=== PATIENT | female | born 1950 | race Caucasian/White ===

== ENCOUNTER 2023-12-15 10:31 | Outpatient (OUT) | payer MEDICARE, SELFPAY ==
[2023-12-15 11:25] LABS: Bilirubin Urine NEGATIVE (NEGATIVE); Blood Urine NEGATIVE (NEGATIVE); Clarity Urine CLEAR (CLEAR); Color Urine LT. YELLOW (YELLOW); Glucose Urine UA NEGATIVE (NEGATIVE); Ketones Urine NEGATIVE (NEGATIVE); Leukocyte Esterase Urine MODERATE (NEGATIVE); Nitrite Urine NEGATIVE (NEGATIVE); Protein Urine NEGATIVE (NEG/TRACE); Urobilinogen Urine 0.2 EU/dL (0.2-1.0)
== END 2023-12-15 10:32 | disposition home or self-care (01) ==
LOC: LAB 10:35
PROVIDERS: PCP Family Medicine
DX: R30.0 Dysuria (principal)
CPT/HCPCS: 81003

== ENCOUNTER 2024-03-08 08:50 | Emergency (ER) | payer MEDICARE, SELFPAY ==
[2024-03-08 08:53] VITALS: BP 147/99; PULSE 78; TEMP 36.4; O2SAT 99; BMI 35.9
--- OUTSIDE RECORDS SUMMARY | 2024-03-08 09:19 | XMS_ITS | CCD ---
Author Organization [facility] CliniSyid Care Team Providers Care Coat Check Attendant Name Role Phone ShahramChika Attending Unavailable Rafi Budren Unavailable Unavailable Unavailable BETO Rutherford Attending Provider [phone] Clarisa Rutherford Unavailable NO FAMILY, PHYSICIAN Primary Care Provider Unava ilable DO Rafi Burden Primary Care Provider DO Rafi Burden Attending Provider [phone] RAFI BURDEN Primary Care Physician Asaad, Imad Unavailable RYLIE, DR ROWE Admitting Unavailable BRIAN, DR MCKEE Primary Care Unavailable RYLIE, DR ROWE Attending Unavailable RYLIE, DR ROWE Consulting Unavailable BRIAN, DR MCKEE Primary Care Unavailable NISHA, DR JAE Richards Consulting Unavailable MARAL HARRIS Admitting Unavailable MARAL HARRIS Attending Unavailable MARAL HARRIS Consulting Unavailable BRIAN, DR MCKEE Primary Care Unavailable AWILDA, DR XIMENA Murray Consulting Unavailable TATIANA AMES Admitting Unavailable TATIANA AMES Attending Unavailable TATIANA AMES Consulting Unavailable MIKAYLA JUSTICE Attending Unavailable MIKAYLA JUSTICE Consulting Unavailable BRIAN, DR MCKEE Primary Care Unavailable MIKAYLA JUSTICE Admitting Unavailable DIAMANTE, DR MYRNA Richards Admitting Unavailable BRIAN, DR MCKEE Primary Care Unavailable DIAMANTE, DR MYRNA Richards Attending Unavailable DIAMANTE, DR MYRNA Richards Consulting Unavailable ANGLE SCHNEIDER Consulting Unavailable DINORA SHARFI Consulting Unavailable BRIAN, DR MCKEE Primary Care Unavailable AWILDA, DR XIMENA Murray Consulting Unavailable TATIANA AMES Admitting Unavailable TATIANA AMES Attending Unavailable TATIANA AMES Consulting Unavailable DO Rafi Burden Primary Care Provider DO Viktoriya Chow Attending Provider [phone] DO Rafi Bruden Attending Provider DO Rafi Burden Primary Care Provider DO Rafi Burden Attending Provider [phone] BETO Rutherford Attending Provider NO FAMILY, PHYSICIAN Primary Care Provider Unava ilable Brian, DO Mckee Primary Care Provider [phone] BETO Ricks Attending Provider DO Rafi Burden Attending Provider Rafi Burden Attending Unavailable Rafi Burden Primary Care Unavailable Rafi Burden Admitting Unavailable Rafi Burden Primary Care Unavailable Brian, Rafi Admitting Unavailable Rafi Burden Attending Unavailable Brian, Rafi Primary Care Unavailable Brenda Ricks Attending Unavailable Jason, Brenda Admitting Unavailable Clarisa Rutherford Attending Unavailable Sangeeta, Clarisa Admitting Unavailable NO FAMILY, PHYSICIAN Primary Care Unavailable Brian, Rafi Primary Care Unavailable Rafi Burden Admitting Unavailable Rafi Burden Attending Unavailable Orzebethany, Karissa Mccallum Attending Unavailable TATIANA AMES Attending Unavailable Orzech, Karissa Mccallum Attending Unavailable Orzebethany, Karissa Mccallum Attending Unavailable RAFI BURDEN Attending Unavailable RAFI BURDEN Referring Unavailable BRENDA RICKS Attending Unavailable RAFI BURDEN Referring Unavailable BRENDA RICKS Attending Unavailable RAFI BURDEN Referring Unavailable DILSHAD GARCIA Attending Unavailable VIKTORIYA CHOW Attending Unavailable DILSHAD GARCIA Attending Unavailable DILSHAD GARCIA Attending Unavailable RAFI BURDEN Referring Unavailable SWATHI العراقي Attending Unavailable SWATHI العراقي Referring Unavailable Allergies Allergy Classification Reported Allergen(s) Allergy Type Date of Onset Reaction(s) Facility (1 source) No Known Medication Allergies; Translations: [No Known Medication Allergies] Propensity to adverse reactions (disorder) [facility] Repository Medications Current Medications Medication Drug Class(es) Dates Sig (Normalized) Sig (Original) 0.25 MG, 0.5 MG Dose 3 ML semaglutide 0.68 MG/ML Pen Injector [Ozempic] (1 source) Start: 02-08-2024 inject 0.5 mg by subcutaneous injection every week Ozempic 2 mg/3 mL (0.25 mg or 0.5 mg dose) subcutaneous solution INJECT 0.5 mg SUBCUTANEOUSLY ONCE A WEEK Start Date: 02/08/24 Status: Ordered ALPRAZolam 0.5 mg oral tablet (20 sources) Benzodiazepine Start: 08-04-2022 take 1 tablet by mouth three times daily as needed for anxiety alprazolam 0.5 mg Tab 0.5 mg = 1 tab(s), Oral, TID, PRN for anxiety, Refills(s) 0 Start Date: 08/04/22 Status: Ordered Start: 05-12-2017 take [address] twice daily Alprazolam Active 1 TAB PO Twice daily May 12, 2017 12:00am ALPRAZolam Activ e amitriptyline / perphenazine (17 sources) Phenothiazine, Tricyclic Antidepressant Start: 08-04-2022 amitriptyline-perphenazine Refill(s) 0 Start Date: 08/04/22 Status: Ordered Start: 05-12-2017 take [address] at bedtime Perphenazine-Amitriptyline Active 1 TAB PO Bedtime May 12, 2017 12:00am aspirin 81 mg oral tablet (20 sources) Platelet Aggregation Inhibitor, Nonsteroidal Anti-inflammatory Drug Start: 11-28-2021 take 81 mg by mouth once daily Aspirin Active 81 MG PO Daily November 28, 2021 12:00am Start: 08-14-2017 End: 09-13-2017 take 1 tablet by mouth once daily Aspirin (Aspir-) 81 mg tablet,delayed release (DR/EC) Discontinued 81 MG PO Daily August 14, 2017 1:00am September 13, 2017 1:08am atorvastatin 10 mg oral tablet (3 sources) HMG-CoA Reductase Inhibitor Start: 12-14-2023 take 10 mg by mouth once daily Atorvastatin Active 10 MG PO Daily December 14, 2023 12:00am bumetanide 1 mg oral tablet (20 sources) Loop Diuretic Start: 05-12-2017 take 1 tablet by mouth once daily bumetanide 1 mg Tab mg tab(s), Oral, Daily, Refills(s) 0 Start Date: 08/04/22 Status: Ordered Bumetanide Activ e gabapentin 300 mg oral capsule (20 sources) Anti-epileptic Agent Start: 08-04-2022 gabapenti n 300 mg Cap Refills(s) 0 Start Date: 08/04/22 Status: Ordered Start: 11-28-2021 take [address] th twice daily Gabapentin Active 1 TAB PO Twice daily November 28, 2021 4:50am Start: 05-12-2017 End: 11-28-2021 take 1 tablet by mouth three times daily Gabapentin Discontinued 1 TAB PO Three times daily 270 90 December 23, 2020 5:11pm November 28, 2021 4:50am Gabapentin Activ e hydroCHLOROthiazide 12.5 mg / losartan potassium 50 mg oral tablet (17 sources) Thiazide Diuretic, Angiotensin 2 Receptor Je Start: 08-04-2022 hydrochlorothiazide-losartan 12.5 mg-50 mg Tab Refill(s) 0 Start Date: 08/04/22 Status: Ordered Start: 05-12-2017 take [address] th once daily Losartan-Hydrochlorothiazide Active 1 TA B PO Daily May 12, 2017 12:00am letrozole 2.5 mg oral tablet (20 sources) Aromatase Inhibitor Start: 11-28-2021 take 1 mg by mouth once daily letrozole 2.5 mg Tab mg tab(s), Oral, Daily, Refills(s) 0 Start Date: 08/04/22 Status: Ordered Start: 05-12-2017 End: 03-09-2019 take 2.5 mg by mouth once daily Letrozole Discontinued 2.5 MG PO Daily February 24, 2019 1:26pm March 09, 2019 2:57pm Letrozole Active Losartan Potassium-HCTZ (3 sources) Losartan Potassi um-HCTZ Active 24 hr metoprolol succinate 25 mg extended release oral tablet (16 sources) beta-Adrenergic Je Start: 12-14-2023 Metoprolol Succinate Active MG PO December 14, 2023 12:00am Start: 08-15-2017 End: 08-22-2017 take 12.5 mg by mouth once daily Metoprolol Succinate Discontinued 12.5 MG PO Daily 3.5 7 August 15, 2017 1:00am August 22, 2017 1:04am take [address] once daily Metoprolol Succinate ER 25 MG Oral Tablet Extended Release 24 Hour TAKE 1 TABLET DAILY. Quantity: 90 Refills: 3 Ordered: 02-Jan-2022 DO Active 24 hr mirabegron 25 mg extended release oral tablet (1 source) beta3-Adrenergic Agonist Start: 02-08-2024 take 1 tablet by mouth once daily Myrbetriq 25 mg oral tablet, extended release 25 mg = 1 tab(s), Oral, Daily, # 30 tab(s), Refills(s) 11, Pharmacy: [id number], 136, cm, 02/08/24 13:18:00 EDT, Height/Length Dosing, 75, kg, 02/08/24 13:18:00 EDT, Weight Dosing Start Date: 02/08/24 Status: Ordered Perphenazine-Amitrip tyline (3 sources) Perphenazine-Ami t riptyline Active phenazopyridine hydrochloride 200 mg oral tablet (3 sources) Start: 06-01-2022 take 1 tablet by mouth every eight hours Pyridium 200 MG 1 tablet after meals Orally Three times a day for 2 day(s) May, Active pioglitazone 30 mg oral tablet (3 sources) Peroxisome Proliferator Receptor alpha Agonist, Peroxisome Proliferator Receptor gamma Agonist, Thiazolidinedione Start: 12-14-2023 take 30 mg by mouth once daily Pioglitazone Active 30 MG PO Daily December 14, 2023 12:00am polyethylene glycol 3350 [id number] mg / potassium chloride 2970 mg / sodium bicarbonate 6740 mg / sodium chloride 5860 mg / sodium sulfate 80795 mg powder for oral solution (1 source) Osmotic Laxative Start: 10-07-2022 PEG-3350/Electrol ytes 236 GM as directed Orally once daily for 1 days Sep, Active potassium chloride 20 meq oral tablet (20 sources) Start: 08-04-2022 Potassium Chloride (Eqv-K-Tab) 20 mEq oral tablet, extended release Refills(s) 0 Start Date: 08/04/22 Status: Ordered Start: 05-12-2017 take [address] th once daily Potassium Chloride Active 1 TAB PO Daily May 12, 2017 12:00am Klor-Con Active Potassium Chloride Deborah ER (3 sources) Potassium Chlori de Deborah ER Active Completed/Discontinued Medications Medication Drug Class(es) Dates Sig (Normalized) Sig (Original) [id number] actuat albuterol 0.09 mg/actuat metered dose inhaler (10 sources) beta2-Adrenergic Agonist Start: 11-28-2021 End: 10-29-2023 Albuterol Sulfate Discontinued 1 INH INHALATION Q6H 8.5 November 28, 2021 12:00am October 29, 2023 5:36pm Use 4 times a day for the next 5 days, then 4 times a day as needed. Ca-D3-Mag Vi-Eexe-Tql-Rogelio-B or (Calcium 600-D3 Plus) 600 mg calcium- 800 unit-50 mg Tablet (10 sources) Start: 05-12-2017 End: 11-28-2021 take 1 tablet by mouth once daily Ca-D3-Mag De-Irvp-Fvb-Rogelio-Osbaldo r (Calcium 600-D3 Plus) 600 mg calcium- 800 unit-50 mg Tablet Discontinued 1 TAB PO Daily May 12, 2017 12:00am November 28, 2021 4:49am Start: 05-12-2017 End: 11-28-2021 take 1 tablet by mouth once daily Ca-D3-Mag Wc-Mlxf-Nvt-Rogelio-Bor (Calcium 600-D3 Plus) 600 mg calcium- 800 unit-50 mg Tablet Discontinued 1 TAB PO Daily May 11, 2017 11:00pm November 28, 2021 3:49am estradiol 0.1 mg/ml vaginal cream (4 sources) Estrogen Start: 08-04-2022 estradiol 0.1 mg/g Vag Crm See Instructions, 42.5 gm, Refill(s) 11, 1 gm vaginally nightly x 3 weeks, then 3x per week thereafter. also apply a pea-sized amount around the urethra., [facility], 136, cm, 08/04/22 13:50:00 EST, Height/Length Dosing, 77, kg, 08/04/22 13:50:00 EST, Weight Dosing Start Date: 08/04/22 Status: Ordered methylPREDNISolone 32 mg oral tablet (10 sources) Corticosteroid Start: 11-28-2021 End: 10-29-2023 take 1 tablet by mouth once daily Methylprednisolone (Medrol) 32 mg tablet Discontinued 32 MG PO Daily November 28, 2021 12:00am October 29, 2023 5:36pm Multivitamin preparation (10 sources) Start: 05-12-2017 End: 11-28-2021 take 1 tablet by mouth once daily Multivitamin Discontinued 1 TAB PO Daily May 12, 2017 12:00am November 28, 2021 4:50am Start: 05-12-2017 End: 11-28-2021 take 1 tablet by mouth once daily Multivitamin Discontinued 1 TAB PO Daily May 11, 2017 11:00pm November 28, 2021 3:50am nitrofurantoin, macrocrystals 25 mg / nitrofurantoin, monohydrate 75 mg oral capsule (7 sources) Nitrofuran Antibacterial Start: 10-29-2023 End: 12-14-2023 take 1 capsule by mouth twice daily at mealtime Nitrofurantoin Monohyd/M-Cryst (Macrobid) 100 mg capsule Discontinued 100 MG PO Twice daily 04 22October 29, 2023 12:00am December 14, 2023 6:35pm must administer with a meal/food Start: 06-01-2022 take 1 capsule by mo ut every twelve hours Macrobid 100 MG 1 cap(s) Orally 2 times a day for 5 day(s) May, Active nitroglycerin 0.4 mg sublingual tablet (10 sources) Nitrate Vasodilator Start: 08-15-2017 End: 11-28-2021 Nitroglycerin Discontinued 0.4 MG SUBLINGUAL Q5M August 15, 2017 1:00am November 28, 2021 4:50am until response; do not exceed 3 doses per event simvastatin 40 mg oral tablet (10 sources) HMG-CoA Reductase Inhibitor Start: 08-14-2017 End: 09-13-2017 take 40 mg by mouth once daily Simvastatin Discontinued 40 MG PO Daily August 14, 2017 1:00am September 13, 2017 1:08am Problems Active Problems Problem Classification Problem Date Documented Date Episodic/Chronic Acute bronchitis (10 sources) Acute bronchitis; Translations: [Acute bronchitis, unspecified] 11-28-2021 Episodic Acute myocardial infarction (14 sources) Myocardial infarction; Translations: [Non-ST elevation (NSTEMI) myocardial infarction] Onset: 11-28-2021 03-10-2019 Chronic Anxiety disorders (14 sources) Anxiety; Translations: [Anxiety disorder, unspecified] 03-10-2019 Chronic Calculus of urinary tract (10 sources) History of calculus of kidney; Translations: [Personal history of urinary calculi] Onset: 08-04-2022 Episodic Cancer of breast (10 sources) Malignant tumor of breast ; Translations: [Malignant neoplasm of unspecified site of unspecified female breast] 03-10-2019 Chronic Cardiac and circulatory congenital anomalies (10 sources) Bicuspid aortic valve; Translations: [Congenital insufficiency of aortic valve] 11-28-2021 Chronic Cardiac dysrhythmias (2 sources) Ventricular premature depolarization; Translations: [Ventricular tachycardia] Onset: 12-01-2021 Chronic Chronic kidney disease (1 source) Chronic kidney disease, unspecified; Translations: [Chronic kidney disease, unspecified] Onset: 03-09-2023 Chronic Chronic kidney disease (1 source) Chronic kidney disease; Translations: [Chronic kidney disease, stage 3b] Onset: 01-27-2024 Congestive heart failure; nonhypertensive (5 sources) Heart failure; Translations: [Heart failure, unspecified] Onset: 12-01-2021 08-04-2022 Chronic Coronary atherosclerosis and other heart disease (14 sources) Acute coronary syndrome; Translations: [Acute ischemic heart disease, unspecified] Onset: 07-16-2021 03-10-2019 Chronic Diabetes mellitus with complications (1 source) Type 2 diabetes mellitus with other circulatory complications; Translations: [Type 2 diabetes mellitus with other circulatory complications] Onset: 01-27-2024 Chronic Diabetes mellitus without complication (5 sources) Type 2 diabetes mellitus; Translations: [Type 2 diabetes mellitus without complications] Onset: 01-07-2022 08-04-2022 Chronic Diabetes mellitus without complication (1 source) Diabetes mellitus without complication; Translations: [Type 2 diabetes mellitus with diabetic chronic kidney disease] Onset: 03-09-2023 Disorders of lipid metabolism (15 sources) Hyperlipidemia; Translations: [Hyperlipidemia, unspecified] Onset: 01-07-2022 03-10-2019 Chronic Diverticulosis and diverticulitis (3 sources) Diverticulosis of sigmoid colon; Translations: [Diverticulosis of large intestine without perforation or abscess without bleeding] Chronic Esophageal disorders (14 sources) Gastroesophageal reflux disease; Translations: [Gastro-esophageal reflux disease without esophagitis] 03-10-2019 Chronic Essential hypertension (18 sources) Benign essential hypertension; Translations: [Benign essential hypertension] Onset: 01-07-2022 03-10-2019 Chronic Genitourinary symptoms and ill-defined conditions (4 sources) Urge incontinence; Translations: [Urge incontinence of urine] Onset: 12-28-2023 Chronic Hypertension with complications and secondary hypertension (3 sources) Hypertensive heart disease with heart failure; Translations: [Hypertension secondary to endocrine disorders] Onset: 12-01-2021 Chronic Menopausal disorders (10 sources) Menopausal syndrome; Translations: [Menopausal and female climacteric states] 09-08-2018 Chronic Other and unspecified benign neoplasm (3 sources) Benign neoplasm of cecum; Translations: [Benign neoplasm of cecum] Episodic Other connective tissue disease (5 sources) Other symptoms and signs involving the musculoskeletal system; Translations: [OTH SX AND SYMP INVOLV MUSCULOSKELTAL] Onset: 06-16-2022 Episodic Other hematologic conditions (13 sources) Raised cardiac enzyme or marker; Translations: [Other abnormal blood chemistry] 11-28-2021 Episodic Other nutritional; endocrine; and metabolic disorders (4 sources) Body mass index 40+ - severely obese; Translations: [Morbid obesity] Onset: 12-28-2023 Chronic Other nutritional; endocrine; and metabolic disorders (1 source) Obesity, unspecified; Translations: [Obesity, unspecified] Onset: 01-27-2024 Chronic Other screening for suspected conditions (not mental disorders or infectious disease) (14 sources) Patient encounter status; Translations: [Encounter for screening for osteoporosis] Onset: 01-13-2024 09-08-2018 Episodic [place]-; endo-; and myocarditis; cardiomyopathy (except that caused by tuberculosis or sexually transmitted disease) (13 sources) Hypertrophic cardiomyopathy; Translations: [Other hypertrophic cardiomyopathy] 11-28-2021 Chronic Residual codes; unclassified (3 sources) Family history of polyp of colon; Translations: [Family history of colonic polyps] Episodic Unclassified (2 sources) COUGH, UNSPECIFIED; Translations: [COUGH, UNSPECIFIED] Onset: 12-01-2021 Unclassified (1 source) CONTACT W/AND (SUSP) EXPOS COVID-19; Translations: [CONTACT W/AND (SUSP) EXPOS COVID-19] Onset: 12-01-2021 Urinary tract infections (16 sources) Urinary tract infection, site not specified; Translations: [Urinary tract infectious disease] Onset: 08-04-2022 Episodic Past or Other Problems Problem Classification Problem Date Documented Date Episodic/Chronic Chronic obstructive pulmonary disease and bronchiectasis (1 source) Bronchitis, not specified as acute or chronic; Translations: [BRONCHITIS NOT SPEC ACUTE/CHRON] Onset: 12-01-2021 Episodic Genitourinary symptoms and ill-defined conditions (19 sources) Dysuria; Translations: [Dysuria] Onset: 06-05-2022 Episodic Other aftercare (1 source) Other vermin exterminator (current) drug therapy; Translations: [OTH LONGTERM CURRENT DRUG THERAPY] Onset: 12-01-2021 Episodic Other hematologic conditions (1 source) Other specified abnormalities of plasma proteins; Translations: [OTH SPEC ABNORM PLASMA PROTEINS] Onset: 12-01-2021 Episodic Residual codes; unclassified (1 source) Personal history of other specified conditions; Translations: [PERSONAL HISTORY OTH SPEC CONDITION] Onset: 12-01-2021 Episodic Thyroid disorders (1 source) Disorder of thyroid, unspecified; Translations: [DISORDER OF THYROID UNSPECIFIED] Onset: 06-20-2022 Episodic Unclassified (3 sources) Never smoked tobacco; Translations: [Never a smoker] Unclassified (1 source) COUGH, UNSPECIFIED; Translations: [COUGH, UNSPECIFIED] Onset: 11-28-2021 Results Test Name Value Interpretation Reference Range Facility Ambulatory Visit Summaryon 0 02-08-2024 Ambulatory Visit Summary Ambulatory Visit Summary LARISA LO :1950 Visit Date:02/08/2024 Ambulatory Visit Instructions Your Diagnosis Urge incontinence History of kidney stones Frequent UTI Your Care Team Attending Physician - RICHIE Carrasco APRN, Karissa Mccallum Primary Care Physician - RAFI BURDEN DO This Is Your Medications List estradiol topical (estradiol 0.1 mg/g Vag Crm) mirabegron (Myrbetriq 25 mg oral tablet, extended release) Contact prescribing physician if questions or concerns alprazolam (alprazolam 0.5 mg Tab) amitriptyline-perphenazine bumetanide (bumetanide 1 mg Tab) gabapentin (gabapentin 300 mg Cap) hydrochlorothiazide-losart an (hydrochlorothiazide-losar horne 12.5 mg-50 mg Tab) letrozole (letrozole 2.5 mg Tab) potassium chloride (Potassium Chloride (Eqv-K-Tab) 20 mEq oral tablet, extended release) semaglutide (Ozempic 2 mg/3 mL (0.25 mg or 0.5 mg dose) subcutaneous solution) Procedures Performed Lumpectomy of breast. Discharge Vitals Heart Rate (Peripheral) 72 Respiratory Rate 16 Blood Pressure 132/80 Height 136 cm Height 54 in Weight 75 kg Weight 165 lb BMI 40.55 What to do next Scheduled Follow-Up Appointments Wednesday 2:30 PM EDT With: RICHIE Carrasco APRN, [facility] Where: [facility] [address] [place] [address] [place] [address]- You Need to Schedule the Following Appointments Follow Up with RICHIE Carrasco APRN, [facility], FAM, URL When: Where: Medications What How Much When Why Instructions Unchanged estradiol topical (estradiol 0.1 mg/ g Vag Crm) See instructions Frequent UTI History of kidney stones 1 gm vaginally nightly x 3 weeks, then 3x per week thereafter. also apply a pea-sized amount around the urethra. Unchanged mirabegron (Myrbetriq 25 mg oral tablet, extended release) 1 Tablets By Mouth Every day Urge incontinence Pickup at [facility] Unchanged alprazolam (alprazolam 0.5 mg Tab) 1 Tablets By Mouth 3 times a day as needed for for anxiety Contact prescribing physician if questions or concerns Unchanged amitriptyline-perphenazine Contact prescribing physician if questions or concerns Unchanged bumetanide (bumetanide 1 mg Tab) By Mouth Every day Contact prescribing physician if questions or concerns Unchanged gabapentin (gabapentin 300 mg Cap) Contact prescribing physician if questions or concerns Unchanged hydrochlorothiazide-losart an (hydrochlorothiazide-losar horne 12.5 mg-50 mg Tab) Contact prescribing physician if questions or concerns Unchanged letrozole (letrozole 2.5 mg Tab) By Mouth Every day Contact prescribing physician if questions or concerns Unchanged potassium chloride (Potassium Chloride (Eqv-K-Tab) 20 mEq oral tablet, extended release) Contact prescribing physician if questions or concerns Unchanged semaglutide (Ozempic 2 mg/ 3 mL (0.25 mg or 0.5 mg dose) subcutaneous solution) INJECT 0.5 mg SUBCUTANEOUSLY ONCE A WEEK Contact prescribing physician if questions or concerns Pharmacy Information [id number]: [address] [place] [id number] [phone] Allergies No Known Medication Allergies Problems Ongoing - Any problem that you are currently receiving treatment for. Anxiety Benign essential hypertension Coronary atherosclerosis Frequent UTI Gastroesophageal reflux disease Heart failure History of kidney stones Hyperlipidemia Myocardial infarction Type 2 diabetes mellitus Urge incontinence Patient Survey You may receive a survey via text or e-mail asking about your office visit. Please share your experience with us by completing your survey. We appreciate your feedback and thank you for choosing us for your care. Education Materials Urinary Incontinence Urinary incontinence refers to a condition in which a person is unable to control where and when to pass urine. A person with this condition will urinate involuntarily. This means that the person urinates when he or she does not mean to. What are the causes? This condition may be caused by: ? Medicines. ? Infections. ? Constipation. ? Overactive bladder muscles. ? Weak bladder muscles. ? Weak pelvic floor muscles. These muscles provide support for the bladder, intestine, and, in women, the uterus. ? Enlarged prostate in men. The prostate is a gland near the bladder. When it gets too big, it can pinch the urethra. With the urethra blocked, the bladder can weaken and lose the ability to empty properly. ? Surgery. ? Emotional factors, such as anxiety, stress, or post-traumatic stress disorder (PTSD). ? Spinal cord injury, nerve injury, or other neurological conditions. ? Pelvic organ prolapse. This happens in women when organs move out of place and into the vagina. This movement can prevent the bladder and urethra from working properly. What increases the r (more content not included)... Normal [facility] Urology Office/Clinic Noteon 02-08-2024 Urology Office/Clinic Note Urology Office/Clinic Note Chief Complaint f/u to starting Estrogen Cream & Myrbetriq HPI Staff 74 year old female patient presents today for a 5 week follow up to starting Estrace Cream & Myrbetriq 25mg qd therapy. DX: Frequent UTI & Hx of Kidney Stones Is using Estrogen Cream 3x/week. Denies UTI since last encounter. Denies pain/burning w/urination. Does note some pressure. Did not start Myrbetriq. States she was not aware of the script. Does have some incontinence. Not daily. Usually with urgency. Pt did not give sample. States she voided prior to appt. History of Present Illness Tests reviewed: none. I have reviewed the previous health record information and history for this patient from [facility]. I have reviewed and verified the staff HPI to be accurate for this encounter. There have been no associated fever, chills, flank pain, or blood in the urine. Denies any urinary infections since last encounter. Review of Systems PHQ Score Initial Depression Screen Score: 0 SCORE ROS - Provider Constitutional: denies weight loss, denies hot flashes. Eyes: denies eye problems. Gastrointestinal: denies nausea, denies vomiting. Cardiovascular: denies chest pain or angina. Integumentary: no dryness Musculoskeletal: denies musculoskeletal symptoms. ENMT: denies otolaryngeal symptoms. Respiratory: no shortness of breath. Heme/Lymph: denies easy bleeding tendency, denies easy bruising tendency. Psychiatric: no confusion, no anxiety. Genitourinary: See HPI. Physical Exam Vitals & Measurements HR: 72(Peripheral) RR: 16 BP: 132/80 HT: 54 in HT: 136 cm WT: 75 kg WT: 165 lb BMI: 40.55 General Appearance: alert , no acute distress, well nourished, well developed female. Assessment/Plan Primary historian is pt's however pt does not wish for him to be in the room with her. Spoke with separately to obtain accurate information. states that pt falls very often, every 2-3 days mainly when she is trying to get to the bathroom. Pt states that last time she fell was over a month ago. He also states he has noticed a cognitive decline in pt within the last 3-4 months. Has not been sleeping well. Strongly advised pt's that they need to consult with primary care due to frequent falls, issues with sleeping and confusion. 1. Urge incontinence (N39.41: Urge incontinence) Has had mild UUI for a long time, leaks some on the way to the bathroom but recently worsening since the beginning of the year. Over the past few mos, also started to have full incontinence episodes - going through several depends daily. PVR 01/03/24: ~115 ml Started on Myrbetriq 25mg ER qd last visit. Reports that she never picked up a medication because the pharmacy did not call her. Shares that the severity of leakage comes and goes. Pt states leakage happens out of no where. Voided prior to appt. States she will try to void when she gets home. Again discussed the importance of timed voids. Advised pt that she needs to go sit on the toilet every 2 hours even without the urge to void. Will resend script for Myrbetriq. Pt to call our office if med is costly. Discussed more invasive tx such as Botox. -Timed voids -Begin Myrbetriq 25mg ER qd Follow up in 6 wks w/ PVR (as long as it's available). 2. History of kidney stones (Z87.442: Personal history of urinary calculi) Renal US 08/10/2022 and KUB 11/05/2023 negative Denies any recent stone episode, no flank pain. 3. Frequent UTI (N39.0: Urinary tract infection, site not specified) Restarted on Estrace cream at last visit due to pt stopping cream. Pt states she is still applying cream. Denies known UTIs since last visit. Asx. States she has not been checked for a UTI. Pt did not provide UA sample today. Follow-up With When Contact Information RICHIE Carrasco APRN, Karissa Mccallum, FAM, URL Additional Instructions: 6 wks w/ PVR Patient Education Urinary Incontinence I, Brittnee Peacock, personally scribed for RICHIE Monreal, KYA on 02/08/2024 13:41:45. . Documentation recorded by the chrissy Peacock accurately reflects the services(s) I performed and decisions made by me. Authenticated by Karissa Carrasco APRN, FNP-C on 02/08/2024 13:51:40. Problem List/Past Medical History Ongoing Anxiety Benign essential hypertension Coronary atherosclerosis Frequent UTI Gastroesophageal reflux disease Heart failure History of kidney stones Hyperlipidemia Myocardial infarction Type 2 diabetes mellitus Urge incontinence Historical No qualifying data Procedure/Surgical History Lumpectomy of breast. Medications alprazolam 0.5 mg Tab, 0.5 mg= 1 tab(s), Oral, TID, PRN amitriptyline-perphenazine bumetanide 1 mg Tab, Oral, Daily estradiol 0.1 mg/g Vag Crm, See Instructions, 11 refills gabapentin 300 mg Cap hydrochlorothiazide-losart an 12.5 mg-50 mg Tab letrozole 2.5 (more content not included)... Normal [facility] Comment on above: Result Comment: Elec tronically Signed By: RICHIE Carrasco APRN, [place] X\.br\Date and Time Signed: 02/08/24 13:51 EDT\.br\Electronically Co-Signed By: Brittnee Peacock\.br\Date and Time Co-Signed: 02/08/24 13:42 EDT A1C with Estimated Average Digna ramirez 01-27-2024 Glucose [Mass/Vol] 151 mg/dL Normal [facility] Comment on above: Result Comment: PERF ORMED BY: [place] [address] PATHOLOGIST COGENERATION TECHNICIAN ABNER JOHNSTON M.D. Performed By: #### L IPID, CMP #### [facility] [address] [place] [address] HbA1c (Bld) [Mass fraction] 6.9 % High 4.3-5.6 [facility] Comment on above: Result Comment: Incr eased risk for diabetes: 5.7 - 6.4 diabetes: >6.4 glycemic control for adults with diabetes: <7.0 Performed By: #### L IPID, CMP #### [facility] [address] [place] [address] [place] Alanine aminotransferase [En zymatic activity/volume] in Serum or PlasmaOrdered By: Rafi Burden on 01-27-2024 ALT [Catalytic activity/Vol] 22 U/L Normal 7-52 [facility] Comment on above: Performed By: #### L IPID, CMP #### [facility] [address] [place] [address] [place] Albumin [Mass/volume] in Ser um or Plasma by Bromocresol green (BCG) dye binding methoOrdered By: Rafi Burden on 01-27-2024 Albumin BCG dye [Mass/Vol] 4.4 g/dL 3.5-5.7 [facility] Alkaline phosphatase [Enzyma tic activity/volume] in Serum or PlasmaOrdered By: Rafi Burden on 01-27-2024 ALP [Catalytic activity/Vol] 66 U/L Normal 34-104 [facility] Comment on above: Result Comment: PERF ORMED BY: [place] [address] PATHOLOGIST COGENERATION TECHNICIAN ABNER JOHNSTON M.D. Performed By: #### L IPID, CMP #### [address] Aspartate aminotransferase [ Enzymatic activity/volume] in Serum or PlasmaOrdered By: Rafi Burden on 01-27-2024 AST [Catalytic activity/Vol] 19 U/L Normal 13-39 [facility] Comment on above: Performed By: #### L IPID, CMP #### [place] [address] [place] Bilirubin.total [Mass/volume ] in Serum or PlasmaOrdered By: Rafi Burden on 01-27-2024 Bilirubin [Mass/Vol] 0.5 mg/dL Normal 0.3-1.[address] [facility] Comment on above: Performed By: #### L IPID, CMP #### [place] [address] [place] Calcium [Mass/volume] in Ser um or PlasmaOrdered By: Rafi Burden on 01-27-2024 Calcium [Mass/Vol] 10.1 mg/dL Normal 8.6-10.3 [facility] Comment on above: Performed By: #### L IPID, CMP #### [place] [address] [place] Carbon dioxide, total [Moles /volume] in Serum or PlasmaOrdered By: Rafi Burden on 01-27-2024 CO2 [Moles/Vol] 34.8 mmol/L High 21.0-31.0 [facility] Comment on above: Performed By: #### L IPID, CMP #### [place] [address] [place] Chloride [Moles/volume] in S janeth or PlasmaOrdered By: Rafi Burden on 01-27-2024 Chloride [Moles/Vol] 99 mmol/L Normal 98-[address] [facility] Comment on above: Performed By: #### L IPID, CMP #### [address] Comprehensive Metabolic Pane yan 01-27-2024 Albumin [Mass/Vol] 4.4 g/dL Normal 3.5-5.7 [facility] Comment on above: Performed By: #### L IPID, CMP #### [address] GFR/1.73 sq M.predicted MDRD (S/P/Bld) [Vol rate/Area] 33.425 mL/min/{1.73_m2} Normal [facility] Comment on above: Performed By: #### L IPID, CMP #### [address] Creatinine [Mass/volume] in Serum or PlasmaOrdered By: Rafi Burden on 01-27-2024 Creatinine [Mass/Vol] 1.60 mg/dL High 0.60-1.20 [facility] Comment on above: Performed By: #### L IPID, CMP #### [address] Erythrocyte distribution wid th [Ratio] by Automated countOrdered By: Rafi Burden on 01-27-2024 Erythrocyte distribution width (RBC) [Ratio] 14.0 % Normal 11.9-15.3 [facility] Comment on above: Performed By: #### C BCNO #### [address] Erythrocytes [#/volume] in B lood by Automated countOrdered By: Rafi Burden on 01-27-2024 RBC (Bld) [#/Vol] 4.09 10*6/uL Normal 3.60-5.00 [facility] Comment on above: Performed By: #### C BCNO #### [address] Glucose [Mass/volume] in Ser um or PlasmaOrdered By: Rafi Burden on 01-27-2024 Glucose [Mass/Vol] 160 mg/dL High 70-100 [facility] Comment on above: ADA recommended refe rence rangeRandom Glucose Reference Range is dependent on time and content of last meal. Glucose of more than 200 mg/dL in a nonstressed, ambulatory subject supports the diagnosis of Diabetes Mellitus. Result Comment: [facility] Glucose Reference Range is dependent on time and content of last meal. Glucose of more than 200 mg/dL in a nonstressed, ambulatory subject supports the diagnosis of Diabetes Mellitus. ADA recommended reference range Performed By: #### L IPID, CMP #### [address] Hematocrit [Volume Fraction] of Blood by Automated countOrdered By: Rafi Burden on 01-27-2024 Hematocrit (Bld) [Volume fraction] 40.1 % Normal 34.0-46.4 [facility] Comment on above: Performed By: #### C BCNO #### [address] Hemoglobin [Mass/volume] in BloodOrdered By: Rafi Burden on 01-27-2024 Hemoglobin (Bld) [Mass/Vol] 13.3 g/dL Normal 11.8-15.4 [facility] Comment on above: Performed By: #### C BCNO #### [address] Hemogram CBC Without Diffon 01-27-2024 Mean Corpuscular HGB Conc 33.1 g/dL Normal 32.0-35.0 [facility] Comment on above: Performed By: #### C BCNO #### [address] WBC (Bld) [#/Vol] 7.4 10*3/uL Normal 3.8-11.6 [facility] Comment on above: Performed By: #### C BCNO #### [place] [address] [place] Leukocytes [#/volume] correc pratibha for nucleated erythrocytes in Blood by Automated counOrdered By: Rafi Burden on 01-27-2024 WBC corrected for nucl RBC Auto (Bld) [#/Vol] 7.4 10*3/uL 3.8-11.6 [facility] MCH [Entitic mass] by Automa pratibha countOrdered By: Rafi Burden on 01-27-2024 MCH (RBC) [Entitic mass] 32.5 pg Normal 24.7-34.3 [facility] Comment on above: Performed By: #### C BCNO #### [address] MCHC Auto (RBC) [Mass/Vol]Or dered By: Rafi Burden on 01-27-2024 MCHC (RBC) [Mass/Vol] 33.1 g/dL 32.0-35.0 [facility] MCV [Entitic volume] by Auto mated countOrdered By: Rafi Burden on 01-27-2024 MCV (RBC) [Entitic vol] 98.1 fL Normal 80-100 [facility] Comment on above: Performed By: #### C BCNO #### [address] No Panel InformationOrdered By: Rafi Burden on 01-27-2024 Estimated GFR (CKD-EPI) 33.425 mL/Min [facility] Creatinine Clearance (Chem N/A [facility] Platelet mean volume [Entiti c volume] in Blood by Automated countOrdered By: Rafi Burden on 01-27-2024 Platelet mean volume (Bld) [Entitic vol] 8.0 fL Normal 6.3-10.7 [facility] Comment on above: Result Comment: PERF ORMED BY: [address] [place] [address] PATHOLOGIST COGENERATION TECHNICIAN ABNER JOHNSTON M.D. Performed By: #### C BCNO #### [address] Platelets [#/volume] in Bloo d by Automated countOrdered By: Rafi Burden on 01-27-2024 Platelets (Bld) [#/Vol] 271 10*3/uL Normal 150-450 [facility] Comment on above: Performed By: #### C BCNO #### [address] Potassium [Moles/volume] in Serum or PlasmaOrdered By: Rafi Burden on 01-27-2024 Potassium [Moles/Vol] 4.0 mmol/L Normal 3.5-5.1 [facility] Comment on above: Performed By: #### L IPID, CMP #### [address] Protein [Mass/volume] in Ser um or PlasmaOrdered By: Rafi Burden on 01-27-2024 Protein [Mass/Vol] 7.5 g/dL Normal 6.4-8.9 [facility] Comment on above: Performed By: #### L IPID, CMP #### [address] Serum globulin measurement b y calculation (mass/volume)Ordered By: Rafi Burden on 01-27-2024 Globulin (S) [Mass/Vol] 3.1 g/dL [facility] Comment on above: Performed By: #### L IPID, CMP #### [address] Serum or plasma albumin/glob ulin mass ratioOrdered By: Rafi Burden on 01-27-2024 Albumin/Globulin [Mass ratio] 1.4 {ratio} [facility] Comment on above: Performed By: #### L IPID, CMP #### [address] Serum or plasma anion gap de terminationOrdered By: Rafi Burden on 01-27-2024 Anion gap [Moles/Vol] 13.2 mmol/L Normal 6.0-15.0 [facility] Comment on above: Performed By: #### L IPID, CMP #### [place] [address] [place] Sodium [Moles/volume] in Ser um or PlasmaOrdered By: Rafi Burden on 01-27-2024 Sodium [Moles/Vol] 143 mmol/L Normal 136-145 [facility] Comment on above: Performed By: #### L IPID, CMP #### [place] [address] [place] Urea nitrogen [Mass/volume] in Serum or PlasmaOrdered By: Rafi Burden on 01-27-2024 Urea nitrogen [Mass/Vol] 38 mg/dL High 7-25 [facility] Comment on above: Performed By: #### L IPID, CMP #### [place] [id number] [facility] MM screening mammo BI w/CADo n 01-13-2024 MM screening mammo BI w/CAD [facility] [address] [place] [address] Mammography Report Signed Patient: Larisa Lo MR#: [id number] 271 : 1950 Acct:[id number] Age/Sex: 73 / F ADM Date: 01/13/24 Loc: [place] Room: Type: [facility] Attending Dr: Brenda WANGC Copies to: RICHIE Cowan DO Ordering Provider: RICHIE Cowan Date of Service: 01/13/24 MM/MM screening mammo BI w/CAD: screen CLINICAL DATA: Screening for malignancy. History of left-sided breast cancer status post lumpectomy in 2013. SCREENING MAMMOGRAM - FULL FIELD DIGITAL WITH TOMOSYNTHESIS AND CAD COMPARISON:Mammograms dating back to 2019 Tomosynthesis craniocaudal and mediolateral oblique views of both breasts were obtained using low- dose digital technique. This examination was reviewed with the aid of CAD. FINDINGS: The breast tissue is composed of scattered fibroglandular densities. There are no dominant masses, typically malignant calcifications or architectural distortion. There has been no significant interval change. MM/MM screening mammo BI w/CAD IMPRESSION: NO MAMMOGRAPHIC EVIDENCE OF MALIGNANCY. ROUTINE FOLLOW-UP IS RECOMMENDED IN ONE YEAR. RESULT CODE: 1 Negative DENSITY CODE: 2 (approximately 25-50% glandular) FOLLOW UP: 1YR The false-negative rate of mammography is approximately 10-percent. Management of a palpable abnormality must be based on clinical grounds. Patient was entered into a reminder system with a target due date for the next mammogram. Impression dictated by: Manny Blanco Jr., D.O.01/13/2024 11:40 AM Dictation Location: [facility] Transcribed By: MICHI 01/13/24 1140 Dictated By: Manny Blanco Jr, 01/13/24 1139 Signed By: 01/13/24 1140 Normal [facility] Patient Educationon 01-03-20 Patient Education Obstetrics and Gynec ology Kegel Exercises Kegel exercises can help strengthen your pelvic floor muscles. The pelvic floor is a group of muscles that support your rectum, small intestine, and bladder. In females, pelvic floor muscles also help support the uterus. These muscles help you control the flow of urine and stool (feces). Kegel exercises are painless and simple. They do not require any equipment. Your provider may suggest Kegel exercises to: ? Improve bladder and bowel control. ? Improve sexual response. ? Improve weak pelvic floor muscles after surgery to remove the uterus (hysterectomy) or after , in females. ? Improve weak pelvic floor muscles after prostate gland removal or surgery, in males. Kegel exercises involve squeezing your pelvic floor muscles. These are the same muscles you squeeze when you try to stop the flow of urine or keep from passing gas. The exercises can be done while sitting, standing, or lying down, but it is best to vary your position. Ask your health care provider which exercises are safe for you. Do exercises exactly as told by your health care provider and adjust them as directed. Do not begin these exercises until told by your health care provider. Exercises How to do Kegel exercises: 1. Squeeze your pelvic floor muscles tight. You should feel a tight lift in your rectal area. If you are a female, you should also feel a tightness in your vaginal area. Keep your stomach, buttocks, and legs relaxed. 2. Hold the muscles tight for up to 10 seconds. 3. Breathe normally. 4. Relax your muscles for up to 10 seconds. 5. Repeat as told by your health care provider. Repeat this exercise daily as told by your health care provider. Continue to do this exercise for at least 4?6 weeks, or for as long as told by your health care provider. You may be referred to a physical therapist who can help you learn more about how to do Kegel exercises. Depending on your condition, your health care provider may recommend: ? Varying how long you squeeze your muscles. ? Doing several sets of exercises every day. ? Doing exercises for several weeks. ? Making Kegel exercises a part of your regular exercise routine. This information is not intended to replace advice given to you by your health care provider. Make sure you discuss any questions you have with your health care provider. Document Revised: 11/13/2021 Document Reviewed: 11/13/2021 [employer] Patient Education ? 2022 [employer] Overactive Bladder, Adult Overactive bladder is a condition in which a person has a sudden and frequent need to urinate. A person might also leak urine if he or she cannot get to the bathroom fast enough (urinary incontinence). Sometimes, symptoms can interfere with work or social activities. What are the causes? Overactive bladder is associated with poor nerve signals between your bladder and your brain. Your bladder may get the signal to empty before it is full. You may also have very sensitive muscles that make your bladder squeeze too soon. This condition may also be caused by other factors, such as: ? Medical conditions: ? Urinary tract infection. ? Infection of nearby tissues. ? Prostate enlargement. ? Bladder stones, inflammation, or tumors. ? Diabetes. ? Muscle or nerve weakness, especially from these conditions: ? A spinal cord injury. ? Stroke. ? Multiple sclerosis. ? Parkinson's disease. ? Other causes: ? Surgery on the uterus or urethra. ? Drinking too much caffeine or alcohol. ? Certain medicines, especially those that eliminate extra fluid in the body (diuretics). ? Constipation. What increases the risk? You may be at greater risk for overactive bladder if you: ? Are an older adult. ? Smoke. ? Are going through menopause. ? Have prostate problems. ? Have a neurological disease, such as stroke, dementia, Parkinson's disease, or multiple sclerosis (MS). ? Eat or drink alcohol, spicy food, caffeine, and other things that irritate the bladder. ? Are overweight or obese. What are the signs or symptoms? Symptoms of this condition include a sudden, strong urge to urinate. Other symptoms include: ? Leaking urine. ? Urinating 8 or more times a day. ? Waking up to urinate 2 or more times overnight. How is this diagnosed? This condition may be diagnosed based on: ? Your symptoms and medical history. ? A physical exam. ? Blood or urine tests to check for possible causes, such as infection. You may also need to see a health care provider who specializes in urinary tract problems. This is called a urologist. How is this treated? Treatment for overactive bladder depends on the cause of your condition and whether it is mild or severe. Treatment may include: ? Bladder training, such as: ? Learning to control the urge to urinate by following a schedule to urinate at regular intervals. ? Doing Kegel exer (more content not included)... Normal [facility] Urology Office/Clinic Noteon 01-03-2024 Urology Office/Clinic Note Chief Complaint 6m HPI Staff 6m DX: Frequent UTI & Hx of Kidney Stones *Estrogen Cream therapy Pt is a poor historian. States she Just started using the Estrogen Cream a couple days ago. States she is using it everyday. Has been having incontinence. Wears a pad. Changes 1-4x/day. History of Present Illness I have reviewed and verified the staff HPI to be accurate for this encounter. Portions of this record may have been created with voice recognition artificial intelligence software, specifically [employer], [employer] and or [employer]. Substitutions may have occurred due to the inherent limitations of voice recognition and artificial intelligence software. Review of Systems PHQ Score Initial Depression Screen Score: 0 SCORE Physical Exam Vitals & Measurements HT: 54 in HT: 136 cm WT: 86.5 kg WT: 190.3 lb BMI: 46.77 General: Well developed, well nourished, in no acute distress. Pt is here w/ today who assists in providing some of her history. Genitourinary: Flank Pain: none. Bladder: nonpalpable. Assessment/Plan 1. Urge incontinence (N39.41: Urge incontinence) Has had mild UUI for a long time, leaks some on the way to the bathroom but recently worsening since the beginning of the year. Over the past few mos, also started to have full incontinence episodes - going through several depends daily. q3hr frequency - discussed more frequent timed voids q2hrs and voiding maneuvers. Discussed bladder irritants, avoid. Stopped estrogen cream previously, discussed purpose in setting of urgency as well as UTIs. Pt to restart. PVR 115 ml Discussed use of anticholinergic and beta 3 agonists for bladder control. Typically, insurance requires the failure of two anticholinergic medications before considering beta 3 agonist such as Myrbetriq/Gemtesa. Even w/ insurance coverage, beta 3 agonist may be cost prohibitive. However, I do not believe she is a good candidate for anticholinergic medications, given her intermittent confusion, falls, chronically dry eyes. Discussed SEs for Myrbetriq. Pt would like to trial. Discussed w/ to call office if not covered or too expensive. -restart estrogen cream regimen -Start Myrbetriq ER 25 mg QD. If too expensive, will trial Gemtesa. -f/u 8 wks w/ PVR 2. History of kidney stones (Z87.442: Personal history of urinary calculi) R US 08/10/2022 and KUB 11/05/2023 negative Denies any recent stone episode, no flank pain 3. Frequent UTI (N39.0: Urinary tract infection, site not specified) Estrogen cream and OTC preventative supplements. Pt unsure if she has been treated for UTI since prior OV. At one point she verbalizes having UTIs often still, at another point says she's been doing great. No record of any UCX found on [facility]. Does admit she has not been using estrogen cream, thought she could stop. Reiterated purpose of estrace, restart. No urine provided for specimen today. Denies any sxs of UTI at this time, denies recent episode of gross hematuria. Pt to call office w/ all future urinary sxs. -Restart Estrogen cream Follow-up No qualifying data available Patient Education Kegel Exercises Urinary Incontinence Overactive Bladder, Adult Problem List/Past Medical History Ongoing Anxiety Benign essential hypertension Coronary atherosclerosis Frequent UTI Gastroesophageal reflux disease Heart failure History of kidney stones Hyperlipidemia Myocardial infarction Type 2 diabetes mellitus Urge incontinence Historical No qualifying data Procedure/Surgical History Lumpectomy of breast. Medications alprazolam 0.5 mg Tab, 0.5 mg= 1 tab(s), Oral, TID, PRN amitriptyline-perphenazine bumetanide 1 mg Tab, Oral, Daily estradiol 0.1 mg/g Vag Crm, See Instructions, 11 refills gabapentin 300 mg Cap hydrochlorothiazide-losart an 12.5 mg-50 mg Tab letrozole 2.5 mg Tab, Oral, Daily Myrbetriq 25 mg oral tablet, extended release, 25 mg= 1 tab(s), Oral, Daily, 2 refills Potassium Chloride (Eqv-K-Tab) 20 mEq oral tablet, extended release Allergies No Known Medication Allergies Social History Tobacco Never (less than 100 in lifetime) Tobacco Use:. Never Smokeless Tobacco Use:. Household tobacco concerns: No. Yes, 12/28/2023 Family History Bladder cancer: Brother. Immunizations Vaccine Date Status Comments SARS-CoV-2 (COVID-19) [id number] 06/19/2022 Recorded influenza virus vaccine, inactivated 05/11/2022 Recorded SARS-CoV-2 (COVID-19) mRNA [id number] vax 05/02/2021 Recorded influenza virus vaccine, inactivated 04/03/2021 Recorded SARS-CoV-2 (COVID-19) mRNA BNT-162b2 vax 09/20/2020 Recorded 2022-08-04: TPV70 SARS-CoV-2 (COVID-19) mRNA BNT-162b2 vax 08/29/2020 Recorded 2022-08-04: TPV70 influenza virus vaccine, inactivated 05/14/2020 Recorded influenza virus vaccine, inactivated 03/18/2017 Recorded pneumococcal 13-valent vaccine 09/21/2016 Recorded influenza, whole 1 (more content not included)... Normal [facility] Comment on above: Result Comment: Elec tronically Signed By: RICHIE Carrasco APRN, [place] [facility]\.br\Date and Time Signed: 01/03/24 06:55 EDT [place] 12-30-2023 Screens [id number] [facility] Ambulatory Visit Summaryon 0 12-28-2023 Ambulatory Visit Summary LARISA LO :1950 Visit Date:12/28/2023 Ambulatory Visit Instructions Your Diagnosis Urge incontinence History of kidney stones Frequent UTI Your Care Team Attending Physician - RICHIE Carrasco APRN, [place] [facility] Primary Care Physician - RAFI BURDEN DO This Is Your Medications List Contact prescribing physician if questions or concerns alprazolam (alprazolam 0.5 mg Tab) amitriptyline-perphenazine bumetanide (bumetanide 1 mg Tab) estradiol topical (estradiol 0.1 mg/g Vag Crm) gabapentin (gabapentin 300 mg Cap) hydrochlorothiazide-losart an (hydrochlorothiazide-losar horne 12.5 mg-50 mg Tab) letrozole (letrozole 2.5 mg Tab) potassium chloride (Potassium Chloride (Eqv-K-Tab) 20 mEq oral tablet, extended release) Procedures Performed Lumpectomy of breast. Discharge Vitals Height 136 cm Height 54 in Weight 86.5 kg Weight 190.3 lb BMI 46.77 What to do next Scheduled Follow-Up Appointments Wednesday 1:00 PM EDT With: RICHIE Carrasco APRN, Karissa Mccallum Where: [facility] [place] Normal [facility] Laboratory - Chemistry and C hemistry - challengeon 10-29-2023 Bilirubin Ql (U) Negative [facility] Glucose (U) [Mass/Vol] Negative [facility] Ketones Ql (U) Negative [facility] pH (U) 6.0 [pH] [facility] Specific gravity (U) [Rel density] 1.015 [facility] Urobilinogen (U) [Mass/Vol] 0.2 mg/dL [facility] Laboratory - Specimen inform ationon 10-29-2023 Appearance (U) Clear [facility] Color (U) Paleyellow [facility] Laboratory - Urinalysison Leukocyte esterase Test strip Ql (U) Small [facility] Nitrite Ql (U) Negative [facility] Protein Ql (U) Negative [facility] No Panel Informationon 10-28 Urine Occult Blood Negative [facility] Urine Cultureon 10-29-2023 Bacteria identified Cx Nom (U) 20,000 colonies/ml mixed bacterial skin contaminants including mixed gram negative bacilli - 2 Days PERFORMED BY: [place] [address] PATHOLOGIST COGENERATION TECHNICIAN ABNER JOHNSTON M.D. Normal [facility] Comment on above: Performed By: #### L IPID, CMP #### [address] Urine culture routineOrdered By: Clarisa Rutherford on 10-29-2023 Bacteria identified Cx Nom (U) bacilli - 2 Days [facility] A1C with Estimated Average G ronenn 09-10-2023 Glucose [Mass/Vol] 137 mg/dL Normal [facility] Comment on above: Result Comment: PERF ORMED BY: [place] [address] PATHOLOGIST COGENERATION TECHNICIAN ABNER JOHNSTON M.D. Performed By: #### A 1C [facility] eA #### [address] Alanine aminotransferase [En zymatic activity/volume] in Serum or PlasmaOrdered By: Rafi Burden on 09-10-2023 ALT [Catalytic activity/Vol] 18 U/L Normal 7-52 [facility] Comment on above: Performed By: #### C MP, LIPID #### [place] [address] [place] Albumin [Mass/volume] in Ser um or Plasma by Bromocresol green (BCG) dye binding methoOrdered By: Rafi Burden on 09-10-2023 Albumin BCG dye [Mass/Vol] 4.5 g/dL 3.5-5.7 [facility] Alkaline phosphatase [Enzyma tic activity/volume] in Serum or PlasmaOrdered By: Rafi Burden on 09-10-2023 ALP [Catalytic activity/Vol] 72 U/L Normal 34-104 [facility] Comment on above: Performed By: #### C MP, LIPID #### [place] [address] [place] Aspartate aminotransferase [ Enzymatic activity/volume] in Serum or PlasmaOrdered By: Rafi Burden on 09-10-2023 AST [Catalytic activity/Vol] 20 U/L Normal 13-39 [facility] Comment on above: Performed By: #### C MP, LIPID #### [place] [address] [place] Bilirubin.total [Mass/volume ] in Serum or PlasmaOrdered By: Rafi Burden on 09-10-2023 Bilirubin [Mass/Vol] 0.5 mg/dL Normal 0.3-1.[address] [facility] Comment on above: Performed By: #### C MP, LIPID #### [facility] [address] [place] [address] [place] Calcium [Mass/volume] in Ser um or PlasmaOrdered By: Rafi Burden on 09-10-2023 Calcium [Mass/Vol] 10.5 mg/dL High 8.6-10.3 [facility] Comment on above: Performed By: #### C MP, LIPID #### [facility] [address] Carbon dioxide, total [Moles /volume] in Serum or PlasmaOrdered By: Rafi Burden on 09-10-2023 CO2 [Moles/Vol] 32.8 mmol/L High 21.0-31.0 [facility] Comment on above: Performed By: #### C MP, LIPID #### [facility] [address] [place] [address] [place] Chloride [Moles/volume] in S janeth or PlasmaOrdered By: Rafi Burden on 09-10-2023 Chloride [Moles/Vol] 96 mmol/L Low 98-[address] [facility] Comment on above: Performed By: #### C MP, LIPID #### [facility] [address] [place] [address] Cholesterol [Mass/volume] in Serum or PlasmaOrdered By: Rafi Burden on 09-10-2023 Cholesterol [Mass/Vol] 219 mg/dL High 140-200 [facility] Comment on above: Chol less than 200 m g/dl low riskChol 201-239 mg/dl borderline riskChol 240 mg/dl and greater high risk Result Comment: Chol less than 200 mg/dl low risk Chol 201-239 mg/dl borderline risk Chol 240 mg/dl and greater high risk Performed By: #### C MP, LIPID #### [facility] [address] [place] [address] [place] Cholesterol in LDL Calc [Mas s/Vol]Ordered By: Rafi Burden on 09-10-2023 Cholesterol in LDL [Mass/Vol] 110 mg/dL 0-100 [facility] Comment on above: LDL ATP III CLASSIFI CATIONLDL less than 100 mg/dL OptimalLDL 100-129 mg/dL Near or above optimalLDL 130-159 mg/dL Borderline highLDL 160-189 mg/dL HighLDL greater than 189 mg/dL Very high Cholesterol in VLDL Calc [Ma ss/Vol]Ordered By: Rafi Burden on 09-10-2023 Cholesterol in VLDL [Mass/Vol] 51 mg/dL [facility] Comprehensive Metabolic Pane yan 09-10-2023 Albumin [Mass/Vol] 4.5 g/dL Normal 3.5-5.7 [facility] Comment on above: Performed By: #### C MP, LIPID #### [facility] [address] GFR/1.73 sq M.predicted MDRD (S/P/Bld) [Vol rate/Area] 31.980 mL/min/{1.73_m2} Normal [facility] Comment on above: Performed By: #### C MP, LIPID #### [facility] [address] [place] [address] [place] Creatinine [Mass/volume] in Serum or PlasmaOrdered By: Rafi Burden on 09-10-2023 Creatinine [Mass/Vol] 1.66 mg/dL High 0.60-1.20 [facility] Comment on above: Performed By: #### C MP, LIPID #### [place] [address] [place] Erythrocyte distribution wid th [Ratio] by Automated countOrdered By: Rafi Burden on 09-10-2023 Erythrocyte distribution width (RBC) [Ratio] 12.9 % Normal 11.9-15.3 [facility] Comment on above: Performed By: #### C BCNO #### [facility] [address] [place] [address] [place] Erythrocytes [#/volume] in B lood by Automated countOrdered By: Rafi Burden on 09-10-2023 RBC (Bld) [#/Vol] 4.01 10*6/uL Normal 3.60-5.00 [facility] Comment on above: Performed By: #### C BCNO #### [facility] [address] [place] [address] [place] Glucose [Mass/volume] in Ser um or PlasmaOrdered By: Rafi Burden on 09-10-2023 Glucose [Mass/Vol] 131 mg/dL High 70-100 [facility] Comment on above: ADA recommended refe rence rangeRandom Glucose Reference Range is dependent on time and content of last meal. Glucose of more than 200 mg/dL in a nonstressed, ambulatory subject supports the diagnosis of Diabetes Mellitus. Result Comment: [place] om Glucose Reference Range is dependent on time and content of last meal. Glucose of more than 200 mg/dL in a nonstressed, ambulatory subject supports the diagnosis of Diabetes Mellitus. ADA recommended reference range Performed By: #### C MP, LIPID #### [facility] [address] [place] [address] Glucose mean value [Mass/vol ume] in Blood Estimated from glycated hemoglobinOrdered By: Rafi Burden on 09-10-2023 Average glucose Estimated from glycated hemoglobin (Bld) [Mass/Vol] 137 mg/dL [facility] Hematocrit [Volume Fraction] of Blood by Automated countOrdered By: Rafi Burden on 09-10-2023 Hematocrit (Bld) [Volume fraction] 39.1 % Normal 34.0-46.4 [facility] Comment on above: Performed By: #### C BCNO #### [address] Hemoglobin A1c percentageOrd ered By: Rafi Burden on 09-10-2023 HbA1c (Bld) [Mass fraction] 6.4 % High 4.3-5.6 [facility] Comment on above: Increased risk for d iabetes: 5.7 - 6.4diabetes: >6.4glycemic control for adults with diabetes: <7.0 Result Comment: Incr eased risk for diabetes: 5.7 - 6.4 diabetes: >6.4 glycemic control for adults with diabetes: <7.0 Performed By: #### A 1C [facility] eA #### [address] Hemoglobin [Mass/volume] in BloodOrdered By: Rafi Burden on 09-10-2023 Hemoglobin (Bld) [Mass/Vol] 13.0 g/dL Normal 11.8-15.4 [facility] Comment on above: Performed By: #### C BCNO #### [address] Hemogram CBC Without Diffon 09-10-2023 Mean Corpuscular HGB Conc 33.3 g/dL Normal 32.0-35.0 [facility] Comment on above: Performed By: #### C BCNO #### [address] WBC (Bld) [#/Vol] 6.6 10*3/uL Normal 3.8-11.6 [facility] Comment on above: Performed By: #### C BCNO #### [address] Leukocytes [#/volume] correc pratibha for nucleated erythrocytes in Blood by Automated counOrdered By: Rafi Burden on 09-10-2023 WBC corrected for nucl RBC Auto (Bld) [#/Vol] 6.6 10*3/uL 3.8-11.6 [facility] Lipid Panelon 09-10-2023 LDL Cholesterol,Calculate d 110 mg/dL High 0-100 [facility] Comment on above: Result Comment: LDL ATP III CLASSIFICATION LDL less than 100 mg/dL Optimal LDL 100-129 mg/dL Near or above optimal LDL 130-159 mg/dL Borderline high LDL 160-189 mg/dL High LDL greater than 189 mg/dL Very high Performed By: #### C MP, LIPID #### [address] Triglyceride w/Reflex 258 mg/dL High 0-149 [facility] Comment on above: Result Comment: TRIG ATP III CLASSIFICATION TRIG less than 150 mg/dL Normal TRIG 150-199 mg/dL Borderline high TRIG 200-500 mg/dL High TRIG greater than 500 mg/dL Very high Standard traceable to the Center for Disease Conrtrol and Prevention (CDC) test method. Performed By: #### C MP, LIPID #### [address] VLDL CHOLESTEROL 51 mg/dL Normal [facility] Comment on above: Performed By: #### C MP, LIPID #### [address] MCH [Entitic mass] by Automa pratibha countOrdered By: Rafi Burden on 09-10-2023 MCH (RBC) [Entitic mass] 32.5 pg Normal 24.7-34.3 [facility] Comment on above: Performed By: #### C BCNO #### [address] MCHC Auto (RBC) [Mass/Vol]Or dered By: Rafi Burden on 09-10-2023 MCHC (RBC) [Mass/Vol] 33.3 g/dL 32.0-35.0 [facility] MCV [Entitic volume] by Auto mated countOrdered By: Rafi Burden on 09-10-2023 MCV (RBC) [Entitic vol] 97.5 fL Normal 80-100 [facility] Comment on above: Performed By: #### C BCNO #### [address] No Panel InformationOrdered By: Rafi Burden on 09-10-2023 Estimated GFR (CKD-EPI) 31.980 mL/Min [facility] Creatinine Clearance (Chem N/A [facility] Platelet mean volume [Entiti c volume] in Blood by Automated countOrdered By: Rafi Burden on 09-10-2023 Platelet mean volume (Bld) [Entitic vol] 8.5 fL Normal 6.3-10.7 [facility] Comment on above: Result Comment: PERF ORMED BY: [place] [address] PATHOLOGIST COGENERATION TECHNICIAN ABNER JOHNSTON M.D. Performed By: #### C BCNO #### [address] Platelets [#/volume] in Bloo d by Automated countOrdered By: Rafi Burden on 09-10-2023 Platelets (Bld) [#/Vol] 294 10*3/uL Normal 150-450 [facility] Comment on above: Performed By: #### C BCNO #### [address] Potassium [Moles/volume] in Serum or PlasmaOrdered By: Rafi uBrden on 09-10-2023 Potassium [Moles/Vol] 3.5 mmol/L Normal 3.5-5.1 [facility] Comment on above: Performed By: #### C MP, LIPID #### [address] Protein [Mass/volume] in Ser um or PlasmaOrdered By: Rafi Burden on 09-10-2023 Protein [Mass/Vol] 8.0 g/dL Normal 6.4-8.9 [facility] Comment on above: Performed By: #### C MP, LIPID #### [address] Serum globulin measurement b y calculation (mass/volume)Ordered By: Rafi Burden on 09-10-2023 Globulin (S) [Mass/Vol] 3.5 g/dL [facility] Comment on above: Performed By: #### C MP, LIPID #### [address] Serum or plasma albumin/glob ulin mass ratioOrdered By: Rafi Burden on 09-10-2023 Albumin/Globulin [Mass ratio] 1.3 {ratio} [facility] Comment on above: Performed By: #### C MP, LIPID #### [address] Serum or plasma anion gap de terminationOrdered By: Rafi Burden on 09-10-2023 Anion gap [Moles/Vol] 14.7 mmol/L Normal 6.0-15.0 [facility] Comment on above: Performed By: #### C MP, LIPID #### [address] Serum or plasma high density lipoprotein (HDL) cholesterol measurementOrdered By: Rafi Burden on 09-10-2023 Cholesterol in HDL [Mass/Vol] 57 mg/dL Normal [facility] Comment on above: HDL CHOL ATP-III CLA SSIFICATION Cardiovascular RiskHDL > or equal to 60 mg/dL LOWHDL < 40 mg/dL HIGH Result Comment: HDL CHOL ATP-III CLASSIFICATION Cardiovascular Risk HDL > or equal to 60 mg/dL LOW HDL < 40 mg/dL HIGH Performed By: #### C MP, LIPID #### [address] Serum or plasma total choles terol/high density lipoprotein (HDL) cholesterol mass ratOrdered By: Rafi Burden on 09-10-2023 Cholesterol.total/Cho lesterol in HDL [Mass ratio] 3.8 {ratio} Normal <5.0 [facility] Comment on above: Result Comment: PERF ORMED BY: [place] [address] PATHOLOGIST COGENERATION TECHNICIAN ABNER JOHNSTON M.D. Performed By: #### C MP, LIPID #### [address] Sodium [Moles/volume] in Ser um or PlasmaOrdered By: Rafi Burden on 09-10-2023 Sodium [Moles/Vol] 140 mmol/L Normal 136-145 [facility] Comment on above: Performed By: #### C MP, LIPID #### [address] Triglyceride [Mass/volume] i n Serum or PlasmaOrdered By: Rafi Burden on 09-10-2023 Triglyceride [Mass/Vol] 258 mg/dL 0-149 [facility] Comment on above: TRIG ATP III CLASSIF ICATIONTRIG less than 150 mg/dL NormalTRIG 150-199 mg/dL Borderline highTRIG 200-500 mg/dL High TRIG greater than 500 mg/dL Very highStandard traceable to the Center for Disease Conrtrol and Prevention (CDC) test method. Urea nitrogen [Mass/volume] in Serum or PlasmaOrdered By: Rafi Burden on 09-10-2023 Urea nitrogen [Mass/Vol] 44 mg/dL High 7-25 [facility] Comment on above: Performed By: #### C MP, LIPID #### [address] Provider Letteron 04-19-2023 Provider Letter (Inserted Image. Natasha ble to display) April 19, 2023 LARISA LO [address] [place] [id number] : 1950 Dear Lraisa , We have been trying to reach you with no success. You have an appointment with Tatiana Ames on 05/05/2023 which will need to be rescheduled since she is no longer in our [place] office on Wednesdays. Please contact the office at the number listed below to get this appointment rescheduled at your earliest convenience. Thank you for your prompt attention to this matter. Sincerely, [facility] [address], [place] [address] Normal [facility] A1C with Estimated Average Digna ramirez 03-09-2023 Glucose [Mass/Vol] 140 mg/dL Normal [facility] Comment on above: Order Comment: Reaso n for Exam Chronic kidney disease, unspecified;Hyperlipidemia, unspecif Result Comment: PERF ORMED BY: [place] [address] PATHOLOGIST COGENERATION TECHNICIAN ABNER JOHNSTON M.D. Performed By: #### A 1C [facility] eA #### [facility] [address] [place] [address] Alanine aminotransferase [En zymatic activity/volume] in Serum or PlasmaOrdered By: Rafi Burden on 03-09-2023 ALT [Catalytic activity/Vol] 17 U/L Normal [facility] Comment on above: Order Comment: Reaso n for Exam Chronic kidney disease, unspecified;Hyperlipidemia, unspecif Performed By: #### L IPID, CMP #### [facility] [address] [place] [address] [place] Albumin [Mass/volume] in Ser um or Plasma by Bromocresol green (BCG) dye binding methoOrdered By: Rafi Burden on 03-09-2023 Albumin BCG dye [Mass/Vol] 4.2 g/dL 3.5-5.7 [facility] Alkaline phosphatase [Enzyma tic activity/volume] in Serum or PlasmaOrdered By: Rafi Burden on 03-09-2023 ALP [Catalytic activity/Vol] 61 U/L Normal 34-104 [facility] Comment on above: Order Comment: Reaso n for Exam Chronic kidney disease, unspecified;Hyperlipidemia, unspecif Performed By: #### L IPID, CMP #### [facility] [address] Aspartate aminotransferase [ Enzymatic activity/volume] in Serum or PlasmaOrdered By: Rafi Burden on 03-09-2023 AST [Catalytic activity/Vol] 19 U/L Normal 13-39 [facility] Comment on above: Order Comment: Reaso n for Exam Chronic kidney disease, unspecified;Hyperlipidemia, unspecif Performed By: #### L IPID, CMP #### [address] Automated basophil %Ordered By: Rafi Burden on 03-09-2023 Basophils/100 WBC (Bld) 0.7 % Normal . [facility] Comment on above: Order Comment: Reaso n for Exam Chronic kidney disease, unspecified;Hyperlipidemia, unspecif Performed By: #### C BC #### [address] Automated basophil countOrde red By: Rafi Burden on 03-09-2023 Basophils (Bld) [#/Vol] 0.0 10*3/uL Normal 0.0-0.2 [facility] Comment on above: Order Comment: Reaso n for Exam Chronic kidney disease, unspecified;Hyperlipidemia, unspecif Result Comment: PERF ORMED BY: [place] [address] PATHOLOGIST COGENERATION TECHNICIAN ABNER JOHNSTON M.D. Performed By: #### C BC #### [address] Automated blood monocyte cou ntOrdered By: Rafi Burden on 03-09-2023 Monocytes (Bld) [#/Vol] 0.6 10*3/uL Normal 0.0-0.8 [facility] Comment on above: Order Comment: Reaso n for Exam Chronic kidney disease, unspecified;Hyperlipidemia, unspecif Performed By: #### C BC #### [facility] [address] Automated eosinophil %Ordere d By: Rafi Burden on 03-09-2023 Eosinophils/100 WBC (Bld) 3.9 % Normal . [facility] Comment on above: Order Comment: Reaso n for Exam Chronic kidney disease, unspecified;Hyperlipidemia, unspecif Performed By: #### C BC #### [address] Automated eosinophil countOr dered By: Rafi Burden on 03-09-2023 Eosinophils (Bld) [#/Vol] 0.2 10*3/uL Normal 0.0-0.45 [facility] Comment on above: Order Comment: Reaso n for Exam Chronic kidney disease, unspecified;Hyperlipidemia, unspecif Performed By: #### C BC #### [address] Automated monocyte %Ordered By: Rafi Burden on 03-09-2023 Monocytes/100 WBC (Bld) 10.0 % Normal . [facility] Comment on above: Order Comment: Reaso n for Exam Chronic kidney disease, unspecified;Hyperlipidemia, unspecif Performed By: #### C BC #### [address] Automated neutrophil %Ordere d By: Rafi Burden on 03-09-2023 Neutrophils/100 WBC (Bld) 62.9 % Normal . [facility] Comment on above: Order Comment: Reaso n for Exam Chronic kidney disease, unspecified;Hyperlipidemia, unspecif Performed By: #### C BC #### [address] Bilirubin.total [Mass/volume ] in Serum or PlasmaOrdered By: Rafi Burden on 03-09-2023 Bilirubin [Mass/Vol] 0.5 mg/dL Normal 0.3-1.[address] [facility] Comment on above: Order Comment: Reaso n for Exam Chronic kidney disease, unspecified;Hyperlipidemia, unspecif Performed By: #### L IPID, CMP #### [address] Calcium [Mass/volume] in Ser um or PlasmaOrdered By: Rafi Burden on 03-09-2023 Calcium [Mass/Vol] 9.8 mg/dL Normal 8.6-10.3 [facility] Comment on above: Order Comment: Reaso n for Exam Chronic kidney disease, unspecified;Hyperlipidemia, unspecif Performed By: #### L IPID, CMP #### [facility] [address] [place] [id number] [place] Carbon dioxide, total [Moles /volume] in Serum or PlasmaOrdered By: Rafi Burden on 03-09-2023 CO2 [Moles/Vol] 35.1 mmol/L High 21.0-31.0 [facility] Comment on above: Order Comment: Reaso n for Exam Chronic kidney disease, unspecified;Hyperlipidemia, unspecif Performed By: #### L IPID, CMP #### [facility] [address] [place] [id number] [place] Chloride [Moles/volume] in S janeth or PlasmaOrdered By: Rafi Burden on 03-09-2023 Chloride [Moles/Vol] 97 mmol/L Low 98-[address] [facility] Comment on above: Order Comment: Reaso n for Exam Chronic kidney disease, unspecified;Hyperlipidemia, unspecif Performed By: #### L IPID, CMP #### [facility] [address] [place] [id number] [place] Cholesterol [Mass/volume] in Serum or PlasmaOrdered By: Rafi Burden on 03-09-2023 Cholesterol [Mass/Vol] 226 mg/dL High 140-200 [facility] Comment on above: Chol less than 200 m g/dl low riskChol 201-239 mg/dl borderline riskChol 240 mg/dl and greater high risk Order Comment: Reaso n for Exam Chronic kidney disease, unspecified;Hyperlipidemia, unspecif Result Comment: Chol less than 200 mg/dl low risk Chol 201-239 mg/dl borderline risk Chol 240 mg/dl and greater high risk Performed By: #### L IPID, CMP #### [facility] [address] [place] [address] [place] Cholesterol in LDL Calc [Mas s/Vol]Ordered By: Rafi Burden on 03-09-2023 Cholesterol in LDL [Mass/Vol] 113 mg/dL 0-100 [facility] Comment on above: LDL ATP III CLASSIFI CATIONLDL less than 100 mg/dL OptimalLDL 100-129 mg/dL Near or above optimalLDL 130-159 mg/dL Borderline highLDL 160-189 mg/dL HighLDL greater than 189 mg/dL Very high Cholesterol in VLDL Calc [Ma ss/Vol]Ordered By: Rafi Burden on 03-09-2023 Cholesterol in VLDL [Mass/Vol] 58 mg/dL [facility] Complete Blood Count Auto Di ffon 03-09-2023 Mean Corpuscular HGB Conc 33.0 g/dL Normal 32.0-35.0 [facility] Comment on above: Order Comment: Reaso n for Exam Chronic kidney disease, unspecified;Hyperlipidemia, unspecif Performed By: #### C BC #### [facility] [address] NRBC% 0.0 /100{WBC} Normal 0-0.5 [facility] Comment on above: Order Comment: Reaso n for Exam Chronic kidney disease, unspecified;Hyperlipidemia, unspecif Performed By: #### C BC #### [facility] [address] Comprehensive Metabolic Pane yan 03-09-2023 Albumin [Mass/Vol] 4.2 g/dL Normal 3.5-5.7 [facility] Comment on above: Order Comment: Reaso n for Exam Chronic kidney disease, unspecified;Hyperlipidemia, unspecif Performed By: #### L IPID, CMP #### [facility] [address] [place] [id number] [place] GFR/1.73 sq M.predicted MDRD (S/P/Bld) [Vol rate/Area] 35.830 mL/min/{1.73_m2} Normal [facility] Comment on above: Order Comment: Reaso n for Exam Chronic kidney disease, unspecified;Hyperlipidemia, unspecif Performed By: #### L IPID, CMP #### [facility] [address] Creatinine [Mass/volume] in Serum or PlasmaOrdered By: Rafi Burden on 03-09-2023 Creatinine [Mass/Vol] 1.51 mg/dL High 0.60-1.20 [facility] Comment on above: Order Comment: Reaso n for Exam Chronic kidney disease, unspecified;Hyperlipidemia, unspecif Performed By: #### L IPID, CMP #### [facility] [address] Erythrocyte distribution wid th [Ratio] by Automated countOrdered By: Rafi Burden on 03-09-2023 Erythrocyte distribution width (RBC) [Ratio] 13.8 % Normal 11.9-15.3 [facility] Comment on above: Order Comment: Reaso n for Exam Chronic kidney disease, unspecified;Hyperlipidemia, unspecif Performed By: #### C BC #### [address] Erythrocytes [#/volume] in B lood by Automated countOrdered By: Rafi Burden on 03-09-2023 RBC (Bld) [#/Vol] 4.08 10*6/uL Normal 3.60-5.00 [facility] Comment on above: Order Comment: Reaso n for Exam Chronic kidney disease, unspecified;Hyperlipidemia, unspecif Performed By: #### C BC #### [address] Glucose [Mass/volume] in Ser um or PlasmaOrdered By: Rafi Burden on 03-09-2023 Glucose [Mass/Vol] 135 mg/dL High 70-100 [facility] Comment on above: ADA recommended refe rence rangeRandom Glucose Reference Range is dependent on time and content of last meal. Glucose of more than 200 mg/dL in a nonstressed, ambulatory subject supports the diagnosis of Diabetes Mellitus. Order Comment: Reaso n for Exam Chronic kidney disease, unspecified;Hyperlipidemia, unspecif Result Comment: [place] om Glucose Reference Range is dependent on time and content of last meal. Glucose of more than 200 mg/dL in a nonstressed, ambulatory subject supports the diagnosis of Diabetes Mellitus. ADA recommended reference range Performed By: #### L IPID, CMP #### [facility] [address] Glucose mean value [Mass/vol ume] in Blood Estimated from glycated hemoglobinOrdered By: Rafi Burden on 03-09-2023 Average glucose Estimated from glycated hemoglobin (Bld) [Mass/Vol] 140 mg/dL [facility] Hematocrit [Volume Fraction] of Blood by Automated countOrdered By: Rafi Burden on 03-09-2023 Hematocrit (Bld) [Volume fraction] 39.4 % Normal 34.0-46.4 [facility] Comment on above: Order Comment: Reaso n for Exam Chronic kidney disease, unspecified;Hyperlipidemia, unspecif Performed By: #### C BC #### [facility] [address] [place] [id number] [facility] Hemoglobin A1c percentageOrd ered By: Rafi Burden on 03-09-2023 HbA1c (Bld) [Mass fraction] 6.5 % High 4.3-5.6 [facility] Comment on above: Increased risk for d iabetes: 5.7 - 6.4diabetes: >6.4glycemic control for adults with diabetes: <7.0 Order Comment: Reaso n for Exam Chronic kidney disease, unspecified;Hyperlipidemia, unspecif Result Comment: Incr eased risk for diabetes: 5.7 - 6.4 diabetes: >6.4 glycemic control for adults with diabetes: <7.0 Performed By: #### A [facility]C [facility] eA #### [place] [id number] [facility] Hemoglobin [Mass/volume] in BloodOrdered By: Rafi Burden on 03-09-2023 Hemoglobin (Bld) [Mass/Vol] 13.0 g/dL Normal 11.8-15.4 [facility] Comment on above: Order Comment: Reaso n for Exam Chronic kidney disease, unspecified;Hyperlipidemia, unspecif Performed By: #### C BC #### [facility] [address] [place] [id number] [place] Leukocytes [#/volume] correc pratibha for nucleated erythrocytes in Blood by Automated counOrdered By: Rafi Burden on 03-09-2023 WBC corrected for nucl RBC Auto (Bld) [#/Vol] 5.9 10*3/uL 3.8-11.6 [facility] Leukocytes [#/volume] in Blo od by Automated countOrdered By: Rafi Burden on 03-09-2023 WBC (Bld) [#/Vol] 5.9 10*3/uL Normal 3.8-11.6 [facility] Comment on above: Order Comment: Reaso n for Exam Chronic kidney disease, unspecified;Hyperlipidemia, unspecif Performed By: #### C BC #### [facility] [address] Lipid Panelon 03-09-2023 LDL Cholesterol,Calculate d 113 mg/dL High 0-100 [facility] Comment on above: Order Comment: Reaso n for Exam Chronic kidney disease, unspecified;Hyperlipidemia, unspecif Result Comment: LDL ATP III CLASSIFICATION LDL less than 100 mg/dL Optimal LDL 100-129 mg/dL Near or above optimal LDL 130-159 mg/dL Borderline high LDL 160-189 mg/dL High LDL greater than 189 mg/dL Very high Performed By: #### L IPID, CMP #### [facility] [address] Triglyceride w/Reflex 290 mg/dL High 0-149 [facility] Comment on above: Order Comment: Reaso n for Exam Chronic kidney disease, unspecified;Hyperlipidemia, unspecif Result Comment: TRIG ATP III CLASSIFICATION TRIG less than 150 mg/dL Normal TRIG 150-199 mg/dL Borderline high TRIG 200-500 mg/dL High TRIG greater than 500 mg/dL Very high Standard traceable to the Center for Disease Conrtrol and Prevention (CDC) test method. Performed By: #### L IPID, CMP #### [facility] [address] VLDL CHOLESTEROL 58 mg/dL Normal [facility] Comment on above: Order Comment: Reaso n for Exam Chronic kidney disease, unspecified;Hyperlipidemia, unspecif Performed By: #### L IPID, CMP #### [facility] [address] Lymphocytes [#/volume] in Bl ood by Automated countOrdered By: Rafi Burden on 03-09-2023 Lymphocytes (Bld) [#/Vol] 1.3 10*3/uL Normal 1.00-4.8 [facility] Comment on above: Order Comment: Reaso n for Exam Chronic kidney disease, unspecified;Hyperlipidemia, unspecif Performed By: #### C BC #### [address] Lymphocytes/100 leukocytes i n Blood by Automated countOrdered By: Rafi Burden on 03-09-2023 Lymphocytes/100 WBC (Bld) 22.5 % Normal . [facility] Comment on above: Order Comment: Reaso n for Exam Chronic kidney disease, unspecified;Hyperlipidemia, unspecif Performed By: #### C BC #### [address] MCH [Entitic mass] by Automa pratibha countOrdered By: Rafi Burden on 03-09-2023 MCH (RBC) [Entitic mass] 31.8 pg Normal 24.7-34.3 [facility] Comment on above: Order Comment: Reaso n for Exam Chronic kidney disease, unspecified;Hyperlipidemia, unspecif Performed By: #### C BC #### [address] MCHC Auto (RBC) [Mass/Vol]Or dered By: Rafi Burden on 03-09-2023 MCHC (RBC) [Mass/Vol] 33.0 g/dL 32.0-35.0 [facility] MCV [Entitic volume] by Auto mated countOrdered By: Rafi Burden on 03-09-2023 MCV (RBC) [Entitic vol] 96.5 fL Normal 80-100 [facility] Comment on above: Order Comment: Reaso n for Exam Chronic kidney disease, unspecified;Hyperlipidemia, unspecif Performed By: #### C BC #### [address] Neutrophils [#/volume] in Bl ood by Automated countOrdered By: Rafi Burden on 03-09-2023 Neutrophils (Bld) [#/Vol] 3.7 10*3/uL Normal 1.8-7.7 [facility] Comment on above: Order Comment: Reaso n for Exam Chronic kidney disease, unspecified;Hyperlipidemia, unspecif Performed By: #### C BC #### [facility] [address] No Panel InformationOrdered By: Rafi Burden on 03-09-2023 Estimated GFR (CKD-EPI) 35.830 mL/Min [facility] Creatinine Clearance (Chem N/A [facility] Nucleated erythrocytes [Pres ence] in Blood by Automated countOrdered By: Rafi Burden on 03-09-2023 Nucleated RBC Auto Ql (Bld) 0.0 /100{WBC} 0-0.5 [facility] Platelet mean volume [Entiti c volume] in Blood by Automated countOrdered By: Rafi Burden on 03-09-2023 Platelet mean volume (Bld) [Entitic vol] 8.0 fL Normal 6.3-10.7 [facility] Comment on above: Order Comment: Reaso n for Exam Chronic kidney disease, unspecified;Hyperlipidemia, unspecif Performed By: #### C BC #### [place] [address] [place] Platelets [#/volume] in Bloo d by Automated countOrdered By: Rafi Burden on 03-09-2023 Platelets (Bld) [#/Vol] 263 10*3/uL Normal 150-450 [facility] Comment on above: Order Comment: Reaso n for Exam Chronic kidney disease, unspecified;Hyperlipidemia, unspecif Performed By: #### C BC #### [place] [address] [place] Potassium [Moles/volume] in Serum or PlasmaOrdered By: Rafi Burden on 03-09-2023 Potassium [Moles/Vol] 4.0 mmol/L Normal 3.5-5.1 [facility] Comment on above: Order Comment: Reaso n for Exam Chronic kidney disease, unspecified;Hyperlipidemia, unspecif Performed By: #### L IPID, CMP #### [place] [address] [place] Protein [Mass/volume] in Ser um or PlasmaOrdered By: Rafi Burden on 03-09-2023 Protein [Mass/Vol] 7.4 g/dL Normal 6.4-8.9 [facility] Comment on above: Order Comment: Reaso n for Exam Chronic kidney disease, unspecified;Hyperlipidemia, unspecif Performed By: #### L IPID, CMP #### [facility] [address] [place] [address] Serum globulin measurement b y calculation (mass/volume)Ordered By: Rafi Burden on 03-09-2023 Globulin (S) [Mass/Vol] 3.2 g/dL [facility] Comment on above: Order Comment: [place] for Exam Chronic kidney disease, unspecified;Hyperlipidemia, unspecif Performed By: #### L IPID, CMP #### [facility] [address] [place] [address] Serum or plasma albumin/glob ulin mass ratioOrdered By: Rafi Burden on 03-09-2023 Albumin/Globulin [Mass ratio] 1.3 {ratio} [facility] Comment on above: Order Comment: [place] for Exam Chronic kidney disease, unspecified;Hyperlipidemia, unspecif Performed By: #### L IPID, CMP #### [facility] [address] [place] [address] Serum or plasma anion gap de terminationOrdered By: Rafi Burden on 03-09-2023 Anion gap [Moles/Vol] 9.9 mmol/L Normal 6.0-15.0 [facility] Comment on above: Order Comment: [place] n for Exam Chronic kidney disease, unspecified;Hyperlipidemia, unspecif Performed By: #### L IPID, CMP #### [facility] [address] [place] [address] Serum or plasma high density lipoprotein (HDL) cholesterol measurementOrdered By: Rafi Burden on 03-09-2023 Cholesterol in HDL [Mass/Vol] 55 mg/dL Normal 23- [facility] Comment on above: HDL CHOL ATP-III CLA SSIFICATION Cardiovascular RiskHDL > or equal to 60 mg/dL LOWHDL < 40 mg/dL HIGH Order Comment: [place] for Exam Chronic kidney disease, unspecified;Hyperlipidemia, unspecif Result Comment: HDL CHOL ATP-III CLASSIFICATION Cardiovascular Risk HDL > or equal to 60 mg/dL LOW HDL < 40 mg/dL HIGH Performed By: #### L IPID, CMP #### [facility] [address] Serum or plasma total choles terol/high density lipoprotein (HDL) cholesterol mass ratOrdered By: Rafi Burden on 03-09-2023 Cholesterol.total/Cho lesterol in HDL [Mass ratio] 4.1 {ratio} Normal <5.0 [facility] Comment on above: Order Comment: Reaso n for Exam Chronic kidney disease, unspecified;Hyperlipidemia, unspecif Result Comment: PERF ORMED BY: [place] [address] PATHOLOGIST COGENERATION TECHNICIAN ABNER JOHNSTON M.D. Performed By: #### L IPID, CMP #### [facility] [address] [place] [address] Sodium [Moles/volume] in Ser um or PlasmaOrdered By: Rafi Burden on 03-09-2023 Sodium [Moles/Vol] 138 mmol/L Normal 136-145 [facility] Comment on above: Order Comment: Reaso n for Exam Chronic kidney disease, unspecified;Hyperlipidemia, unspecif Performed By: #### L IPID, CMP #### [facility] [address] [place] [address] Triglyceride [Mass/volume] i n Serum or PlasmaOrdered By: Rafi Burden on 03-09-2023 Triglyceride [Mass/Vol] 290 mg/dL 0-149 [facility] Comment on above: TRIG ATP III CLASSIF ICATIONTRIG less than 150 mg/dL NormalTRIG 150-199 mg/dL Borderline highTRIG 200-500 mg/dL High TRIG greater than 500 mg/dL Very highStandard traceable to the Center for Disease Conrtrol and Prevention (CDC) test method. Urea nitrogen [Mass/volume] in Serum or PlasmaOrdered By: Rafi Burden on 03-09-2023 Urea nitrogen [Mass/Vol] 35 mg/dL High 7-25 [facility] Comment on above: Order Comment: Reaso n for Exam Chronic kidney disease, unspecified;Hyperlipidemia, unspecif Performed By: #### L IPID, CMP #### [facility] [address] MRI LSPINE WO CONon 11-05-19 MRI LSPINE WO CON EXAMINATION: MRI LSP INE WO CON HISTORY: Musculoskeletal symptom ; chronic lumbar pain; intermittent bilateral leg weakness COMPARISON: No relevant comparison available. TECHNIQUE: A variety of imaging planes and parameters were utilized for visualization of suspected pathology. FINDINGS: For the purposes of numbering, sagittal T2 image # 8 extends from the T10 vertebral body superiorly to the S4 level inferiorly. PARASPINAL AREA: Normal with no visible mass. BONES: Slight anterior wedging of T11 vertebral body. CORD/CAUDA EQUINA: Normal caliber, contour, and signal intensity. DISC LEVELS: 12-L1: Moderate central canal narrowing secondary to moderate diffuse disc bulging and mild disc height reduction. No significant foramen narrowing or facet arthropathy. L1-L2: Moderate central canal and mild bilateral foramen narrowing. Mild diffuse disc bulging without disc height reduction. L2-L3: Mild left foramen narrowing without significant right foramen or central canal narrowing. Mild diffuse disc bulging slightly eccentric to the left. Mild degenerative facet arthropathy. L3-L4: Mild bilateral foramen narrowing without significant central canal narrowing. Mild diffuse disc bulging without disc height reduction. Mild degenerative facet arthropathy. L4-L5: Mild central canal and right foramen narrowing. Moderate left foramen narrowing. Mild diffuse disc bulging without disc height reduction. Marked bilateral facet arthropathy and ligamentum flavum thickening. L5-S1: Mild right, mild-moderate left foramen narrowing. No significant central canal narrowing. Mild diffuse disc bulging without disc height reduction. Mild degenerative facet arthropathy. IMPRESSION: 1. Mild anterior wedging of T11 vertebral bodies; remote compression fracture versus secondary to degenerative endplate changes. 2. Moderate central canal narrowing T12-L1 and L1-2 secondary to degenerative disc disease, which may contribute to patient's symptoms. Electronically authenticated by: JAE CAMERON Date: 2022-11-04 14:08 Normal [facility] XR KUB 1 VIEWon 11-04-2022 XR KUB 1 VIEW EXAMINATION: XR KUB 1 VIEW HISTORY: Urinary tract infectious disease COMPARISON: No relevant comparison available. FINDINGS: KIDNEY/URETER - RIGHT: No visible renal or ureteral calcifications. KIDNEY/URETER - LEFT: No visible renal or ureteral calcifications. PELVIS: No visible ureteral calcifications. Any visible calcifications favor phleboliths. BOWEL: No abnormal dilation or deviation. Moderate atherosclerosis BONES: No acute abnormality. Degenerative spondylosis. [id number] hip osteoarthritis OTHER: Negative. No abnormal gaseous collections. IMPRESSION: No definite urinary tract calculi Electronically authenticated by: XIMENA KAISER Date: 2022-11-04 19:47 Normal [facility] US KIDNEYSon 08-10-2022 US KIDNEYS EXAMINATION: US TIAGO STARKEY HISTORY: Kidney stone COMPARISON: No relevant comparison available. TECHNIQUE: Ultrasound examination was performed of the bladder. FINDINGS: Right Kidney: Normal in size and contour. The cortex measures 0.9 cm. Diffuse increase in cortical echotexture. No solid cortical mass, hydronephrosis or obstructing nephrolithiasis. Height: 4.7 cm Length: 10.1 cm Width: 4.9 cm Left Kidney: Normal in size and contour. The cortex measures 0.9 cm. Diffuse increase in cortical echotexture. No solid cortical mass, hydronephrosis or obstructing nephrolithiasis. Height: 4.3 cm Length: 9.3 cm Width: 3.7 cm Urinary bladder is normal in appearance. Volume 389 mL IMPRESSION: Bilateral echogenic atrophied renal cortex suggesting medical renal disease Electronically authenticated by: XIMENA KAISER Date: 2022-08-10 15:16 Normal [facility] Basophils Auto (Bld) [#/Vol] Ordered By: Rafi Burden on 07-27-2022 Basophils (Bld) [#/Vol] 0.0 10*3/uL 0.0-0.2 [facility] Basophils/100 WBC Auto (Bld) Ordered By: Rafi Burden on 07-27-2022 Basophils/100 WBC (Bld) 0.7 % . [facility] Cholesterol [Mass/volume] in Serum or PlasmaOrdered By: Rafi Burden on 07-27-2022 Cholesterol [Mass/Vol] 221 mg/dL 140-200 [facility] Comment on above: Chol less than 200 m g/dl low riskChol 201-239 mg/dl borderline riskChol 240 mg/dl and greater high risk Cholesterol in LDL Calc [Mas s/Vol]Ordered By: Rafi Burden on 07-27-2022 Cholesterol in LDL [Mass/Vol] 133 mg/dL 0-100 [facility] Comment on above: LDL ATP III CLASSIFI CATIONLDL less than 100 mg/dL OptimalLDL 100-129 mg/dL Near or above optimalLDL 130-159 mg/dL Borderline highLDL 160-189 mg/dL HighLDL greater than 189 mg/dL Very high Cholesterol in VLDL Calc [Ma ss/Vol]Ordered By: Rafi Burden on 07-27-2022 Cholesterol in VLDL [Mass/Vol] 44 mg/dL [facility] Creatinine [Mass/volume] in UrineOrdered By: Rafi Burden on 07-27-2022 Creatinine (U) [Mass/Vol] 81.7 mg/dL [facility] Comment on above: No reference range e stablished Creatinine and Glomerular fi ltration rate.predicted panel (S/P/Bld)Ordered By: Rafi Burden on 07-27-2022 Creatinine [Mass/Vol] 1.38 mg/dL 0.44-1.03 [facility] Eosinophils Auto (Bld) [#/Vo l]Ordered By: Rafi Burden on 07-27-2022 Eosinophils (Bld) [#/Vol] 0.3 10*3/uL 0.0-0.45 [facility] Eosinophils/100 WBC Auto (Bl d)Ordered By: Rafi Burden on 07-27-2022 Eosinophils/100 WBC (Bld) 5.0 % . [facility] Erythrocyte distribution wid th Auto (RBC) [Ratio]Ordered By: Rafi Burden on 07-27-2022 Erythrocyte distribution width (RBC) [Ratio] 13.6 % 11.9-15.3 [facility] Estimated glomerular filtrat ion rate (GFR) non- AmericanOrdered By: Rafi Burden on 07-27-2022 GFR/1.73 sq M.predicted among non-blacks MDRD (S/P/Bld) [Vol rate/Area] 37 mL/Min [facility] Hematocrit Auto (Bld) [Volum e fraction]Ordered By: Rafi Burden on 07-27-2022 Hematocrit (Bld) [Volume fraction] 40.8 % 34.0-46.4 [facility] Hemoglobin [Mass/volume] in BloodOrdered By: Rafi Burden on 07-27-2022 Hemoglobin (Bld) [Mass/Vol] 13.3 g/dL 11.8-15.4 [facility] Leukocytes [#/volume] correc pratibha for nucleated erythrocytes in Blood by Automated counOrdered By: Rafi Burden on 07-27-2022 WBC corrected for nucl RBC Auto (Bld) [#/Vol] 6.9 10*3/uL 3.8-11.6 [facility] Lymphocytes Auto (Bld) [#/Vo l]Ordered By: Rafi Burden on 07-27-2022 Lymphocytes (Bld) [#/Vol] 1.5 10*3/uL 1.00-4.8 [facility] Lymphocytes/100 WBC Auto (Bl d)Ordered By: Rafi Burden on 07-27-2022 Lymphocytes/100 WBC (Bld) 21.6 % . [facility] MCH Auto (RBC) [Entitic mass ]Ordered By: Rafi Burden on 07-27-2022 MCH (RBC) [Entitic mass] 31.4 pg 24.7-34.3 [facility] MCHC Auto (RBC) [Mass/Vol]Or dered By: Rafi Burden on 07-27-2022 MCHC (RBC) [Mass/Vol] 32.7 g/dL 32.0-35.0 [facility] MCV Auto (RBC) [Entitic vol] Ordered By: Rafi Burden on 07-27-2022 MCV (RBC) [Entitic vol] 96.1 fL 80-100 [facility] Monocytes Auto (Bld) [#/Vol] Ordered By: Rafi Burden on 07-27-2022 Monocytes (Bld) [#/Vol] 0.6 10*3/uL 0.0-0.8 [facility] Monocytes/100 WBC Auto (Bld) Ordered By: Rafi Burden on 07-27-2022 Monocytes/100 WBC (Bld) 8.8 % . [facility] Neutrophils Auto (Bld) [#/Vo l]Ordered By: Rafi Burden on 07-27-2022 Neutrophils (Bld) [#/Vol] 4.4 10*3/uL 1.8-7.7 [facility] Neutrophils/100 WBC Auto (Bl d)Ordered By: Rafi Burden on 07-27-2022 Neutrophils/100 WBC (Bld) 63.9 % . [facility] No Panel InformationOrdered By: Rafi Burden on 07-27-2022 Estimated GFR () 45 mL/Min [facility] Comment on above: GFR estimated refere nce range: According to KDOQI guidelines, <60 ml/min/1.73m2 is sufficient to diagnose a patient with chronic kidney disease. Pharmacy Creatinine Clearance (Chem N/A [facility] Nucleated erythrocytes [Pres ence] in Blood by Automated countOrdered By: Rafi Burden on 07-27-2022 Nucleated RBC Auto Ql (Bld) 0.1 /100{WBC} 0-0.5 [facility] Platelet mean volume Auto (B ld) [Entitic vol]Ordered By: Rafi Burden on 07-27-2022 Platelet mean volume (Bld) [Entitic vol] 7.9 fL 6.3-10.7 [facility] Platelets Auto (Bld) [#/Vol] Ordered By: Rafi Burden on 07-27-2022 Platelets (Bld) [#/Vol] 313 10*3/uL 150-450 [facility] RBC Auto (Bld) [#/Vol]Ordere d By: Rafi Burden on 07-27-2022 RBC (Bld) [#/Vol] 4.24 10*6/uL 3.60-5.00 [facility] Serum or plasma alanine carrion otransferase measurement without P-5'-P (enzymatic activiOrdered By: Rafi Burden on 07-27-2022 ALT No additional P-5'-P [Catalytic activity/Vol] 29 U/L 10-60 [facility] Serum or plasma anion gap de terminationOrdered By: Rafi Burden on 07-27-2022 Anion gap [Moles/Vol] 11.0 mmol/L 6.0-15.0 [facility] Serum or plasma calcium shazia urement (mass/volume)Ordered By: Rafi Burden on 07-27-2022 Calcium [Mass/Vol] 9.6 mg/dL 8.2-10.2 [facility] Serum or plasma chloride ifeanyi surement (moles/volume)Ordered By: Rafi Burden on 07-27-2022 Chloride [Moles/Vol] 100 mmol/L 95-[address] [facility] Serum or plasma glucose shazia urement (mass/volume)Ordered By: Rafi Burden on 07-27-2022 Glucose [Mass/Vol] 175 mg/dL 70-100 [facility] Comment on above: ADA recommended refe rence rangeRandom Glucose Reference Range is dependent on time and content of last meal. Glucose of more than 200 mg/dL in a nonstressed, ambulatory subject supports the diagnosis of Diabetes Mellitus. Serum or plasma high density lipoprotein (HDL) cholesterol measurementOrdered By: Rafi Burden on 07-27-2022 Cholesterol in HDL [Mass/Vol] 44 mg/dL 35-85 [facility] Comment on above: HDL CHOL ATP-III CLA SSIFICATION Cardiovascular RiskHDL > or equal to 60 mg/dL LOWHDL < 40 mg/dL HIGH Serum or plasma potassium me asurement (moles/volume)Ordered By: Rafi Burden on 07-27-2022 Potassium [Moles/Vol] 3.9 mmol/L 3.5-5.1 [facility] Serum or plasma sodium measu rement (moles/volume)Ordered By: Rafi Burden on 07-27-2022 Sodium [Moles/Vol] 136 mmol/L 136-146 [facility] Serum or plasma total carbon dioxide measurement (moles/volume)Ordered By: Rafi Burden on 07-27-2022 CO2 [Moles/Vol] 28.9 mmol/L 22.0-30.0 [facility] Serum or plasma total choles terol/high density lipoprotein (HDL) cholesterol mass ratOrdered By: Rafi Burden on 07-27-2022 Cholesterol.total/Cho lesterol in HDL [Mass ratio] 5.0 {ratio} <5.0 [facility] Serum or plasma urea nitroge n measurement (mass/volume)Ordered By: Rafi Burden on 07-27-2022 Urea nitrogen [Mass/Vol] 26 mg/dL 9-23 [facility] Triglyceride [Mass/volume] i n Serum or PlasmaOrdered By: Rafi Burden on 07-27-2022 Triglyceride [Mass/Vol] 221 mg/dL 35-149 [facility] Comment on above: TRIG ATP III CLASSIF ICATIONTRIG less than 150 mg/dL NormalTRIG 150-199 mg/dL Borderline highTRIG 200-500 mg/dL High TRIG greater than 500 mg/dL Very highStandard traceable to the Center for Disease Conrtrol and Prevention (CDC) test method. Urine microalbumin measureme nt with detection limit of 20 mg/L or less (mass/volume)Ordered By: Rafi Burden on 07-27-2022 Albumin DL <= 20 mg/L (U) [Mass/Vol] 1.8 mg/dL 0.0-1.8 [facility] Urine microalbumin/creatinin e mass ratioOrdered By: Rafi Burden on 07-27-2022 Albumin/Creatinine DL <= 20 mg/L (U) [Mass ratio] 22.0 mg/g 0.0-30.0 [facility] Comment on above: 30-300 mg/g indicate s an increased risk for diabetic nephropathy. Greater than 300 mg/g is consistent with clinical nephropathy. (Am. J. Kidney Disease 1995, 25:107) WBC Auto (Bld) [#/Vol]Ordere d By: Rafi Burden on 07-27-2022 WBC (Bld) [#/Vol] 6.9 10*3/uL 3.8-11.6 [facility] CPKon 06-16-2022 CK [Catalytic activity/Vol] 56 U/L Normal 26-192 [facility] Comment on above: Performed By: #### U RCX #### [facility] [address] [place] [address] Dr. Lucia Queen MYOGLOBINon 06-16-2022 PAOLA 68 ng/mL Normal 9-82 [facility] Comment on above: Performed By: #### U RCX #### [facility] [address] [address] [address] Lucia Queen TSHon 06-16-2022 TSH 4.066 uIU/mL Critically high 0.358-3.74 0 [facility] Comment on above: Performed By: #### U RCX #### [facility] [address] [place] [address] Dr. Lucia Queen CULTURE URINEon 06-06-2022 CULTURE URINE Isolate 1 Klebsiella pneumoniae >100,000 cfu/mL of ORGANISM 1 Klebsiella pneumoniae ANTIBIOTIC M.I.C RX STATUS Ampicillin >=32 R F Ampicillin/Sulbactam 4 S F Piperacillin/Tazobactam <=4 S F Cefazolin <=4 S F Ceftazidime <=1 S F Ceftriaxone <=1 S F Ertapenem <=0.5 S F Imipenem <=0.25 S F Amikacin <=2 S F Gentamicin <=1 S F Tobramycin <=1 S F Ciprofloxacin <=0.25 S F Levofloxacin <=0.12 S F Nitrofurantoin 64 I F Trimethoprim/Sulfamethoxaz ole <=20 S F Normal [facility] Comment on above: Performed By: #### U RCX #### [facility] [address] [place] [address] Dr. Lucia Queen ER URINE PROFILEon 2 Bilirubin Ql (U) Unable to perform te sting due to color interference. Abnormal NEGATIVE [facility] Comment on above: Performed By: #### U MICRO, ERUR #### [facility] [address] [place] [address] Dr. Lucia Queen Clarity (U) SL CLOUDY Abnormal CLEAR [facility] Comment on above: Performed By: #### U MICRO, ERUR #### [facility] [address] [place] [address] Dr. Lucia Queen Color (U) DK. ORANGE Abnormal YELLOW [facility] Comment on above: Performed By: #### U MICRO, ERUR #### [facility] [address] [place] [address] Dr. Lucia Queen ERUAHD A micrscopic examina tion will be performed if indicated. Normal [facility] Comment on above: Performed By: #### U MICRO, ERUR #### [facility] [address] [place] [address] Dr. Lucia Queen Glucose Ql (U) Unable to perform te sting due to color interference. Abnormal NEGATIVE [facility] Comment on above: Performed By: #### U MICRO, ERUR #### [facility] [address] [place] [address] Dr. Lucia Queen Hemoglobin Ql (U) Unable to perform te sting due to color interference. Abnormal NEGATIVE [facility] Comment on above: Performed By: #### U MICRO, ERUR #### [facility] [address] [address] [address] Lucia Queen Ketones Ql (U) Unable to perform te sting due to color interference. Abnormal NEGATIVE [facility] Comment on above: Performed By: #### U MICRO, ERUR #### [facility] [address] [address] [address] Lucia Queen LEUKOCYTES Unable to perform te sting due to color interference. Abnormal NEGATIVE [facility] Comment on above: Performed By: #### U MICRO, ERUR #### [facility] [address] [address] [address] Lucia Queen Nitrite Ql (U) Unable to perform te sting due to color interference. Abnormal NEGATIVE [facility] Comment on above: Performed By: #### U MICRO, ERUR #### [facility] [address] [place] [address] Dr. Lucia Queen pH Unable to perform te sting due to color interference. Abnormal 5-9 [facility] Comment on above: Performed By: #### U MICRO, ERUR #### [facility] [address] [address] [address] Lucia Queen SPEC GRAVITY 1.015 Normal 1.005-<=1. 025 [facility] Comment on above: Performed By: #### U MICRO, ERUR #### [facility] [address] [address] [address] Lucia Queen UA PROTEIN Unable to perform te sting due to color interference. Normal NEGATIVE/ TRACE [facility] Comment on above: Performed By: #### U MICRO, ERUR #### [facility] [address] [address] [address] Lucia Queen UR MICRO IND INDICATED Normal [facility] Comment on above: Performed By: #### U MICRO, ERUR #### [facility] [address] [address] [address] Lucia Queen UROBILINOGEN Unable to perform te sting due to color interference. Normal 0.2 - 1.0 [facility] Comment on above: Performed By: #### U MICRO, ERUR #### [facility] [address] [address] [address] Lucia Queen URINE MICROSCOPIC ONLYon BACTERIA SMALL Abnormal NONE SEEN [facility] Comment on above: Performed By: #### U MICRO, ERUR #### [facility] [address] [place] [address] Dr. Lucia Queen Bacteria identified Cx Nom (U) INDICATED Normal [facility] Comment on above: Performed By: #### U MICRO, ERUR #### [facility] [address] [place] [address] Dr. Lucia Queen CAST NONE SEEN Normal NONE SEEN [facility] Comment on above: Performed By: #### U MICRO, ERUR #### [facility] [address] [place] [address] Dr. Lucia Queen Crystals LM Nom (Urine sed) NONE SEEN Normal NONE SEEN [facility] Comment on above: Performed By: #### U MICRO, ERUR #### [facility] [address] [place] [address] Dr. Lucia Queen Epithelial cells LM Ql (Urine sed) FEW Abnormal NONE SEEN /RARE [facility] Comment on above: Performed By: #### U MICRO, ERUR #### [facility] [address] [place] [address] Dr. Lucia Queen MUCOUS TRACE Abnormal NONE SEEN [facility] Comment on above: Performed By: #### U MICRO, ERUR #### [facility] [address] [place] [address] Dr. Lucia Queen RBC 2-5 Abnormal 0-2 [facility] Comment on above: Performed By: #### U MICRO, ERUR #### [facility] [address] [place] [address] Dr. Lucia Queen WBC (U) [#/Vol] /uL Abnormal NONE SEEN [facility] Comment on above: Performed By: #### U MICRO, ERUR #### [facility] [address] [place] [address] Dr. Lucia Queen Urinalysis - AUTOMATEDon Appearance (U) cloudy [place] [employer] Other Bilirubin Ql (U) Negative [employer] Other Color (U) yellow [employer] Other Glucose Ql (U) Negative [employer] Other Hemoglobin Ql (U) moderate Siving [employer]il [place] [employer] Other Ketones Ql (U) Negative [employer] Other Leukocyte esterase Test strip Ql (U) large [employer] Other Nitrite Ql (U) Negative [employer] Other pH (U) 5.5 [pH] [employer] Other Protein Ql (U) 30 [employer] Other Specific gravity (U) [Rel density] 1.015 [employer] Other Urobilinogen (U) [Mass/Vol] 0.2 mg/dL [employer] Other Urinalysis - AUTOMATED [employer] Other Urine Cultureon 06-01-2022 Urine Culture >100,000 [employer] Other Urine Culture <16 Susceptible [employer] Other Urine Culture >16 Resistant [employer] Other Urine Culture <4 Susceptible [employer] Other Urine Culture <2 Susceptible [employer] Other Urine Culture <1 Susceptible [employer] Other Urine Culture <0.5 Susceptible [employer] Other Urine Culture 64 Intermediate [employer] Other Urine Culture <2/38 Susceptible [employer] Other Urine culture routineOrdered By: Clarisa Rutherford on 06-01-2022 Bacteria identified Cx Nom (U) Klebsiella pneumoniae [facility] XR Spine Lumbar Complete w/F romelia AND [place] 05-06-2022 XR Spine Lumbar Complete w/Flex AND Ext TECHNIQUE: AP, lateral, bilateral oblique views of the lumbar spine and AP and lateral coned down views of the lumbosacral junction HISTORY: Frequent falls. Legs give out. COMPARISONS: None available. FINDINGS: Mild extra scoliosis. Lumbar vertebral body heights are maintained. Mild intervertebral disc height loss at L1-L2, L2-L3, and L3-L4. Minimal multilevel degenerative endplate spurring. Facet arthropathy at L4-L5 and L5-S1. Minimal anterolisthesis of L4 on L5 in the lateral position does not significantly change with flexion or extension. Sacroiliac joints appear within normal limits. Atherosclerotic calcification of the abdominal aorta. IMPRESSION: No acute osseous abnormality. Degenerative changes of the lumbar spine. Report reported and signed by Ezequiel Woody on 05/06/2022 1652 Normal [facility] Insurance Adviser [facility] CARDIAC STRESS/REST INJE CTIONon 01-15-2022 [facility] CARDIAC STRESS/REST INJECTION Patient Name: LARISA LO STUDY: MYOCARDIAL PERFUSION STRESS TEST WITH LEXISCAN Performing facility: [facility], [address] [place] [address], [address], [address] Provider: Micheline Schwab MD, [facility] PCP: Dr. Tanna Burden Supervising provider: Micheline Schwab MD, [facility] INDICATION: Elevated troponin Hypertrophic cardiomyopathy HISTORY: Gender: F; Age: 71 y/o ; Height: 0 cm; Weight: 0 kg. Family HX CAD; Family HX CAD; HTN; Elevated troponin Denies smoking. COMPARISON: No comparison. ACCESSION NUMBER(S): [id number]; [id number]; [id number] ORDERING CLINICIAN: MICHELINE SCHWAB TECHNIQUE: ONE DAY protocol. Stress injection: Date:01-15-22, 34.8 mCi of Myoview IV 20 seconds after rapid injection of Lexiscan. Rest injection: Date: 01-15-22, 10.9 mCi of Myoview IV at rest. The patient had a rapid injection of 0.4 mg of Lexiscan IV over 10 seconds. Imaging was performed by gated tomographic technique. Reason for Lexiscan: dizziness/unsteady/fall risk STRESS TEST DATA: Resting heart rate was 73 BPM. Resting blood pressure was 112/70 mmHg. Peak blood pressure was 114/64 mmHg. Peak heart rate was 88 BPM. TEST TERMINATED DUE TO: Protocol completed FINDINGS: STRESS TEST RESULTS: Resting electrocardiogram revealed sinus rhythm with first-degree AV block. There were no significant ischemic ECG changes or dysrhythmias. The patient did not have chest pains/symptoms during procedure. There was a normal recovery phase. IMAGING RESULTS: Image quality was good. Rest and stress tomographic images were reviewed and revealed abnormal perfusion. There was no evidence of perfusion abnormality consistent with ischemia. There was evidence of anteroseptal fixed perfusion abnormality with appropriate wall thickening suggestive of attenuation artifact. There was not left ventricular dilatation with stress. Overall left ventricular systolic function appeared to be abnormal. There was mild global hypokinesis r. LVEF was 49%. TID is 1.09 and is normal. There was evidence of breast attenuation artifact. IMPRESSION: Abnormal Lexiscan Myoview cardiac perfusion stress test. No myocardial ischemia by perfusion imaging. No myocardial infarction by perfusion imaging. Abnormal left ventricular systolic function. Left ventricular ejection fraction 49 %. No previous studies are available for comparison. Electronically signed by: MICHELINE SCHWAB MD Normal [facility], [place]) No Panel Informationon 01-15 Normal -[facility] 250 DO Work Phone: Office Visit (Cardiology)on 01-05-2022 Follow-up visit Diagnoses/Problems Assessed Elevated troponin (790.6) (R77.8) Morbid obesity with BMI of 40.0-44.9, adult (278.01,V85.41) (E66.01,Z68.41) Essential hypertension, benign (401.1) (I10) Hypertrophic cardiomyopathy (425.18) (I42.2) Orders Elevated troponin, Hypertrophic cardiomyopathy NM Cardiac Stress/Rest Nuclear Med Order; Status:Hold For - Scheduling,Retrospective Authorization; Requested for:05Jan2022; Radiologist to Determine Optimal Study : Y What are the patient's signs and symptoms? : follow up Morbid obesity with BMI of 40.0-44.9, adult Healthy Weight Tips; Status:Complete - Retrospective Authorization; Done: 05Jan2022 Patient Instructions By signing my name below, I, Cosme Orona RN ,Scribe, attest that this documentation has been prepared under the direction and in the presence of Dr. Micheline Schwab MD. All medical record entries made by the Scribe were at my direction and personally dictated by me. I have reviewed the chart and agree that the record accurately reflects my personal performance of the history, physical exam, discussion and plan. Please bring all medicines, vitamins, and herbal supplements with you when you come to the office. Prescriptions will not be filled unless you are compliant with your follow up appointments or have a follow up appointment scheduled as per instruction of your physician. Refills should be requested at the time of your visit. Patient provided Falls Prevention education sheet. Follow up as needed only Chief Complaint LARISA LO is being seen for a cardiovascular evaluation of coronary artery disease and DR BURDEN/JIA HX NSTEMI AND HYPERTOPIC CARDIOMYOPATHY. 71-year-old white female who is being referred to me by Dr. Rafi Burden to assess further cardiac evaluation after recent admission to [facility] initially and subsequently to [facility]. She presented with acute bronchitis and wheezing and for some reason troponin was ordered and was elevated around 1999. She had no EKG changes, she was sent to [facility] for further cardiac evaluation and was seen by Dr. Danyel Marcum who recommended cardiac catheterization or stress test which the patient categorically refused. Interestingly the troponin at [facility] was only 49 pg/mL. Her EKG was normal. She had an echocardiogram which revealed mild LVH with no changes from 2018. The patient has strong family history of IHSS. Apparently she carries the gene and has only mild concentric hypertrophy with no LVOT obstruction or gradient and with no MAYCO mitral regurgitation. Her bronchitis resolved and currently she is asymptomatic. She does have hypertension and has been on metoprolol succinate and losartan/hydrochlorothiazi de along with bumetanide. The patient has no diabetes or dyslipidemia. No family history of premature CAD. She denies orthopnea PND or lower extremity edema and has no palpitations. She has no history of syncope. No vascular disease is noted. All other review of system was unremarkable. Her physical examination was remarkable for morbid obesity. Assessment/recommendations : 1?recent admission for acute bronchitis with elevated troponin on a background of LVH and strong family history of IHSS. The patient has had no symptoms suggestive angina pectoris, had no cardiac arrhythmias of any significance. She was advised based on her risk factors profile and recent admission to have a nuclear stress test and if is negative no further cardiac work-up is going to be recommended. At the present time I would not recommend cardiac catheterization without abnormal stress test. Patient is in agreement. 2?hypertension currently under control on a combination of losartan hydrochlorothiazide and metoprolol succinate along with bumetanide 3?strong family history of hypertrophic cardiomyopathy with number of family members having AICD is in place. Recent echocardiographic findings do not suggest high risk pathology 4?morbid obesity, encouraged the patient to watch her diet and lose weight. Surgical History Problems History of Complete colonoscopy History of Esophagogastroduodenoscopy History of Lumpectomy left breast Current Meds Medication NameInstruction ALPRAZolam 0.5 MG Oral TabletTAKE 1 TABLET Twice daily PRN Aspirin EC 81 MG Oral Tablet Delayed ReleaseTAKE 1 TABLET Daily Bumetanide 1 MG Oral TabletTAKE 1 TABLET DAILY. Gabapentin 300 MG Oral CapsuleTAKE 1 CAPSULE 3 TIMES DAILY. Hyzaar 100-12.5 MG Oral TabletTake 1 tablet daily Metoprolol Succinate ER 25 MG Oral Tablet Extended Release 24 HourTAKE 1 TABLET DAILY. Perphenazine-Amitriptyline 2-25 MG Oral TabletTAKE 1 TABLET Bedtime Potassium Chloride Deborah ER 20 MEQ Oral Tablet Extended ReleaseTAKE 1 TABLET DAILY. Allergies Medication No Known Drug Allergies Recorded By: Annmarie Schultz; 01/02/2022 3:51:41 PM Family History Mother Family history of hypertension (V17.49) (Z82.49) Family history of pancreatic cancer (V16.0) (Z80.0) (more content not included)... Normal [facility] Tobacco Screening.on 022 Adult depression screening assessment No [facility] 250 DO Work Phone: Fall risk assessment b) One or more fall s in the last year [facility] 250 DO Work Phone: Tobacco use status [facility] b) No [facility] 250 DO Work Phone: Complete Blood Counton 12-01 Erythrocyte distribution width (RBC) [Ratio] 13.2 % Normal 11.0-15.0 [facility] Specialist Comment on above: Performed By: #### C MP, CBC #### [facility] [address] [place], [place] [id number] Hematocrit (Bld) [Volume fraction] 40.2 % Normal 35.0-47.0 [facility] Specialist Comment on above: Performed By: #### C MP, CBC #### [facility] [address] [place], [place] [id number] Hemoglobin (Bld) [Mass/Vol] 13.3 g/dL Normal 11.6-15.5 [facility] Specialist Comment on above: Performed By: #### C MP, CBC #### [facility] [address] [place], [place] [id number] MCH (RBC) [Entitic mass] 31.7 pg Normal 27.0-33.0 [facility] Specialist Comment on above: Performed By: #### C MP, CBC #### [facility] [address] [place], [place] [id number] MCHC (RBC) [Mass/Vol] 33.1 g/dL Normal 32.0-36.0 [facility] Comment on above: Performed By: #### C MP, CBC #### [facility] [address] [place], [place] [id number] MCV (RBC) [Entitic vol] 96 fL Normal 80-100 [facility] Specialist Comment on above: Performed By: #### C MP, CBC #### [facility] [address] [place], [place] [id number] Platelet mean volume (Bld) [Entitic vol] 9.90 fL Normal 7.50-12.50 [facility] Comment on above: Performed By: #### C MP, CBC #### [facility] [address] [place], [place] [id number] Platelets (Bld) [#/Vol] 313 10*3/uL Normal 140-400 [facility] Specialist Comment on above: Performed By: #### C MP, CBC #### [facility] [address] [place], [place] [id number] RBC (Bld) [#/Vol] 4.20 10*6/uL Normal 3.90-5.20 [facility] Insurance Adviser Comment on above: Performed By: #### C MP, CBC #### [facility] [address] [place], [place] [id number] RDW-SD 46.3 fL Normal 37.0-50.0 [facility] Specialist Comment on above: Performed By: #### C MP, CBC #### [facility] [address] [place], [place] [id number] WBC (Bld) [#/Vol] 6.9 10*3/uL Normal 3.8-11.0 [facility] Insurance Adviser Comment on above: Performed By: #### C MP, CBC #### [facility] [address] [place], [place] [id number] [facility] 12-01-2021 Albumin [Mass/Vol] 4.3 g/dL Normal 3.6-5.1 [facility] Insurance Adviser Comment on above: Performed By: #### C MP, CBC #### [facility] [address] [place], [place] [id number] Albumin/Globulin [Mass ratio] 1.5 {ratio} Normal 1.0-2.5 [facility] Insurance Adviser Comment on above: Performed By: #### C MP, CBC #### [facility] [address] [place], [place] [id number] ALP [Catalytic activity/Vol] 87 U/L Normal 35-119 [facility] Specialist Comment on above: Performed By: #### C MP, CBC #### [facility] [address] [place], [place] [id number] ALT [Catalytic activity/Vol] 29 U/L Normal 6-33 [facility] Specialist Comment on above: Result Comment: 06/18 Female reference range changed. Performed By: #### C MP, CBC #### [facility] [address] [place], [place] [id number] Anion gap [Moles/Vol] 19 mmol/L Normal 12-20 [facility] Specialist Comment on above: Result Comment: Effe ctive 07/24/2019 reference range changed. Performed By: #### C MP, CBC #### [facility] [address] [place], [place] [id number] AST [Catalytic activity/Vol] 37 U/L High 9-34 [facility] Comment on above: Performed By: #### C MP, CBC #### [facility] [address] [place], [place] [id number] BUN/CREA 22 Ratio Normal 6-22 [facility] Comment on above: Performed By: #### C MP, CBC #### [facility] [address] [place], [place] [id number] Calcium [Mass/Vol] 9.6 mg/dL Normal 8.6-10.2 [facility] Comment on above: Performed By: #### C MP, CBC #### [facility] [address] [place], [place] [id number] Chloride [Moles/Vol] 98 mmol/L Normal 98-107 [facility] Comment on above: Performed By: #### C MP, CBC #### [facility] [address] [place], [place] [id number] CO2 [Moles/Vol] 26 mmol/L Normal 20-31 [facility] Comment on above: Performed By: #### C MP, CBC #### [facility] [address] [place], [place] [id number] Creatinine [Mass/Vol] 1.1 mg/dL Normal 0.6-1.4 [facility] Comment on above: Performed By: #### C MP, CBC #### [facility] [address] [place], [place] [id number] eGFRAA 61 mL/min/1.73m2 Normal >60 [facility] Comment on above: Performed By: #### C MP, CBC #### [facility] [address] [place], [place] [id number] eGFRNAA 50 mL/min/1.73m2 Low >60 [facility] Comment on above: Performed By: #### C MP, CBC #### [facility] [address] [place] [address], [place] [id number] Globulin (S) [Mass/Vol] 2.9 g/dL Normal 1.9-3.7 [facility] Comment on above: Performed By: #### C MP, CBC #### [facility] [address] [place], [place] [id number] Glucose [Mass/Vol] 222 mg/dL High 65-99 [facility] Specialist Comment on above: Result Comment: For FASTING Glucose --- ADA reference ranges: Normal 65-99 mg/dl Prediabetes 100-125 Diabetes >/= 126 Performed By: #### C MP, CBC #### [facility] [address] [place], [place] [id number] Potassium [Moles/Vol] 3.7 mmol/L Normal 3.5-5.5 [facility] Comment on above: Performed By: #### C MP, CBC #### [facility] [address] [place], [place] [id number] Protein [Mass/Vol] 7.2 g/dL Normal 6.1-8.1 [facility] Specialist Comment on above: Performed By: #### C MP, CBC #### [facility] [address] [place], [place] [id number] Sodium [Moles/Vol] 139 mmol/L Normal 135-146 [facility] Specialist Comment on above: Performed By: #### C MP, CBC #### [facility] [address] [place], [place] [id number] TBIL <0.3 Normal [facility] Comment on above: Performed By: #### C MP, CBC #### [facility] [address] [place] [address], [place] [id number] Urea nitrogen [Mass/Vol] 23 mg/dL Normal 7-25 [facility] Specialist Comment on above: Performed By: #### C MP, CBC #### [facility] [address] [place], [place] [id number] Q - B-TYPE NATRIURETIC (BNP) on 12-01-2021 Natriuretic peptide B (Bld) [Mass/Vol] 56 pg/mL Normal <100 [facility] Specialist Comment on above: Order Comment: [facility] Testing performed at: [employer] [facility], [address] [facility], [address] [place] [address], [place], [address], School Admissions Representative: Tod Fam MD [facility] Collection Date/Time: [facility] Results Received Date/Time: [facility] Reported Date/Time: Result Comment: BNP levels increase with age in the general population with the highest values seen in individuals greater than 75 years of age. Reference: J. Am. [place]. Cardiol. 2002; 40:976-982. Performed By: #### 3 [id number], [id number], [id number] #### [facility] Default [address] [place] [address] Q - D-DIMER,QUANTITATIVEon 0 12-01-2021 D-DIMER, QUANTITATIVE 1.19 mcg/mL FEU High <0.50 [facility] Specialist Comment on above: Order Comment: [facility] performed at: [employer] [facility], [address] [place] [address], [address] [place] [address], [phone], School Admissions Representative: Tod Fam MD [facility] Collection Date/Time: [facility] Results Received Date/Time: [facility] Reported Date/Time: Result Comment: The D-Dimer test is used frequently to exclude an acute PE or DVT. In patients with a low to moderate clinical risk assessment and a D-Dimer result <0.50 mcg/mL FEU, the likelihood of a PE or DVT is very low. However, a thromboembolic event should not be excluded solely on the basis of the D-Dimer level. Increased levels of D-Dimer are associated with a PE, DVT, DIC, malignancies, inflammation, sepsis, surgery, trauma, , and advancing patient age. [Domenico 2006 11:295(2):199-207] For additional information, please refer to: http://education.LUXA/faq/BXW768 (This link is being provided for informational/ educational purposes only) Performed By: #### 3 [id number], [id number] #### [facility] [address] [place] [address] Q - TROPONIN Ion 12-01-2021 TROPONIN I 767 ng/L Critically high < OR = 47 [facility] Specialist Comment on above: Order Comment: [facility] Testing performed at: [employer] [facility], [address] [place] [address], [address] [place], [address], School Admissions Representative: Tod Fam MD [facility] Collection Date/Time: [facility] Results Received Date/Time: [facility] Reported Date/Time: [id number] Result Comment: call ed to Birgit [facility] (TROPONIN I) In accord with published recommendations, serial testing of troponin I at intervals of 2 to 4 hours for up to 12 to 24 hours is suggested in order to corroborate a single troponin I result. An elevated troponin alone is not sufficient to make the diagnosis of [place]. Performed By: #### 3 [id number], [id number], [id number] #### [facility] [address] [place] [address] XR Chest 2 Views*on 12-02-19 22 XR Chest 2 Views* HISTORY: Cough. Dysp maeve. COMPARISON: None available TECHNIQUE: Frontal and lateral views of the chest FINDINGS: The cardiomediastinal silhouette is within normal limits. Patchy and linear left lower lobe opacities. No pneumothorax or pleural effusion. No acute osseous abnormality. Degenerative changes of the spine and both shoulders. IMPRESSION: Left lower lobe infiltrate. Continued follow-up recommended to ensure resolution. Report reported and signed by Ezequiel Woody on 12/01/2021 1318 Normal [facility] Insurance Adviser BNPon 11-28-2021 Natriuretic peptide B (Bld) [Mass/Vol] 441.0 pg/mL Normal <=900.0 [facility] Comment on above: Performed By: #### U RCX #### [facility] [address] [place] [address] Dr. Lucia Queen CBC AUTO DIFFon 11-28-2021 BASO # 0.0 103/ul Normal 0.0-0.1 [facility] Comment on above: Performed By: #### C BC #### [facility] [address] [place] [address] Dr. Lucia Queen Basophils/100 WBC (Bld) 0.3 % Normal 0.2-2.0 [facility] Comment on above: Performed By: #### C BC #### [facility] [address] [place] [address] Dr. Lucia Queen EO # 0.2 103/ul Normal 0.0-0.7 [facility] Comment on above: Performed By: #### C BC #### [facility] [address] [place] [address] Dr. Lucia Queen Eosinophils/100 WBC (Bld) 3.2 % Normal 0.9-7.0 [facility] Comment on above: Performed By: #### C BC #### [facility] [address] [place] [address] Dr. Lucia Queen Erythrocyte distribution width (RBC) [Ratio] 13.3 % Normal 11.0-15.0 [facility] Comment on above: Performed By: #### C BC #### [facility] [address] [place] [address] Dr. Lucia Queen Hematocrit (Bld) [Volume fraction] 41.7 % Normal 36.0-48.0 [facility] Comment on above: Performed By: #### C BC #### [facility] [address] [place] [address] Dr. Lucia Queen Hemoglobin (Bld) [Mass/Vol] 13.5 g/dL Normal 12.0-16.0 [facility] Comment on above: Performed By: #### C BC #### [facility] [address] [place] [address] Dr. Lucia Queen IG # 0.02 10e3/ul Normal 0.00-0.03 [facility] Comment on above: Performed By: #### C BC #### [facility] [address] [place] [address] Dr. Lucia Queen IG % 0.3 % Normal 0.0-0.5 [facility] Comment on above: Performed By: #### C BC #### [facility] [address] [place] [address] Dr. Lucia Queen LYMPH # 1.3 103/ul Normal 1.2-3.8 [facility] Comment on above: Performed By: #### C BC #### [facility] [address] [place] [address] Dr. Lucia Queen Lymphocytes/100 WBC (Bld) 17.1 % Critically low 20.5-60.0 [facility] Comment on above: Performed By: #### C BC #### [facility] [address] [place] [address] Dr. Lucia Queen MANUAL DIFF REQ NO Normal [facility] Comment on above: Performed By: #### C BC #### [facility] [address] [place] [address] Dr. Lucia Queen MCH (RBC) [Entitic mass] 31.4 pg Normal 26.7-34.0 [facility] Comment on above: Performed By: #### C BC #### [facility] [address] [place] [address] Dr. Lucia Queen MCHC (RBC) [Mass/Vol] 32.4 g/dL Normal 29.9-35.2 [facility] Comment on above: Performed By: #### C BC #### [facility] [address] [place] [address] Dr. Lucia Queen MCV (RBC) [Entitic vol] 97.0 fL Normal 81.0-99.0 [facility] Comment on above: Performed By: #### C BC #### [facility] [address] [place] [address] Dr. Lucia Queen MONO # 0.8 103/ul Normal 0.3-0.8 [facility] Comment on above: Performed By: #### C BC #### [facility] [address] [place] [address] Dr. Lucia Queen Monocytes/100 WBC (Bld) 10.3 % Normal 1.7-12.0 [facility] Comment on above: Performed By: #### C BC #### [facility] [address] [place] [address] Dr. Lucia Queen NEUT # 5.2 103/ul Normal 1.4-6.5 [facility] Comment on above: Performed By: #### C BC #### [facility] [address] [place] [address] Dr. Lucia Queen Neutrophils/100 WBC (Bld) 68.8 % Normal 43.0-75.0 [facility] Comment on above: Performed By: #### C BC #### [facility] [address] [address] [address] Lucia Queen Platelet mean volume (Bld) [Entitic vol] 9.6 fL Normal 9.5-13.5 [facility] Comment on above: Performed By: #### C BC #### [facility] [address] [place] [address] Dr. Lucia Queen PLT 293 103/ul Normal 150-450 [facility] Comment on above: Performed By: #### C BC #### [facility] [address] [address] [address] Lucia Queen RBC 4.30 106/ul Normal 4.20-5.40 [facility] Comment on above: Performed By: #### C BC #### [facility] [address] [place] [address] Dr. Lucia Queen WBC 7.6 103/ul Normal 4.0-11.0 [facility] Comment on above: Performed By: #### C BC #### [facility] [address] [place] [address] Dr. Lucia Queen Covid-19 PCR ([facility])on 11-16 SARS-CoV-2 (COVID-19) RNA MILLIE+probe Ql (Unsp spec) Not detected Normal NOT DETECTED [facility] Comment on above: Result Comment: When diagnostic testing is negative, the possibility of a false negative should be considered in the context of a patient's recent exposures and the presence of clinical signs and symptoms consistent with SARS-CoV-2. This test is not yet approved or cleared by the [place] FDA. When there are no FDA-approved or cleared tests available, and other criteria are met, FDA can make tests available under an emergency access mechanism called an Emergency Use Authorization (EUA). The EUA for this test is supported by the [place] of Health and Human Service's declaration that circumstances exist to justify the emergency use of in vitro diagnostics for the detection and/or diagnosis of the virus that causes COVID-19. This EUA will remain in effect for the duration of the COVID-19 declaration justifying emergency of IVDs, unless it is terminated or revoked by the FDA (after which the test may no longer be used). Performed By: #### C VDTB #### [facility] [address] [place] [address] Dr. Lucia Queen PROF 14(COMP METB)on 022 Albumin [Mass/Vol] 4.0 g/dL Normal 3.4-5.0 [facility] Comment on above: Performed By: #### C LEO, HSTROPN #### [facility] [address] [place] [address] Dr. Lucia Queen Albumin/Globulin [Mass ratio] 0.9 {ratio} Normal [facility] Comment on above: Performed By: #### C LEO, HSTROPN #### [facility] [address] [place] [address] Dr. Lucia Queen ALP [Catalytic activity/Vol] 80 U/L Normal 46-116 [facility] Comment on above: Performed By: #### C LEO, HSTROPN #### [facility] [address] [place] [address] Dr. Lucia Queen ALT [Catalytic activity/Vol] 37 U/L Normal 14-59 [facility] Comment on above: Performed By: #### C LEO, HSTROPN #### [facility] [address] [place] [address] Dr. Lucia Queen Anion gap [Moles/Vol] 12.4 mmol/L Normal [facility] Comment on above: Performed By: #### C LEO, HSTROPN #### [facility] [address] [place] [address] Dr. Lucia Queen AST [Catalytic activity/Vol] 29 U/L Normal 15-37 [facility] Comment on above: Performed By: #### C LEO, HSTROPN #### [facility] [address] [place] [address] Dr. Lucia Queen Bilirubin [Mass/Vol] 0.3 mg/dL Normal 0.2-1.0 [facility] Comment on above: Performed By: #### C LEO, HSTROPN #### [facility] [address] [place] [address] Dr. Lucia Queen Calcium [Mass/Vol] 9.4 mg/dL Normal 8.5-10.1 [facility] Comment on above: Performed By: #### C MP, HSTROPN #### [facility] [address] [place] [address] Dr. Lucia Queen Chloride [Moles/Vol] 97 mmol/L Critically low 98-107 [facility] Comment on above: Performed By: #### C MP, HSTROPN #### [facility] [address] [place] [address] Dr. Lucia Queen CO2 [Moles/Vol] 30.9 mmol/L Normal 21.0-32.0 [facility] Comment on above: Performed By: #### C MP, HSTROPN #### [facility] [address] [place] [address] Dr. Lucia Queen Creatinine [Mass/Vol] 1.37 mg/dL Critically high 0.55-1.02 [facility] Comment on above: Performed By: #### C MP, HSTROPN #### [facility] [address] [place] [address] Dr. Lucia Queen EGFR-AF BHUTANESE 46 mL/min/1.73m2 Critically low >=60 [facility] Comment on above: Performed By: #### C MP, HSTROPN #### [facility] [address] [place] [address] Dr. Lucia Queen EGFR-NON AF BHUTANESE 38 mL/min/1.73m2 Critically low >=60 [facility] Comment on above: Performed By: #### C MP, HSTROPN #### [facility] [address] [place] [address] Dr. Lucia Queen Globulin (S) [Mass/Vol] 4.4 g/dL Normal [facility] Comment on above: Performed By: #### C MP, HSTROPN #### [facility] [address] [place] [address] Dr. Lucia Queen Glucose [Mass/Vol] 168 mg/dL Critically high 74-106 [facility] Comment on above: Performed By: #### C MP, HSTROPN #### [facility] [address] [address] [address] Lucia Queen Potassium [Moles/Vol] 3.3 mmol/L Critically low 3.5-5.1 [facility] Comment on above: Performed By: #### C MP, HSTROPN #### [facility] [address] [address] [address] Lucia Queen Protein [Mass/Vol] 8.4 g/dL Critically high 6.4-8.2 [facility] Comment on above: Performed By: #### C LEO, HSTROPN #### [facility] [address] [place] [address] Dr. Lucia Queen Sodium [Moles/Vol] 137 mmol/L Normal 136-145 [facility] Comment on above: Performed By: #### C LEO, HSTROPN #### [facility] [address] [address] [address] Lucia Queen Urea nitrogen [Mass/Vol] 21.0 mg/dL Critically high 7.0-18.0 [facility] Comment on above: Performed By: #### C LEO, HSTROPN #### [facility] [address] [place] [address] Dr. Lucia Queen Urea nitrogen/Creatinine [Mass ratio] 15.3 mg/mg Normal [facility] Comment on above: Performed By: #### C MP, HSTROPN #### [facility] [address] [place] [address] Dr. Lucia Queen TROPONIN, HIGH SENSITIVITYon 11-28-2021 HSTROP 2512.3 pg/mL Critically high 4.0-51.3 [facility] Comment on above: Result Comment: CUT- OFF POINTS HAVE BEEN ESTABLISHED BASED ON THE FOURTH UNIVERSAL DEFINITIONS OF MYOCARDIAL INFARCTION. THE UPPER REFERENCE LIMIT (URL) OF TROPONIN, DEFINED THE 99TH PERCENTILE OF cTnI DISTRIBUTION IN A REFERENCE POPULATION, HAS BEEN CONFIRMED THE DECISION THRESHOLD FOR TX DIAGNOSIS. Performed By: #### U RCX #### [facility] [address] [address] [address] Lucia Queen XR CHEST 1 Von 11-28-2021 XR CHEST 1 V EXAMINATION: XR CHES T 1 V, , 11/27/2021 10:35 PM EDT INDICATION: COUGH HISTORY: Ordering Provider Reason for Exam: Technologist Note: Additional: COMPARISON: None. TECHNIQUE: Chest x-ray: One view. FINDINGS: No pneumothorax, pleural effusion or focal airspace consolidation. Mild enlarged cardiac silhouette is seen. Bony thorax is unremarkable. IMPRESSION: No acute pulmonary process. Mild enlarged cardiac silhouette is seen. Electronically authenticated by: ANGLE SCHNEIDER Date: 2021-11-27 23:11 Normal [facility] XR NECK SOFT TISSUEon 2021 XR NECK SOFT TISSUE EXAM: XR NECK SOFT T ISSUE HISTORY: COUGH COMPARISON: None. TECHNIQUE: 2 views of the soft tissues of the neck were obtained. FINDINGS: The epiglottis appears within normal limits. The prevertebral soft tissues are unremarkable. The airway is patent. Dental amalgam is noted. The imaged lungs are clear. No acute osseous abnormality is seen. IMPRESSION: 1. The soft tissues of the neck appear within normal limits. Electronically authenticated by: Traci SHARIF Date: 2021-11-27 23:17 Normal [facility] Vital Signs Date Time Vital Sign Value Performing Clinician Facility 02-08-2024 13:14-0400 Blood Pressure Location [employer] [facility] 02-08-2024 13:14-0400 Diastolic blood pressure 80 mm[Hg] [employer] [facility] 02-08-2024 13:14-0400 Heart rate 72 /min [employer] [facility] 02-08-2024 13:14-0400 Respiratory rate 16 /min [employer] [facility] 02-08-2024 13:14-0400 Systolic blood pressure 132 mm[Hg] Karissa Carrasco [facility] 12-14-2023 18:33-0400 Body height 137.16 cm PHYSICIAN NO [facility] 12-14-2023 18:33-0400 Body mass index (BMI) [Ratio] 45.4 kg/m2 PHYSICIAN NO [facility] 12-14-2023 18:33-0400 Body temperature 98.3 [degF] PHYSICIAN NO [facility] 12-14-2023 18:33-0400 Body weight 85.5 kg PHYSICIAN NO [facility] 12-14-2023 18:33-0400 Heart rate 74 /min PHYSICIAN NO [facility] 12-14-2023 18:33-0400 Respiratory rate 18 /min PHYSICIAN NO [facility] 12-14-2023 18:33-0400 SaO2% (BldA) [Mass fraction] 94 % PHYSICIAN NO [facility] 10-29-2023 17:31-0400 Body height 137.16 cm DO Rafi Burden Work Phone: [facility] 10-29-2023 17:31-0400 Body mass index (BMI) [Ratio] 43.9 kg/m2 DO Rafi Burden Work Phone: [facility] 10-29-2023 17:31-0400 Body temperature 97.8 [degF] DO Rafi Burden Work Phone: [facility] 10-29-2023 17:31-0400 Body weight 82.55 kg DO Rafi Burden Work Phone: [facility] 10-29-2023 17:31-0400 Diastolic blood pressure 79 mm[Hg] DO Rafi Burden Work Phone: [facility] 10-29-2023 17:31-0400 Heart rate 86 /min DO Rafi Burden Work Phone: [facility] 10-29-2023 17:31-0400 SaO2% (BldA) [Mass fraction] 94 % DO Rafi Burden Work Phone: [facility] 10-29-2023 17:31-0400 Systolic blood pressure 133 mm[Hg] DO Rafi Burden Work Phone: [facility] 08-04-2022 13:48-0500 Blood Pressure Location TATIANASETH TURNERRY [facility] 08-04-2022 13:48-0500 Diastolic blood pressure 80 mm[Hg] TATIANA KWAKU [facility] 08-04-2022 13:48-0500 Heart rate 68 /min TATIANA KWAKU [facility] 08-04-2022 13:48-0500 Respiratory rate 16 /min TATIANA KWAKU [facility] 08-04-2022 13:48-0500 Systolic blood pressure 132 mm[Hg] TATIANA KWAKU [facility] 06-01-2022 12:35-0500 Body height 137.16 cm Clarisa Rutherford Other [employer] [facility] [employer] Other 06-01-2022 12:35-0500 Body mass index (BMI) [Ratio] 40.98 kg/m2 Clarisa Rutherford Other [employer] Other 06-01-2022 12:35-0500 Body temperature 97.5 [degF] Clarisa Rutherford Other [employer] Other 06-01-2022 12:35-0500 Body weight 77.11 kg Clarisa Rutherford Other [employer] Other 06-01-2022 12:35-0500 Diastolic blood pressure 71 mm[Hg] Clarisa Rutherford Other [employer] Other 06-01-2022 12:35-0500 Respiratory rate 20 /min Clarisa Rutherford Other [employer] Other 06-01-2022 12:35-0500 SaO2% (BldA) [Mass fraction] 97 % Clarisa Rutherford Other [employer] Other 06-01-2022 12:35-0500 Systolic blood pressure 134 mm[Hg] Clarisa Rutherford Other [employer] Other 01-15-2022 12:00-0400 49 1 Rafi Bruden Work Phone: [facility] [address] [place] Work Phone: Comment on above: [id number] 01-05-2022 13:12-0400 Body height 137.16 cm Rafi Burden Work Phone: [facility] [address] DO Work Phone: 01-05-2022 13:12-0400 Body mass index (BMI) [Ratio] 42.68 kg/m2 Rafi Burden Work Phone: [facility] [address] DO Work Phone: 01-05-2022 13:12-0400 Body surface area Derived from formula 1.64 m2 Rafi Burden Work Phone: [facility] [address] DO Work Phone: 01-05-2022 13:12-0400 Body weight 80.29 kg Rafi Burden Work Phone: [facility] [address] DO Work Phone: 01-05-2022 13:12-0400 Diastolic blood pressure 68 mm[Hg] Rafi Burden Work Phone: [facility] [address] DO Work Phone: 01-05-2022 13:12-0400 Heart rate 80 /min Rafi Holter Work Phone: [facility] DO Work Phone: 01-05-2022 13:12-0400 Systolic blood pressure 110 mm[Hg] Rafi Holter Work Phone: [facility] [address] DO Work Phone: Encounters Encounter Date Encounter Type Care Provider Facility Start: 04-11-2024 ambulatory Karissa X Orzech Facilit y:[facility] Start: 03-02-2024 End: 03-02-2024 ambulatory SWATHI العراقي Not Available Start: 02-08-2024 End: 02-08-2024 ambulatory Karissa X Orzech Facility:[facility] Start: 02-08-2024 End: 02-08-2024 Patient encounter procedure Karissa X Orzech [facility] Start: 01-27-2024 End: 01-27-2024 Patient encounter procedure DO Rafi Burden Work Phone: [facility] [place] Work Phone: Start: 01-27-2024 End: 01-27-2024 ambulatory DO Rafi Burden Work Phone: [facility] Work Phone: Start: 01-27-2024 End: 01-27-2024 ambulatory DILSHAD GARCIA Not Available Start: 01-17-2024 End: 01-17-2024 ambulatory VIKTORIYA CHOW Not Available Start: 01-13-2024 End: 01-13-2024 Patient encounter procedure PHYSICIAN NO [facility] Work Phone: Start: 01-13-2024 End: 01-13-2024 ambulatory [facility] Work Phone: Start: 12-28-2023 End: 12-28-2023 ambulatory Karissa X Orzech Facility:[facility] Start: 12-28-2023 End: 12-28-2023 Patient encounter procedure Karissa X Orpavithrach [facility] Start: 12-22-2023 End: 12-22-2023 ambulatory DILSHAD GARCIA Not Available Start: 12-14-2023 End: 12-14-2023 ambulatory PHYSICIAN NO [facility] Work Phone: Start: 12-14-2023 End: 12-14-2023 Patient encounter procedure PHYSICIAN NO [facility] Work Phone: Start: 11-11-2023 End: 11-11-2023 ambulatory BRENDA RICKS Not Available Start: 10-29-2023 End: 10-29-2023 Departed Referred DO Rafi Burden Work Phone: [facility] [place] Work Phone: Start: 10-29-2023 End: 10-29-2023 ambulatory DO Rafi Burden Work Phone: [facility] Work Phone: Start: 10-29-2023 End: 10-29-2023 Patient encounter procedure DO Rafi Burden Work Phone: [facility] Work Phone: Start: 09-13-2023 End: 09-13-2023 ambulatory BRENDA RICKS Not Available Start: 09-10-2023 End: 09-10-2023 ambulatory Rafi Burden Facility:[facility] Start: 09-10-2023 End: 09-10-2023 Patient encounter procedure DO Rafi Burden Work Phone: [facility] [place] Work Phone: Start: 05-31-2023 End: 05-31-2023 ambulatory DILSHAD GARCIA Not Available Start: 05-05-2023 ambulatory TATIANA Brenneri ty:[facility] Start: 03-09-2023 End: 03-09-2023 Patient encounter procedure DO Rafi Burden Work Phone: [facility] [place] Work Phone: Start: 03-09-2023 End: 03-09-2023 ambulatory DO Rafi Burden Work Phone: [facility] Work Phone: Start: 01-07-2023 End: 01-07-2023 ambulatory DO Rafi Burden Work Phone: [facility] Work Phone: Start: 01-07-2023 End: 01-07-2023 Patient encounter procedure DO Rafi Burden Work Phone: [facility] Work Phone: Start: 11-04-2022 End: 11-05-[address] RAFI BURDEN Facility:[facility] Start: 10-06-2022 End: 10-06-2022 ambulatory Imad Asaad Other [employer] Other Start: 10-06-2022 Telephone encounter Imad Asaad [facility] Start: 08-10-2022 End: 08-11-[address] RAFI BURDEN Facility:[facility] Start: 08-04-2022 End: 08-04-2022 Lab Drop off TATIANA AMES [facility] Start: 08-04-2022 End: 08-04-2022 Patient encounter procedure TATIANA AMES [facility] Start: 07-27-2022 End: 07-27-2022 ambulatory PHYSICIAN MAISHA ELIZONDO [facility] Work Phone: Start: 07-27-2022 End: 07-27-2022 Patient encounter procedure PHYSICIAN NO FAMILY [facility] Work Phone: Start: 06-16-2022 End: 06-17-[address] JAE YOUNGBLOOD Facility:H1 Start: 06-04-2022 End: 06-04-2022 ambulatory MIKAYLA JUSTICE Facility:[facility]1 Start: 06-01-2022 Office outpatient vi sit 25 minutes Clarisa Rutherford [facility] Start: 06-01-2022 End: 06-01-2022 ambulatory EXPLOSIVES HANDLER-C Clarisa Rutherford Work Phone: [facility] Work Phone: Start: 06-01-2022 End: 06-01-2022 Departed Referred EXPLOSIVES HANDLER-C Clarisa Rutherford Work Phone: [facility] Start: 01-19-2022 Chart Update Rafi Burden Work Phone: [facility] DO Work Phone: Start: 01-15-2022 Patient encounter procedure Rafi Burden Work Phone: [facility] [place] Work Phone: Start: 01-05-2022 Office consultation new/estab patient 60 min Rafi Burden Work Phone: [facility] DO Work Phone: Start: 11-28-2021 End: 11-28-[address] MYRNA BOBBY Facility:[facility]1 Start: 09-08-2018 Patient encounter procedure Chika Omalley Facility:[id number] Procedures Date Procedure Procedure Detail Performing Clinician Start: 01-13-2024 Screening mammography of bilateral breasts PHYSICIAN NO FAMILY Start: 10-29-2023 Urine culture PHYSICIAN NO FAMILY Start: 01-07-2023 Bilateral mammography DO Rafi Burden Work Phone: Start: 06-01-2022 Piperacillin/tazobactam Clarisa Rutherford Other Start: 06-01-2022 Urine culture PHYSICIAN NO FAMILY Start: 05-04-2015 Total colonoscopy Rafi Burden Work Phone: Esophagogastroduodenoscopy P aul Lina Burden Work Phone: Lumpectomy of breast Rafi Burden Work Phone: Comment on above: left breast; Lumpectomy of breast MARK AMES Comment on above: Outside Source Comment: Comment on above : left breast; Plan of Treatment Date Care Activity Detail Author Start: 10-29-2023 Bacteria identified in Urine by Culture [facility] Start: 01-15-2022 STRESS NUC, Provider : DEVEN HHVI NUCLEAR 01,[id number], Status: Pen, Time: 12:00 PM STRESS NUC, Provider: DEVEN [facility]VI NUCLEAR 01,[id number], Status: Pen, Time: 12:00 PM [facility] 250 DO Work Phone: Bacteria identified in Urine by Culture [facility] Glucose measurement estimated from glycated hemoglobin [facility] Immunizations Immunization Date Immunization Notes Care Provider Daljit shepard 05-31-2023 influenza virus vacc ine, unspecified formulation Karissa Carrasco [facility] 06-19-2022 SARS-CoV-2 (COVID-19 ) [id number] TATIANA AMES [facility] 05-11-2022 influenza virus vacc ine, unspecified formulation TATIANA AMES [facility] 05-02-2021 Pfizer-BioNTech COVI D-19 Vacc 30 MCG/0.3ML Intramuscular Suspension Rafi Burden Work Phone: [facility] 04-03-2021 Fluzone High-Dose Quadrivalent 0.7 ML Intramuscular Suspension Prefilled Syringe Rafi Burden Work Phone: [place] [address] DO Work Phone: 04-03-2021 influenza virus vacc ine, unspecified formulation TATIANA AMES [facility] 09-20-2020 Pfizer-BioNTech COVI D-19 Vacc 30 MCG/0.3ML Intramuscular Suspension Rafi Burden Work Phone: [facility] Comment on above: Result Comment: 2022: [id number] 08-29-2020 Pfizer-BioNTech COVI D-19 Vacc 30 MCG/0.3ML Intramuscular Suspension Rafi Burden Work Phone: [facility] Comment on above: Result Comment: 2022: [id number] 05-14-2020 influenza virus vacc ine, unspecified formulation TATIANA AMES [facility] 05-14-2020 influenza, injectabl e, quadrivalent, preservative free Rafi Burden Work Phone: [place] [address] DO Work Phone: 03-18-2017 influenza virus vacc ine, unspecified formulation TATIANA AMES [facility] 03-18-2017 influenza, seasonal, injectable, preservative free Rafi Burden Work Phone: [place] [address] DO Work Phone: 09-21-2016 pneumococcal conjuga te vaccine, 13 valent Rafi Burden Work Phone: [facility] 05-04-2007 influenza virus vacc ine, whole virus Rafi Burden Work Phone: [place] [address] DO Work Phone: 05-04-2007 influenza, whole TATIANA PE RRY [facility] Payers Date Payer Category Payer Self-pay [id number] 1961 Unknown [id number] 1950 Unknown [id number] 2.16. [id number] 1950 Unknown [id number] 2.16.84 0.1.054272.3.579.2.593 1950 Unknown [id number] 2.16.84 0.1.721042.3.579.2.593 1950 Unknown [id number] 2.16.84 0.1.195795.3.579.2.593 1950 Unknown [id number] 2.16.84 0.1.899775.3.579.2.593 1950 Unknown [id number] 2.16.84 0.1.860346.3.579.2.593 1950 Unknown [id number] 2.16.84 0.1.866034.3.579.2.593 1950 Unknown [id number] 2.16.8 40.1.356574.3.579.2.727 1950 Unknown [id number] 2.16.8 40.1.538703.3.579.2.727 1950 Unknown [id number] 2.16.8 40.1.236497.3.579.2.727 1950 Unknown [id number] 2.16.8 40.1.609594.3.579.2.727 1950 Unknown [id number] 2.16.84 0.1.418235.3.579.2.1259 1950 Unknown [id number] 2.16.84 0.1.082079.3.579.2.1259 1950 Unknown [id number] 2.16.84 0.1.712772.3.579.2.1258 1950 Unknown [id number] 2.16.84 0.1.582802.3.579.2.1258 1950 Unknown [id number] 2.16.84 0.1.382032.3.579.2.1258 1948 Unknown [id number] 2.16.84 0.1.813936.3.579.2.1258 1950 Unknown [id number] 2.16.84 0.1.016353.3.579.2.1258 1950 Unknown [id number] 2.16.840. 1.474375.3.579.2.1259 Unknown Unknown HCAP/HFA/FAP Active [id number] Unknown [id number] 2.16.8 40.1.371898.3.579.2.531 Unknown [id number] 2.16.8 40.1.037659.3.579.2.531 Unknown [id number] 2.16.8 40.1.311118.3.579.2.531 Unknown [id number] 2.16.8 40.1.365546.3.579.2.531 Unknown [id number] 2.16.8 40.1.774860.3.579.2.531 Social History Date Type Detail Facility No alcohol use No alcohol use [facility] DO Work Phone: Start: 11-28-2021 End: 02-08-2024 Tobacco smoking status NHIS Never smoked tobacco (finding) [facility] Start: 1950 Sex Assigned At Female F [facility] Sex Assigned At [facility] Tobacco smoking status Never [facility] Functional Status Date Assessment Result Facility 02-08-2024 Functional Status N/A [facility] 12-28-2023 Functional Status N/A [facility] 08-04-2022 Functional Status N/A [facility] Clinical Notes 05-12-2017 to 02-08-2024 Note Date & Type Note Facility 02-08-2024 Hospital Discharg e instructions Patient Education 02/08/2024 13:40:13 Urinary Incontinence Urinary Incontinence Urinary incontinence refers to a condition in which a person is unable to control where and when to pass urine. A person with this condition will urinate involuntarily. This means that the person urinates when he or she does not mean to. What are the causes? This condition may be caused by: Medicines. Infections. Constipation. Overactive bladder muscles. Weak bladder muscles. Weak pelvic floor muscles. These muscles provide support for the bladder, intestine, and, in women, the uterus. Enlarged prostate in men. The prostate is a gland near the bladder. When it gets too big, it can pinch the urethra. With the urethra blocked, the bladder can weaken and lose the ability to empty properly. Surgery. Emotional factors, such as anxiety, stress, or post-traumatic stress disorder (PTSD). Spinal cord injury, nerve injury, or other neurological conditions. Pelvic organ prolapse. This happens in women when organs move out of place and into the vagina. This movement can prevent the bladder and urethra from working properly. What increases the risk? The following factors may make you more likely to develop this condition: Age. The older you are, the higher the risk. Obesity. Being physically inactive. and childbirth. Menopause. Diseases that affect the nerves or spinal cord. Long-term, or chronic, coughing. This can increase pressure on the bladder and pelvic floor muscles. What are the signs or symptoms? Symptoms may vary depending on the type of urinary incontinence you have. They include: A sudden urge to urinate, and passing urine involuntarily before you can get to a bathroom (urge incontinence). Suddenly passing urine when doing activities that force urine to pass, such as coughing, laughing, exercising, or sneezing (stress incontinence). Needing to urinate often but urinating only a small amount, or constantly dribbling urine (overflow incontinence). Urinating because you cannot get to the bathroom in time due to a physical disability, such as arthritis or injury, or due to a communication or thinking problem, such as Alzheimer's disease (functional incontinence). How is this diagnosed? This condition may be diagnosed based on: Your medical history. A physical exam. Tests, such as: ?Urine tests. ?X-rays of your kidney and bladder. ?Ultrasound. ?CT scan. ?Cystoscopy. In this procedure, a health care provider inserts a tube with a light and camera (cystoscope) through the urethra and into the bladder to check for problems. ?Urodynamic testing. These tests assess how well the bladder, urethra, and sphincter can store and release urine. There are different types of urodynamic tests, and they vary depending on what the test is measuring. To help diagnose your condition, your health care provider may recommend that you keep a log of when you urinate and how much you urinate. How is this treated? Treatment for this condition depends on the type of incontinence that you have and its cause. Treatment may include: Lifestyle changes, such as: ?Quitting smoking. ?Maintaining a healthy weight. ?Staying active. Try to get 150 minutes of moderate-intensity exercise every week. Ask your health care provider which activities are safe for you. ?Eating a healthy diet. ?Avoid high-fat foods, like fried foods. ?Avoid refined carbohydrates like white bread and white rice. ?Limit how much alcohol and caffeine you drink. ?Increase your fiber intake. Healthy sources of fiber include beans, whole grains, and fresh fruits and vegetables. Behavioral changes, such as: ?Pelvic floor muscle exercises. ?Bladder training, such as lengthening the amount of time between bathroom breaks, or using the bathroom at regular intervals. ?Using techniques to suppress bladder urges. This can include distraction techniques or controlled breathing exercises. Medicines, such as: ?Medicines to relax the bladder muscles and prevent bladder spasms. ?Medicines to help slow or prevent the growth of a man's prostate. ?Botox injections. These can help relax the bladder muscles. Treatments, such as: ?Using pulses of electricity to help change bladder reflexes (electrical nerve stimulation). ?For women, using a medical laboratory manager to prevent urine leaks. This is a small, tampon-like, disposable device that is inserted into the urethra. ?Injecting collagen or carbon beads (bulking agents) into the urinary sphincter. These can help thicken tissue and close the bladder opening. ?Surgery. Follow these instructions at home: Lifestyle Limit alcohol and caffeine. These can fill your bladder quickly and irritate it. Keep yourself clean to help prevent odors and skin damage. Ask your health care provider about special skin creams and cleansers that can protect the skin from urine. Consider wearing pads or adult diapers. Make sure to change them regularly, and always change them right after experiencing incontinence. General instructions Take vnfq-njl-ldasigu and prescription medicines only as told by your health care provider. Use the bathroom about every 3 4 hours, even if you do not feel the need to urinate. Try to empty your bladder completely every time. After urinating, wait a minute. Then try to urinate again. Make sure you are in a relaxed position while urinating. If your incontinence is caused by nerve problems, keep a log of the medicines you take and the times you go to the bathroom. Keep all follow-up visits. This is important. Where to find more information [employer]estive [employer] Kidney Diseases: www.niddk.nih.gov [employer]: www.urologyhealth.org Contact a health care provider if: You have pain that gets worse. Your incontinence gets worse. Get help right away if: You have a fever or chills. You are unable to urinate. You have redness in your groin area or down your legs. Summary Urinary incontinence refers to a condition in which a person is unable to control where and when to pass urine. This condition may be caused by medicines, infection, weak bladder muscles, weak pelvic floor muscles, enlargement of the prostate (in men), or surgery. Factors such as older age, obesity, and childbirth, menopause, neurological diseases, and chronic coughing may increase your risk for developing this condition. Types of urinary incontinence include urge incontinence, stress incontinence, overflow incontinence, and functional incontinence. This condition is usually treated first with lifestyle and behavioral changes, such as quitting smoking, eating a healthier diet, and doing regular pelvic floor exercises. Other treatment options include medicines, bulking agents, medical devices, electrical nerve stimulation, or surgery. This information is not intended to replace advice given to you by your health care provider. Make sure you discuss any questions you have with your health care provider. Document Revised: 02/07/2021 Document Reviewed: 02/07/2021 aitainment Patient Education 2022 [employer]. Follow Up Care 12/28/2023 13:50:15 With:RICHIE Carrasco APRN, ALYCIA Kelly URL Address: When: Unknown [facility] 02-08-2024 Note Patient Education Urology Urinary Incontinence Urinary incontinence refers to a condition in which a person is unable to control where and when to pass urine. A person with this condition will urinate involuntarily. This means that the person urinates when he or she does not mean to. What are the causes? This condition may be caused by: ? Medicines. ? Infections. ? Constipation. ? Overactive bladder muscles. ? Weak bladder muscles. ? Weak pelvic floor muscles. These muscles provide support for the bladder, intestine, and, in women, the uterus. ? Enlarged prostate in men. The prostate is a gland near the bladder. When it gets too big, it can pinch the urethra. With the urethra blocked, the bladder can weaken and lose the ability to empty properly. ? Surgery. ? Emotional factors, such as anxiety, stress, or post-traumatic stress disorder (PTSD). ? Spinal cord injury, nerve injury, or other neurological conditions. ? Pelvic organ prolapse. This happens in women when organs move out of place and into the vagina. This movement can prevent the bladder and urethra from working properly. What increases the risk? The following factors may make you more likely to develop this condition: ? Age. The older you are, the higher the risk. ? Obesity. ? Being physically inactive. ? and childbirth. ? Menopause. ? Diseases that affect the nerves or spinal cord. ? Long-term, or chronic, coughing. This can increase pressure on the bladder and pelvic floor muscles. What are the signs or symptoms? Symptoms may vary depending on the type of urinary incontinence you have. They include: ? A sudden urge to urinate, and passing urine involuntarily before you can get to a bathroom (urge incontinence). ? Suddenly passing urine when doing activities that force urine to pass, such as coughing, laughing, exercising, or sneezing (stress incontinence). ? Needing to urinate often but urinating only a small amount, or constantly dribbling urine (overflow incontinence). ? Urinating because you cannot get to the bathroom in time due to a physical disability, such as arthritis or injury, or due to a communication or thinking problem, such as Alzheimer's disease (functional incontinence). How is this diagnosed? This condition may be diagnosed based on: ? Your medical history. ? A physical exam. ? Tests, such as: ? Urine tests. ? X-rays of your kidney and bladder. ? Ultrasound. ? CT scan. ? Cystoscopy. In this procedure, a health care provider inserts a tube with a light and camera (cystoscope) through the urethra and into the bladder to check for problems. ? Urodynamic testing. These tests assess how well the bladder, urethra, and sphincter can store and release urine. There are different types of urodynamic tests, and they vary depending on what the test is measuring. To help diagnose your condition, your health care provider may recommend that you keep a log of when you urinate and how much you urinate. How is this treated? Treatment for this condition depends on the type of incontinence that you have and its cause. Treatment may include: ? Lifestyle changes, such as: ? Quitting smoking. ? Maintaining a healthy weight. ? Staying active. Try to get 150 minutes of moderate-intensity exercise every week. Ask your health care provider which activities are safe for you. ? Eating a healthy diet. ? Avoid high-fat foods, like fried foods. ? Avoid refined carbohydrates like white bread and white rice. ? Limit how much alcohol and caffeine you drink. ? Increase your fiber intake. Healthy sources of fiber include beans, whole grains, and fresh fruits and vegetables. ? Behavioral changes, such as: ? Pelvic floor muscle exercises. ? Bladder training, such as lengthening the amount of time between bathroom breaks, or using the bathroom at regular intervals. ? Using techniques to suppress bladder urges. This can include distraction techniques or controlled breathing exercises. ? Medicines, such as: ? Medicines to relax the bladder muscles and prevent bladder spasms. ? Medicines to help slow or prevent the growth of a man's prostate. ? Botox injections. These can help relax the bladder muscles. ? Treatments, such as: ? Using pulses of electricity to help change bladder reflexes (electrical nerve stimulation). ? For women, using a medical laboratory manager to prevent urine leaks. This is a small, tampon-like, disposable device that is inserted into the urethra. ? Injecting collagen or carbon beads (bulking agents) into the urinary sphincter. These can help thicken tissue and close the bladder opening. ? Surgery. Follow these instructions at home: Lifestyle ? Limit alcohol and caffeine. These can fill your bladder quickly and irritate it. ? Keep yourself clean to help prevent odors and skin damage. Ask your health care provider about special skin creams and cleansers that can protect the (more content not included)... [facility] 12-14-2023 [facility] Discharg e instructions Ambulatory OrdersAMB POC UA Automated Time Frame: 12/14/23, Location: Determined By Patient [facility] Work Phone: 08-04-2022 [facility] Discharg e instructions Patient Education 08/04/2022 16:33:12 Dysuria Dysuria Dysuria is pain or discomfort while urinating. The pain or discomfort may be felt in the part of your body that drains urine from the bladder (urethra) or in the surrounding tissue of the genitals. The pain may also be felt in the groin area, lower abdomen, or lower back. You may have to urinate frequently or have the sudden feeling that you have to urinate (urgency). Dysuria can affect both men and women, but it is more common in women. Dysuria can be caused by many different things, including: Urinary tract infection. Kidney stones or bladder stones. Certain sexually transmitted infections (STIs), such as chlamydia. Dehydration. Inflammation of the tissues of the vagina. Use of certain medicines. Use of certain soaps or scented products that cause irritation. Follow these instructions at home: General instructions Watch your condition for any changes. Urinate often. Avoid holding urine for long periods of time. After a bowel movement or urination, women should cleanse from front to back, using each tissue only once. Urinate after sexual intercourse. Keep all follow-up visits as told by your health care provider. This is important. If you had any tests done to find the cause of dysuria, it is up to you to get your test results. Ask your health care provider, or the department that is doing the test, when your results will be ready. Eating and drinking Drink enough fluid to keep your urine pale yellow. Avoid caffeine, tea, and alcohol. They can irritate the bladder and make dysuria worse. In men, alcohol may irritate the prostate. Medicines Take nkjk-bto-sdkyaoa and prescription medicines only as told by your health care provider. If you were prescribed an antibiotic medicine, take it as told by your health care provider. Do not stop taking the antibiotic even if you start to feel better. Contact a health care provider if: You have a fever. You develop pain in your back or sides. You have nausea or vomiting. You have blood in your urine. You are not urinating as often as you usually do. Get help right away if: Your pain is severe and not relieved with medicines. You cannot eat or drink without vomiting. You are confused. You have a rapid heartbeat while at rest. You have shaking or chills. You feel extremely weak. Summary Dysuria is pain or discomfort while urinating. Many different conditions can lead to dysuria. If you have dysuria, you may have to urinate frequently or have the sudden feeling that you have to urinate (urgency). Watch your condition for any changes. Keep all follow-up visits as told by your health care provider. Make sure that you urinate often and drink enough fluid to keep your urine pale yellow. This information is not intended to replace advice given to you by your health care provider. Make sure you discuss any questions you have with your health care provider. Document Released: 04/02/2005 Document Revised: 06/17/2018 Document Reviewed: 04/21/2018 aitainment Patient Education 2020 [employer]. Follow Up Care 07/08/2022 14:35:16 With:KWAKU FRANKLIN, TATIANA Burt, URL Address: [facility] [address] [place] [address] When:3 months [facility] 06-01-2022 Evaluation note Encounter Date Diagnosis Assessment Notes May, Dysuria (ICD-10 - R30.0) May, Urinary tract infection, site not specified (ICD-10 - N39.0) Urinary tract infection (UTI) home care material was printed Drink plenty fluids, get plenty of rest. Continue home medications as prescribed. Take the Macrobid and Pyridium as prescribed until gone. Follow-up with your family physician if no improvement in 2 to 3 days. May, Hematuria, unspecified (ICD-10 - R31.9) [place] Other 08-23-2019 Progress note Author Chika Omalley [facility] March 10, 2019 5:14pm Note Date/Time March 09, 2019 2: 50pm [facility] [place] [address] Hem/Onc Follow Up Note - OP Signed Patient: Larisa Lo MR#: [id number] : 1950 Acct:[id number] Age/Sex: 69 / F Type: REG RCR Copies to: Rafi Burden, DO Natalya Perales MD~ Subjective Date/Time of Service: Date of Service: 03/09/2019 Time of Service: 14:49 Chief Complaint: Patient is here for follow up history of breast cancer currently on letrozole coming up on fifth year. No concerns voiced at this time. HPI: Mrs. Lo is feeling well. She has been compliant with adjuvant endocrine therapy and calcium and vitamin D. No recent illnesses. She denies significanttenderness at the site of prior lumpectomy and left axillary area. No lymphedema of left upper extremity. [facility] the [facility] 2 weeks and she declines clinical breast exam by me today. She has not had any new medical issues and has decided to stop letrozole therapy since the end of 5 years of therapy will be next month and she does not want to refill the medication. She had prior hot flashes whichare well managed with gabapentin 100 mg 3 times daily--we discussed titrating off gabapentin since she is no longer taking letrozole and she will titrate downto 2 tablets daily, then 1 tablet daily, then 1 tablet every other day, then off. Since she has completed adjuvant endocrine therapy, she would like to follow-up annually with Dr. Chow only and may return to us on an as-needed basis. DIAGNOSIS: 1. T1c N0 M0 1.6 x 1.2 x 1 cm left breast tumor diagnosed on 12/01/2013. Lumpectomy on 01/03/[address] Chow ; sentinel lymph nodes were negative; ER 95%, NJ 90%, HER2 unamplified, grade 2, stage IA. 2. Radiation therapy was completed in 03/2014. 3. Antiestrogen therapy with Femara 2.5 mg p.o.daily started 03/2014--she has now stopped February 2019 as she completed nearly 5 years and does not wish one further month refill. 4. Next mammogram will be in October 2019--further follow-up by Dr. Chow and [facility] 5. DEXA in February 2018 reviewed--normal bone density Mammogram 02/2019 was negative for any evidence of recurrent cancer. - Summary of Therapies Summary of Therapies: 1. Lumpectomy on 01/03/[address] Chow 2. Radiation therapy was completed in 03/2014. 3. Antiestrogen therapy with Femara 2.5 mg p.o.daily started 03/2014--stopped atnearly 5 years 02/2019 ROS Details: All systems reviewed & no additional complaints except as documented Subjective/ROS - Narrative: CONSTITUTIONAL: Negative for fatigue, negative for fever or night sweats. HEAD AND NECK: Negative for changes in hearing and vision. Negative for mouth ulcers, nasal congestion and nasal drainage. PULMONARY: Negative for chest pain, cough and dyspnea. CARDIOVASCULAR: Negative for claudication and irregular heartbeat/palpitations. LEFT breast: No significant tenderness over lumpectomy site, incision site - Well-healed, no changes, no lumps, no swelling, no other - No upper extremity lymphedema GASTROINTESTINAL: Negative for abdominal pain, constipation, decreased appetite,diarrhea and vomiting. GENITOURINARY: Negative for dysuria and hematuria. ENDOCRINE: Negative for cold intolerance and heat intolerance. Hot flashes havenow resolved off AI therapy. CENTRAL NERVOUS SYSTEM: Negative for gait disturbance and headache. PSYCHIATRIC: Negative for anxiety or depression. DERMATOLOGICAL: Negative for pruritus and rash. Negative for suspicious skin lesions. MUSCULOSKELETAL: Negative for back pain and bone/joint symptoms. No myalgias. HEMATOLOGICAL: Negative for bleeding and easy bruising. Negative for history of transfusion or thromboembolic disease ALLERGY: Negative for environmental allergies and food allergies. [facility] - History Attestation statement: The following information was validated with the patient. - Social History Smoking Status: Never smoker Substance Use Type: None Home Medications & Allergies Allergies No Known Allergies Allergy (Verified 05/12/17 13:41) Home Medications Ca-D3-mag cf-iekn-pgy-rogelio-bor [Calcium 600-D3 Plus] 1 tab PO DAILY 05/12/17 [History Confirmed 03/09/19] alprazolam 1 tab PO BID PRN 05/12/17 [History Confirmed 03/09/19] bumetanide 1 mg PO DAILY 05/12/17 [History Confirmed 03/09/19] losartan-hydrochlorothiazide 1 tab PO DAILY 05/12/17 [History Confirmed 03/09/19] multivitamin 1 tab PO DAILY 05/12/17 [History Confirmed 03/09/19] perphenazine-amitriptyline 1 tab PO HS 05/12/17 [History Confirmed 03/09/19] potassium chloride [Klor-Con M20] 1 tab PO DAILY 05/12/17 [History Confirmed 03/09/19] nitroglycerin 0.4 mg SUBLINGUAL Q5M PRN #10 tab 08/15/17 [Rx Confirmed 03/09/19] gabapentin 1 tab PO TID 90 Days #270 cap 07/27/18 [Rx Confirmed 03/09/19] Objective - Resuscitation Status Resuscitation Status: Full Code - Height/Weight Height/Weight: Height 4 ft 8 in Weight 75.024 kg - Vital Signs Vital Signs: 03/09/19 14:43 Temperature 97.5 F L Pulse Rate [Left Brachial] 85 Respiratory Rate 18 Blood Pressure [Right Arm] 117/60 02 Sat by Pulse Oximetry 98 - Emotional Needs Assessment Emotional Needs Assessment: Emotional Needs Identified? No Distress Screening Total 0 - ECOG Performance Status ECOG Score: 0 Physical Exam Narrative: CONSTITUTIONAL: The patient is in no acute distress. HEAD / FACE: Normocephalic. EYES: Pupils are equal and reactive to light. Conjunctivae and lids are benign in appearance. Ocular movement intact. EARS: Hearing grossly intact. NOSE / MOUTH / THROAT: Nose, mouth, tongue and oropharynx are benign in appearance. No signs of inflammation. NECK / THYROID: Neck is supple. Thyroid is symmetrical, without thyromegaly, masses or palpable nodules. LYMPHATIC: No palpable cervical, supraclavicular, axillary, or inguinal adenopathy. RESPIRATORY: Normal to inspection. Lungs clear to auscultation and percussion. No wheezing, rales, rhonchi or rubs. Normal effort. CARDIOVASCULAR: Regular rate and rhythm. No murmurs, gallops, or rubs. VASCULAR: Carotid, radial, femoral and pedal pulses present bilaterally. No bruits. ABDOMEN: Bowel sounds normoactive. Soft, nontender and non-distended. No hepatosplenomegaly. No masses. GENITOURINARY: No CVA tenderness. No suprapubic fullness or tenderness. No groinadenopathy. No evidence of hernias. INTEGUMENTARY: The skin is unremarkable. No rashes. No suspicious lesions BACK / SPINE: The back is nontender. MUSCULOSKELETAL: Normal musculature, no joint deformities or abnormalities, normal range of motion for all four extremities. EXTREMITIES: No edema, cyanosis or clubbing. No Yaron sign. NEUROLOGICAL: Alert and oriented. Cranial nerves intact. No gross motor or sensory deficits. PSYCHIATRIC: No anxiety or evidence of depression. Patient refused breast exam. She said that doctor Chow does them regularly, and told us that the last one was only 2 weeks ago. She reported getting tired of breast exams by so many doctors Results - Labs Labs: Diagram of Most Recent CBC and CMP 11/04/17 15:27 11/04/17 15:27 - Impressions Date of Service: 12/05/18 MM/MM diagnostic mammo BI w/CAD: Yrly mamms;Personal history of malignant neoplasm of breast Copies to: Viktoriya Chow, ~ BILATERAL DIAGNOSTIC MAMMOGRAMS - FULL FIELD DIGITAL WITH TOMOSYNTHESIS CLINICAL DATA: Lumpectomy of the left breast in 2014, yearly checkup. FINDINGS: Craniocaudal and mediolateral oblique views of both breasts were obtained using low-dose digital technique including Tomosynthesis images. Comparison is made to prior studies on 11/04/2017, 11/03/2016, and 11/07/2015. This examination was reviewed with the aid of CAD. Radiopaque marker was placedover the previous skin incision to the upper lateral aspect of the left breast. There is mild amount of scattered fibroglandular densities. Postsurgical changes are again demonstrated at the upper lateral aspect of left breast posteriorly where multiple surgical clips are present. Multiple benign calcifications in demonstrated bilaterally. There are no developing masses or typically malignant calcifications. There has been no significant interval change. MM/MM diagnostic mammo BI w/CAD IMPRESSION: NO MAMMOGRAPHIC EVIDENCE OF MALIGNANCY. ROUTINE FOLLOW-UP IS RECOMMENDED IN ONE YEAR. RESULT CODE: 2 Benign Findings(s) DENSITY CODE: 2 (approximately 25-50% glandular) FOLLOW UP: 1YR The false-negative rate of mammography is approximately 10-percent. Management of a palpable abnormality must be based on clinical grounds. Impression dictated by: Timothy Gutierres M.D.12/05/2018 3:33 PM Assessment and Plan (1) Breast cancer Qualifiers: Breast location: upper outer quadrant of breast Estrogen receptor status: positive Patient sex: female Laterality: left Qualified Code(s): C50.412 -Malignant neoplasm of upper-outer quadrant of left female breast; Z17.0 - Estrogen receptor positive status [ER+] 1. T1c N0 M0 1.6 x 1.2 x 1 cm left breast tumor diagnosed on 12/01/2013. Lumpectomy on 01/03/[address] Hardwick ; sentinel lymph nodes were negative; ER 95%, NJ 90%, HER2 unamplified, grade 2, stage IA. 2. Radiation therapy was completed in 03/2014. 3. Antiestrogen therapy with Femara 2.5 mg p.o.daily started 03/2014 and completed 03/07/2019 per her request 4. Next mammogram will be in October 2019 5. DEXA bone densitometry was normal in February 2018--reviewed results and no additional therapy indicated. Next DEXA will be followed by her primary physician on an as-needed basis. 6. Vasomotor symptoms and myalgias well managed with gabapentin 100 mg 3 times daily. Today she agrees to titrate off gabapentin as noted in HPI above. No evidence of recurrence by exam by Dr. Chow or mammography. Patient decided to stop aromatase inhibitor therapy in February 2019, just 1 month shy of 5 years of therapy. Defer to annual follow-up which she would like to schedule with Dr. Chow exclusively and will return to medical oncology on an as-needed basis since she has completed AI therapy. This is a low complexity visit over 15 minutes. (2) Vasomotor symptoms due to menopause Titrate off gabapentin as noted above. (3) Screening for osteoporosis February 2018 DEXA scan with normal bone density on aromatase inhibitor. Next due February 2020. - Chemo Plan Chemo Plan (Dose, Rate, Freq): Completed 5-year course of letrozole in February 2019 with annual surveillance by general surgery. Goal of Treatment: Curative - Time with Patient Coordination of Care & Counseling Time: Greater than 50% of time spent with patient was for coordination of care (as documented) and [id number] counseling of patient and/or family. Dictated By: Chika Omalley MD DD/ [id number] Signed By: <Electronically signed by MD Chika Omalley> 03/10/[address] [facility] Work Phone: [phone]) 530-513902-21-2019 Progress note Author Chika Omalley [facility] September 08, 2018 3:10pm Note Date/Time September 08, 2018 2:46pm [facility] [place] [address] Hem/Onc Follow Up Note - OP Signed Patient: Larisa Lo MR#: [id number] : 1950 Acct:[id number] Age/Sex: 68 / F Type: REG RCR Copies to: Rafi Burden Mersiha MD Itzkowitz, Fredric DO~ Subjective Date/Time of Service: Date of Service: 09/08/2018 Time of Service: 14:45 Chief Complaint: Patient is here for follow up history of breast cancer currently on letrozole coming up on fifth year. No concerns voiced. - Diagnosis DIAGNOSIS: 1. T1c N0 M0 1.6 x 1.2 x 1 cm left breast tumor diagnosed on 12/01/2013. Lumpectomy on 01/03/[address] Chow ; sentinel lymph nodes were negative; ER 95%, NJ 90%, HER2 unamplified, grade 2, stage IA. 2. Radiation therapy was completed in 03/2014. 3. Antiestrogen therapy with Femara 2.5 mg p.o.daily started 03/2014 with plans to continue until 03/2019 4. Next mammogram will be in October 2018 5. DEXA in February 2018 reviewed--normal bone density Mammogram 02/2018 was negative for any evidence of recurrent cancer. HPI: Mrs. Lo is feeling well. She has been compliant with adjuvant endocrine therapy and calcium and vitamin D. No recent illnesses. She had some tenderness at the site of prior lumpectomy and left axillary area, but breast ultrasound shows only scar tissue. No lymphedema of left upper extremity. She follows regularly with Dr. Chow of general surgery. She has not had any new medical issues and is compliant with letrozole therapy. She had prior hot flashes which are well managed with gabapentin 100 mg 3 times daily. She will be at end 5 years of adjuvant hormonal therapy in March 2019. At that time she will likely stop letrozole and we can titrate off gabapentin. - Summary of Therapies Summary of Therapies: 1. Lumpectomy on 01/03/[address] Chow 2. Radiation therapy was completed in 03/2014. 3. Antiestrogen therapy with Femara 2.5 mg p.o.daily started 03/2014 with plans to continue until 03/2019 ROS Details: All systems reviewed & no additional complaints except as documented Constitutional: fair state of general health, no weight gain, no weight loss Eyes: no change in vision, no double vision ENT: no headaches, no vertigo, no lightheadedness, no nasal congestion, no rhinorrhea, no epistaxis, no sore throat Cardiovascular: no chest pain, no palpitations, no syncope, no dyspnea on exertion, no edema, no heart murmur Respiratory: no cough, no pain with respirations, no respiratory infections, no shortness of breath, no sputum production, no TB exposure, no wheezing Gastrointestinal: no change in appetite, no dysphagia, no indigestion, no abdominal pain, no nausea, no vomiting, no jaundice, no constipation, no diarrhea, no change in bowel habits Genitourinary: no frequency, no dysuria, no hematuria, no oliguria, no stones, no urinary retention Musculoskeletal: no joint pain, no myalgia - Myalgias and hot flashes well managed with low-dose gabapentin as per HPI, no swelling, no redness Integumentary: no rash, no bruising LEFT breast: tenderness - Mild stable tenderness over lumpectomy site, incision site - Well-healed, no changes, no lumps, no swelling, no other - No upper extremity lymphedema RIGHT breast: no changes, no lumps, no tenderness, no swelling Neurological: no dizzy, no headache, no numbness, no memory loss, no parasthesias, no tremors, no weakness Psychiatric: no anxiety, no depression Endocrine: no excessive sweating - Well managed with gabapentin 3 times daily, no intolerance to heat Hematologic/Lymphatic: no anemia, no bleeds easily, no bruises easily, no enlarged lymph nodes Allergic/Immunologic: no pruritis, no reaction to drugs ONC PMFSH - General Attestation statement: The following information was validated with the patient. Source: Old Records Reviewed - Medical History Medical history: Cancer - Left breast cancer stage I - Surgical History Surgical history female: breast surgery - Left lumpectomy with sentinel lymph node biopsy 2013 - Social History Hx Recreational Drug Use?: No Home Medications & Allergies Allergies Allergy/AdvReac Type Severity Reaction Status Date / Time No Known Allergies Allergy Verified 05/12/17 13:41 Home Medications Medication Instructions Recorded Confirmed Type Ca-D3-mag gw-xetp-rel-rogelio-bor 1 tab PO DAILY 05/12/17 09/08/18 History [Calcium 600-D3 Plus] alprazolam 1 tab PO BID PRN 05/12/17 09/08/18 History bumetanide 1 mg PO DAILY 05/12/17 09/08/18 History losartan-hydrochlorothiazide 1 tab PO DAILY 05/12/17 09/08/18 History multivitamin 1 tab PO DAILY 05/12/17 09/08/18 History perphenazine-amitriptyline 1 tab PO HS 05/12/17 09/08/18 History potassium chloride [Klor-Con M20] 1 tab PO DAILY 05/12/17 09/08/18 History nitroglycerin 0.4 mg SUBLINGUAL Q5M PRN #10 tab 08/15/17 09/08/18 Rx letrozole 1 tab PO DAILY 90 Days #90 tab 03/04/18 09/08/18 Rx gabapentin 1 tab PO TID 90 Days #270 cap 07/27/18 09/08/18 Rx Objective - Resuscitation Status Resuscitation Status: Full Code - Height/Weight Height/Weight: Height 4 ft 8 in Weight 77.1 kg - Vital Signs Vital Signs: 09/08/18 14:41 Temperature 97.7 F Pulse Rate [Left Brachial] 84 Respiratory Rate 20 Blood Pressure [Right Arm] 127/66 02 Sat by Pulse Oximetry 96 - Emotional Needs Assessment Emotional Needs Assessment: Emotional Needs Identified? No Distress Screening Total 0 - ECOG Performance Status ECOG Score: 0 Physical Exam - Constitutional no acute distress, obese, no chronically ill appearing, cooperative - Routine HEENT Exam Head: normocephalic, atraumatic, no cushingoid faces Eye: EOMI, PERRL, no conjunctival injection, no scleral icterus ENT: mucous membranes moist, oropharynx clear - Routine Neck Exam supple, full ROM, no lymphadenopathy, no thyromegaly - Routine Chest/Breast/Axilla Exam Chest wall: no tenderness, no mass Breast: no tenderness, no mass, no erythema, no rashes, scars - Mild tenderness over left upper outer quadrant incision site, unchanged from prior exams Axillae: no lymphadenopathy, no mass, no tenderness, no rashes, no swelling, no erythema - Routine Respiratory Exam CTA bilaterally, no wheezes, no crackles - Routine Cardiovascular Exam RRR, S1, S2, no murmur, no gallop, no irregular rhythm - Routine Abdominal Exam soft, normoactive bowel sounds, no tenderness, no distended, no organomegaly, nomass - Routine Exam Groin: Absent: inguinal lymphadenopathy - Routine Extremities Exam Present: full ROM, pulses intact, normal capillary refill. Absent: cyanosis, clubbing, edema, calf tenderness, tenderness - Routine Back/Spine/Pelvis Exam Back/Spine: Present: full ROM. Absent: CVA tenderness, paraspinal tenderness, vertebral tenderness - Routine Skin Exam Present: intact, dry, warm. Absent: petechiae, urticaria, lesions, jaundice, rash - Routine Neurological Exam Present: alert, oriented X3, moving all extremities, vision grossly intact, hearing grossly intact, normal speech. Absent: sensory deficit, motor deficit, abnormal gait - Routine Psychiatric Exam Present: normal affect, cooperative. Absent: depressed, anxious Results - Labs Labs: Diagram of Most Recent CBC and CMP 11/04/17 15:27 11/04/17 15:27 - Impressions Any impression(s) listed above is documentation that was entered by the reading physician into a diagnostic report(s) for Larisa Lo. I have reviewed the report(s) and am incorporating any findings in the treatment plan of this patient where applicable. Next mammogram scheduled October 2018. Will review with Dr. Chow. DEXA scan performed February 2018 revealed normal bone density at lumbar spine andbilateral femoral neck. Next DEXA scan due February 2020. Date of Service: 11/04/17 MM/MM diagnostic mammo BI w/CAD: annual mammogram- schedule October 2017 Copies to: Essie Nobles Mersiha MD~ CLINICAL DATA: History of left breast cancer. BILATERAL DIAGNOSTIC MAMMOGRAMS - FULL FIELD DIGITAL WITH TOMOSYNTHESIS AND CAD Tomosynthesis craniocaudal and mediolateral oblique views of both breasts were obtained using low-dose digital technique. Comparison is made to prior studies from March 07, 2010 through November 03, 2016. This examination was reviewed withthe aid of CAD. The breast parenchyma has been largely replaced by fat. There is postoperative scarring at the central lateral breast posteriorly where hemostasis clips are noted. Benign calcifications are seen. There are no developing masses, typically malignant calcifications or architectural distortion. There has been no significant interval change. IMPRESSION: NO MAMMOGRAPHIC EVIDENCE OF MALIGNANCY. ROUTINE FOLLOW-UP IS RECOMMENDED IN ONE YEAR. RESULT CODE: 2 Benign Findings(s) DENSITY CODE: 1 FOLLOW UP: 1YR The false-negative rate of mammography is approximately 10-percent. Management of a palpable abnormality must be based on clinical grounds. Patient was entered into a reminder system with a target due date for the next mammogram. Transcribed By: MICHI 11/04/17 1432 Dictated By: Becca Lambert MD 11/04/17 142 8 Assessment and Plan (1) Breast cancer Qualifiers: Breast location: upper outer quadrant of breast Estrogen receptor status: positive Patient sex: female Laterality: left Qualified Code(s): C50.412 -Malignant neoplasm of upper-outer quadrant of left female breast; Z17.0 - Estrogen receptor positive status [ER+] Status: Resolved 1. T1c N0 M0 1.6 x 1.2 x 1 cm left breast tumor diagnosed on 12/01/2013. Lumpectomy on 01/03/[address] Hardwick ; sentinel lymph nodes were negative; ER 95%, NJ 90%, HER2 unamplified, grade 2, stage IA. 2. Radiation therapy was completed in 03/2014. 3. Antiestrogen therapy with Femara 2.5 mg p.o.daily started 03/2014 with plans to continue until 03/2019 4. Next mammogram will be in October 2018 5. DEXA bone densitometry was normal in February 2018--reviewed results and no additional therapy indicated. Next DEXA will be due February 2019 after patient has discontinued antiestrogen therapy. 6. Vasomotor symptoms and myalgias well managed with gabapentin 100 mg 3 times daily. Will titrate off gabapentin after next six-month visit, planning end of therapy March 2019. Next follow-up for exam in 6 months. If no evidence of recurrence, we will stop aromatase inhibitor therapy in March 2019. Defer to annual follow-up after this visit, likely October 2019 after her scheduled annual mammograms. This is a low complexity visit over 15 minutes. (2) Vasomotor symptoms due to menopause Status: Chronic Titrate off gabapentin next visit as noted above. (3) Screening for osteoporosis Status: Chronic February 2018 DEXA scan with normal bone density on aromatase inhibitor. Next due February 2020. - Chemo Plan Chemo Plan (Dose, Rate, Freq): Complete 5-year course of letrozole in March 2019 if no evidence of recurrence. Goal of Treatment: Curative - Time with Patient Coordination of Care & Counseling Time: Greater than 50% of time spent with patient was for coordination of care (as documented) and [id number] counseling of patient and/or family. Dictated By: Chika Omalley MD DD/ 1445 Signed By: <Electronically signed by MD Chika Omalley> 09/08/[address] [facility] Work Phone: [phone]) [phone] Progress note Author Titi Wong [facility] March 10, 2018 3:27pm Note Date/Time March 10, 2018 3: 19pm [facility] [place] [address] Hem/Onc Follow Up Note - OP Signed Patient: Larisa Lo MR#: [id number] : 1950 Acct:[id number] Age/Sex: 68 / F Type: REG RCR Copies to: Rafi Burden Mersiha MD~ Subjective Date/Time of Service: Date of Service: 03/10/2018 Time of Service: 15:15 Chief Complaint: Patient here for routine follow up appointment. No concerns voiced. HPI: Mrs. Lo is feeling well. She has been compliant with adjuvant endocrine therapy and calcium and vitamin D Subjective/ROS - Narrative: As per the HPI, otherwise 10 point review of systems is negative. ROS Details: All systems reviewed & no additional complaints except as documented Home Medications & Allergies Allergies Allergy/AdvReac Type Severity Reaction Status Date / Time No Known Allergies Allergy Verified 05/12/17 13:41 Home Medications Medication Instructions Recorded Confirmed Type Ca-D3-mag xa-nfut-uvn-rogelio-bor 1 tab PO DAILY 05/12/17 03/10/18 History [Calcium 600-D3 Plus] alprazolam 1 tab PO BID PRN 05/12/17 03/10/18 History bumetanide 1 mg PO DAILY 05/12/17 03/10/18 History gabapentin 1 tab PO BID 05/12/17 03/10/18 History losartan-hydrochlorothiazide 1 tab PO DAILY 05/12/17 03/10/18 History multivitamin 1 tab PO DAILY 05/12/17 03/10/18 History perphenazine-amitriptyline 1 tab PO HS 05/12/17 03/10/18 History potassium chloride [Klor-Con M20] 1 tab PO DAILY 05/12/17 03/10/18 History nitroglycerin 0.4 mg SUBLINGUAL Q5M PRN #10 tab 08/15/17 03/10/18 Rx letrozole 1 tab PO DAILY 90 Days #90 tab 03/04/18 03/10/18 Rx Objective - Resuscitation Status Resuscitation Status: Full Code - Height/Weight Height/Weight: Height 4 ft 8 in Weight 76.385 kg - Vital Signs Vital Signs: Temp 97.7 F 03/10/18 14:17 Pulse 81 03/10/18 14:17 Resp 14 03/10/18 14:17 BP 136/57 L 03/10/18 14:17 Pulse Ox 94 L 03/10/18 14:17 - Emotional Needs Assessment Emotional Needs Assessment: Emotional Needs Identified? No Distress Screening Total 0 - ECOG Performance Status ECOG Score: 0 Physical Exam Narrative: Patient refused breast exam. She said that doctor Tahir does them regularly, and told us that the last one was only 2 months ago. She reported getting tired of breast exams by so many doctors - Constitutional no acute distress, cooperative - Routine HEENT Exam Head: normocephalic, atraumatic Eye: EOMI ENT: mucous membranes moist, oropharynx clear - Routine Neck Exam supple, full ROM, no lymphadenopathy, no thyromegaly - Routine Chest/Breast/Axilla Exam Breast: no tenderness, no mass, no erythema, no rashes Axillae: no lymphadenopathy, no mass, no tenderness, no rashes, no swelling, no erythema - Routine Respiratory Exam CTA bilaterally - Routine Cardiovascular Exam RRR, S1, S2 - Routine Abdominal Exam soft, normoactive bowel sounds, no organomegaly, no mass - Routine Extremities Exam Present: full ROM, pulses intact, normal capillary refill. Absent: cyanosis, clubbing, edema - Routine Back/Spine/Pelvis Exam Back/Spine: Present: full ROM. Absent: CVA tenderness - Routine Skin Exam Present: intact, dry, warm - Routine Neurological Exam Present: alert, oriented X3. Absent: sensory deficit, motor deficit - Routine Psychiatric Exam Present: normal affect Results - Labs CBC & Chem 7: 11/04/17 15:27 11/04/17 15:27 Labs: Laboratory Last Values WBC 8.5 X10E3/uL (3.8-11.6) 11/04/17 15: RBC 4.22 x10E6/uL (3.60-5.00) 11/04/17 15:27 Hgb 13.2 g/dL (11.8-15.4) 11/04/17 15:27 Hct 38.9 % (34.0-46.4) 11/04/17 15: MCV 92.1 fl (80-100) 11/04/17 15:27 MCH 31.3 pg (24.7-34.3) 11/04/17 15:27 MCHC 34.0 g/dL (32.0-35.0) 11/04/17 15:27 RDW 13.6 % (11.9-15.3) 11/04/17 15: Plt Count 300 x10E3/uL (150-450) 11/04/17 15:27 MPV 8.0 fl (6.3-10.7) 11/04/17 15:27 Neut % (Auto) 71.6 % (.) 11/04/17 15:27 Lymph % (Auto) 13.2 % (.) 11/04/17 15:27 [place] % (Auto) 10.3 % (.) 11/04/17 15:27 Eos % (Auto) 4.5 % (.) 11/04/17 15:27 Baso % (Auto) 0.4 % (.) 11/04/17 15:27 Neut # (Auto) 6.1 x10E3/uL (1.8-7.7) 11/04/17 15:27 Lymph # (Auto) 1.1 x10E3/uL (1.00-4.8) 11/04/17 15:27 [place] # (Auto) 0.9 x10E3/uL (0.0-0.8) H 11/04/17 15:27 Eos # (Auto) 0.4 x10E3/uL (0.0-0.45) 11/04/17 15:27 Baso # (Auto) 0.0 x10E3/uL (0.0-0.2) 11/04/17 15:27 PHA Creatinine Clear 29.8299 11/04/17 15:27 Sodium 139 mmol/L (136-146) 11/04/17 15:27 Potassium 3.6 mmol/L (3.5-5.1) 11/04/17 15:27 Chloride 96 mmol/L (95-114) 11/04/17 15:27 Carbon Dioxide 31.5 mmol/L (22.0-30.0) H 11/04/17 15:27 BUN 15 mg/dL (9-23) 11/04/17 15:27 Creatinine 1.02 mg/dL (0.44-1.03) 11/04/17 15:27 Est GFR ( Amer) > 60 11/04/17 15:27 Est GFR (Non-Af Amer) 54 11/04/17 15:27 Glucose 101 mg/dL (70-100) H 11/04/17 15:27 Calcium 9.8 mg/dL (8.2-10.2) 11/04/17 15:27 Total Bilirubin 0.8 mg/dL (0.3-1.2) 11/04/17 15:27 AST 27 U/L (10-42) 11/04/17 15:27 ALT 23 U/L (10-60) 11/04/17 15:27 Alkaline Phosphatase 76 U/L (32-92) 11/04/17 15:27 Total Protein 7.1 gm/dL (6.1-7.9) 11/04/17 15:27 Albumin 4.2 gm/dL (3.2-5.5) 11/04/17 15:27 Globulin 2.9 gm/dL 11/04/17 15:27 Albumin/Globulin Ratio 1.4 11/04/17 15:27 Triglycerides Cancelled 11/04/17 15:09 Cholesterol Cancelled 11/04/17 15:09 LDL Cholesterol, Calc Cancelled 11/04/17 15:09 VLDL Cholesterol Cancelled 11/04/17 15:09 HDL Cholesterol Cancelled 11/04/17 15:09 Cholesterol/HDL Ratio Cancelled 11/04/17 15:09 Ur Random Creatinine Cancelled 11/04/17 15:07 Ur Microalbumin mg/dl Cancelled 11/04/17 15:07 Microalb/Creat Ratio Cancelled 11/04/17 15:07 Assessment and Plan (1) Breast cancer Status: Resolved 1. T1c N0 M0 1.6 x 1.2 x 1 cm left breast tumor diagnosed on 12/01/2013. Lumpectomy on 01/03/[address] Hardwick ; sentinel lymph nodes were negative; ER 95%, NJ 90%, HER2 unamplified, grade 2, stage IA. 2. Radiation therapy was completed in 03/2014. 3. Antiestrogen therapy with Femara 2.5 mg p.o.daily started 03/2014 with plans to continue until 03/2019 4. Next mammogram will be in October 2018 5. Next bone densitometry will be in February 2018 Mammograms for 2018 was negative for any evidence of cancer. Patient did not allow us to do a breast exam, however based on review of systemswas negative for anything to suggest systemic cancer recurrence. Bone densitometry showed osteopenia Patient desires follow-ups no sooner than 6 months - Time Spent with Patient Greater than 50% of time spent with patient was for coordination of care (as documented) and [id number] counseling of patient and/or family. Dictated By: Titi Wong MD DD/ 1515 Signed By: <Electronically signed by Titi Wong MD> 03/10/18 1527 [facility] Work Phone: [phone] Progress note Author Natalya Martinez [facility] November 22, 2017 2:58pm Note Date/Time November 11, 2017 2:2 5pm [facility] [place] [address] Rad Onc Follow Up Note - OP Signed Patient: Larisa Lo MR#: [id number] : 1950 Acct:[id number] Age/Sex: 67 / F Type: REG RCR Copies to: Rafi Burden DO~ Subjective - Service Date/Time Date: 11/11/17 Time: 14:00 - Diagnosis 67 y.o. postmenopausal woman diagnosed with early stage breast cancer in late spring 2013 status post lumpectomy, sentinel lymph node biopsy and adjuvant radiotherapy that concluded on 03/30/2014. She is currently taking Letrozole as anti- endocrine therapy. - Chief Complaint I'm fine. - History of Present Illness Patient returns in annual follow-up visit. Since I last saw her a year ago, shehas been doing relatively well. She specifically denies having been hospitalized, starting new medications, or having new health problems. She continues to take gabapentin for hot flashes, and it works really well for her. Her only complaint is weight gain, and a lot of her diet is rich in carbohydrates and processed foods ( I love my cupcakes. ) She denies experiencing chest pain, shortness of breath, unexplained cough, unusual headaches, vision changes, changes in his stool or urine, or anything new or unusual otherwise. I've closely reviewed the patient's oncologic, medical, surgical, social, and family history. Changes noted above. I also reviewed the patient's medicationsvia reconciliation, as per the nursing record. - Review of Systems ROS: As per HPI. Objective Height 4 ft 8 in Weight 74.6 kg Last Vital Signs Temp 97.9 F 11/11/17 14:15 Pulse 65 11/11/17 14:15 Resp 20 11/11/17 14:15 BP 126/67 11/11/17 14:15 Pulse Ox 95 11/11/17 14:15 Pain: 0/10 Emotional Needs Assessment: Emotional Needs Identified? No Distress Screening Total 0 Physical Exam: GEN: Well appearing, in NAD. Alert and fully oriented, answers questions appropriately. HEENT: Normocephalic, atraumatic, PERRLA, EOMI. On inspection of oral cavity andvisible oropharynx, mucous membranes moist, tongue protrudes midline without deviation, uvula elevates symmetrically on phonation, no suspicious lesions or asymmetry. NECK: No palpable adenopathy. LUNGS: Clear to auscultation bilaterally, with good aeration. HEART: Normal rate, regular rhythm, normal S1/S2. BREAST: s/p lumpectomy in LEFT breast. Mild angeles-incisional induration, as expected. No palpable abnormality in either breast, axillae or supraclavicular fossae. ABD: Truncal obesity. Normoactive bowel sounds, no visceromegaly or masses appreciated. LYMPH: No appreciable adenopathy. EXT: Normal range of motion. No cyanosis/clubbing/edema. NEURO: AOx4, hospital manager II-XII grossly intact, speech is fluent without dysarthria, gait is normal, muscle power normal in major muscle groups in upper and lower extremities. PSYCH: Affect appropriate for clinical situation. Insight and judgement not impaired. Results CBC & Chem 7: 11/04/17 15:27 11/04/17 15:27 Impression: October 2017 Mammogram benign. Assessment & Plan (1) Breast cancer Status: Resolved Plan: No evidence of disease. Patient expresses a wish to follow-up with Dr. Wong, because she wants to minimize the number of doctors she has to see. I explainedto her that the convention is to continue regular follow-up with all of the physicians who played a role in breast cancer treatment, but if she so desires, we will honor her wishes. She states that she does not want to pay so many co-pays. We reviewed red-flag symptoms/signs that'd be concerning for disease recurrence or progression, and she knows to notify us promptly if she develops them in the interim. I advised her to decrease her carbohydrate intake, as it will likely effect weight loss; I explained that excess fat tissue increases therisk of breast cancer recurrence. She verbalized a good understanding, and willtry to cut down her carb intake. N.B: Voice-recognition software was used in the creation of this note. Efforts were made to detect and correct typographical and/or grammatical errors; please excuse them should you find any. More than 50% of time allotted to patient education, answering questions, and coordinating care. Dictated By: Natalya Perales MD DD/ 1424 Signed By: <Electronically signed by Natalya Perales MD> 11/22/[address] [facility] Work Phone: [phone] Progress note Author Titi Wong [facility] November 11, 2017 3:08pm Note Date/Time November 11, 2017 3:0 5pm [facility] [place] [address] Hem/Onc Follow Up Note - OP Signed Patient: Larisa Lo MR#: [id number] : 1950 Acct:[id number] Age/Sex: 67 / F Type: REG RCR Copies to: Rafi Burden DO~ Subjective Date/Time of Service: Date of Service: 11/11/2017 Time of Service: 15:04 Chief Complaint: Follow up appointment. Mammogram and blood work last week. Generalized muscle aches, HPI: Mrs. Lo is feeling well. She has been compliant with adjuvant endocrine therapy. She complains of occasional mild muscle aches with Femara; however, states that these are tolerable. ROS Details: All systems reviewed & no additional complaints except as documented Home Medications & Allergies Allergies Allergy/AdvReac Type Severity Reaction Status Date / Time No Known Allergies Allergy Verified 05/12/17 13:41 Home Medications Medication Instructions Recorded Confirmed Type Ca-D3-mag er-hjni-qrm-rogelio-bor 1 tab PO DAILY 05/12/17 08/13/17 History [Calcium 600-D3 Plus] alprazolam 1 tab PO BID PRN 05/12/17 08/13/17 History bumetanide 1 mg PO DAILY 05/12/17 08/13/17 History gabapentin 1 tab PO BID 05/12/17 11/11/17 History letrozole 1 tab PO DAILY 05/12/17 08/13/17 History losartan-hydrochlorothiazide 1 tab PO DAILY 05/12/17 08/13/17 History multivitamin 1 tab PO DAILY 05/12/17 08/13/17 History perphenazine-amitriptyline 1 tab PO HS 05/12/17 08/13/17 History potassium chloride [Klor-Con M20] 1 tab PO DAILY 05/12/17 08/13/17 History nitroglycerin 0.4 mg SUBLINGUAL Q5M PRN #10 tab 08/15/17 11/11/17 Rx Objective - Resuscitation Status Resuscitation Status: Full Code - Height/Weight Height/Weight: Height 4 ft 8 in Weight 74.6 kg - Vital Signs Vital Signs: Last Vital Signs Temp 97.9 F 11/11/17 14:15 Pulse 65 11/11/17 14:15 Resp 20 11/11/17 14:15 BP 126/67 11/11/17 14:15 Pulse Ox 95 11/11/17 14:15 - Emotional Needs Assessment Emotional Needs Assessment: Emotional Needs Identified? No Distress Screening Total 0 - ECOG Performance Status ECOG Score: 0 Physical Exam Narrative: Patient refused breast exam. She said that doctor Tahir does them regularly, and she does not think she needs one today. Risks of doing a limitedexam were explained - Constitutional no acute distress, cooperative - Routine HEENT Exam Head: normocephalic, atraumatic Eye: EOMI ENT: mucous membranes moist, oropharynx clear - Routine Neck Exam supple, full ROM, no lymphadenopathy, no thyromegaly - Routine Chest/Breast/Axilla Exam Breast: no tenderness, no mass, no erythema, no rashes Axillae: no lymphadenopathy, no mass, no tenderness, no rashes, no swelling, no erythema - Routine Respiratory Exam CTA bilaterally - Routine Cardiovascular Exam RRR, S1, S2 - Routine Abdominal Exam soft, normoactive bowel sounds, no organomegaly, no mass - Routine Extremities Exam Present: full ROM, pulses intact, normal capillary refill. Absent: cyanosis, clubbing, edema - Routine Back/Spine/Pelvis Exam Back/Spine: Present: full ROM. Absent: CVA tenderness - Routine Skin Exam Present: intact, dry, warm - Routine Neurological Exam Present: alert, oriented X3. Absent: sensory deficit, motor deficit - Routine Psychiatric Exam Present: normal affect Results - Labs CBC & Chem 7: 11/04/17 15:27 11/04/17 15:27 Labs: Laboratory Last Values WBC 8.5 X10E3/uL (3.8-11.6) 11/04/17: RBC 4.22 x10E6/uL (3.60-5.00) 11/04/17 15: Hgb 13.2 g/dL (11.8-15.4) 11/04/17 15: Hct 38.9 % (34.0-46.4) 11/04/17: MCV 92.1 fl (80-100) 11/04/17 15: MCH 31.3 pg (24.7-34.3) 11/04/17: MCHC 34.0 g/dL (32.0-35.0) 11/04/17 RDW 13.6 % (11.9-15.3) 11/04/17: Plt Count 300 x10E3/uL (150-450) 11/04/17: MPV 8.0 fl (6.3-10.7) 11/04/17: Neut % (Auto) 71.6 % (.) 11/04/17: Lymph % (Auto) 13.2 % (.) 11/04/17: [place] % (Auto) 10.3 % (.) 11/04/17: Eos % (Auto) 4.5 % (.) 11/04/17: Baso % (Auto) 0.4 % (.) 11/04/17: Neut # (Auto) 6.1 x10E3/uL (1.8-7.7) 11/04/17: Lymph # (Auto) 1.1 x10E3/uL (1.00-4.8) 11/04/17: [place] # (Auto) 0.9 x10E3/uL (0.0-0.8) H 11/04/17: Eos # (Auto) 0.4 x10E3/uL (0.0-0.45) 11/04/17 15: Baso # (Auto) 0.0 x10E3/uL (0.0-0.2) 11/04/17 15: PHA Creatinine Clear 29.8299 11/04/17 15:27 Sodium 139 mmol/L (136-146) 11/04/17 15:27 Potassium 3.6 mmol/L (3.5-5.1) 11/04/17 15:27 Chloride 96 mmol/L (95-114) 11/04/17 15:27 Carbon Dioxide 31.5 mmol/L (22.0-30.0) H 11/04/17 15:27 BUN 15 mg/dL (9-23) 11/04/17 15:27 Creatinine 1.02 mg/dL (0.44-1.03) 11/04/17 15:27 Est GFR ( Amer) > 60 11/04/17 15:27 Est GFR (Non-Af Amer) 54 11/04/17 15:27 Glucose 101 mg/dL (70-100) H 11/04/17 15:27 Calcium 9.8 mg/dL (8.2-10.2) 11/04/17 15:27 Total Bilirubin 0.8 mg/dL (0.3-1.2) 11/04/17 15:27 AST 27 U/L (10-42) 11/04/17 15:27 ALT 23 U/L (10-60) 11/04/17 15:27 Alkaline Phosphatase 76 U/L (32-92) 11/04/17 15:27 Total Protein 7.1 gm/dL (6.1-7.9) 11/04/17 15:27 Albumin 4.2 gm/dL (3.2-5.5) 11/04/17 15:27 Globulin 2.9 gm/dL 11/04/17 15:27 Albumin/Globulin Ratio 1.4 11/04/17 15:27 Triglycerides Cancelled 11/04/17 15:09 Cholesterol Cancelled 11/04/17 15:09 LDL Cholesterol, Calc Cancelled 11/04/17 15:09 VLDL Cholesterol Cancelled 11/04/17 15:09 HDL Cholesterol Cancelled 11/04/17 15:09 Cholesterol/HDL Ratio Cancelled 11/04/17 15:09 Ur Random Creatinine Cancelled 11/04/17 15:07 Ur Microalbumin mg/dl Cancelled 11/04/17 15:07 Microalb/Creat Ratio Cancelled 11/04/17 15:07 Assessment and Plan (1) Breast cancer Status: Resolved 1. T1c N0 M0 1.6 x 1.2 x 1 cm left breast tumor diagnosed on 12/01/2013. Lumpectomy on 01/03/[address] Hardwick ; sentinel lymph nodes were negative; ER 95%, NJ 90%, HER2 unamplified, grade 2, stage IA. 2. Radiation therapy was completed in 03/2014. 3. Antiestrogen therapy with Femara 2.5 mg p.o.daily started 03/2014 with plans to continue until 03/2019 4. Next mammogram will be in October 2018 5. Next bone densitometry will be in February 2018 Mammograms for 2018 was negative for any evidence of cancer. Patient did not allow us to do a breast exam, however based on review of systems and general physical exam there appears to be no evidence of cancer recurrence. She will bereassessed in about 4 months with CBC, CMP and a DEXA scan. She may have longitudinal follow-ups at our [facility] - Time Spent with Patient Greater than 50% of time spent with patient was for coordination of care (as documented) and [id number] counseling of patient and/or family. Dictated By: Titi Wong MD DD/ 1504 Signed By: <Electronically signed by Titi Wong MD> 11/11/[address] [facility] Work Phone: [phone] 110-759910-25-2017 Progress note Author [facility] May 12, 2017 4:32pm Note Date/Time May 12, 2017 4 :12pm [facility] [place] [address] Hem/Onc Follow Up Note - OP Signed Patient: Larisa Lo MR#: [id number] : 1950 Acct:[id number] Age/Sex: 67 / F Type: REG RCR Copies to: Rafi Burden DO~ Subjective Date/Time of Service: Date of Service: 05/12/2017 Time of Service: 13:20 Chief Complaint: Patient here for six month follow up appointment with labs. - Diagnosis DIAGNOSIS: 1. T1c N0 M0 1.6 x 1.2 x 1 cm left breast tumor diagnosed on 12/01/2013. Lumpectomy on 01/03/[address] Hardwick ; sentinel lymph nodes were negative; ER 95%, NJ 90%, HER2 unamplified, grade 2, stage IA. 2. Radiation therapy was completed in 03/2014. 3. Antiestrogen therapy with Femara 2.5 mg p.o.daily started 03/2014 with plans to continue until 03/2019 HPI: Mrs. Lo is feeling well. She has been compliant with adjuvant endocrine therapy. She complains of occasional mild muscle aches with Femara; however, states that these are tolerable. She specifically denies any issues with headaches, fever/chills, unintentional weight loss, chest pain, shortness of breath, cough, palpitations, breast lump/tenderness, adenopathy, nausea/vomiting, abdominal pain, diarrhea/constipation or lower extremity edema. She was started on Neurontin a while back for hot flashes and states that this has been a miracle drug. Subjective/ROS - Narrative: As per the HPI, otherwise 10 point review of systems is negative. Home Medications & Allergies Allergies Allergy/AdvReac Type Severity Reaction Status Date / Time No Known Allergies Allergy Verified 05/12/17 13:41 Home Medications Medication Instructions Recorded Confirmed Type Ca-D3-mag eu-cmpb-euu-rogelio-bor 1 tab PO DAILY 05/12/17 05/12/17 History [Calcium 600-D3 Plus] alprazolam 1 tab PO BID PRN 05/12/17 05/12/17 History bumetanide 1 mg PO DAILY 05/12/17 05/12/17 History gabapentin 1 tab PO TID 05/12/17 05/12/17 History letrozole 1 tab PO DAILY 05/12/17 05/12/17 History losartan-hydrochlorothiazide 1 tab PO DAILY 05/12/17 05/12/17 History multivitamin 1 tab PO DAILY 05/12/17 05/12/17 History perphenazine-amitriptyline 1 tab PO HS 05/12/17 05/12/17 History potassium chloride [Klor-Con M20] 1 tab PO DAILY 05/12/17 05/12/17 History Objective - Resuscitation Status Resuscitation Status: Full Code - Height/Weight Height/Weight: Height 4 ft 8 in Weight 72.983 kg - Vital Signs Vital Signs: Last Vital Signs Temp 97.5 F L 05/12/17 13:50 Pulse 88 05/12/17 13:50 Resp 16 05/12/17 13:50 BP 154/71 H 05/12/17 13:50 Pulse Ox 94 L 05/12/17 13:50 - Emotional Needs Assessment Emotional Needs Assessment: Emotional Needs Identified? No Distress Screening Total 0 - ECOG Performance Status ECOG Score: 0 Physical Exam - Constitutional no acute distress, cooperative - Routine HEENT Exam Head: normocephalic, atraumatic Eye: EOMI ENT: mucous membranes moist, oropharynx clear - Routine Neck Exam supple, full ROM, no lymphadenopathy, no thyromegaly - Routine Chest/Breast/Axilla Exam Breast: no tenderness, no mass, no erythema, no rashes Axillae: no lymphadenopathy, no mass, no tenderness, no rashes, no swelling, no erythema - Detailed Breast Exam Bilateral Inspection: no rash, no erythema, no swelling, no peau d'orange, no nipple discharge, no area of retraction, no discharge Palpation: no mass, no tenderness, no induration - Routine Respiratory Exam CTA bilaterally - Routine Cardiovascular Exam RRR, S1, S2 - Routine Abdominal Exam soft, normoactive bowel sounds, no organomegaly, no mass - Routine Extremities Exam Present: full ROM, pulses intact, normal capillary refill. Absent: cyanosis, clubbing, edema - Routine Back/Spine/Pelvis Exam Back/Spine: Present: full ROM. Absent: CVA tenderness - Routine Skin Exam Present: intact, dry, warm - Routine Neurological Exam Present: alert, oriented X3. Absent: sensory deficit, motor deficit - Routine Psychiatric Exam Present: normal affect Results - Labs CBC & Chem 7: 05/11/17 14:04 05/11/17 14:04 Labs: Laboratory Last Values WBC 6.8 X10E3/uL (3.8-11.6) 05/11/17 14:04 RBC 4.44 x10E6/uL (3.60-5.00) 05/11/17 14:04 Hgb 13.9 g/dL (11.8-15.4) 05/11/17 14:04 Hct 40.9 % (34.0-46.4) 05/11/17 14:04 MCV 91.9 fl (80-100) 05/11/17 14:04 MCH 31.2 pg (24.7-34.3) 05/11/17 14:04 MCHC 34.0 g/dL (32.0-35.0) 05/11/17 14:04 RDW 13.9 % (11.9-15.3) 05/11/17 14:04 Plt Count 319 x10E3/uL (150-450) 05/11/17 14:04 MPV 8.3 fl (6.3-10.7) 05/11/17 14:04 Neut % (Auto) 71.4 % (.) 05/11/17 14:04 Lymph % (Auto) 15.0 % (.) 05/11/17 14:04 [place] % (Auto) 9.5 % (.) 05/11/17 14:04 Eos % (Auto) 3.5 % (.) 05/11/17 14:04 Baso % (Auto) 0.6 % (.) 05/11/17 14:04 Neut # (Auto) 4.9 x10E3/uL (1.8-7.7) 05/11/17 14:04 Lymph # (Auto) 1.0 x10E3/uL (1.00-4.8) 05/11/17 14:04 [place] # (Auto) 0.6 x10E3/uL (0.0-0.8) 05/11/17 14:04 Eos # (Auto) 0.2 x10E3/uL (0.0-0.45) 05/11/17 14:04 Baso # (Auto) 0.0 x10E3/uL (0.0-0.2) 05/11/17 14:04 PHA Creatinine Clear N/A 05/11/17 14:04 Sodium 136 mmol/L (136-146) 05/11/17 14:04 Potassium 3.7 mmol/L (3.5-5.1) 05/11/17 14:04 Chloride 96 mmol/L (95-114) 05/11/17 14:04 Carbon Dioxide 29.7 mmol/L (22.0-30.0) 05/11/17 14:04 BUN 13 mg/dL (9-23) 05/11/17 14:04 Creatinine 0.97 mg/dL (0.44-1.03) 05/11/17 14:04 Est GFR ( Amer) > 60 05/11/17 14:04 Est GFR (Non-Af Amer) 57 05/11/17 14:04 Glucose 99 mg/dL (70-100) 05/11/17 14:04 Calcium 10.9 mg/dL (8.2-10.2) H 05/11/17 14:04 Total Bilirubin 0.5 mg/dL (0.3-1.2) 05/11/17 14:04 AST 27 U/L (10-42) 05/11/17 14:04 ALT 22 U/L (10-60) 05/11/17 14:04 Alkaline Phosphatase 79 U/L (32-92) 05/11/17 14:04 Total Protein 7.6 gm/dL (6.1-7.9) 05/11/17 14:04 Albumin 4.3 gm/dL (3.2-5.5) 05/11/17 14:04 Globulin 3.3 05/11/17 14:04 Albumin/Globulin Ratio 1.3 05/11/17 14:04 Assessment and Plan (1) Breast cancer Status: Acute Tolerating adjuvant endocrine therapy (Letrozole) well; without any untoward side effects other than occasional muscle aches, which are tolerable and relieved with PRN Tylenol. - she requests a refill of her Neurontin, which was prescribed for hot flashes and states that this continues to work well for her. - Clinical breast exam was negative; ROS negative- no concerning signs/symptoms to suggest breast cancer recurrence. - Her next mammogram is due in October 2017 and this was ordered today. - Her next bone densitometry should be done in May 2017 (which is next month); however the patient declines having one at this time; explained the importance of undergoing routine DEXA scan while on AI therapy, as it can predispose patient's to osteopenia and osteoporosis with extended use. She verbalizes understanding and states my bones are fine. She also cites that shelives in [place] and is worried about having to drive here next month for the bonescan because it could be snowing and traffic is bad [facility]. She wishes to readdress this at her next follow up with Dr. Wong in6 months. She is taking Calcium + Vitamin D. RTC in [address] Wong after routine mammogram. - Time Spent with Patient Greater than 50% of time spent with patient was for coordination of care (as documented) and [id number] counseling of patient and/or family. 25 - 35 minutes Dictated By: RICHIE Gonzalez DD/ 1611 Signed By: <Electronically signed by RICHIE Nobles> 05/12/17 1632 [facility] Work Phone: Chijd complaint Narrative - Reported* LARISA LO is being seen for a cardiovascular evaluation of coronary artery disease and DR BURDEN/JIA HX NSTEMI AND HYPERTOPIC CARDIOMYOPATHY. * 71-year-old white female who is being referred to me by Dr. Rafi Burden to assess further cardiac evaluation after recent admission to [facility] initially and subsequently to [facility]. She presented with acute bronchitis and wheezing and for some reason troponin wasordered and was elevated around 1999. She had no EKG changes, she was sent to [facility] for furthercardiac evaluation and was seen by Dr. Danyel Marcum who recommended cardiac catheterization or stress test which the patient categorically refused. Interestingly the troponin at [facility] was only 49pg/mL. Her EKG was normal. She had an echocardiogram which revealed mild LVH with no changes from 2018. The patient has strong family history of IHSS. Apparently she carries the gene and has only mild concentric hypertrophy with no LVOT obstruction or gradient and with no MAYCO mitral regurgitation. Her bronchitis resolved and currently she is asymptomatic. She does have hypertension and has been on metoprolol succinate and losartan/hydrochlorothiazide along with bumetanide. The patient has no diabetes or dyslipidemia. No family history of premature CAD. She denies orthopnea PND or lower extremity edema and has no palpitations. She has no history of syncope. No vascular disease is noted. All other review of system was unremarkable. Her physical examination was remarkable for morbid obesity. * Assessment/recommendations: * 1 recent admission for acute bronchitis with elevated troponin on a background of LVH and strong family history of IHSS. The patient has had no symptoms suggestive angina pectoris, had no cardiac arrhythmias of any significance. She was advised based on her risk factors profile and recent admissionto have a nuclear stress test and if is negative no further cardiac work-up is going to be recommended. At the present time I would not recommend cardiac catheterization without abnormal stress test.Patient is in agreement. * 2 hypertension currently under control on a combination of losartan hydrochlorothiazide and metoprolol succinate along with bumetanide * 3 strong family history of hypertrophic cardiomyopathy with number of family members having AICD isin place. Recent echocardiographic findings do not suggest high risk pathology * 4 morbid obesity, encouraged the patient to watch her diet and lose weight. [facility] 250 DO Work Phone: Evaluation + Plan note Future Appointments Appointment Date:11/03/2022 03:00:00 PM Scheduled Provider:TATIANA AMES PA-C Location:[facility] Appointment Type:URO Office Visit [facility] evaluation + Plan note Future Appointments Appointment Date:11/03/2022 03:00:00 PM Scheduled Provider:TATIANA AMES PA-C Location:[facility] Appointment Type:URO Office Visit Diagnostic Tests Pending * [facility]ments Appointment Date:02/08/2024 01:00:00 PM Scheduled Provider:RICHIE Carrasco APRN, [place] [facility] Location:[facility] Appointment Type:URO Office Visit [facility] evaluation + Plan note Future Appointments Appointment Date:04/11/2024 02:30:00 PM Scheduled Provider:RICHIE Carrasco APRN, [place] [facility] Location:[facility] Appointment Type:URO Office Visit [facility] evalyrrqlh noteNo assessment information available [facility] Work Phone: Evaluation noteNo InformationNort Nintex Other Evaluation note* Diagnosis Onset Date Resolution Status Dysuria noneactive [facility] Work Phone: Evaluation note* Diagnosis Onset Date Resolution Status UTI (urinary tract infection) noneactive [facility] Work Phone: Evaluation note* Diagnosis Onset Date Resolution Status UTI (urinary tract infection) noneactive Urinary frequency acute Dysuria noneactive [facility] Work Phone: Evaluation note* Diagnosis Onset Date Resolution Status Urinary frequency acute Dysuria noneactive [facility] Work Phone: History general Narrative - Reported* Type Description Date Medical History anxiety Medical History hypertension Medical History Ideopathic Hypertrophic Subaorti c Stenosis Surgical History left breast Hospitalization History bronchitis/pneumonia 202 2 [place] Other Hospital course Narrative No data available for this section [facility] Hospital Discharge instructions No data available for this section [facility] data available for this section [facility] Summary Purpose Family History No Family History Records FoundUnknown Family Member Name Dates Details Family history of cardiac di sorder: Father(V17.49, Z82.49) Status:Active Family history of hypertensi on: Mother(V17.49, Z82.49) Status:Active Family history of pancreatic cancer: Mother(V16.0, Z80.0) Status:Active Family history of malignant neoplasm of urinary bladder: Brother(V16.52, Z80.52) Status:Active Family history of cardiovasc ular disease: Sister(V17.49, Z82.49) Status:Active Unknown Family Member Name Dates Details Family history of cardiac di sorder: Father(V17.49, Z82.49) Status:Active Family history of hypertensi on: Mother(V17.49, Z82.49) Status:Active Family history of pancreatic cancer: Mother(V16.0, Z80.0) Status:Active Family history of malignant neoplasm of urinary bladder: Brother(V16.52, Z80.52) Status:Active Family history of cardiovasc ular disease: Sister(V17.49, Z82.49) Status:Active Unknown Family Member Name Dates Details Family history of cardiac di sorder: Father(V17.49, Z82.49) Status:Active Family history of hypertensi on: Mother(V17.49, Z82.49) Status:Active Family history of pancreatic cancer: Mother(V16.0, Z80.0) Status:Active Family history of malignant neoplasm of urinary bladder: Brother(V16.52, Z80.52) Status:Active Family history of cardiovasc ular disease: Sister(V17.49, Z82.49) Status:Active Relationship Condition Age at Onset Recorded Date/T nolan father Coronary artery disease Unknown Not Specified Coronary artery disease Unknown Not Specified Malignant neoplasm of pancreas Unknown brother Malignant neoplasm of urinary bladder Unk nown Hepatic cirrhosis Unknown Chronic obstructive pulmonary disease Unk nown sister Myocardial infarction Unknown Relationship Condition Age at Onset Recorded Date/T nolan father Coronary artery disease Unknown Not Specified Coronary artery disease Unknown Not Specified Malignant neoplasm of pancreas Unknown brother Malignant neoplasm of urinary bladder Unk nown Hepatic cirrhosis Unknown Chronic obstructive pulmonary disease Unk nown sister Myocardial infarction Unknown father Unknown Not Specified Unknown Relationship Condition Age at Onset Recorded Date/T nolan father Coronary artery disease Unknown mother Coronary artery disease Unknown mother Malignant neoplasm of pancreas Unknown brother Malignant neoplasm of urinary bladder Unk nown Hepatic cirrhosis Unknown Chronic obstructive pulmonary disease Unk nown sister Myocardial infarction Unknown father Unknown mother Unknown Advance Directives No Advanced Directives Records Found Advance Directive Response Recorded Date/ Time Advance Directives Yes March 13, 2017 6:46am Advance Directive Response Recorded Date/ Time Advance Directives Yes March 13, 2017 7:46am Chief Complaint and Reason for Visit Chief Complaint Dysuria Chief Complaint R30.0 E78.5 I10 N18.9 Chief Complaint Z85.3 Chief Complaint Z85.3 i10 e11.22 n18.9 e78.5 Chief Complaint e11.9 n18.32 e78.5 i 10 Urinary frequency Reason for Visit Dysuria Chief Complaint e11.9 n18.32 e78.5 i 10 Urinary frequency Dysuria Reason for Visit UTI (urinary tract i nfection) Chief Complaint Urinary frequency R30.0 Poss uti Reason for Visit UTI (urinary tract i nfection) Urinary frequency Dysuria Chief Complaint Urinary frequency R30.0 Poss uti Z12.31 Reason for Visit UTI (urinary tract i nfection) Urinary frequency Dysuria Chief Complaint Poss uti Z12.31 I10;E11.69 Reason for Visit Urinary frequency Dysuria Additional Source Comments INFORMATION SOURCE (unrecogn ized section and content) DATE CREATED AUTHOR 09/28/2018 [facility] DATE CREATED AUTHOR AUTHOR'S ORGANIZ ATION 01/06/2022 [employer] DATE CREATED AUTHOR AUTHOR'S ORGANIZ ATION 01/17/2022 [facility] DATE CREATED AUTHOR AUTHOR'S ORGANIZ ATION 05/11/2022 [facility] DATE CREATED AUTHOR AUTHOR'S ORGANIZ ATION 11/06/2022 [facility] DATE CREATED AUTHOR AUTHOR'S ORGANIZ ATION 02/02/2024 [facility] DATE CREATED AUTHOR AUTHOR'S ORGANIZ ATION 02/11/2024 [facility] DATE CREATED AUTHOR AUTHOR'S ORGANIZ ATION 03/04/2024 [facility] d[facility] Specialists EPIC Care Teams (unrecognized sec tion and content) Team Status: Inactive Member Role Status Dates BETO Ortega Attending Provider Active Team Status: Inactive Member Role Status Dates BETO Ortega Attending Provider Active PHYSICIAN NO FAMILY Primary Care Provider Active Team Status: Inactive Member Role Status Dates Rafi Burden DO Primary Care Provider, Attending Jermaine mart Active Team Status: Active Member Role Status Guillermo Burden DO Primary Care Provider Active Team Status: Inactive Member Role Status Dates Rafi Burden DO Primary Care Provider Active Viktoriya Chow DO Attending Provider Active Team Status: Inactive Member Role Status Dates Rafi Burden DO Primary Care Provide r, Attending Provider Active Start: September 10, 2023 End: September 10, 2023 Team Status: Inactive Member Role Status Guillermo Burden DO Primary Care Provider Active St art: October 29, 2023 End: October 29, 2023 BETO Ortega Attending Provider Active S tart: October 29, 2023 End: October 29, 2023 Team Status: Inactive Member Role Status Dates BETO Ortega Attending Provider Active S tart: October 29, 2023 End: October 29, 2023 Team Status: Active Member Role Status Dates PHYSICIAN NO FAMILY Primary Care Provider Active Team Status: Inactive Member Role Status Dates Clarisa Sangeeta , [employer] HAND[employer]ER-C Attending Provider Active S tart: October 29, 2023 End: October 29, 2023 PHYSICIAN NO FAMILY Primary Care Provider Active Start: October 29, 2023 End: October 29, 2023 Team Status: Inactive Member Role Status Dates PHYSICIAN NO FAMILY Primary Care Provider Active Start: December 14, 2023 End: December 14, 2023 Hyacinth Gil APRN Attending Provider Active S tart: December 14, 2023 End: December 14, 2023 Team Status: Inactive Member Role Status Dates Rafi Burden DO Primary Care Provider Active St art: January 13, 2024 End: January 13, 2024 BETO Duke Attending Provider Active Star t: January 13, 2024 End: January 13, 2024 Team Status: Inactive Member Role Status Dates Rafi Burden DO Primary Care Provide r, Attending Provider Active Start: January 27, 2024 End: January 27, 2024 Goals (unrecognized section and content) Goals may be documented in a n alternate sectionNo InformationNo InformationGoals may be documented in an alternate section No data available for this section No data available for this sectionNo InformationGoals may be documented in an alternate sectionGoals may be documented in an alternate sectionGoals may be documented in an alternate sectionGoals may be documented in an alternate sectionGoals may be documented in an alternate sectionGoals may be documented in an alternate section No data available for this sectionGoals may be documented in an alternate sectionGoals may be documented in an alternate section No data available for this section REASON FOR VISIT (unrecogniz ed section and content) DYSURIADYSURIAMAIL PPW FOR RECORDS PERTAINING TO PATIENTS WHO ARE OR HAVE BEEN ENROLLED IN A CHEMICAL DEPENDENCY/SUBSTANCEABUSE PROGRAM, SOME INFORMATION MAY BE OMITTED. This clinical summary was aggregated from multiple sources. Caution should be exercised in using it in the provision of clinical care. This summary normalizes information from multiple sources, and as a consequence, information in this document may materially change the coding, format and clinical context of patient data. In addition, data may be omitted in some cases. CLINICAL DECISIONS SHOULD BE BASED ON THE PRIMARY CLINICAL RECORDS. [facility]. provides no warranty or guarantee of the accuracy or completeness of information in this document.
[2024-03-08 09:58] LABS: Bilirubin Urine NEGATIVE (NEGATIVE); Blood Urine NEGATIVE (NEGATIVE); Clarity Urine CLEAR (CLEAR); Color Urine LT. YELLOW (YELLOW); Glucose Urine UA NEGATIVE (NEGATIVE); Ketones Urine NEGATIVE (NEGATIVE); Leukocyte Esterase Urine SMALL (NEGATIVE); Nitrite Urine NEGATIVE (NEGATIVE); Protein Urine NEGATIVE (NEG/TRACE); Specific Gravity Urine <=1.005 (1.005-1.025); Urobilinogen Urine 0.2 EU/dL (0.2-1.0)
[2024-03-08 10:05] LABS: Bacteria Urine SMALL #/HPF (NONE SEEN); Cast Seen? NONE SEEN #/LPF (NONE SEEN); Crystals Seen? None Seen #/HPF (None Seen); Mucus Urine NONE SEEN (NONE SEEN); RBC Urine NONE SEEN #/HPF (0-2); Squamous Epithelial Cell Urine MANY #/LPF (NONE/RARE); Urine Culture Indicated ALREADY ORDERED
--- NOTE | 2024-03-08 10:44 | XR_ITS ---
The [address] [address] Patient Name: BLAYNE LÓPEZ MRN: [id number] date: 1950 Sex: F Assigned Patient Location: ED.MAIN Current Patient Location: Accession/Order Number: [id number] Exam Date: 03/08/2024 11:05 Report Date: 03/08/2024 11:32 At the request of: RONA COLEMAN Procedure: XR abdomen 1V EXAMINATION: XR abdomen 1V HISTORY: kub ; pain with urination COMPARISON: XR KUB 11/04/2022 FINDINGS: KIDNEY/URETER - RIGHT: No visible renal or ureteral calcifications. KIDNEY/URETER - LEFT: No visible renal or ureteral calcifications. PELVIS: No appreciable ureteral stones. Stable left pelvic calcifications favoring phleboliths. BOWEL: No abnormal dilation or deviation. BONES: No acute abnormality. Degenerative changes of the spine and hip joints. OTHER: Negative. No abnormal gaseous collections. XR/XR abdomen 1V IMPRESSION: 1. No appreciable urinary tract calculi or suspicious findings to account for patient's symptoms. Electronically authenticated by: JAE CAMERON Date: 03/08/2024 11:32
--- NOTE | 2024-03-08 11:13 | ED.GENADUL1 ---
HPI HPI - General Adult General Chief complaint: Urogenital-Female Stated complaint: URINARY ISSUES, ABDOMINAL PAIN Time Seen by Provider: 03/08/24 09:15 Source: patient Mode of arrival: walk-in Limitations: no limitations History of Present Illness HPI narrative: Patient is a 74-year-old female who is presenting to the ER today with chief complaint of pressure to her bladder for the past 2 or 3 days. The bladder pressure kept her up most of the night last night and into this morning. Patient's had diarrhea for 2 or 3 days. Mild burning with urination, no frequency. No fever or chills. No flank or back pain. No other acute complaints. All systems are negative except as noted/marked. All systems reviewed and otherwise negative. Nurses note and vital signs reviewed and patient is not hypoxic. General: The patient appears well and in no apparent distress. Patient is resting comfortably on cart. Patient is not toxic, lethargic, or listless Skin: Warm, dry, no pallor noted. There is no rash noted. No petechiae, purpura. Head: Normocephalic, atraumatic Eye: Normal conjunctiva, no drainage, EOMI. PERRL Ears, Nose, Mouth, and Throat: oral mucosa is moist. Nares patent. Mouth without vesicles. Cardiovascular: Regular Rate and Rhythm, no murmur, gallop, rub Respiratory: Patient is in no distress, no accessory muscle use, lungs are clear to auscultation, no wheezing, rales or rhonchi Back: non-tender, no CVA tenderness bilaterally to percussion. No CT LS midline pain GI: Obese, mild to moderate suprapubic tenderness to palpation, otherwise no tenderness to palpation, no masses appreciated. No rebound, guarding, or rigidity noted. No distention Musculoskeletal: Patient has full range of motion of all of the extremities, no motor, sensory, or focal neurological deficits Neurological: A&O x4, normal speech Psychiatric: Cooperative Related Data Home Medications ?Medication ?Instructions ?Recorded ?Confirmed alprazolam 0.5 mg tablet 0.5 mg PO BID 03/08/24 03/08/24 bumetanide 1 mg tablet 1 mg PO DAILY 03/08/24 03/08/24 gabapentin 300 mg capsule 300 mg PO BID 03/08/24 03/08/24 (Neurontin) losartan 100 1 tab PO DAILY 03/08/24 03/08/24 mg-hydrochlorothiazide 12.5 mg tablet perphenazine-amitriptyline 2 mg-25 2 tab PO DAILY 03/08/24 03/08/24 mg tablet Previous Rx's ?Medication ?Instructions ?Recorded ciprofloxacin HCl 500 mg tablet 500 mg PO BID 5 days #10 tabs 03/08/24 dicyclomine 20 mg tablet 20 mg PO TID PRN abdominal pain #7 03/08/24 tabs oxybutynin chloride 5 mg tablet 5 mg PO DAILY #14 tabs 03/08/24 Allergies Allergy/AdvReac Type Severity Reaction Status Date / Time No Known Drug Allergies Allergy Verified 03/08/24 08:59 Opioid HPI Opioid Management Most Recent Opioid Data: No Data to Display Exam Constitutional Vital Signs, click to edit/add: Last Vital Signs Temp 97.6 F 03/08/24 08:53 Pulse 78 03/08/24 08:53 Resp 18 03/08/24 08:53 BP 147/99 H 03/08/24 08:53 Pulse Ox 99 03/08/24 08:53 O2 Del Method Room Air 03/08/24 08:53 Course Vital Signs Vital signs: Vital Signs Temperature 97.6 F 03/08/24 08:53 Pulse Rate 78 03/08/24 08:53 Respiratory Rate 18 03/08/24 08:53 Blood Pressure 147/99 H 03/08/24 08:53 Pulse Oximetry 99 03/08/24 08:53 Oxygen Delivery Method Room Air 03/08/24 08:53 Temperature 97.6 F 03/08/24 08:53 Pulse Rate 78 03/08/24 08:53 Respiratory Rate 18 03/08/24 08:53 Blood Pressure 147/99 H 03/08/24 08:53 Pulse Oximetry 99 03/08/24 08:53 Oxygen Delivery Method Room Air 03/08/24 08:53 Medical Decision Making MDM Narrative Medical decision making narrative: Urine shows no obvious signs of infection, a lot of squamous cells were noted, urine cultures pending. Patient is very adamant she has a urinary tract infection with the pressure. Patient will be placed on 5 days of antibiotic prophylactically, urine cultures pending at patient request. X-ray shows no acute abnormality. Patient was given a prescription for Bentyl to help with abdominal cramping and also oxybutynin to help with pubic pressure, cramping and urinary incontinence. Patient will follow-up with PCP and be referred to urology if needed. No questions at discharge. Lab Data Labs: Lab Results 03/08/24 Range/Units 09:30 Urine Color Lt. yellow (YELLOW) Urine Clarity Clear (CLEAR) Urine pH 6.0 (5.0-9.0) Ur Specific [place] <=1.005 A (1.005-1.025) Urine Protein Negative (NEG/TRACE) mg/dL Urine Glucose (UA) Negative (NEGATIVE) mg/dL Urine Ketones Negative (NEGATIVE) mg/dL Urine Occult Blood Negative (NEGATIVE) Urine Nitrite Negative (NEGATIVE) Urine Bilirubin Negative (NEGATIVE) Urine Urobilinogen 0.2 (0.2-1.0) EU/dL Ur Leukocyte Esterase Small A (NEGATIVE) Urine RBC None seen (0-2) #/HPF Urine WBC 5-10 A (NONE SEEN) #/HPF Ur Squamous Epith Cells Many A (NONE/RARE) #/LPF Urine Crystals None seen (None Seen) #/HPF Urine Bacteria Small A (NONE SEEN) #/HPF Urine Casts None seen (NONE SEEN) #/LPF Urine Mucus None seen (NONE SEEN) Ur Culture Indicated? Already ordered Discharge Plan Discharge Stand Alone Forms: Work/School Release, Portal Instructions Chief Complaint: Urogenital-Female Clinical Impression: Suprapubic pressure, Diarrhea, Dysuria Patient Disposition: Home, Self-Care Time of Disposition Decision: 11:10 Condition: Fair Prescriptions / Home Meds: New oxybutynin chloride 5 mg tablet 5 mg PO DAILY Qty: 14 0RF dicyclomine 20 mg tablet 20 mg PO TID PRN (Reason: abdominal pain) Qty: 7 0RF ciprofloxacin HCl 500 mg tablet 500 mg PO BID 5 Days Qty: 10 0RF No Action alprazolam 0.5 mg tablet 0.5 mg PO BID gabapentin [Neurontin] 300 mg capsule 300 mg PO BID bumetanide 1 mg tablet 1 mg PO DAILY losartan-hydrochlorothiazide 100-12.5 mg tablet 1 tab PO DAILY perphenazine-amitriptyline 2-25 mg tablet 2 tab PO DAILY Print Language: Yoruba Instructions: Urinary Incontinence (ED), Acute Diarrhea (ED), Pelvic Pain in Women (ED), Abdominal Pain (ED) Additional Instructions: Follow-up with your PCP, urology has been given to you as well for follow-up as needed for urinary incontinence. Increase fluids, urine culture is pending, results of the urine culture will be back in 2 or 3 days Take the oxybutynin daily to help with urinary incontinence and bladder pressure. Antibiotic was started to help with possible dysuria, urine cultures pending. Use Bentyl to help with abdominal cramping, increase fluids. Referrals: PEYTON BURDEN [Primary Care Provider] - 1 week
== END 2024-03-08 11:24 | disposition home or self-care (01) ==
PROVIDERS: Emergency Provider Emergency Medicine; PCP Family Medicine
DX: R30.0 Dysuria (principal); R19.7 Diarrhea, unspecified; R10.2 Pelvic and perineal pain
CPT/HCPCS: 74018; 81001; 87086; 87186; 99284

== ENCOUNTER 2024-05-04 14:49 | Outpatient (OUT) | payer MEDICARE, SELFPAY ==
--- NOTE | 2024-05-04 14:52 | MR_ITS ---
[place] [id number] Patient Name: BLAYNE LÓEPZ MRN: [id number] date: 1950 Sex: F Assigned Patient Location: MRI Current Patient Location: Accession/Order Number: [id number] Exam Date: 05/04/2024 15:10 Report Date: 05/05/2024 08:20 At the request of: MALINDA SELBY Procedure: MR lumbar spine wo con EXAMINATION: MR lumbar spine wo con HISTORY: Lumbosacral Radiculopathy COMPARISON: No relevant comparison available. TECHNIQUE: A variety of imaging planes and parameters were utilized for visualization of suspected pathology. FINDINGS: For the purposes of numbering, sagittal T2 image # 8 extends from the T10 vertebral body superiorly to the S4 level inferiorly. PARASPINAL AREA: Normal with no visible mass. BONES: Normal alignment with no acute fracture or spondylolisthesis. 20% anterior superior wedge compression fracture of the T11 vertebral body without bone edema consistent with a chronic fracture. Mild degenerative spondylosis and facet osteoarthropathy CORD/CAUDA EQUINA: Normal caliber, contour, and signal intensity. DISC LEVELS: 12-L1: Disc desiccation. Mild diffuse disc bulge with annular tear. No central or foraminal stenosis L1-L2: Mild diffuse disc bulge. No central or foraminal stenosis L2-L3: Moderate disc space narrowing. Mild diffuse disc/osteophyte complex. No central canal or right foraminal stenosis. Mild to moderate narrowing of the left neural foramen L3-L4: Moderate disc space narrowing and disc desiccation. Posterior broad-based disc protrusion. Ligamentum flavum hypertrophy. No central canal stenosis or foraminal stenosis L4-L5: Early degenerative disc disease is present without focal protrusion or neural impingement. L5-S1: Early degenerative disc disease is present without focal protrusion or neural impingement. MR/MR lumbar spine wo con IMPRESSION: Degenerative changes resulting in mild to moderate narrowing of the left L2-L3 neural foramen Electronically authenticated by: XIMENA KAISER Date: 05/05/2024 08:20
--- OUTSIDE RECORDS SUMMARY | 2024-05-04 15:02 | XMS_ITS | CCD ---
Author Organization [facility] Care Team Providers Care Supervisor Residential Name Role Phone Shahram Chika Ro Attending Unavailable Rafi Burden Unavailable Unavailable Unavailable BETO Rutherford Attending Provider [phone] Clarisa Rutherford Unavailable NO FAMILY, PHYSICIAN Primary Care Provider Unava ilable DO Rafi Burden Primary Care Provider DO Rafi Burden Attending Provider RAFI BURDEN Primary Care Physician Asaad, Imad [...] Unavailable MIKAYLA JUSTICE Admitting Unavailable DIAMANTE, DR MYRAN Richards Admitting Unavailable BRIAN, DR MCKEE Primary Care Unavailable DIAMANTE, DR MYRNA Richards Attending Unavailable DIAMANTE, DR MYRNA Richards Consulting Unavailable ANGLE SCHNEIDER Consulting Unavailable DINORA SHARIF Consulting Unavailable BRIAN, DR MCKEE Primary Care Unavailable AWILDA, DR XIMENA Murray Consulting Unavailable TATIANA AMES Admitting Unavailable TATIANA AMES Attending Unavailable TATIANA AMES Consulting Unavailable DO Rafi Burden Primary Care Provider [phone] DO Viktoriya Chow Attending Provider [phone] DO Rafi Burden Attending Provider DO Rafi Burden Primary Care Provider DO Rafi Burden Attending Provider [phone] BETO Rutherford Attending Provider NO FAMILY, PHYSICIAN Primary Care Provider Unava ilable Brian, DO Mckee Primary Care Provider BETO Gomez Attending Provider DO Rafi Burden Attending Provider Rafi Burden Attending Unavailable Brian, Rafi Primary Care Unavailable Rafi Burden Admitting Unavailable Brian, Rafi Primary Care Unavailable Brian, Rafi Admitting Unavailable Rafi Burden Attending Unavailable Brian, Rafi Primary Care Unavailable Jason, Brenda Attending Unavailable Jason, Brenda Admitting Unavailable Sangeeta, Clarisa Attending Unavailable Sangeeta, Clarisa Admitting Unavailable NO FAMILY, PHYSICIAN Primary Care Unavailable Brian, Rafi Primary Care Unavailable Rafi Burden Admitting Unavailable Rafi Burden Attending Unavailable RAFI BURDEN Attending Unavailable RAFI BURDEN Referring Unavailable LUBJoya, BRENDA Baca Attending Unavailable RAFI BURDEN Referring Unavailable JASON, BRENDA Baca Attending Unavailable RAFI BURDEN Referring Unavailable CUTDILSHAD DAMON Attending Unavailable VIKTORIYA CHOW Attending Unavailable CUTLER, DILSHAD Phuong Attending Unavailable CUTNELSON, DILSHAD Baca Attending Unavailable RAFI BURDEN Referring Unavailable SWATHI العراقي Attending Unavailable SWATHI العراقي Referring Unavailable RAFI BURDEN Attending Unavailable RAFI BURDEN Attending Unavailable TATIANA AMES Attending Unavailable Orzech, Karissa Mccallum Attending Unavailable Orzech, Karissa X Attending Unavailable Orzech, Karissa X Attending Unavailable Allergies Allergy Classification Reported Allergen(s) Allergy Type Date of Onset Reaction(s) Facility (1 source) No Known Medication Allergies; Translations: [No Known Medication Allergies] Propensity to adverse reactions (disorder) [facility] Repository Medications Current Medications Medication Drug Class(es) Dates Sig (Normalized) Sig (Original) 0.25 MG, 0.5 MG Dose 3 ML semaglutide 0.68 MG/ML Pen Injector [Ozempic] (2 sources) Start: 02-08-2024 inject 0.5 mg by subcutaneous [...] 12:00am ALPRAZolam Activ e amitriptyline / perphenazine (18 sources) Phenothiazine, Tricyclic Antidepressant Start: 08-04-2022 amitriptyline-perphenazine [...] / losartan potassium 50 mg oral tablet (18 sources) Thiazide Diuretic, Angiotensin 2 Receptor Je [...] mirabegron 25 mg extended release oral tablet (2 sources) beta3-Adrenergic Agonist Start: 02-08-2024 take 1 tablet by mouth once daily Myrbetriq 25 mg oral tablet, extended release 25 mg = 1 tab(s), Oral, Daily, # 30 tab(s), Refills(s) 11, Pharmacy: [facility], 136, cm, 02/08/24 13:18:00 EDT, Height/Length [...] December 14, 2023 12:00am polyethylene glycol 3350 480365 mg / potassium chloride 2970 mg / sodium bicarbonate 6740 mg / sodium chloride 5860 mg / sodium sulfate 50372 mg powder for oral solution (1 source) Osmotic Laxative Start: 10-07-2022 PEG-3350/Electrol ytes 236 GM as directed Orally once daily for 1 days Sep, Active potassium chloride 20 meq oral tablet (20 sources) Start: 08-04-2022 Potassium Chloride (Eqv-K-Tab) 20 mEq oral tablet, extended release Refills(s) 0 Start Date: 08/04/22 Status: Ordered Start: 05-12-2017 take 1 tablet by once daily Potassium Chloride Active 1 TAB PO Daily May 12, 2017 12:00am Klor-Con Active Potassium Chloride Deborah ER (3 sources) Potassium Chlori de Deborah ER Active Completed/Discontinued Medications Medication Drug Class(es) Dates Sig (Normalized) Sig (Original) [id number] 200 actuat albuterol 0.09 mg/actuat metered dose inhaler (10 sources) beta2-Adrenergic Agonist Start: 11-28-2021 End: 10-29-2023 Albuterol Sulfate Discontinued 1 INH INHALATION Q6H 8.5 November 28, 2021 12:00am October 29, 2023 5:36pm Use 4 times a day for the next 5 days, then 4 times a day as needed. Ca-D3-Mag Lj-Pfqa-Apm-Rogelio-B or (Calcium 600-D3 Plus) 600 mg calcium- 800 unit-50 mg Tablet (10 sources) Start: 05-12-2017 End: 11-28-2021 take 1 tablet by mouth once daily Ca-D3-Mag Fm-Zflm-Ffb-Rogelio-Osbaldo r (Calcium 600-D3 Plus) 600 mg calcium- 800 unit-50 mg Tablet Discontinued 1 TAB PO Daily May 12, 2017 12:00am November 28, 2021 4:49am Start: 05-12-2017 End: 11-28-2021 take 1 tablet by mouth once daily Ca-D3-Mag Se-Zrgl-Lzh-Rogelio-Bor (Calcium 600-D3 Plus) 600 mg calcium- 800 unit-50 mg Tablet Discontinued 1 TAB PO Daily May 11, 2017 11:00pm November 28, 2021 3:49am estradiol 0.1 mg/ml vaginal cream (5 sources) Estrogen Start: 08-04-2022 estradiol 0.1 mg/g Vag Crm See Instructions, 42.5 gm, Refill(s) 11, 1 gm vaginally nightly x 3 weeks, then 3x per week thereafter. also apply a pea-sized amount around the urethra., [facility], 136, cm, 08/04/22 13:50:00 EST, Height/Length [...] capsule Discontinued 100 MG PO Twice daily 10 October 29, 2023 12:00am December 14, 2023 6:35pm [...] bronchitis, unspecified] 11-28-2021 Episodic Acute myocardial infarction (15 sources) Myocardial infarction; Translations: [Non-ST elevation (NSTEMI) myocardial infarction] Onset: 11-28-2021 03-10-2019 Chronic Anxiety disorders (15 sources) Anxiety; Translations: [Anxiety disorder, unspecified] 03-10-2019 Chronic Calculus of urinary tract (12 sources) History of calculus of kidney; Translations: [...] 3b] Onset: 01-27-2024 Congestive heart failure; nonhypertensive (6 sources) Heart failure; Translations: [Heart failure, unspecified] Onset: 12-01-2021 08-04-2022 Chronic Coronary atherosclerosis and other heart disease (15 sources) Acute coronary syndrome; Translations: [Acute ischemic heart disease, unspecified] Onset: 07-16-2021 03-10-2019 Chronic Diabetes mellitus with complications (1 source) Type 2 diabetes mellitus with other circulatory complications; Translations: [Type 2 diabetes mellitus with other circulatory complications] Onset: 01-27-2024 Chronic Diabetes mellitus without complication (6 sources) Type 2 diabetes mellitus; Translations: [Type 2 diabetes mellitus without complications] Onset: 01-07-2022 08-04-2022 Chronic Diabetes mellitus without complication (1 source) Diabetes mellitus without complication; Translations: [Type 2 diabetes mellitus with diabetic chronic kidney disease] Onset: 03-09-2023 Disorders of lipid metabolism (16 sources) Hyperlipidemia; Translations: [Hyperlipidemia, unspecified] Onset: 01-07-2022 03-10-2019 Chronic Diverticulosis and diverticulitis (3 sources) Diverticulosis of sigmoid colon; Translations: [Diverticulosis of large intestine without perforation or abscess without bleeding] Chronic Esophageal disorders (15 sources) Gastroesophageal reflux disease; Translations: [Gastro-esophageal reflux disease without esophagitis] 03-10-2019 Chronic Essential hypertension (19 sources) Benign essential hypertension; Translations: [Benign essential hypertension] Onset: 01-07-2022 03-10-2019 Chronic Genitourinary symptoms and ill-defined conditions (6 sources) Urge incontinence; Translations: [Urge incontinence of [...] EXPOS COVID-19] Onset: 12-01-2021 Urinary tract infections (18 sources) Urinary tract infection, site not specified; [...] 06-05-2022 Episodic Other aftercare (1 source) Other terminal operator (current) drug therapy; Translations: [OTH MARKETING SERVICES MANAGER CURRENT DRUG THERAPY] Onset: 12-01-2021 Episodic Other [...] Test Name Value Interpretation Reference Range Facility Reminderson 04-11-2024 Reminders Reminders From: Raina Estevez To: EU - Administrative; Sent: 04/11/2024 15:04:22 EDT Show up: 07/19/2024 15:04:00 EST Subject: Ambulatory Reminder Due Date/Time: 10/05/2024 15:04:00 EDT Reminder/Recall Please schedule patient for a 6 month F/U with AO, due back end of September 2024 Normal [facility] Urology Office/Clinic Noteon 04-11-2024 Urology Office/Clinic Note Urology Office/Clinic Note Chief Complaint 2 month F/U HPI Staff 74 yr old female here for 2 mth follow up for med check. Pt. was not able to give a urine sample today Estrace Cream & Myrbetriq 25mg qd therapy. DX: Frequent UTI & Hx of Kidney Stones Dysuria: no Incomplete bladder emptying: no, PVR 0mL Hematuria: no Frequency: 2-3 hours Urgency: mild Nocturia: 0-1x's Stream: good stream Post void dripping: no Wearing pads/ Depends: Pt. states if she is going out of the house she will wear a Depends Urge incontinence: no Stress incontinence: mild Incontinence without Sensory Awareness: no Abdominal pain: no Flank pain: no History of Present Illness I have reviewed and verified the staff HPI to be accurate for this encounter. Portions of this record may have been created with voice recognition artificial intelligence software, specifically [employer], [employer] and or [employer]. Substitutions may have occurred due to the inherent limitations of voice recognition and artificial intelligence software. Review of Systems PHQ Score Initial Depression Screen Score: 0 SCORE Physical Exam Vitals & Measurements HT: 54 in HT: 136 cm WT: 75 kg WT: 165 lb BMI: 40.55 General: Well developed, well nourished, in no acute distress. Patient overall seems to be an accurate historian today. Her reports are identical to her 's when he is spoken to separately. Has been previously concerned about cognitive decline. Genitourinary: Flank Pain: none. Bladder: nonpalpable. Assessment/Plan 1. Urge incontinence (N39.41: Urge incontinence) BBS 10 (23) Has had mild UUI for a long time, leaks some on the way to the bathroom but recently worsening since the beginning of the year. Over the past few mos, also started to have full incontinence episodes - going through several depends daily. Patient started on Myrbetriq 25 mg daily at prior office visit. She and state they initially had to pay $200 for first fill, subsequent fills have been $118. They state this is affordable to them, especially because patient is getting good results. Patient and report dramatic increase of her frequency, urgency, leaking. She does still continue to have some mild leaking, occasional full episode of incontinence but has greatly improved from previously. PVR today 0 -Continue Myrbetriq 25 mg daily, refill sent to pharmacy -Continue timed voids -Follow-up 6 months for recheck 2. History of kidney stones (Z87.442: Personal history of urinary calculi) Renal US 08/10/2022 and KUB 11/05/2023 negative [1] Patient denies any recent episode of stone passing or flank pain. -Continue to monitor 3. Frequent UTI (N39.0: Urinary tract infection, site not specified) Currently on estrogen cream 2-3 times weekly. Denies any recent UTIs. No sample provided for UA today. Patient voided prior to leaving home for office visit. -Continue to monitor Ordered: [id number] Measure Post Void residual urine and/or bladder capacity by US- non-imaging Follow-up With When Contact Information RICHIE Carrasco APRN, Karissa Mccallum, ALYCIA, URL Additional Instructions: 6 mos Patient Education Overactive Bladder, Adult Urinary Incontinence Problem List/Past Medical History Ongoing Anxiety Benign [...] release, 25 mg= 1 tab(s), Oral, Daily, 11 refills Ozempic 2 mg/3 mL (0.25 mg or 0.5 mg dose) subcutaneous solution Potassium Chloride (Eqv-K-Tab) 20 mEq oral tablet, extended release Allergies No Known Medication Allergies Social History Tobacco Never (less than 100 in lifetime) Tobacco Use:. Never Smokeless Tobacco Use:. Household tobacco concerns: No. Yes, 04/11/2024 Family History Bladder cancer: Brother. Immunizations Vaccine Date Status Comments influenza virus vaccine, inactivated 05/31/2023 Recorded SARS-CoV-2 (COVID-19) [id number] 06/19/2022 Recorded influenza virus vaccine, inactivated 05/11/2022 Recorded SARS-CoV-2 (COVID-19) mRNA BNT-162b2 vax 05/02/2021 Recorded influenza virus vaccine, inactivated 04/03/2021 Recorded SARS-CoV-2 (COVID-19) mRNA BNT-162b2 vax 09/20/2020 Recorded 2022-08-04: [id number] SARS-CoV-2 (COVID-19) mRNA BNT-162b2 vax 08/29/2020 Recorded 2022-08-04: TPV70 influenza virus vaccine, inactivated 05/14/2020 Recorded (more content not included)... Normal [facility] Comment on above: Result Comment: Elec tronically Signed By: RICHIE Carrasco APRN, [place] [facility]\\.br\\Date and Time Signed: 04/11/24 15:06 EDT Ambulatory Visit Summaryon 0 02-08-2024 Ambulatory Visit [...] APRN, [place] [facility] Where: [facility] [address] [address]- You Need to Schedule the Following Appointments [...] Mouth Every day Urge incontinence Pickup at [facility] Unchanged alprazolam (alprazolam 0.5 mg Tab) [...] physician if questions or concerns Pharmacy Information [facility]: [address] [place], [place] [phone] Allergies No Known Medication Allergies Problems Ongoing [...] the r (more content not included)... Normal [facility] Urology Office/Clinic Noteon 02-08-2024 Urology Office/Clinic [...] information and history for this patient from [facility]. I have reviewed and verified the staff [...] I, Brittnee Peacock, personally scribed for RICHIE Monreal APRN on 02/08/2024 13:41:45. . Documentation recorded by [...] letrozole 2.5 (more content not included)... Normal [facility] Comment on above: Result Comment: Elec tronically Signed By: RICHIE Carrasco APRN, [place] [facility]\\.br\\Date and Time Signed: 02/08/24 13:51 EDT\\.br\\Electronically Co-Signed By: Brittnee Peacock\\.br\\Date and Time Co-Signed: 02/08/24 13:42 EDT A1C with Estimated Average G ashley 01-27-2024 Glucose [Mass/Vol] 151 mg/dL Normal [facility] Comment on above: Result Comment: PERF ORMED BY: [facility] [address] [place] [address] PATHOLOGIST ASSISTANT EDITOR ABNER JOHNSTON M.D. Performed By: #### L IPID, CMP #### [address] HbA1c (Bld) [Mass fraction] 6.9 % High 4.3-5.6 [facility] Comment on above: Result Comment: Incr eased risk for diabetes: 5.7 - 6.4 diabetes: >6.4 glycemic control for adults with diabetes: <7.0 Performed By: #### L IPID, CMP #### [facility] [address] [place] [address] [place] Alanine aminotransferase [En zymatic activity/volume] in Serum or PlasmaOrdered By: Rafi Burden on 01-27-2024 ALT [Catalytic activity/Vol] 22 U/L Normal 7-52 [facility] Comment on above: Performed By: #### L IPID, CMP #### [place] [address] [place] Albumin [Mass/volume] in Ser um or Plasma by Bromocresol green (BCG) dye binding methoOrdered By: Rafi Burden on 01-27-2024 Albumin BCG dye [Mass/Vol] 4.4 g/dL 3.5-5.7 [facility] Alkaline phosphatase [Enzyma tic activity/volume] in Serum or PlasmaOrdered By: Rafi Burden on 01-27-2024 ALP [Catalytic activity/Vol] 66 U/L Normal 34-104 [facility] Comment on above: Result Comment: PERF ORMED BY: [place] [address] PATHOLOGIST ASSISTANT EDITOR ABNER JOHNSTON M.D. Performed By: #### L IPID, CMP #### [place] [id number] [place] Aspartate aminotransferase [ Enzymatic activity/volume] in Serum or PlasmaOrdered By: Rafi Burden on 01-27-2024 AST [Catalytic activity/Vol] 19 U/L Normal 13-39 [facility] Comment on above: Performed By: #### L IPID, CMP #### [facility] [address] Bilirubin.total [Mass/volume ] in Serum or PlasmaOrdered By: Rafi Burden on 01-27-2024 Bilirubin [Mass/Vol] 0.5 mg/dL Normal 0.3-1.0 [facility] Comment on above: Performed By: #### L IPID, CMP #### [address] Calcium [Mass/volume] in Ser um or PlasmaOrdered By: Rafi Burden on 01-27-2024 Calcium [Mass/Vol] 10.1 mg/dL Normal 8.6-10.3 [facility] Comment on above: Performed By: #### L IPID, CMP #### [address] Carbon dioxide, total [Moles /volume] in Serum or PlasmaOrdered By: Rafi Burden on 01-27-2024 CO2 [Moles/Vol] 34.8 mmol/L High 21.0-31.0 [facility] Comment on above: Performed By: #### L IPID, CMP #### [place] [address] [place] Chloride [Moles/volume] in S janeth or PlasmaOrdered By: Rafi Burden on 01-27-2024 Chloride [Moles/Vol] 99 mmol/L Normal 98-107 [facility] Comment on above: Performed By: #### L IPID, CMP #### [address] Comprehensive Metabolic Pane yan 01-27-2024 Albumin [Mass/Vol] 4.4 g/dL Normal 3.5-5.7 [facility] Comment on above: Performed By: #### L IPID, CMP #### [address] GFR/1.73 sq M.predicted MDRD (S/P/Bld) [Vol rate/Area] 33.425 mL/min/{1.73_m2} Normal [facility] Comment on above: Performed By: #### L IPID, CMP #### [facility] [address] Creatinine [Mass/volume] in Serum or PlasmaOrdered By: Raif Burden on 01-27-2024 Creatinine [Mass/Vol] 1.60 mg/dL High 0.60-1.20 [facility] Comment on above: Performed By: #### L IPID, CMP #### [facility] [address] Erythrocyte distribution wid th [Ratio] by Automated countOrdered By: Rafi Burden on 01-27-2024 Erythrocyte distribution width (RBC) [Ratio] 14.0 % Normal 11.9-15.3 [facility] Comment on above: Performed By: #### C BCNO #### [address] Erythrocytes [#/volume] in B lood by Automated countOrdered By: Rafi Burden on 01-27-2024 RBC (Bld) [#/Vol] 4.09 10*6/uL Normal 3.60-5.00 [facility] Comment on above: Performed By: #### C BCNO #### [address] Glucose [Mass/volume] in Ser um or PlasmaOrdered By: Rafi Burden on 01-27-2024 Glucose [Mass/Vol] 160 mg/dL High 70-100 [facility] Comment on above: ADA recommended refe rence rangeRandom Glucose Reference Range is dependent on time and content of last meal. Glucose of more than 200 mg/dL in a nonstressed, ambulatory subject supports the diagnosis of Diabetes Mellitus. Result Comment: [place] om Glucose Reference Range is dependent on time and content of last meal. Glucose of more than 200 mg/dL in a nonstressed, ambulatory subject supports the diagnosis of Diabetes Mellitus. ADA recommended reference range Performed By: #### L IPID, CMP #### [facility] [address] Hematocrit [Volume Fraction] of Blood by Automated countOrdered By: Rafi Burden on 01-27-2024 Hematocrit (Bld) [Volume fraction] 40.1 % Normal 34.0-46.4 [facility] Comment on above: Performed By: #### C BCNO #### [address] Hemoglobin [Mass/volume] in BloodOrdered By: Rafi Burden on 01-27-2024 Hemoglobin (Bld) [Mass/Vol] 13.3 g/dL Normal 11.8-15.4 [facility] Comment on above: Performed By: #### C BCNO #### [address] Hemogram CBC Without Diffon 01-27-2024 Mean Corpuscular HGB Conc 33.1 g/dL Normal 32.0-35.0 [facility] Comment on above: Performed By: #### C BCNO #### [address] WBC (Bld) [#/Vol] 7.4 10*3/uL Normal 3.8-11.6 [facility] Comment on above: Performed By: #### C BCNO #### [address] Leukocytes [#/volume] correc pratibha for nucleated erythrocytes in Blood by Automated counOrdered By: Rafi Burden on 01-27-2024 WBC corrected for nucl RBC Auto (Bld) [#/Vol] 7.4 10*3/uL 3.8-11.6 [facility] MCH [Entitic mass] by Automa pratibha countOrdered By: Rafi Burden on 01-27-2024 MCH (RBC) [Entitic mass] 32.5 pg Normal 24.7-34.3 [facility] Comment on above: Performed By: #### C BCNO #### [address] MCHC Auto (RBC) [Mass/Vol]Or dered By: Rafi Burden on 01-27-2024 MCHC (RBC) [Mass/Vol] 33.1 g/dL 32.0-35.0 [facility] MCV [Entitic volume] by Auto mated countOrdered By: Rafi Burden on 01-27-2024 MCV (RBC) [Entitic vol] 98.1 fL Normal 80-100 [facility] Comment on above: Performed By: #### C BCNO #### [address] No Panel InformationOrdered By: Rafi Burden on 01-27-2024 Estimated GFR (CKD-EPI) 33.425 mL/Min [facility] Creatinine Clearance (Chem N/A [facility] Platelet mean volume [Entiti c volume] in Blood by Automated countOrdered By: Rafi Burden on 01-27-2024 Platelet mean volume (Bld) [Entitic vol] 8.0 fL Normal 6.3-10.7 [facility] Comment on above: Result Comment: PERF ORMED BY: [place] [address] PATHOLOGIST ASSISTANT EDITOR ABNER JOHNSTON M.D. Performed By: #### C BCNO #### [address] Platelets [#/volume] in Bloo d by Automated countOrdered By: Rafi Burden on 01-27-2024 Platelets (Bld) [#/Vol] 271 10*3/uL Normal 150-450 [facility] Comment on above: Performed By: #### C BCNO #### [place] [address] [place] Potassium [Moles/volume] in Serum or PlasmaOrdered By: Rafi Burden on 01-27-2024 Potassium [Moles/Vol] 4.0 mmol/L Normal 3.5-5.1 [facility] Comment on above: Performed By: #### L IPID, CMP #### [place] [address] [place] Protein [Mass/volume] in Ser um or PlasmaOrdered By: Rfai Burden on 01-27-2024 Protein [Mass/Vol] 7.5 g/dL Normal 6.4-8.9 [facility] Comment on above: Performed By: #### L IPID, CMP #### [facility] [address] [place] [address] Serum globulin measurement b y calculation (mass/volume)Ordered By: Rafi Burden on 01-27-2024 Globulin (S) [Mass/Vol] 3.1 g/dL [facility] Comment on above: Performed By: #### L IPID, CMP #### [address] Serum or plasma albumin/glob ulin mass ratioOrdered By: Rafi Burden on 01-27-2024 Albumin/Globulin [Mass ratio] 1.4 {ratio} [facility] Comment on above: Performed By: #### L IPID, CMP #### [address] Serum or plasma anion gap de terminationOrdered By: Rafi Burden on 01-27-2024 Anion gap [Moles/Vol] 13.2 mmol/L Normal 6.0-15.0 [facility] Comment on above: Performed By: #### L IPID, CMP #### [address] Sodium [Moles/volume] in Ser um or PlasmaOrdered By: Rafi Burden on 01-27-2024 Sodium [Moles/Vol] 143 mmol/L Normal 136-145 [facility] Comment on above: Performed By: #### L IPID, CMP #### [address] Urea nitrogen [Mass/volume] in Serum or PlasmaOrdered By: Rafi Burden on 01-27-2024 Urea nitrogen [Mass/Vol] 38 mg/dL High 7-25 [facility] Comment on above: Performed By: #### L IPID, CMP #### [address] MM screening mammo BI w/CADo n 01-13-2024 MM screening mammo BI w/CAD [facility] [address] [place] [address] Mammography Report Signed Patient: Larisa Lo MR#: [id number] 271 : 1950 Acct:[id number] Age/Sex: 73 / F ADM Date: 01/13/24 Loc: [place] Room: Type: [facility] Attending Dr: Brenda WANGC Copies to: RICHIE Cowan DO Ordering Provider: RICHIE Cowan Date of Service: 01/13/24 MM/MM screening mammo BI w/CAD: screen CLINICAL DATA: Screening for malignancy. History of left-sided breast cancer status post lumpectomy in 2014. SCREENING MAMMOGRAM - FULL FIELD DIGITAL WITH [...] Blanco Jr., D.O.01/13/2024 11:40 AM Dictation Location: [facility] Transcribed By: [facility] 01/13/24 1140 Dictated By: Manny Blanco Jr, DO 01/13/24 1139 Signed By: 01/13/24 1140 Normal [facility] Patient Educationon 01-03-20 Patient Education [...] provider. Document Revised: 11/13/2021 Document Reviewed: 11/13/2021 [employer] Patient Education ? 2022 [employer] Overactive Bladder, Adult Overactive bladder is [...] Kegel exer (more content not included)... Normal Chen [facility] Urology Office/Clinic Noteon 01-03-2024 Urology Office/Clinic Note [...] with voice recognition artificial intelligence software, specifically [employer], [employer] and or [employer]. Substitutions may have occurred due to the [...] Immunizations Vaccine Date Status Comments SARS-CoV-2 (COVID-19) [id number].ORD![id number] 06/19/2022 Recorded influenza virus vaccine, inactivated 05/11/2022 Recorded SARS-CoV-2 (COVID-19) mRNA BNT-162b2 vax 05/02/2021 Recorded influenza virus vaccine, inactivated 04/03/2021 Recorded SARS-CoV-2 (COVID-19) mRNA BNT-162b2 vax 09/20/2020 Recorded 2022-08-04: [id number] SARS-CoV-2 (COVID-19) mRNA BNT-162b2 vax 08/29/2020 Recorded 2022-08-04: TPV70 influenza virus vaccine, inactivated 05/14/2020 Recorded influenza virus vaccine, inactivated 03/18/2017 Recorded pneumococcal 13-valent vaccine 09/21/2016 Recorded influenza, whole 1 (more content not included)... [facility] Comment on above: Result Comment: Elec tronically Signed By: RICHIE Carrasco APRN, [place] X\\.br\\Date and Time Signed: 01/03/24 06:55 EDT [place] 12-30-2023 Screens [id number] [facility] Ambulatory Visit Summaryon 0 12-28-2023 Ambulatory Visit [...] Follow-Up Appointments Wednesday 1:00 PM EDT With: Orzech BOLT CUTTER, CHILD AND FAMILY COUNSELOR-C, Karissa X Where: [facility] Fanta Normal [facility] Laboratory - Chemistry and C hemistry - challengeon 10-29-2023 Bilirubin Ql (U) Negative [facility] Glucose (U) [Mass/Vol] Negative [facility] Ketones Ql (U) Negative [facility] pH (U) 6.0 [pH] [facility] Specific gravity (U) [Rel density] 1.015 [facility] Urobilinogen (U) [Mass/Vol] 0.2 mg/dL [facility] Laboratory - Specimen inform ationon 10-29-2023 Appearance (U) Clear [facility] Color (U) Paleyellow [facility] Laboratory - Urinalysison Leukocyte esterase Test strip Ql (U) Small [facility] Nitrite Ql (U) Negative [facility] Protein Ql (U) Negative [facility] No Panel Informationon 10-28 Urine Occult Blood Negative [facility] Urine Cultureon 10-29-2023 Bacteria identified Cx Nom (U) 20,000 colonies/ml mixed bacterial skin contaminants including mixed gram negative bacilli - 2 Days PERFORMED BY: [place] [address] PATHOLOGIST ASSISTANT EDITOR ABNER JOHNSTON M.D. Normal [facility] Comment on above: Performed By: #### L IPID, CMP #### [facility] [address] [place] [address] Urine culture routineOrdered By: Clarisa Rutherford on 10-29-2023 Bacteria identified Cx Nom (U) bacilli - 2 Days [facility] A1C with Estimated Average G luon 09-10-2023 Glucose [Mass/Vol] 137 mg/dL Normal [facility] Comment on above: Result Comment: PERF ORMED BY: [facility] [address] [place] [address] PATHOLOGIST ASSISTANT EDITOR ABNER JOHNSTON M.D. Performed By: #### A 1C WTH eA #### [facility] [address] [place], [place] [id number] [place] Alanine aminotransferase [En zymatic activity/volume] in Serum or PlasmaOrdered By: Rafi Burden on 09-10-2023 ALT [Catalytic activity/Vol] 18 U/L Normal 7-52 [facility] Comment on above: Performed By: #### C LEO, LIPID #### [facility] [address] [place] [address] [place] Albumin [Mass/volume] in Ser um or Plasma by Bromocresol green (BCG) dye binding methoOrdered By: Rafi Burden on 09-10-2023 Albumin BCG dye [Mass/Vol] 4.5 g/dL 3.5-5.7 [facility] Alkaline phosphatase [Enzyma tic activity/volume] in Serum or PlasmaOrdered By: Rafi Burden on 09-10-2023 ALP [Catalytic activity/Vol] 72 U/L Normal 34-104 [facility] Comment on above: Performed By: #### C LEO, LIPID #### [facility] [address] [place] [address] [place] Aspartate aminotransferase [ Enzymatic activity/volume] in Serum or PlasmaOrdered By: Rafi Burden on 09-10-2023 AST [Catalytic activity/Vol] 20 U/L Normal 13-39 [facility] Comment on above: Performed By: #### C LOE LIPID #### [facility] [address] [place] [address] [place] Bilirubin.total [Mass/volume ] in Serum or PlasmaOrdered By: Rafi Burden on 09-10-2023 Bilirubin [Mass/Vol] 0.5 mg/dL Normal 0.3-1.0 [facility] Comment on above: Performed By: #### C MP, LIPID #### [facility] [address] [place] [address] [place] Calcium [Mass/volume] in Ser um or PlasmaOrdered By: Rafi Burden on 09-10-2023 Calcium [Mass/Vol] 10.5 mg/dL High 8.6-10.3 [facility] Comment on above: Performed By: #### C MP, LIPID #### [facility] [address] [place] [address] [place] Carbon dioxide, total [Moles /volume] in Serum or PlasmaOrdered By: Rafi Burden on 09-10-2023 CO2 [Moles/Vol] 32.8 mmol/L High 21.0-31.0 [facility] Comment on above: Performed By: #### C MP, LIPID #### [facility] [address] [place] [address] [place] Chloride [Moles/volume] in S janeth or PlasmaOrdered By: Rafi Burden on 09-10-2023 Chloride [Moles/Vol] 96 mmol/L Low 98-107 [facility] Comment on above: Performed By: #### C MP, LIPID #### [facility] [address] [place] [address] [place] Cholesterol [Mass/volume] in Serum or PlasmaOrdered By: Rafi Burden on 09-10-2023 Cholesterol [Mass/Vol] 219 mg/dL High 140-200 [facility] Comment on above: Chol less than 200 m g/dl low riskChol 201-239 mg/dl borderline riskChol 240 mg/dl and greater high risk Result Comment: Chol less than 200 mg/dl low risk Chol 201-239 mg/dl borderline risk Chol 240 mg/dl and greater high risk Performed By: #### C MP, LIPID #### [facility] [address] [place] [address] [place] Cholesterol in LDL Calc [Mas s/Vol]Ordered By: Rafi Burden on 09-10-2023 Cholesterol in LDL [Mass/Vol] 110 mg/dL 0-100 [facility] Comment on above: LDL ATP III CLASSIFI CATIONLDL less than 100 mg/dL OptimalLDL 100-129 mg/dL Near or above optimalLDL 130-159 mg/dL Borderline highLDL 160-189 mg/dL HighLDL greater than 189 mg/dL Very high Cholesterol in VLDL Calc [Ma ss/Vol]Ordered By: Rafi Burden on 09-10-2023 Cholesterol in VLDL [Mass/Vol] 51 mg/dL [facility] Comprehensive Metabolic Pane yan 09-10-2023 Albumin [Mass/Vol] 4.5 g/dL Normal 3.5-5.7 [facility] Comment on above: Performed By: #### C MP, LIPID #### [address] GFR/1.73 sq M.predicted MDRD (S/P/Bld) [Vol rate/Area] 31.980 mL/min/{1.73_m2} Normal [facility] Comment on above: Performed By: #### C MP, LIPID #### [address] Creatinine [Mass/volume] in Serum or PlasmaOrdered By: Rafi Burden on 09-10-2023 Creatinine [Mass/Vol] 1.66 mg/dL High 0.60-1.20 [facility] Comment on above: Performed By: #### C MP, LIPID #### [address] Erythrocyte distribution wid th [Ratio] by Automated countOrdered By: Rafi Burden on 09-10-2023 Erythrocyte distribution width (RBC) [Ratio] 12.9 % Normal 11.9-15.3 [facility] Comment on above: Performed By: #### C BCNO #### [address] Erythrocytes [#/volume] in B lood by Automated countOrdered By: Rafi Burden on 09-10-2023 RBC (Bld) [#/Vol] 4.01 10*6/uL Normal 3.60-5.00 [facility] Comment on above: Performed By: #### C BCNO #### [place] [address] [place] Glucose [Mass/volume] in Ser um or PlasmaOrdered By: Rafi Burden on 09-10-2023 Glucose [Mass/Vol] 131 mg/dL High 70-100 [facility] Comment on above: ADA recommended refe rence rangeRandom Glucose Reference Range is dependent on time and content of last meal. Glucose of more than 200 mg/dL in a nonstressed, ambulatory subject supports the diagnosis of Diabetes Mellitus. Result Comment: [place] om Glucose Reference Range is dependent on time and content of last meal. Glucose of more than 200 mg/dL in a nonstressed, ambulatory subject supports the diagnosis of Diabetes Mellitus. ADA recommended reference range Performed By: #### C MP, LIPID #### [facility] [address] Glucose mean value [Mass/vol ume] in Blood Estimated from glycated hemoglobinOrdered By: Rafi Burden on 09-10-2023 Average glucose Estimated from glycated hemoglobin (Bld) [Mass/Vol] 137 mg/dL [facility] Hematocrit [Volume Fraction] of Blood by Automated countOrdered By: Rafi Burden on 09-10-2023 Hematocrit (Bld) [Volume fraction] 39.1 % Normal 34.0-46.4 [facility] Comment on above: Performed By: #### C BCNO #### [address] Hemoglobin A1c percentageOrd ered By: Rafi Burden on 09-10-2023 HbA1c (Bld) [Mass fraction] 6.4 % High 4.3-5.6 [facility] Comment on above: Increased risk for d iabetes: 5.7 - 6.4diabetes: >6.4glycemic control for adults with diabetes: <7.0 Result Comment: Incr eased risk for diabetes: 5.7 - 6.4 diabetes: >6.4 glycemic control for adults with diabetes: <7.0 Performed By: #### A 1C WTH eA #### [address] Hemoglobin [Mass/volume] in BloodOrdered By: Rafi Burden on 09-10-2023 Hemoglobin (Bld) [Mass/Vol] 13.0 g/dL Normal 11.8-15.4 [facility] Comment on above: Performed By: #### C BCNO #### [address] Hemogram CBC Without Diffon 09-10-2023 Mean Corpuscular HGB Conc 33.3 g/dL Normal 32.0-35.0 [facility] Comment on above: Performed By: #### C BCNO #### [address] WBC (Bld) [#/Vol] 6.6 10*3/uL Normal 3.8-11.6 [facility] Comment on above: Performed By: #### C BCNO #### [address] Leukocytes [#/volume] correc pratibha for nucleated erythrocytes in Blood by Automated counOrdered By: Rafi Burden on 09-10-2023 WBC corrected for nucl RBC Auto (Bld) [#/Vol] 6.6 10*3/uL 3.8-11.6 [facility] Lipid Panelon 09-10-2023 LDL Cholesterol,Calculate d 110 mg/dL High 0-100 [facility] Comment on above: Result Comment: LDL ATP III CLASSIFICATION LDL less than 100 mg/dL Optimal LDL 100-129 mg/dL Near or above optimal LDL 130-159 mg/dL Borderline high LDL 160-189 mg/dL High LDL greater than 189 mg/dL Very high Performed By: #### C MP, LIPID #### [address] Triglyceride w/Reflex 258 mg/dL High 0-149 [facility] Comment on above: Result Comment: TRIG ATP III CLASSIFICATION TRIG less than 150 mg/dL Normal TRIG 150-199 mg/dL Borderline high TRIG 200-500 mg/dL High TRIG greater than 500 mg/dL Very high Standard traceable to the Center for Disease Conrtrol and Prevention (CDC) test method. Performed By: #### C MP, LIPID #### [address] VLDL CHOLESTEROL 51 mg/dL Normal [facility] Comment on above: Performed By: #### C MP, LIPID #### [place] [address] [place] MCH [Entitic mass] by Automa pratibha countOrdered By: Rafi Burden on 09-10-2023 MCH (RBC) [Entitic mass] 32.5 pg Normal 24.7-34.3 [facility] Comment on above: Performed By: #### C BCNO #### [place] [address] [place] MCHC Auto (RBC) [Mass/Vol]Or dered By: Rafi Burden on 09-10-2023 MCHC (RBC) [Mass/Vol] 33.3 g/dL 32.0-35.0 [facility] MCV [Entitic volume] by Auto mated countOrdered By: Rafi Burden on 09-10-2023 MCV (RBC) [Entitic vol] 97.5 fL Normal 80-100 [facility] Comment on above: Performed By: #### C BCNO #### [address] No Panel InformationOrdered By: Rafi Burden on 09-10-2023 Estimated GFR (CKD-EPI) 31.980 mL/Min [facility] Creatinine Clearance (Chem N/A [facility] Platelet mean volume [Entiti c volume] in Blood by Automated countOrdered By: Rafi Burden on 09-10-2023 Platelet mean volume (Bld) [Entitic vol] 8.5 fL Normal 6.3-10.7 [facility] Comment on above: Result Comment: PERF ORMED BY: [place] [address] PATHOLOGIST ASSISTANT EDITOR ABNER JOHNSTON M.D. Performed By: #### C BCNO #### [place] [address] [place] Platelets [#/volume] in Bloo d by Automated countOrdered By: Rafi Burden on 09-10-2023 Platelets (Bld) [#/Vol] 294 10*3/uL Normal 150-450 [facility] Comment on above: Performed By: #### C BCNO #### [place] [address] [place] Potassium [Moles/volume] in Serum or PlasmaOrdered By: Rafi Burden on 09-10-2023 Potassium [Moles/Vol] 3.5 mmol/L Normal 3.5-5.1 [facility] Comment on above: Performed By: #### C MP, LIPID #### [place] [address] [place] Protein [Mass/volume] in Ser um or PlasmaOrdered By: Rafi Burden on 09-10-2023 Protein [Mass/Vol] 8.0 g/dL Normal 6.4-8.9 [facility] Comment on above: Performed By: #### C MP, LIPID #### [facility] [address] [place] [address] Serum globulin measurement b y calculation (mass/volume)Ordered By: Rafi Burden on 09-10-2023 Globulin (S) [Mass/Vol] 3.5 g/dL [facility] Comment on above: Performed By: #### C MP, LIPID #### [address] Serum or plasma albumin/glob ulin mass ratioOrdered By: Rafi Burden on 09-10-2023 Albumin/Globulin [Mass ratio] 1.3 {ratio} [facility] Comment on above: Performed By: #### C MP, LIPID #### [address] Serum or plasma anion gap de terminationOrdered By: Rafi Burden on 09-10-2023 Anion gap [Moles/Vol] 14.7 mmol/L Normal 6.0-15.0 [facility] Comment on above: Performed By: #### C MP, LIPID #### [address] Serum or plasma high density lipoprotein (HDL) cholesterol measurementOrdered By: Rafi Burden on 09-10-2023 Cholesterol in HDL [Mass/Vol] 57 mg/dL Normal 23 [facility] Comment on above: HDL CHOL ATP-III CLA SSIFICATION Cardiovascular RiskHDL > or equal to 60 mg/dL LOWHDL < 40 mg/dL HIGH Result Comment: HDL CHOL ATP-III CLASSIFICATION Cardiovascular Risk HDL > or equal to 60 mg/dL LOW HDL < 40 mg/dL HIGH Performed By: #### C MP, LIPID #### [address] Serum or plasma total choles terol/high density lipoprotein (HDL) cholesterol mass ratOrdered By: Rafi Burden on 09-10-2023 Cholesterol.total/Cho lesterol in HDL [Mass ratio] 3.8 {ratio} Normal <5.0 [facility] Comment on above: Result Comment: PERF ORMED BY: [place] [address] PATHOLOGIST ASSISTANT EDITOR ABNER JOHNSTON M.D. Performed By: #### C MP, LIPID #### [facility] [address] Sodium [Moles/volume] in Ser um or PlasmaOrdered By: Rafi Burden on 09-10-2023 Sodium [Moles/Vol] 140 mmol/L Normal 136-145 [facility] Comment on above: Performed By: #### C MP, LIPID #### [facility] [address] Triglyceride [Mass/volume] i n Serum or PlasmaOrdered By: Rafi Burden on 09-10-2023 Triglyceride [Mass/Vol] 258 mg/dL 0-149 [facility] Comment on above: TRIG ATP III CLASSIF ICATIONTRIG less than 150 mg/dL NormalTRIG 150-199 mg/dL Borderline highTRIG 200-500 mg/dL High TRIG greater than 500 mg/dL Very highStandard traceable to the Center for Disease Conrtrol and Prevention (CDC) test method. Urea nitrogen [Mass/volume] in Serum or PlasmaOrdered By: Rafi Burden on 09-10-2023 Urea nitrogen [Mass/Vol] 44 mg/dL High 7-25 [facility] Comment on above: Performed By: #### C MP, LIPID #### [address] Provider Letteron 04-19-2023 Provider Letter (Inserted Image. Natasha ble to display) April 19, 2023 LARISA LO [address] [place] [id number] : 1950 Dear Larisa , We have been trying to reach you with no success. You have an appointment with Tatiana Raheem on 05/05/2023 which will need to be rescheduled since she is no longer in our [place] office on Wednesdays. Please contact the office at the number listed below to get this appointment rescheduled at your earliest convenience. Thank you for your prompt attention to this matter. Sincerely, [facility] [address], [place] [address] Normal [facility] A1C with Estimated Average Digna ramirez 03-09-2023 Glucose [Mass/Vol] 140 mg/dL Normal [facility] Comment on above: Order Comment: Reaso n for Exam Chronic kidney disease, unspecified;Hyperlipidemia, unspecif Result Comment: PERF ORMED BY: [place] [address] PATHOLOGIST ASSISTANT EDITOR ABNER JOHNSTON M.D. Performed By: #### A 1C [facility] eA #### [facility] [address] [place] [address] [place] Alanine aminotransferase [En zymatic activity/volume] in Serum or PlasmaOrdered By: Rafi Burden on 03-09-2023 ALT [Catalytic activity/Vol] 17 U/L Normal 7-52 [facility] Comment on above: Order Comment: Reaso n for Exam Chronic kidney disease, unspecified;Hyperlipidemia, unspecif Performed By: #### L IPID, CMP #### [facility] [address] [place] [address] [place] Albumin [Mass/volume] in Ser um or Plasma by Bromocresol green (BCG) dye binding methoOrdered By: Rafi Burden on 03-09-2023 Albumin BCG dye [Mass/Vol] 4.2 g/dL 3.5-5.7 [facility] Alkaline phosphatase [Enzyma tic activity/volume] in Serum or PlasmaOrdered By: Rafi Burden on 03-09-2023 ALP [Catalytic activity/Vol] 61 U/L Normal 34-104 [facility] Comment on above: Order Comment: Reaso n for Exam Chronic kidney disease, unspecified;Hyperlipidemia, unspecif Performed By: #### L IPID, CMP #### [facility] [address] [place] [id number] [place] Aspartate aminotransferase [ Enzymatic activity/volume] in Serum or PlasmaOrdered By: Rafi Burden on 03-09-2023 AST [Catalytic activity/Vol] 19 U/L Normal 13-39 [facility] Comment on above: Order Comment: Reaso n for Exam Chronic kidney disease, unspecified;Hyperlipidemia, unspecif Performed By: #### L IPID, CMP #### [address] Automated basophil %Ordered By: Rafi Burden on 03-09-2023 Basophils/100 WBC (Bld) 0.7 % Normal . [facility] Comment on above: Order Comment: Reaso n for Exam Chronic kidney disease, unspecified;Hyperlipidemia, unspecif Performed By: #### C BC #### [address] Automated basophil countOrde red By: Rafi Burden on 03-09-2023 Basophils (Bld) [#/Vol] 0.0 10*3/uL Normal 0.0-0.2 [facility] Comment on above: Order Comment: Reaso n for Exam Chronic kidney disease, unspecified;Hyperlipidemia, unspecif Result Comment: PERF ORMED BY: [place] [address] PATHOLOGIST ASSISTANT EDITOR ABNER JOHNSTON M.D. Performed By: #### C BC #### [address] Automated blood monocyte cou ntOrdered By: Rafi Burden on 03-09-2023 Monocytes (Bld) [#/Vol] 0.6 10*3/uL Normal 0.0-0.8 [facility] Comment on above: Order Comment: Reaso n for Exam Chronic kidney disease, unspecified;Hyperlipidemia, unspecif Performed By: #### C BC #### [address] Automated eosinophil %Ordere d By: Rafi Burden on 03-09-2023 Eosinophils/100 WBC (Bld) 3.9 % Normal . [facility] Comment on above: Order Comment: Reaso n for Exam Chronic kidney disease, unspecified;Hyperlipidemia, unspecif Performed By: #### C BC #### [address] Automated eosinophil countOr dered By: Rafi Burden on 03-09-2023 Eosinophils (Bld) [#/Vol] 0.2 10*3/uL Normal 0.0-0.45 [facility] Comment on above: Order Comment: Reaso n for Exam Chronic kidney disease, unspecified;Hyperlipidemia, unspecif Performed By: #### C BC #### [facility] [address] Automated monocyte %Ordered By: Rafi Burden on 03-09-2023 Monocytes/100 WBC (Bld) 10.0 % Normal . [facility] Comment on above: Order Comment: Reaso n for Exam Chronic kidney disease, unspecified;Hyperlipidemia, unspecif Performed By: #### C BC #### [address] Automated neutrophil %Ordere d By: Rafi Burden on 03-09-2023 Neutrophils/100 WBC (Bld) 62.9 % Normal . [facility] Comment on above: Order Comment: Reaso n for Exam Chronic kidney disease, unspecified;Hyperlipidemia, unspecif Performed By: #### C BC #### [address] Bilirubin.total [Mass/volume ] in Serum or PlasmaOrdered By: Rafi Burden on 03-09-2023 Bilirubin [Mass/Vol] 0.5 mg/dL Normal 0.3-1.0 [facility] Comment on above: Order Comment: Reaso n for Exam Chronic kidney disease, unspecified;Hyperlipidemia, unspecif Performed By: #### L IPID, CMP #### [place] [address] [place] Calcium [Mass/volume] in Ser um or PlasmaOrdered By: Rafi Burden on 03-09-2023 Calcium [Mass/Vol] 9.8 mg/dL Normal 8.6-10.3 [facility] Comment on above: Order Comment: Reaso n for Exam Chronic kidney disease, unspecified;Hyperlipidemia, unspecif Performed By: #### L IPID, CMP #### [address] Carbon dioxide, total [Moles /volume] in Serum or PlasmaOrdered By: Rafi Burden on 03-09-2023 CO2 [Moles/Vol] 35.1 mmol/L High 21.0-31.0 [facility] Comment on above: Order Comment: Reaso n for Exam Chronic kidney disease, unspecified;Hyperlipidemia, unspecif Performed By: #### L IPID, CMP #### [facility] [address] [place] [address] [place] Chloride [Moles/volume] in S janeth or PlasmaOrdered By: Rafi Burden on 03-09-2023 Chloride [Moles/Vol] 97 mmol/L Low 98-107 [facility] Comment on above: Order Comment: Reaso n for Exam Chronic kidney disease, unspecified;Hyperlipidemia, unspecif Performed By: #### L IPID, CMP #### [facility] [address] [place] [id number] [place] Cholesterol [Mass/volume] in Serum or PlasmaOrdered By: Rafi Burden on 03-09-2023 Cholesterol [Mass/Vol] 226 mg/dL High 140-200 [facility] Comment on above: Chol less than 200 m g/dl low riskChol 201-239 mg/dl borderline riskChol 240 mg/dl and greater high risk Order Comment: Reaso n for Exam Chronic kidney disease, unspecified;Hyperlipidemia, unspecif Result Comment: Chol less than 200 mg/dl low risk Chol 201-239 mg/dl borderline risk Chol 240 mg/dl and greater high risk Performed By: #### L IPID, CMP #### [facility] [address] [place] [address] [place] Cholesterol in LDL Calc [Mas s/Vol]Ordered By: Rafi Burden on 03-09-2023 Cholesterol in LDL [Mass/Vol] 113 mg/dL 0-100 [facility] Comment on above: LDL ATP III CLASSIFI CATIONLDL less than 100 mg/dL OptimalLDL 100-129 mg/dL Near or above optimalLDL 130-159 mg/dL Borderline highLDL 160-189 mg/dL HighLDL greater than 189 mg/dL Very high Cholesterol in VLDL Calc [Ma ss/Vol]Ordered By: Rafi Burden on 03-09-2023 Cholesterol in VLDL [Mass/Vol] 58 mg/dL [facility] Complete Blood Count Auto Di ffon 03-09-2023 Mean Corpuscular HGB Conc 33.0 g/dL Normal 32.0-35.0 [facility] Comment on above: Order Comment: Reaso n for Exam Chronic kidney disease, unspecified;Hyperlipidemia, unspecif Performed By: #### C BC #### [address] NRBC% 0.0 /100{WBC} Normal 0-0.5 [facility] Comment on above: Order Comment: Reaso n for Exam Chronic kidney disease, unspecified;Hyperlipidemia, unspecif Performed By: #### C BC #### [address] Comprehensive Metabolic Pane yan 03-09-2023 Albumin [Mass/Vol] 4.2 g/dL Normal 3.5-5.7 [facility] Comment on above: Order Comment: Reaso n for Exam Chronic kidney disease, unspecified;Hyperlipidemia, unspecif Performed By: #### L IPID, CMP #### [address] GFR/1.73 sq M.predicted MDRD (S/P/Bld) [Vol rate/Area] 35.830 mL/min/{1.73_m2} Normal [facility] Comment on above: Order Comment: Reaso n for Exam Chronic kidney disease, unspecified;Hyperlipidemia, unspecif Performed By: #### L IPID, CMP #### [address] Creatinine [Mass/volume] in Serum or PlasmaOrdered By: Rafi Burden on 03-09-2023 Creatinine [Mass/Vol] 1.51 mg/dL High 0.60-1.20 [facility] Comment on above: Order Comment: Reaso n for Exam Chronic kidney disease, unspecified;Hyperlipidemia, unspecif Performed By: #### L IPID, CMP #### [facility] [address] [place] [address] Erythrocyte distribution wid th [Ratio] by Automated countOrdered By: Rafi Burden on 03-09-2023 Erythrocyte distribution width (RBC) [Ratio] 13.8 % Normal 11.9-15.3 [facility] Comment on above: Order Comment: Reaso n for Exam Chronic kidney disease, unspecified;Hyperlipidemia, unspecif Performed By: #### C BC #### [facility] [address] [place] [id number] [place] Erythrocytes [#/volume] in B lood by Automated countOrdered By: Rafi Burden on 03-09-2023 RBC (Bld) [#/Vol] 4.08 10*6/uL Normal 3.60-5.00 [facility] Comment on above: Order Comment: Reaso n for Exam Chronic kidney disease, unspecified;Hyperlipidemia, unspecif Performed By: #### C BC #### [facility] [address] [place] [place] [address] [facility] Glucose [Mass/volume] in Ser um or PlasmaOrdered By: Rafi Burden on 03-09-2023 Glucose [Mass/Vol] 135 mg/dL High 70-100 [facility] Comment on above: ADA recommended refe rence rangeRandom Glucose Reference Range is dependent on time and content of last meal. Glucose of more than 200 mg/dL in a nonstressed, ambulatory subject supports the diagnosis of Diabetes Mellitus. Order Comment: Reaso n for Exam Chronic kidney disease, unspecified;Hyperlipidemia, unspecif Result Comment: [place] Glucose Reference Range is dependent on time and content of last meal. Glucose of more than 200 mg/dL in a nonstressed, ambulatory subject supports the diagnosis of Diabetes Mellitus. ADA recommended reference range Performed By: #### L IPID, CMP #### [facility] [address] [id number] [facility] Glucose mean value [Mass/vol ume] in Blood Estimated from glycated hemoglobinOrdered By: Rafi Burden on 03-09-2023 Average glucose Estimated from glycated hemoglobin (Bld) [Mass/Vol] 140 mg/dL [facility] Hematocrit [Volume Fraction] of Blood by Automated countOrdered By: Rafi Burden on 03-09-2023 Hematocrit (Bld) [Volume fraction] 39.4 % Normal 34.0-46.4 [facility] Comment on above: Order Comment: Reaso n for Exam Chronic kidney disease, unspecified;Hyperlipidemia, unspecif Performed By: #### C BC #### [address] Hemoglobin A1c percentageOrd ered By: Rafi Burden on 03-09-2023 HbA1c (Bld) [Mass fraction] 6.5 % High 4.3-5.6 [facility] Comment on above: Increased risk for d iabetes: 5.7 - 6.4diabetes: >6.4glycemic control for adults with diabetes: <7.0 Order Comment: Reaso n for Exam Chronic kidney disease, unspecified;Hyperlipidemia, unspecif Result Comment: Incr eased risk for diabetes: 5.7 - 6.4 diabetes: >6.4 glycemic control for adults with diabetes: <7.0 Performed By: #### A 1C [facility] #### [address] Hemoglobin [Mass/volume] in BloodOrdered By: Rafi Burden on 03-09-2023 Hemoglobin (Bld) [Mass/Vol] 13.0 g/dL Normal 11.8-15.4 [facility] Comment on above: Order Comment: Reaso n for Exam Chronic kidney disease, unspecified;Hyperlipidemia, unspecif Performed By: #### C BC #### [address] Leukocytes [#/volume] correc pratibha for nucleated erythrocytes in Blood by Automated counOrdered By: Rafi Burden on 03-09-2023 WBC corrected for nucl RBC Auto (Bld) [#/Vol] 5.9 10*3/uL 3.8-11.6 [facility] Leukocytes [#/volume] in Blo od by Automated countOrdered By: Rafi Burden on 03-09-2023 WBC (Bld) [#/Vol] 5.9 10*3/uL Normal 3.8-11.6 [facility] Comment on above: Order Comment: Reaso n for Exam Chronic kidney disease, unspecified;Hyperlipidemia, unspecif Performed By: #### C BC #### [address] Lipid Panelon 03-09-2023 LDL Cholesterol,Calculate d 113 mg/dL High 0-100 [facility] Comment on above: Order Comment: Reaso n for Exam Chronic kidney disease, unspecified;Hyperlipidemia, unspecif Result Comment: LDL ATP III CLASSIFICATION LDL less than 100 mg/dL Optimal LDL 100-129 mg/dL Near or above optimal LDL 130-159 mg/dL Borderline high LDL 160-189 mg/dL High LDL greater than 189 mg/dL Very high Performed By: #### L IPID, CMP #### [facility] [address] Triglyceride w/Reflex 290 mg/dL High 0-149 [facility] Comment on above: Order Comment: [...] Performed By: #### L IPID, CMP #### [address] VLDL CHOLESTEROL 58 mg/dL Normal [facility] Comment on above: Order Comment: Reaso n for Exam Chronic kidney disease, unspecified;Hyperlipidemia, unspecif Performed By: #### L IPID, CMP #### [facility] [address] [place] [address] [place] Lymphocytes [#/volume] in Bl ood by Automated countOrdered By: Rafi Burden on 03-09-2023 Lymphocytes (Bld) [#/Vol] 1.3 10*3/uL Normal 1.00-4.8 [facility] Comment on above: Order Comment: Reaso n for Exam Chronic kidney disease, unspecified;Hyperlipidemia, unspecif Performed By: #### C BC #### [place] [address] [place] Lymphocytes/100 leukocytes i n Blood by Automated countOrdered By: Rafi Burden on 03-09-2023 Lymphocytes/100 WBC (Bld) 22.5 % Normal . [facility] Comment on above: Order Comment: Reaso n for Exam Chronic kidney disease, unspecified;Hyperlipidemia, unspecif Performed By: #### C BC #### [address] [place] [address] [place] MCH [Entitic mass] by Automa pratibha countOrdered By: Rafi Burden on 03-09-2023 MCH (RBC) [Entitic mass] 31.8 pg Normal 24.7-34.3 [facility] Comment on above: Order Comment: Reaso n for Exam Chronic kidney disease, unspecified;Hyperlipidemia, unspecif Performed By: #### C BC #### [facility] [address] [place] [address] MCHC Auto (RBC) [Mass/Vol]Or dered By: Rafi Burden on 03-09-2023 MCHC (RBC) [Mass/Vol] 33.0 g/dL 32.0-35.0 [facility] MCV [Entitic volume] by Auto mated countOrdered By: Rafi Burden on 03-09-2023 MCV (RBC) [Entitic vol] 96.5 fL Normal 80-100 [facility] Comment on above: Order Comment: Reaso n for Exam Chronic kidney disease, unspecified;Hyperlipidemia, unspecif Performed By: #### C BC #### [facility] [address] [place] [address] Neutrophils [#/volume] in Bl ood by Automated countOrdered By: Rafi Burden on 03-09-2023 Neutrophils (Bld) [#/Vol] 3.7 10*3/uL Normal 1.8-7.7 [facility] Comment on above: Order Comment: Reaso n for Exam Chronic kidney disease, unspecified;Hyperlipidemia, unspecif Performed By: #### C BC #### [facility] [address] [place] [address] No Panel InformationOrdered By: Rafi Burden on 03-09-2023 Estimated GFR (CKD-EPI) 35.830 mL/Min [facility] Creatinine Clearance (Chem N/A [facility] Nucleated erythrocytes [Pres ence] in Blood by Automated countOrdered By: Rafi Burden on 03-09-2023 Nucleated RBC Auto Ql (Bld) 0.0 /100{WBC} 0-0.5 [facility] Platelet mean volume [Entiti c volume] in Blood by Automated countOrdered By: Rafi Burden on 03-09-2023 Platelet mean volume (Bld) [Entitic vol] 8.0 fL Normal 6.3-10.7 [facility] Comment on above: Order Comment: Reaso n for Exam Chronic kidney disease, unspecified;Hyperlipidemia, unspecif Performed By: #### C BC #### [facility] [address] Platelets [#/volume] in Bloo d by Automated countOrdered By: Rafi Buredn on 03-09-2023 Platelets (Bld) [#/Vol] 263 10*3/uL Normal 150-450 [facility] Comment on above: Order Comment: Reaso n for Exam Chronic kidney disease, unspecified;Hyperlipidemia, unspecif Performed By: #### C BC #### [address] Potassium [Moles/volume] in Serum or PlasmaOrdered By: Rafi Burden on 03-09-2023 Potassium [Moles/Vol] 4.0 mmol/L Normal 3.5-5.1 [facility] Comment on above: Order Comment: Reaso n for Exam Chronic kidney disease, unspecified;Hyperlipidemia, unspecif Performed By: #### L IPID, CMP #### [place] [address] [place] Protein [Mass/volume] in Ser um or PlasmaOrdered By: Rafi Burden on 03-09-2023 Protein [Mass/Vol] 7.4 g/dL Normal 6.4-8.9 [facility] Comment on above: Order Comment: Reaso n for Exam Chronic kidney disease, unspecified;Hyperlipidemia, unspecif Performed By: #### L IPID, CMP #### [facility] [address] [id number] [place] Serum globulin measurement b y calculation (mass/volume)Ordered By: Rafi Burden on 03-09-2023 Globulin (S) [Mass/Vol] 3.2 g/dL Normal [facility] Comment on above: Order Comment: Reaso n for Exam Chronic kidney disease, unspecified;Hyperlipidemia, unspecif Performed By: #### L IPID, CMP #### [facility] [address] [place] [address] Serum or plasma albumin/glob ulin mass ratioOrdered By: Rafi Burden on 03-09-2023 Albumin/Globulin [Mass ratio] 1.3 {ratio} Normal [facility] Comment on above: Order Comment: Reaso n for Exam Chronic kidney disease, unspecified;Hyperlipidemia, unspecif Performed By: #### L IPID, CMP #### [facility] [address] [place] [address] Serum or plasma anion gap de terminationOrdered By: Rafi Burden on 03-09-2023 Anion gap [Moles/Vol] 9.9 mmol/L Normal 6.0-15.0 [facility] Comment on above: Order Comment: Reaso n for Exam Chronic kidney disease, unspecified;Hyperlipidemia, unspecif Performed By: #### L IPID, CMP #### [facility] [address] [place] [address] Serum or plasma high density lipoprotein (HDL) cholesterol measurementOrdered By: Rafi Burden on 03-09-2023 Cholesterol in HDL [Mass/Vol] 55 mg/dL Normal 23-92 [facility] Comment on above: HDL CHOL ATP-III CLA SSIFICATION Cardiovascular RiskHDL > or equal to 60 mg/dL LOWHDL < 40 mg/dL HIGH Order Comment: Reaso n for Exam Chronic kidney disease, unspecified;Hyperlipidemia, unspecif Result Comment: HDL CHOL ATP-III CLASSIFICATION Cardiovascular Risk HDL > or equal to 60 mg/dL LOW HDL < 40 mg/dL HIGH Performed By: #### L IPID, CMP #### [facility] [address] [place] [address] Serum or plasma total choles terol/high density lipoprotein (HDL) cholesterol mass ratOrdered By: Rafi Burden on 03-09-2023 Cholesterol.total/Cho lesterol in HDL [Mass ratio] 4.1 {ratio} Normal <5.0 [facility] Comment on above: Order Comment: Reaso n for Exam Chronic kidney disease, unspecified;Hyperlipidemia, unspecif Result Comment: PERF ORMED BY: [place] [address] PATHOLOGIST ASSISTANT EDITOR ABNER JOHNSTON M.D. Performed By: #### L IPID, CMP #### [facility] [address] Sodium [Moles/volume] in Ser um or PlasmaOrdered By: Rafi Burden on 03-09-2023 Sodium [Moles/Vol] 138 mmol/L Normal 136-145 [facility] Comment on above: Order Comment: Reaso n for Exam Chronic kidney disease, unspecified;Hyperlipidemia, unspecif Performed By: #### L IPID, CMP #### [facility] [address] [id number] [facility] Triglyceride [Mass/volume] i n Serum or PlasmaOrdered By: Rafi Burden on 03-09-2023 Triglyceride [Mass/Vol] 290 mg/dL 0-149 [facility] Comment on above: TRIG ATP III CLASSIF ICATIONTRIG less than 150 mg/dL NormalTRIG 150-199 mg/dL Borderline highTRIG 200-500 mg/dL High TRIG greater than 500 mg/dL Very highStandard traceable to the Center for Disease Conrtrol and Prevention (CDC) test method. Urea nitrogen [Mass/volume] in Serum or PlasmaOrdered By: Rafi Burden on 03-09-2023 Urea nitrogen [Mass/Vol] 35 mg/dL High 7-25 [facility] Comment on above: Order Comment: Reaso n for Exam Chronic kidney disease, unspecified;Hyperlipidemia, unspecif Performed By: #### L IPID, CMP #### [facility] [address] [id number] [facility] MRI LSPINE WO CONon 11-05-19 MRI LSPINE [...] by: JAE CAMERON Date: 2022-11-04 14:08 Normal [facility] XR KUB 1 VIEWon 11-04-2022 XR KUB [...] atherosclerosis BONES: No acute abnormality. Degenerative spondylosis. [id number] hip osteoarthritis OTHER: Negative. No abnormal gaseous collections. IMPRESSION: No definite urinary tract calculi Electronically authenticated by: XIMENA KAISER Date: 2022-11-04 19:47 Normal [facility] US KIDNEYSon 08-10-2022 US KIDNEYS EXAMINATION: US KIDN EYS HISTORY: Kidney stone COMPARISON: No relevant comparison [...] by: XIMENA KAISER Date: 2022-08-10 15:16 Normal [facility] Basophils Auto (Bld) [#/Vol] Ordered By: Rafi Burden on 07-27-2022 Basophils (Bld) [#/Vol] 0.0 10*3/uL 0.0-0.2 [facility] Basophils/100 WBC Auto (Bld) Ordered By: Rafi Burden on 07-27-2022 Basophils/100 WBC (Bld) 0.7 % . [facility] Cholesterol [Mass/volume] in Serum or PlasmaOrdered By: Rafi Burden on 07-27-2022 Cholesterol [Mass/Vol] 221 mg/dL 140-200 [facility] Comment on above: Chol less than 200 m g/dl low riskChol 201-239 mg/dl borderline riskChol 240 mg/dl and greater high risk Cholesterol in LDL Calc [Mas s/Vol]Ordered By: Rafi Burden on 07-27-2022 Cholesterol in LDL [Mass/Vol] 133 mg/dL 0-100 [facility] Comment on above: LDL ATP III CLASSIFI CATIONLDL less than 100 mg/dL OptimalLDL 100-129 mg/dL Near or above optimalLDL 130-159 mg/dL Borderline highLDL 160-189 mg/dL HighLDL greater than 189 mg/dL Very high Cholesterol in VLDL Calc [Ma ss/Vol]Ordered By: Rafi Burden on 07-27-2022 Cholesterol in VLDL [Mass/Vol] 44 mg/dL [facility] Creatinine [Mass/volume] in UrineOrdered By: Rafi Burden on 07-27-2022 Creatinine (U) [Mass/Vol] 81.7 mg/dL [facility] Comment on above: No reference range e stablished Creatinine and Glomerular fi ltration rate.predicted panel (S/P/Bld)Ordered By: Rafi Burden on 07-27-2022 Creatinine [Mass/Vol] 1.38 mg/dL 0.44-1.03 [facility] Eosinophils Auto (Bld) [#/Vo l]Ordered By: Rafi Burden on 07-27-2022 Eosinophils (Bld) [#/Vol] 0.3 10*3/uL 0.0-0.45 [facility] Eosinophils/100 WBC Auto (Bl d)Ordered By: Rafi Burden on 07-27-2022 Eosinophils/100 WBC (Bld) 5.0 % . [facility] Erythrocyte distribution wid th Auto (RBC) [Ratio]Ordered By: Rafi Burden on 07-27-2022 Erythrocyte distribution width (RBC) [Ratio] 13.6 % 11.9-15.3 [facility] Estimated glomerular filtrat ion rate (GFR) non- AmericanOrdered By: Rafi Burden on 07-27-2022 GFR/1.73 sq M.predicted among non-blacks MDRD (S/P/Bld) [Vol rate/Area] 37 mL/Min [facility] Hematocrit Auto (Bld) [Volum e fraction]Ordered By: Rafi Burden on 07-27-2022 Hematocrit (Bld) [Volume fraction] 40.8 % 34.0-46.4 [facility] Hemoglobin [Mass/volume] in BloodOrdered By: Rafi Burden on 07-27-2022 Hemoglobin (Bld) [Mass/Vol] 13.3 g/dL 11.8-15.4 [facility] Leukocytes [#/volume] correc pratibha for nucleated erythrocytes in Blood by Automated counOrdered By: Rafi Burden on 07-27-2022 WBC corrected for nucl RBC Auto (Bld) [#/Vol] 6.9 10*3/uL 3.8-11.6 [facility] Lymphocytes Auto (Bld) [#/Vo l]Ordered By: Rafi Burden on 07-27-2022 Lymphocytes (Bld) [#/Vol] 1.5 10*3/uL 1.00-4.8 [facility] Lymphocytes/100 WBC Auto (Bl d)Ordered By: Rafi Burden on 07-27-2022 Lymphocytes/100 WBC (Bld) 21.6 % . [facility] MCH Auto (RBC) [Entitic mass ]Ordered By: Rafi Burden on 07-27-2022 MCH (RBC) [Entitic mass] 31.4 pg 24.7-34.3 [facility] MCHC Auto (RBC) [Mass/Vol]Or dered By: Rafi Burden on 07-27-2022 MCHC (RBC) [Mass/Vol] 32.7 g/dL 32.0-35.0 [facility] MCV Auto (RBC) [Entitic vol] Ordered By: Rafi Burden on 07-27-2022 MCV (RBC) [Entitic vol] 96.1 fL 80-100 [facility] Monocytes Auto (Bld) [#/Vol] Ordered By: Rafi Burden on 07-27-2022 Monocytes (Bld) [#/Vol] 0.6 10*3/uL 0.0-0.8 [facility] Monocytes/100 WBC Auto (Bld) Ordered By: Rafi Burden on 07-27-2022 Monocytes/100 WBC (Bld) 8.8 % . [facility] Neutrophils Auto (Bld) [#/Vo l]Ordered By: Rafi Burden on 07-27-2022 Neutrophils (Bld) [#/Vol] 4.4 10*3/uL 1.8-7.7 [facility] Neutrophils/100 WBC Auto (Bl d)Ordered By: Rafi Burden on 07-27-2022 Neutrophils/100 WBC (Bld) 63.9 % . [facility] No Panel InformationOrdered By: Rafi Burden on 07-27-2022 Estimated GFR () 45 mL/Min [facility] Comment on above: GFR estimated refere nce range: According to KDOQI guidelines, <60 ml/min/1.73m2 is sufficient to diagnose a patient with chronic kidney disease. Pharmacy Creatinine Clearance (Chem N/A [facility] Nucleated erythrocytes [Pres ence] in Blood by Automated countOrdered By: Rafi Burden on 07-27-2022 Nucleated RBC Auto Ql (Bld) 0.1 /100{WBC} 0-0.5 [facility] Platelet mean volume Auto (B ld) [Entitic vol]Ordered By: Rafi Burden on 07-27-2022 Platelet mean volume (Bld) [Entitic vol] 7.9 fL 6.3-10.7 [facility] Platelets Auto (Bld) [#/Vol] Ordered By: Rafi Burden on 07-27-2022 Platelets (Bld) [#/Vol] 313 10*3/uL 150-450 [facility] RBC Auto (Bld) [#/Vol]Ordere d By: Rafi Burden on 07-27-2022 RBC (Bld) [#/Vol] 4.24 10*6/uL 3.60-5.00 [facility] Serum or plasma alanine carrion otransferase measurement without P-5'-P (enzymatic activiOrdered By: Rafi Burden on 07-27-2022 ALT No additional P-5'-P [Catalytic activity/Vol] 29 U/L 10-60 [facility] Serum or plasma anion gap de terminationOrdered By: Rafi Burden on 07-27-2022 Anion gap [Moles/Vol] 11.0 mmol/L 6.0-15.0 [facility] Serum or plasma calcium shazia urement (mass/volume)Ordered By: Rafi Burden on 07-27-2022 Calcium [Mass/Vol] 9.6 mg/dL 8.2-10.2 [facility] Serum or plasma chloride ifeanyi surement (moles/volume)Ordered By: Rafi Burden on 07-27-2022 Chloride [Moles/Vol] 100 mmol/L 95-114 [facility] Serum or plasma glucose shazia urement (mass/volume)Ordered By: Rafi Burden on 07-27-2022 Glucose [Mass/Vol] 175 mg/dL 70-100 [facility] Comment on above: ADA recommended refe rence rangeRandom Glucose Reference Range is dependent on time and content of last meal. Glucose of more than 200 mg/dL in a nonstressed, ambulatory subject supports the diagnosis of Diabetes Mellitus. Serum or plasma high density lipoprotein (HDL) cholesterol measurementOrdered By: Rafi Burden on 07-27-2022 Cholesterol in HDL [Mass/Vol] 44 mg/dL 35-85 [facility] Comment on above: HDL CHOL ATP-III CLA SSIFICATION Cardiovascular RiskHDL > or equal to 60 mg/dL LOWHDL < 40 mg/dL HIGH Serum or plasma potassium me asurement (moles/volume)Ordered By: Rafi Burden on 07-27-2022 Potassium [Moles/Vol] 3.9 mmol/L 3.5-5.1 [facility] Serum or plasma sodium measu rement (moles/volume)Ordered By: Rafi Burden on 07-27-2022 Sodium [Moles/Vol] 136 mmol/L 136-146 [facility] Serum or plasma total carbon dioxide measurement (moles/volume)Ordered By: Rafi Burden on 07-27-2022 CO2 [Moles/Vol] 28.9 mmol/L 22.0-30.0 [facility] Serum or plasma total choles terol/high density lipoprotein (HDL) cholesterol mass ratOrdered By: Rafi Burden on 07-27-2022 Cholesterol.total/Cho lesterol in HDL [Mass ratio] 5.0 {ratio} <5.0 [facility] Serum or plasma urea nitroge n measurement (mass/volume)Ordered By: Rafi Burden on 07-27-2022 Urea nitrogen [Mass/Vol] 26 mg/dL 9-23 [facility] Triglyceride [Mass/volume] i n Serum or PlasmaOrdered By: Rafi Burden on 07-27-2022 Triglyceride [Mass/Vol] 221 mg/dL 35-149 [facility] Comment on above: TRIG ATP III [...] 20 mg/L (U) [Mass/Vol] 1.8 mg/dL 0.0-1.8 [facility] Urine microalbumin/creatinin e mass ratioOrdered By: Rafi Burden on 07-27-2022 Albumin/Creatinine DL <= 20 mg/L (U) [Mass ratio] 22.0 mg/g 0.0-30.0 [facility] Comment on above: 30-300 mg/g indicate s an increased risk for diabetic nephropathy. Greater than 300 mg/g is consistent with clinical nephropathy. (Am. J. Kidney Disease 1995, 25:107) WBC Auto (Bld) [#/Vol]Ordere d By: Rafi Burden on 07-27-2022 WBC (Bld) [#/Vol] 6.9 10*3/uL 3.8-11.6 [facility] CPKon 06-16-2022 CK [Catalytic activity/Vol] 56 U/L Normal 26-192 [facility] Comment on above: Performed By: #### U RCX #### [facility] [address] [place] [address] Dr. Lucia Queen MYOGLOBINon 06-16-2022 PAOLA 68 ng/mL Normal 9-82 [facility] Comment on above: Performed By: #### U RCX #### [facility] [address] [place] [address] Dr. Lucia Queen TSHon 06-16-2022 TSH 4.066 uIU/mL Critically high 0.358-3.74 0 [facility] Comment on above: Performed By: #### U RCX #### [facility] [address] [place] [address] Dr. Lucia Queen CULTURE URINEon 06-06-2022 CULTURE [...] Trimethoprim/Sulfamethoxaz ole <=20 S F Normal [facility] Comment on above: Performed By: #### U RCX #### [facility] [address] [address] [address] Lucia Queen ER URINE PROFILEon 2 Bilirubin Ql (U) Unable to perform te sting due to color interference. Abnormal NEGATIVE [facility] Comment on above: Performed By: #### U MICRO, ERUR #### [facility] [address] [place] [address] Dr. Lucia Queen Clarity (U) SL CLOUDY Abnormal CLEAR [facility] Comment on above: Performed By: #### U MICRO, ERUR #### [facility] [address] [place] [address] Dr. Lucia Queen Color (U) DK. ORANGE Abnormal YELLOW [facility] Comment on above: Performed By: #### U MICRO, ERUR #### [facility] [address] [place] [address] Dr. Lucia Queen ERUAHD A micrscopic examina tion will be performed if indicated. Normal [facility] Comment on above: Performed By: #### U MICRO, ERUR #### [facility] [address] [place] [address] Dr. Lucia Queen Glucose Ql (U) Unable to perform te sting due to color interference. Abnormal NEGATIVE [facility] Comment on above: Performed By: #### U MICRO, ERUR #### [facility] [address] [place] [address] Dr. Lucia Queen Hemoglobin Ql (U) Unable to perform te sting due to color interference. Abnormal NEGATIVE [facility] Comment on above: Performed By: #### U MICRO, ERUR #### [facility] [address] [place] [address] Dr. Lucia Queen Ketones Ql (U) Unable to perform te sting due to color interference. Abnormal NEGATIVE [facility] Comment on above: Performed By: #### U MICRO, ERUR #### [facility] [address] [place] [address] Dr. Lucia Queen LEUKOCYTES Unable to perform te sting due to color interference. Abnormal NEGATIVE [facility] Comment on above: Performed By: #### U MICRO, ERUR #### [facility] [address] [address] [address] Lucia Queen Nitrite Ql (U) Unable to perform te sting due to color interference. Abnormal NEGATIVE [facility] Comment on above: Performed By: #### U MICRO, ERUR #### [facility] [address] [place] [address] Dr. Lucia Queen pH Unable to perform te sting due to color interference. Abnormal 5-9 [facility] Comment on above: Performed By: #### U MICRO, ERUR #### [facility] [address] [address] [address] Lucia Queen SPEC GRAVITY 1.015 Normal 1.005-<=1. 025 [facility] Comment on above: Performed By: #### U MICRO, ERUR #### [facility] [address] [place] [address] Dr. Lucia Queen UA PROTEIN Unable to perform te sting due to color interference. Normal NEGATIVE/ TRACE [facility] Comment on above: Performed By: #### U MICRO, ERUR #### [facility] [address] [place] [address] Dr. Lucia Queen UR MICRO IND INDICATED Normal [facility] Comment on above: Performed By: #### U MICRO, ERUR #### [facility] [address] [place] [address] Dr. Lucia Queen UROBILINOGEN Unable to perform te sting due to color interference. Normal 0.2 - 1.0 [facility] Comment on above: Performed By: #### U MICRO, ERUR #### [facility] [address] [address] [address] Lucia Queen URINE MICROSCOPIC ONLYon BACTERIA SMALL Abnormal NONE SEEN [facility] Comment on above: Performed By: #### U MICRO, ERUR #### [facility] [address] [place] [address] Dr. Lucia Queen Bacteria identified Cx Nom (U) INDICATED Normal [facility] Comment on above: Performed By: #### U MICRO, ERUR #### [facility] [address] [place] [address] Dr. Lucia Queen CAST NONE SEEN Normal NONE SEEN [facility] Comment on above: Performed By: #### U MICRO, ERUR #### [facility] [address] [address] [address] Lucia Queen Crystals LM Nom (Urine sed) NONE SEEN Normal NONE SEEN [facility] Comment on above: Performed By: #### U MICRO, ERUR #### [facility] [address] [address] [address] Lucia Queen Epithelial cells LM Ql (Urine sed) FEW Abnormal NONE SEEN /RARE [facility] Comment on above: Performed By: #### U MICRO, ERUR #### [facility] [address] [address] [address] Lucia Queen MUCOUS TRACE Abnormal NONE SEEN [facility] [facility] Comment on above: Performed By: #### U MICRO, ERUR #### [facility] [address] [address] [address] Lucia Queen RBC 2-5 Abnormal 0-2 [facility] Comment on above: Performed By: #### U MICRO, ERUR #### [facility] [address] [address] [address] Lucia Queen WBC (U) [#/Vol] /uL Abnormal NONE SEEN [facility] Comment on above: Performed By: #### U MICRO, ERUR #### [facility] [address] [address] [address] Lucia Queen Urinalysis - AUTOMATEDon Appearance (U) cloudy [employer] Other Bilirubin Ql (U) Negative [employer] Other Color (U) yellow [employer] Other Glucose Ql (U) Negative [employer] Other Hemoglobin Ql (U) moderate [employer] Other Ketones Ql (U) Negative [employer] Other Leukocyte esterase Test strip Ql (U) large [employer] Other Nitrite Ql (U) Negative [employer] Other pH (U) 5.5 [pH] [employer] Other Protein Ql (U) 30 [employer] Other Specific gravity (U) [Rel density] 1.015 [employer] Other Urobilinogen (U) [Mass/Vol] 0.2 mg/dL [employer] Other Urinalysis - AUTOMATED [employer] Other Urine Cultureon 06-01-2022 Urine Culture >100,000 [employer] Other Urine Culture <16 Susceptible [employer] Other Urine Culture >16 Resistant [employer] Other Urine Culture <4 Susceptible [employer] Other Urine Culture <2 Susceptible [employer] Other Urine Culture <1 Susceptible [employer] Other Urine Culture <0.5 Susceptible [employer] Other Urine Culture 64 Intermediate [employer] Other Urine Culture <2/38 Susceptible [employer] Other Urine culture routineOrdered By: Clarisa Rutherford on 06-01-2022 Bacteria identified Cx Nom (U) Klebsiella pneumoniae [facility] XR Spine Lumbar Complete w/F romelia AND [place] 05-06-2022 XR Spine Lumbar Complete w/Flex AND [...] by Ezequiel Woody on 05/06/2022 1652 Normal [facility] Contact Officer [facility] CARDIAC STRESS/REST INJE CTIONon 01-15-2022 [facility] CARDIAC STRESS/REST INJECTION Patient Name: LARISA LO STUDY: MYOCARDIAL PERFUSION STRESS TEST WITH LEXISCAN Performing facility: [facility], [address] [place] [address], [address], [place] [id number] [facility] Provider: Micheline Schwab MD, [facility] PCP: Dr. Tanna Burden Supervising provider: Micheline Schwab MD, [facility] INDICATION: Elevated troponin Hypertrophic cardiomyopathy HISTORY: Gender: F; Age: 71 y/o ; Height: 0 cm; Weight: 0 kg. Family HX CAD; Family HX CAD; HTN; Elevated troponin Denies smoking. COMPARISON: No comparison. ACCESSION NUMBER(S): [id number]; [id number]; [id number] ORDERING CLINICIAN: MICHELINE SCHWAB TECHNIQUE: ONE DAY [...] Electronically signed by: MICHELINE SCHWAB MD Normal [facility] No Panel Informationon 01-15 Normal -[facility] [facility] [address] DO Work Phone: Office Visit [...] further cardiac evaluation after recent admission to [facility] initially and subsequently to [facility]. She presented with acute bronchitis and wheezing and for some reason troponin was ordered and was elevated around 1999. She had no EKG changes, she was sent to [facility] for further cardiac evaluation and was seen by Dr. Danyel Marcum who recommended cardiac catheterization or stress test which the patient categorically refused. Interestingly the troponin at [facility] was only 49 pg/mL. Her EKG was [...] (V16.0) (Z80.0) (more content not included)... Normal [employer] Tobacco Screening.on 022 Adult depression screening assessment No [facility] y 250 DO Work Phone: Fall risk assessment b) One or more fall s in the last year [facility] y 250 DO Work Phone: Tobacco use status CP b) No [facility] y 250 DO Work Phone: Complete Blood Counton 12-01 Erythrocyte distribution width (RBC) [Ratio] 13.2 % Normal 11.0-15.0 [facility] Contact Officer Comment on above: Performed By: #### C MP, CBC #### [facility] [address], [place] [id number] Hematocrit (Bld) [Volume fraction] 40.2 % Normal 35.0-47.0 [facility] Contact Officer Comment on above: Performed By: #### C MP, CBC #### [facility] [address], [place] [id number] Hemoglobin (Bld) [Mass/Vol] 13.3 g/dL Normal 11.6-15.5 [facility] Contact Officer Comment on above: Performed By: #### C MP, CBC #### [facility] [address], [place] [id number] MCH (RBC) [Entitic mass] 31.7 pg Normal 27.0-33.0 [facility] Comment on above: Performed By: #### C MP, CBC #### [facility] [address], [place] [id number] MCHC (RBC) [Mass/Vol] 33.1 g/dL Normal 32.0-36.0 [facility] Comment on above: Performed By: #### C MP, CBC #### [facility] [address], [place] [id number] MCV (RBC) [Entitic vol] 96 fL Normal 80-100 [facility] Comment on above: Performed By: #### C MP, CBC #### [facility] [address], [place] [id number] Platelet mean volume (Bld) [Entitic vol] 9.90 fL Normal 7.50-12.50 [facility] Comment on above: Performed By: #### C MP, CBC #### [facility] [address], [place] [id number] Platelets (Bld) [#/Vol] 313 10*3/uL Normal 140-400 [facility] Comment on above: Performed By: #### C MP, CBC #### [facility] [address], [place] [id number] RBC (Bld) [#/Vol] 4.20 10*6/uL Normal 3.90-5.20 [facility] Comment on above: Performed By: #### C MP, CBC #### [facility] [address], [place] [id number] RDW-SD 46.3 fL Normal 37.0-50.0 [facility] Specialist Comment on above: Performed By: #### C MP, CBC #### [facility] [address], [place] [id number] WBC (Bld) [#/Vol] 6.9 10*3/uL Normal 3.8-11.0 [facility] Comment on above: Performed By: #### C MP, CBC #### [facility] [address], [place] [id number] Comprehensive Metabolic Pane yan 12-01-2021 Albumin [Mass/Vol] 4.3 g/dL Normal 3.6-5.1 [facility] Contact Officer Comment on above: Performed By: #### C MP, CBC #### [facility] [address] [facility] [place] [id number] Albumin/Globulin [Mass ratio] 1.5 {ratio} Normal 1.0-2.5 [facility] Contact Officer Comment on above: Performed By: #### C MP, CBC #### [facility] [address] [facility] [place] [id number] ALP [Catalytic activity/Vol] 87 U/L Normal 35-119 [facility] Specialist Comment on above: Performed By: #### C MP, CBC #### [facility] [address], [place] [id number] ALT [Catalytic activity/Vol] 29 U/L Normal 6-33 [facility] Specialist Comment on above: Result Comment: 06/18 Female reference range changed. Performed By: #### C MP, CBC #### [facility] [address] [facility] [place] [place] [id number] Anion gap [Moles/Vol] 19 mmol/L Normal 12-20 [facility] Comment on above: Result Comment: Effe ctive 07/24/2019 reference range changed. Performed By: #### C MP, CBC #### [facility] [address], [place] [id number] AST [Catalytic activity/Vol] 37 U/L High 9-34 [facility] Specialist Comment on above: Performed By: #### C MP, CBC #### [facility] [address] [facility] [place] [id number] BUN/CREA 22 Ratio Normal 6-22 [facility] Specialist Comment on above: Performed By: #### C MP, CBC #### [facility] [address], [place] [id number] Calcium [Mass/Vol] 9.6 mg/dL Normal 8.6-10.2 [facility] Contact Officer Comment on above: Performed By: #### C MP, CBC #### [facility] [address], [place] [id number] Chloride [Moles/Vol] 98 mmol/L Normal 98-107 [facility] Comment on above: Performed By: #### C MP, CBC #### [facility] [address], [place] [id number] CO2 [Moles/Vol] 26 mmol/L Normal 20-31 [facility] Comment on above: Performed By: #### C MP, CBC #### [facility] [address], [place] [id number] Creatinine [Mass/Vol] 1.1 mg/dL Normal 0.6-1.4 [facility] Comment on above: Performed By: #### C MP, CBC #### [facility] [address], [place] [id number] eGFRAA 61 mL/min/1.73m2 Normal >60 [facility] Comment on above: Performed By: #### C MP, CBC #### [facility] [address], [place] [id number] eGFRNAA 50 mL/min/1.73m2 Low >60 [facility] Comment on above: Performed By: #### C MP, CBC #### [facility] [address], [place] [id number] Globulin (S) [Mass/Vol] 2.9 g/dL Normal 1.9-3.7 [facility] Comment on above: Performed By: #### C MP, CBC #### [facility] [address], [place] [id number] Glucose [Mass/Vol] 222 mg/dL High 65-99 [facility] Comment on above: Result Comment: For FASTING Glucose --- ADA reference ranges: Normal 65-99 mg/dl Prediabetes 100-125 Diabetes >/= 126 Performed By: #### C MP, CBC #### [facility] [address], [place] [id number] Potassium [Moles/Vol] 3.7 mmol/L Normal 3.5-5.5 [facility] Comment on above: Performed By: #### C MP, CBC #### [facility] [address], [place] [id number] Protein [Mass/Vol] 7.2 g/dL Normal 6.1-8.1 [facility] Contact Officer Comment on above: Performed By: #### C MP, CBC #### [facility] [address], [place] [id number] Sodium [Moles/Vol] 139 mmol/L Normal 135-146 [facility] Contact Officer Comment on above: Performed By: #### C MP, CBC #### [facility] [address], [place] [id number] TBIL <0.3 Normal [facility] Specialist Comment on above: Performed By: #### C MP, CBC #### [facility] [address], [place] [id number] Urea nitrogen [Mass/Vol] 23 mg/dL Normal 7-25 [facility] Contact Officer Comment on above: Performed By: #### C MP, CBC #### [facility] [address], [place] [id number] Q - B-TYPE NATRIURETIC (BNP) on 12-01-2021 Natriuretic peptide B (Bld) [Mass/Vol] 56 pg/mL Normal <100 [facility] Specialist Comment on above: Order Comment: [facility] Testing performed at: [facility], [facility], [address] [place] [address], [address] [place] [address], [id number], Static Balancer: Tod Fam MD [facility] Collection Date/Time: [facility] Results Received Date/Time: [facility] Reported Date/Time: [id number] Result Comment: BNP levels increase with age in the general population with the highest values seen in individuals greater than 75 years of age. Reference: J. Am. Bethany. Cardiol. 2002; 40:976-982. Performed By: #### 3 [id number], [id number], [id number] #### [facility] [address] [place] [address] Q - D-DIMER,QUANTITATIVEon 0 12-01-2021 D-DIMER, QUANTITATIVE 1.19 mcg/mL FEU High <0.50 [facility] [place] Contact Officer Comment on above: Order Comment: [facility] performed at: [email or web address] [facility], [address] [facility], [address] [place] [address], [phone], Static Balancer: Tod Fam MD [facility] Collection Date/Time: [facility] [...] 11:295(2):199-207] For additional information, please refer to: http://education.Curex.Co/faq/PBW798 (This link is being provided for informational/ educational purposes only) Performed By: #### 3 [id number], [id number], [id number] #### [facility] [address] [place] [address] Q - TROPONIN Ion 12-01-2021 TROPONIN I 767 ng/L Critically high < OR = 47 [facility] Comment on above: Order Comment: [facility] performed at: [employer] [facility], [address] [place] [address], [address] [place] [address], [phone], Static Balancer: Tod Fam MD [facility] Collection Date/Time: [facility] Results Received Date/Time: [facility] Reported Date/Time: Result Comment: call ed to Birgit at office-0900am/[facility] (TROPONIN I) In accord with published recommendations, serial testing of troponin I at intervals of 2 to 4 hours for up to 12 to 24 hours is suggested in order to corroborate a single troponin I result. An elevated troponin alone is not sufficient to make the diagnosis of OR. Performed By: #### 3 [id number], [id number], [id number] #### [facility] [address] [place] [address] XR Chest 2 Views*on 12-02-19 22 XR [...] by Ezequiel Woody on 12/01/2021 1318 Normal [facility] Contact Officer BNPon 11-28-2021 Natriuretic peptide B (Bld) [Mass/Vol] 441.0 pg/mL Normal <=900.0 [facility] Comment on above: Performed By: #### U RCX #### [facility] [address] [place] [address] Dr. Lucia Queen CBC AUTO DIFFon 11-28-2021 BASO # 0.0 103/ul Normal 0.0-0.1 [facility] Comment on above: Performed By: #### C BC #### [facility] [address] [place] [address] Dr. Lucia Queen Basophils/100 WBC (Bld) 0.3 % Normal 0.2-2.0 [facility] Comment on above: Performed By: #### C BC #### [facility] [address] [place] [address] Dr. Lucia Queen EO # 0.2 103/ul Normal 0.0-0.7 [facility] Comment on above: Performed By: #### C BC #### [facility] [address] [place] [address] Dr. Lucia Queen Eosinophils/100 WBC (Bld) 3.2 % Normal 0.9-7.0 [facility] Comment on above: Performed By: #### C BC #### [facility] [address] [place] [address] Dr. Lucia Queen Erythrocyte distribution width (RBC) [Ratio] 13.3 % Normal 11.0-15.0 [facility] Comment on above: Performed By: #### C BC #### [facility] [address] [place] [address] Dr. Lucia Queen Hematocrit (Bld) [Volume fraction] 41.7 % Normal 36.0-48.0 [facility] Comment on above: Performed By: #### C BC #### [facility] [address] [place] [address] Dr. Lucia Queen Hemoglobin (Bld) [Mass/Vol] 13.5 g/dL Normal 12.0-16.0 [facility] Comment on above: Performed By: #### C BC #### [facility] [address] [place] [address] Dr. Lucia Queen IG # 0.02 10e3/ul Normal 0.00-0.03 [facility] Comment on above: Performed By: #### C BC #### [facility] [address] [place] [address] Dr. Lucia Queen IG % 0.3 % Normal 0.0-0.5 [facility] Comment on above: Performed By: #### C BC #### [facility] [address] [place] [address] Dr. Lucia Queen LYMPH # 1.3 103/ul Normal 1.2-3.8 [facility] Comment on above: Performed By: #### C BC #### [facility] [address] [place] [address] Dr. Lucia Queen Lymphocytes/100 WBC (Bld) 17.1 % Critically low 20.5-60.0 [facility] Comment on above: Performed By: #### C BC #### [facility] [address] [place] [address] Dr. Lucia Queen MANUAL DIFF REQ NO Normal [facility] Comment on above: Performed By: #### C BC #### [facility] [address] [place] [address] Dr. Lucia Queen MCH (RBC) [Entitic mass] 31.4 pg Normal 26.7-34.0 [facility] Comment on above: Performed By: #### C BC #### [facility] [address] [address] [address] Lucia Queen MCHC (RBC) [Mass/Vol] 32.4 g/dL Normal 29.9-35.2 [facility] Comment on above: Performed By: #### C BC #### [facility] [address] [place] [address] Dr. Lucia Queen MCV (RBC) [Entitic vol] 97.0 fL Normal 81.0-99.0 [facility] Comment on above: Performed By: #### C BC #### [facility] [address] [place] [address] Dr. Lucia Queen MONO # 0.8 103/ul Normal 0.3-0.8 [facility] Comment on above: Performed By: #### C BC #### [facility] [address] [place] [address] Dr. Lucia Queen Monocytes/100 WBC (Bld) 10.3 % Normal 1.7-12.0 [facility] Comment on above: Performed By: #### C BC #### [facility] [address] [place] [address] Dr. Lucia Queen NEUT # 5.2 103/ul Normal 1.4-6.5 [facility] Comment on above: Performed By: #### C BC #### [facility] [address] [place] [address] Dr. Lucia Queen Neutrophils/100 WBC (Bld) 68.8 % Normal 43.0-75.0 [facility] Comment on above: Performed By: #### C BC #### [facility] [address] [place] [address] Dr. Lucia Queen Platelet mean volume (Bld) [Entitic vol] 9.6 fL Normal 9.5-13.5 [facility] Comment on above: Performed By: #### C BC #### [facility] [address] [place] [address] Dr. Lucia Queen PLT 293 103/ul Normal 150-450 [facility] Comment on above: Performed By: #### C BC #### [facility] [address] [place] [address] Dr. Lucia Queen RBC 4.30 106/ul Normal 4.20-5.40 [facility] Comment on above: Performed By: #### C BC #### [facility] [address] [place] [address] Dr. Lucia Queen WBC 7.6 103/ul Normal 4.0-11.0 [facility] Comment on above: Performed By: #### C BC #### [facility] [address] [place] [address] Dr. Lucia Queen Covid-19 PCR (CVDTB)on 11-16 SARS-CoV-2 (COVID-19) RNA MILLIE+probe Ql (Unsp spec) Not detected Normal NOT DETECTED [facility] Comment on above: Result Comment: When diagnostic [...] for this test is supported by the [place] [employer] of Health and Human Service's declaration that [...] longer be used). Performed By: #### C VDTBH #### [facility] [address] [place] [address] Dr. Lucia Queen PROF 14(COMP METB)on 022 Albumin [Mass/Vol] 4.0 g/dL Normal 3.4-5.0 [facility] Comment on above: Performed By: #### C MP, HSTROPN #### [facility] [address] [place] [address] Dr. Lucia Queen Albumin/Globulin [Mass ratio] 0.9 {ratio} Normal [facility] Comment on above: Performed By: #### C LEO, HSTROPN #### [facility] [address] [place] [address] Dr. Lucia Qeuen ALP [Catalytic activity/Vol] 80 U/L Normal 46-116 [facility] Comment on above: Performed By: #### C LEO, HSTROPN #### [facility] [address] [place] [address] Dr. Lucia Queen ALT [Catalytic activity/Vol] 37 U/L Normal 14-59 [facility] Comment on above: Performed By: #### C LEO, HSTROPN #### [facility] [address] [place] [address] Dr. Lucia Queen Anion gap [Moles/Vol] 12.4 mmol/L [facility] Comment on above: Performed By: #### C LEO, HSTROPN #### [facility] [address] [place] [address] Dr. Lucia Queen AST [Catalytic activity/Vol] 29 U/L Normal 15-37 [facility] Comment on above: Performed By: #### C LEO, HSTROPN #### [facility] [address] [place] [address] Dr. Lucia Queen Bilirubin [Mass/Vol] 0.3 mg/dL Normal 0.2-1.0 [facility] Comment on above: Performed By: #### C LEO, HSTROPN #### [facility] [address] [place] [address] Dr. Lucia Queen Calcium [Mass/Vol] 9.4 mg/dL Normal 8.5-10.1 [facility] Comment on above: Performed By: #### C LEO, HSTROPN #### [facility] [address] [place] [address] Dr. Lucia Queen Chloride [Moles/Vol] 97 mmol/L Critically low 98-107 [facility] Comment on above: Performed By: #### C LEO, HSTROPN #### [facility] [address] [address] [address] Lucia Queen CO2 [Moles/Vol] 30.9 mmol/L Normal 21.0-32.0 [facility] Comment on above: Performed By: #### C MP, HSTROPN #### [facility] [address] [address] [address] Lucia Queen Creatinine [Mass/Vol] 1.37 mg/dL Critically high 0.55-1.02 [facility] Comment on above: Performed By: #### C MP, HSTROPN #### [facility] [address] [address] [address] Lucia Queen EGFR-AF ZIMBABWEAN 46 mL/min/1.73m2 Critically low >=60 [facility] Comment on above: Performed By: #### C MP, HSTROPN #### [facility] [address] [place] [address] Dr. Lucia Queen EGFR-NON AF ZIMBABWEAN 38 mL/min/1.73m2 Critically low >=60 [facility] Comment on above: Performed By: #### C MP, HSTROPN #### [facility] [address] [address] [address] Lucia Queen Globulin (S) [Mass/Vol] 4.4 g/dL Normal [facility] Comment on above: Performed By: #### C MP, HSTROPN #### [facility] [address] [address] [address] Lucia Queen Glucose [Mass/Vol] 168 mg/dL Critically high 74-106 [facility] Comment on above: Performed By: #### C MP, HSTROPN #### [facility] [address] [address] [address] Lucia Queen Potassium [Moles/Vol] 3.3 mmol/L Critically low 3.5-5.1 [facility] Comment on above: Performed By: #### C MP, HSTROPN #### [facility] [address] [address] [address] Lucia Queen Protein [Mass/Vol] 8.4 g/dL Critically high 6.4-8.2 [facility] Comment on above: Performed By: #### C MP, HSTROPN #### [facility] [address] [address] [address] Lucia Queen Sodium [Moles/Vol] 137 mmol/L Normal 136-145 [facility] Comment on above: Performed By: #### C MP, HSTROPN #### [facility] [address] [address] [address] Lucia Queen Urea nitrogen [Mass/Vol] 21.0 mg/dL Critically high 7.0-18.0 [facility] Comment on above: Performed By: #### C MP, HSTROPN #### [facility] [address] [place] [address] Dr. Lucia Queen Urea nitrogen/Creatinine [Mass ratio] 15.3 mg/mg Normal [facility] Comment on above: Performed By: #### C MP, HSTROPN #### [facility] [address] [place] [address] Dr. Lucia Queen TROPONIN, HIGH SENSITIVITYon 11-28-2021 HSTROP 2512.3 pg/mL Critically high 4.0-51.3 [facility] Comment on above: Result Comment: CUT- OFF POINTS HAVE BEEN ESTABLISHED BASED ON THE FOURTH UNIVERSAL DEFINITIONS OF MYOCARDIAL INFARCTION. THE UPPER REFERENCE LIMIT (URL) OF TROPONIN, DEFINED THE 99TH PERCENTILE OF cTnI DISTRIBUTION IN A REFERENCE POPULATION, HAS BEEN CONFIRMED THE DECISION THRESHOLD FOR OR DIAGNOSIS. Performed By: #### U RCX #### [facility] [address] [place] [address] Dr. Lucia Queen XR CHEST 1 Von [...] by: ANGLE SCHNEIDER Date: 2021-11-27 23:11 Normal [facility] XR NECK SOFT TISSUEon 2021 XR NECK [...] by: Traci SHARIF Date: 2021-11-27 23:17 Normal [facility] Vital Signs Date Time Vital Sign Value Performing Clinician Facility 02-08-2024 13:14-0400 Blood Pressure Location [employer] [facility] 02-08-2024 13:14-0400 Diastolic blood pressure 80 mm[Hg] Karissa [employer] [facility] 02-08-2024 13:14-0400 Heart rate 72 /min [employer] [facility] 02-08-2024 13:14-0400 Respiratory rate 16 /min [employer] [facility] 02-08-2024 13:14-0400 Systolic blood pressure 132 mm[Hg] Karissa Orzech [facility] 12-14-2023 18:33-0400 Body height 137.16 cm PHYSICIAN [facility] 12-14-2023 18:33-0400 Body mass index (BMI) [Ratio] 45.4 kg/m2 PHYSICIAN [facility] 12-14-2023 18:33-0400 Body temperature 98.3 [degF] PHYSICIAN [facility] 12-14-2023 18:33-0400 Body weight 85.5 kg PHYSICIAN NO [facility] 12-14-2023 18:33-0400 Heart rate 74 /min PHYSICIAN NO [facility] 12-14-2023 18:33-0400 Respiratory rate 18 /min PHYSICIAN NO [facility] 12-14-2023 18:33-0400 SaO2% (BldA) [Mass fraction] 94 % PHYSICIAN NO [facility] 10-29-2023 17:31-0400 Body height 137.16 cm DO Rafi Burden Work Phone: [facility] 10-29-2023 17:31-0400 Body mass index (BMI) [Ratio] 43.9 kg/m2 DO Rafi Holter Work Phone: [facility] 10-29-2023 17:31-0400 Body temperature 97.8 [degF] DO Rafi Brian Work Phone: [facility] 10-29-2023 17:31-0400 Body weight 82.55 kg DO Rafi Holter Work Phone: [facility] 10-29-2023 17:31-0400 Diastolic blood pressure 79 mm[Hg] DO Rafi Holter Work Phone: [facility] 10-29-2023 17:31-0400 Heart rate 86 /min DO Rafi Holter Work Phone: [facility] 10-29-2023 17:31-0400 SaO2% (BldA) [Mass fraction] 94 % DO Rafi Brian Work Phone: [facility] 10-29-2023 17:31-0400 Systolic blood pressure 133 mm[Hg] DO Rafi Holter Work Phone: [facility] 08-04-2022 13:48-0500 Blood Pressure Location TATIANA AMES [facility] 08-04-2022 13:48-0500 Diastolic blood pressure 80 mm[Hg] TATIANA AMES [facility] 08-04-2022 13:48-0500 Heart rate 68 /min TATIANA RAHEEM [facility] 08-04-2022 13:48-0500 Respiratory rate 16 /min TATIANA RAHEEM [facility] 08-04-2022 13:48-0500 Systolic blood pressure 132 mm[Hg] TATIANA RAHEEM [facility] 06-01-2022 12:35-0500 Body height 137.16 cm Clarisa Rutherford Other [employer] Other 06-01-2022 12:35-0500 Body mass index (BMI) [Ratio] 40.98 kg/m2 Clarisa Rutherford Other [facility] Other 06-01-2022 12:35-0500 Body temperature 97.5 [degF] Clarisa Sangeeta Other [facility] Other 06-01-2022 12:35-0500 Body weight 77.11 kg Clarisa Sangeeta Other [facility] Other 06-01-2022 12:35-0500 Diastolic blood pressure 71 mm[Hg] Clarisa Rutherford Other [facility] Other 06-01-2022 12:35-0500 Respiratory rate 20 /min Clarisa Rutherford Other [facility] Other 06-01-2022 12:35-0500 SaO2% (BldA) [Mass fraction] 97 % Clarisa Rutherford Other [facility] Other 06-01-2022 12:35-0500 Systolic blood pressure 134 mm[Hg] Clarisa Rutherford Other [employer] Other 01-15-2022 12:00-0400 49 1 Rafi Burden Work Phone: [facility] [address] [place] Work Phone: Comment on above: [id number] 01-05-2022 13:12-0400 Body height 137.16 cm Rafi Burden Work Phone: [facility] [address] DO Work Phone: 01-05-2022 13:12-0400 Body mass index (BMI) [Ratio] 42.68 kg/m2 Rafi Burden Work Phone: [facility] [address] DO Work Phone: 01-05-2022 13:12-0400 Body surface area Derived from formula 1.64 m2 Rafi Burden Work Phone: [facility] [address] DO Work Phone: 01-05-2022 13:12-0400 Body weight 80.29 kg Rafi Burden Work Phone: [facility] [address] DO Work Phone: 01-05-2022 13:12-0400 Diastolic blood pressure 68 mm[Hg] Rafi Burden Work Phone: [facility] [address] DO Work Phone: 01-05-2022 13:12-0400 Heart rate 80 /min Rafi Burden Work Phone: [facility] DO Work Phone: 01-05-2022 13:12-0400 Systolic blood pressure 110 mm[Hg] Rafi Burden Work Phone: [facility] DO Work Phone: Encounters Encounter Date Encounter Type Care Provider Facility Start: 04-11-2024 End: 04-11-2024 ambulatory Karissa X Orzech Facility:[facility] Start: 04-11-2024 End: 04-11-2024 Patient encounter procedure Karissa X Orzech [facility] Start: 03-29-2024 End: 03-29-2024 ambulatory RAFI BURDEN Not Available Start: 03-23-2024 End: 03-23-2024 ambulatory RAFI BURDEN Not Available Start: 03-02-2024 End: 03-02-2024 ambulatory SWATHI العراقي Not Available Start: 02-08-2024 End: 02-08-2024 ambulatory Karissa X Orzech Facility:[facility] Start: 02-08-2024 End: 02-08-2024 Patient encounter procedure Karissa X Orzech [facility] Start: 01-27-2024 End: 01-27-2024 Patient encounter procedure DO Rafi Burden Work Phone: [facility] Work Phone: Start: 01-27-2024 End: 01-27-2024 ambulatory DO Rafi Burden Work Phone: [facility] Work Phone: Start: 01-27-2024 End: 01-27-2024 ambulatory DILSHAD GARCIA Not Available Start: 01-17-2024 End: 01-17-2024 ambulatory VIKTORIYA CHOW Not Available Start: 01-13-2024 End: 01-13-2024 Patient encounter procedure PHYSICIAN NO [facility] Work Phone: Start: 01-13-2024 End: 01-13-2024 ambulatory PHYSICIAN NO [facility] Work Phone: Start: 12-28-2023 End: 12-28-2023 ambulatory Karissa Carrasco Facility: [facility] Start: 12-28-2023 End: 12-28-2023 Patient encounter procedure Karissa Carrasco [facility] Start: 12-22-2023 End: 12-22-2023 ambulatory DILSHAD L CUTLER Not Available Start: 12-14-2023 End: 12-14-2023 ambulatory PHYSICIAN NO [facility] Work Phone: Start: 12-14-2023 End: 12-14-2023 Patient encounter procedure PHYSICIAN NO [facility] Work Phone: Start: 11-11-2023 End: 11-11-2023 ambulatory BRENDA L OWENY Not Available Start: 10-29-2023 End: 10-29-2023 Departed Referred DO Rafi Burden Work Phone: [facility] Work Phone: Start: 10-29-2023 End: 10-29-2023 ambulatory DO Rafi Burden Work Phone: [facility] Work Phone: Start: 10-29-2023 End: 10-29-2023 Patient encounter procedure DO Rafi Burden Work Phone: [facility] Work Phone: Start: 09-13-2023 End: 09-13-2023 ambulatory BRENDA L LUBY Not Available Start: 09-10-2023 End: 09-10-2023 ambulatory Rafi Burden Facility:[facility] Start: 09-10-2023 End: 09-10-2023 Patient encounter procedure DO Rafi Burden Work Phone: [facility] Work Phone: Start: 05-31-2023 End: 05-31-2023 ambulatory DILSHAD L CUTLER Not Available Start: 05-05-2023 ambulatory TATIANA AMES Facili ty:[facility] Start: 03-09-2023 End: 03-09-2023 Patient encounter procedure DO Rafi Brian Work Phone: [facility] Work Phone: Start: 03-09-2023 End: 03-09-2023 ambulatory DO Rafi Brian Work Phone: [facility] Work Phone: Start: 01-07-2023 End: 01-07-2023 ambulatory DO Rafi Brian Work Phone: [facility] Work Phone: Start: 01-07-2023 End: 01-07-2023 Patient encounter procedure DO Rafi Burden Work Phone: [facility] Work Phone: Start: 11-04-2022 End: 11-05-[address] RAFI BURDEN Facility:[facility] Start: 10-06-2022 End: 10-06-2022 ambulatory Imad Asaad Other [facility] Other Start: 10-06-2022 Telephone encounter Imad Asaad [facility] [employer] Start: 08-10-2022 End: 08-11-[address] RAFI BURDEN Facility:[facility] Start: 08-04-2022 End: 08-04-2022 Lab Drop off TATIANA AMES [facility] Start: 08-04-2022 End: 08-04-2022 Patient encounter procedure TATIANA AMES [facility] Start: 07-27-2022 End: 07-27-2022 ambulatory PHYSICIAN NO [facility] Work Phone: Start: 07-27-2022 End: 01-09-2023 Patient encounter procedure PHYSICIAN NO FAMILY [facility] Work Phone: Start: 06-16-2022 End: 06-17-[address] JAE YOUNGBLOOD Facility:[facility] Start: 06-04-2022 End: 06-04-2022 ambulatory MIKAYLA VINH Facility:[facility] Start: 06-01-2022 Office outpatient vi sit 25 minutes Clarisa Rutherford [facility] Start: 06-01-2022 End: 06-01-2022 ambulatory [employer] Clarisa Rutherford Work Phone: [facility] Work Phone: Start: 06-01-2022 End: 06-01-2022 Departed Referred [employer] Clarisa Rutherford Work Phone: [facility] Start: 01-19-2022 Chart Update Rafi Burden Work Phone: [email or web address] [address] DO Work Phone: Start: 01-15-2022 Patient encounter procedure Rafi Burden Work Phone: [email or web address] [address] [place] Work Phone: Start: 01-05-2022 Office consultation new/estab patient 60 min Rafi Burden Work Phone: [facility] [address] DO Work Phone: Start: 11-28-2021 End: 11-28-[address] MYRNA BOBBY Facility:[facility] Start: 09-08-2018 Patient encounter procedure Chika Rochuck [place] Facility:[id number] Procedures Date Procedure Procedure Detail Performing Clinician Start: 01-13-2024 Screening mammography of bilateral breasts PHYSICIAN NO FAMILY Start: 10-29-2023 Urine culture PHYSICIAN NO FAMILY Start: 01-07-2023 Bilateral mammography DO Rafi Burden Work Phone: Start: 06-01-2022 Piperacillin/tazobactam Clarisa Rutherford Other Start: 06-01-2022 Urine culture PHYSICIAN NO FAMILY Start: 05-04-2015 Total colonoscopy Rafi Burden Work Phone: Esophagogastroduodenoscopy P aul Lina Brian Work Phone: Lumpectomy of breast Rafi Burden Work Phone: Comment on above: left breast; Lumpectomy of breast ANJALIULICES AMES Comment on above: Outside Source Comment: Comment on above : left breast; Plan of Treatment Date Care Activity Detail Author Start: 10-29-2023 Bacteria identified in Urine by Culture [facility] Start: 01-15-2022 STRESS NUC, Provider : DEVEN HHVI NUCLEAR 01,[id number], Status: Pen, Time: 12:00 PM STRESS NUC, Provider: DEVEN ELLIOTTI NUCLEAR 01,[id number], Status: Pen, [facility]: [facility] Work Phone: Bacteria identified in Urine by Culture [facility] Glucose measurement estimated from glycated hemoglobin [facility] Immunizations Immunization Date Immunization Notes Care Provider [facility] 05-31-2023 influenza virus vacc ine, unspecified formulation Karissa Carrasco [facility] 06-19-2022 SARS-CoV-2 (COVID-19 ) [id number] TATIANA AMES [facility] 05-11-2022 influenza virus vacc ine, unspecified formulation TATIANA AMES [facility] 05-02-2021 Pfizer-BioNTech COVI D-19 Vacc 30 MCG/0.3ML Intramuscular Suspension Rafi Burden Work Phone: [facility] 04-03-2021 Fluzone High-Dose Quadrivalent 0.7 ML Intramuscular Suspension Prefilled Syringe [facility] Work Phone: 04-03-2021 influenza virus vacc ine, unspecified formulation TATIANA AMES [facility] 09-20-2020 Pfizer-BioNTech COVI D-19 Vacc 30 MCG/0.3ML Intramuscular Suspension Rafi Mills Brian Work Phone: [facility] Comment on above: Result Comment: 2022: [id number] 08-29-2020 Pfizer-BioNTech COVI D-19 Vacc 30 MCG/0.3ML Intramuscular Suspension Rafi Mills Brian Work Phone: [facility] Comment on above: Result Comment: 2022: [id number] 05-14-2020 influenza virus vacc ine, unspecified formulation TATIANA AMES [facility] 05-14-2020 influenza, injectabl e, quadrivalent, preservative free Rafi Burden Work Phone: [facility] 250 DO Work Phone: 03-18-2017 influenza virus vacc ine, unspecified formulation TATIANA AMES [facility] 03-18-2017 influenza, seasonal, injectable, preservative free Rafi Burden Work Phone: [facility] 250 DO Work Phone: 09-21-2016 pneumococcal conjuga te vaccine, 13 valent Rafi Burden Work Phone: [facility] 05-04-2007 influenza virus vacc ine, whole virus Rafi Burden Work Phone: [facility] 250 DO Work Phone: 05-04-2007 influenza, whole TATIANASETH ESPINALY [facility] Payers Date Payer Category Payer Self-pay [id number] 1959 Unknown [id number] 1950 Unknown [id number] 2.16. [id number] 1948 Unknown [id number] 2.16.84 0.1.879338.3.579.2.593 1948 Unknown [id number] 2.16.84 0.1.219391.3.579.2.593 1948 Unknown [id number] 2.16.84 0.1.330656.3.579.2.593 1948 Unknown [id number] 2.16.84 0.1.765044.3.579.2.593 1948 Unknown [id number] 2.16.84 0.1.873150.3.579.2.593 1948 Unknown [id number] 2.16.84 0.1.959009.3.579.2.593 1948 Unknown [id number] 2.16.84 0.1.784284.3.579.2.1259 1948 Unknown [id number] 2.16.84 0.1.166021.3.579.2.1259 1948 Unknown [id number] 2.16.84 0.1.548951.3.579.2.1259 1948 Unknown [id number] 2.16.84 0.1.086795.3.579.2.1259 1948 Unknown [id number] 2.16.84 0.1.442298.3.579.2.1259 1948 Unknown [id number] 2.16.84 0.1.995499.3.579.2.1259 1948 Unknown [id number] 2.16.84 0.1.667274.3.579.2.1259 1948 Unknown [id number] 2.16.84 0.1.395686.3.579.2.1259 1948 Unknown [id number] 2.16.84 0.1.686219.3.579.2.1259 1948 Unknown [id number] 2.16.840. 1.277342.3.579.2.1259 1948 Unknown [id number] 2.16.8 40.1.014518.3.579.2.727 1948 Unknown [id number] 2.16.8 40.1.208495.3.579.2.727 1948 Unknown [id number] 2.16.8 40.1.221852.3.579.2.727 1948 Unknown [id number] 2.16.8 40.1.673686.3.579.2.72 Unknown Unknown HCAP/HFA/FAP Active [id number] Unknown [id number] 2.16.8 40.1.562731.3.579.2.531 Unknown [id number] 2.16.8 40.1.788076.3.579.2.531 Unknown [id number] 2.16.8 40.1.427207.3.579.2.531 Unknown [id number] 2.16.8 40.1.493005.3.579.2.531 Unknown [id number] 2.16.8 40.1.142853.3.579.2.531 Social History Date Type Detail Facility No alcohol use No alcohol use [facility] [address] DO Work Phone: Start: 11-28-2021 End: 04-11-2024 Tobacco smoking status NHIS Never smoked tobacco (finding) [facility] Start: 1950 Sex Assigned At Female [facility] Sex Assigned At [facility] Tobacco smoking status Never [facility] Functional Status Date Assessment Result Facility 04-11-2024 Functional Status N/A [facility] 02-08-2024 Functional Status N/A [facility] 12-28-2023 Functional Status N/A [facility] 08-04-2022 Functional Status N/A [facility] Clinical Notes 05-12-2017 to 04-11-2024 Note Date & Type Note Facility 04-11-2024 Hospital Discharg e instructions Patient Education 04/11/2024 15:06:08 Overactive Bladder, Adult Overactive Bladder, Adult Overactive bladder is a [...] be caused by other factors, such as: Medical conditions: ?Urinary tract infection. ?Infection of nearby tissues. ?Prostate enlargement. ?Bladder stones, inflammation, or tumors. ?Diabetes. ?Muscle or nerve weakness, especially from these conditions: ?A spinal cord injury. ?Stroke. ?Multiple sclerosis. ?Parkinson's disease. Other causes: ?Surgery on the uterus or urethra. ?Drinking too much caffeine or alcohol. ?Certain medicines, especially those that eliminate extra fluid in the body (diuretics). ?Constipation. What increases the risk? You may be at greater risk for overactive bladder if you: Are an older adult. Smoke. Are going through menopause. Have prostate problems. Have a neurological disease, such as stroke, dementia, Parkinson's disease, or multiple sclerosis (MS). Eat or drink alcohol, spicy food, caffeine, and other things that irritate the bladder. Are overweight or obese. What are the signs or symptoms? Symptoms of this condition include a sudden, strong urge to urinate. Other symptoms include: Leaking urine. Urinating 8 or more times a day. Waking up to urinate 2 or more times overnight. How is this diagnosed? This condition may be diagnosed based on: Your symptoms and medical history. A physical exam. Blood or urine tests to check for possible causes, such as infection. You may also need to see a health care provider who specializes in urinary tract problems. This is called a urologist. How is this treated? Treatment for overactive bladder depends on the cause of your condition and whether it is mild or severe. Treatment may include: Bladder training, such as: ?Learning to control the urge to urinate by following a schedule to urinate at regular intervals. ?Doing Kegel exercises to strengthen the pelvic floor muscles that support your bladder. Special devices, such as: ?Biofeedback. This uses sensors to help you become aware of your body's signals. ?Electrical stimulation. This uses electrodes placed inside the body (implanted) or outside the body. These electrodes send gentle pulses of electricity to strengthen the nerves or muscles that control the bladder. ?Women may use a plastic device, called a pessary, that fits into the vagina and supports the bladder. Medicines, such as: ?Antibiotics to treat bladder infection. ?Antispasmodics to stop the bladder from releasing urine at the wrong time. ?Tricyclic antidepressants to relax bladder muscles. ?Injections of botulinum toxin type A directly into the bladder tissue to relax bladder muscles. Surgery, such as: ?A device may be implanted to help manage the nerve signals that control urination. ?An electrode may be implanted to stimulate electrical signals in the bladder. ?A procedure may be done to change the shape of the bladder. This is done only in very severe cases. Follow these instructions at home: Eating and drinking Make diet or lifestyle changes recommended by your health care provider. These may include: ?Drinking fluids throughout the day and not only with meals. ?Cutting down on caffeine or alcohol. ?Eating a healthy and balanced diet to prevent constipation. This may include: ?Choosing foods that are high in fiber, such as beans, whole grains, and fresh fruits and vegetables. ?Limiting foods that are high in fat and processed sugars, such as fried and sweet foods. Lifestyle Lose weight if needed. Do not use any products that contain nicotine or tobacco. These include cigarettes, chewing tobacco, and vaping devices, such as e-cigarettes. If you need help quitting, ask your health care provider. General instructions Take kwog-jim-ppsnmty and prescription medicines only as told by your health care provider. If you were prescribed an antibiotic medicine, take it as told by your health care provider. Do not stop taking the antibiotic even if you start to feel better. Use any implants or pessary as told by your health care provider. If needed, wear pads to absorb urine leakage. Keep a log to track how much and when you drink, and when you need to urinate. This will help your health care provider monitor your condition. Keep all follow-up visits. This is important. Contact a health care provider if: You have a fever or chills. Your symptoms do not get better with treatment. Your pain and discomfort get worse. You have more frequent urges to urinate. Get help right away if: You are not able to control your bladder. Summary Overactive bladder refers to a condition in which a person has a sudden and frequent need to urinate. Several conditions may lead to an overactive bladder. Treatment for overactive bladder depends on the cause and severity of your condition. Making lifestyle changes, doing Kegel exercises, keeping a log, and taking medicines can help with this condition. This information is not intended to replace advice given to you by your health care provider. Make sure you discuss any questions you have with your health care provider. Document Revised: 03/24/2021 Document Reviewed: 03/24/2021 [employer] Patient Education 2023 [employer]. 04/11/2024 15:06:07 Urinary Incontinence Urinary Incontinence Urinary incontinence refers [...] nerve stimulation). ?For women, using a medical review coordinator to prevent urine leaks. This is a [...] right after experiencing incontinence. General instructions Take cuwi-vdq-qrtcmbs and prescription medicines only as told by [...] important. Where to find more information [employer] [place] of Diabetes and Digestive and Kidney Diseases: www.niddk.nih.gov [place] [employer]: www.urologyhealth.org Contact a health care [...] provider. Document Revised: 02/07/2021 Document Reviewed: 02/07/2021 [employer] Patient Education 2023 [employer]. Follow Up Care 02/08/2024 13:57:36 With:RICHIE Carrasco APRN, Karissa Mccallum, ALYCIA, URL Address: When: Unknown Comments:6 mos [facility] 04-11-2024 Note Patient Education Obstetrics and Gynecology Overactive Bladder, Adult Overactive bladder is a [...] urinate at regular intervals. ? Doing Kegel exercises to strengthen the pelvic floor muscles that support your bladder. ? Special devices, such as: ? Biofeedback. This uses sensors to help you become aware of your body's signals. ? Electrical stimulation. This uses electrodes placed inside the body (implanted) or outside the body. These electrodes send gentle pulses of electricity to strengthen the nerves or muscles that control the bladder. ? Women may use a plastic device, called a pessary, that fits into the vagina and supports the bladder. ? Medicines, such as: ? Antibiotics to treat bladder infection. ? Antispasmodics to stop the bladder from releasing urine at the wrong time. ? Tricyclic antidepressants to relax bladder muscles. ? Injections of botulinum toxin type A directly into the bladder tissue to relax bladder muscles. ? Surgery, such as: ? A device may be implanted to help manage the nerve signals that control urination. ? An electrode may be implanted to stimulate electrical signals in the bladder. ? A procedure may be done to change the shape of the bladder. This is done only in very severe cases. Follow these instructions at home: Eating and drinking ? Make diet or lifestyle changes recommended by your health care provider. These may include: ? Drinking fluids throughout the day and not only with meals. ? Cutting down on caffeine or alcohol. ? Eating a healthy and balanced diet to prevent constipation. This may include: ? Choosing foods that are high in fiber, such as beans, whole grains, and fresh fruits and vegetables. ? Limiting foods that are high in fat and processed sugars, such as fried and sweet foods. Lifestyle ? Lose weight if needed. ? Do not use any products that contain nicotine or tobacco. These include cigarettes, chewing tobacco, and vaping devices, such as e-cigarettes. If you need help quitting, ask your health care provider. General instructions ? Take bigr-kxd-zdoijei and prescription medicines only as told by your health care provider. ? If you were prescribed an antibiotic medicine, take it as told by your health care provider. Do not stop taking the antibiotic even if you start to feel better. ? Use any implants or pessary as told by your health care provider. ? If needed, wear pads to absorb urine leakage. ? Keep a log to track how much and when you drink, and when you need to urinate. This will help your health care (more content not included)... [facility] 02-08-2024 Hospital Discharg e instructions Patient Education [...] nerve stimulation). ?For women, using a medical review coordinator to prevent urine leaks. This is a [...] right after experiencing incontinence. General instructions Take ckpx-wcy-weyovlm and prescription medicines only as told by [...] important. Where to find more information [employer] [place] of Diabetes and Digestive and Kidney Diseases: www.niddk.nih.gov [place] [employer]: www.urologyhealth.org Contact a health care [...] provider. Document Revised: 02/07/2021 Document Reviewed: 02/07/2021 [employer] Patient Education 2022 [employer]. Follow Up Care 12/28/2023 13:50:15 With:RICHIE Carrasco APRN, ALYCIA Kelly URL Address: When: Unknown [facility] 02-08-2024 Note Patient Education Urology Urinary Incontinence [...] stimulation). ? For women, using a medical review coordinator to prevent urine leaks. This is a [...] can protect the (more content not included)... [facility] 12-14-2023 [facility] Discharg e instructions Ambulatory OrdersAMB POC UA Automated Time Frame: 12/14/23, Location: Determined By Patient [facility] Work Phone: 08-04-2022 [facility] Discharg e instructions Patient Education 08/04/2022 16:33:12 [...] alcohol may irritate the prostate. Medicines Take aarh-teg-awicvur and prescription medicines only as told by [...] 04/02/2005 Document Revised: 06/17/2018 Document Reviewed: 04/21/2018 [employer] Patient Education 2020 [employer]. Follow Up Care 07/08/2022 14:35:16 With:RAHEEM FRANKLIN, TATIANA Burt, URL Address: [facility] Gaetano Lucero [facility] [place] [address] When:3 months [facility] Evaluation note Encounter Date Diagnosis Assessment [...] days. May, Hematuria, unspecified (ICD-10 - R31.9) [facility] Other 08-23-2019 Progress note Author Chika Omalley [facility] March 10, 2019 5:14pm Note Date/Time March 09, 2019 2: 50pm [facility] at [address] [address] Hem/Onc Follow Up Note - OP Signed Patient: Larisa Lo MR#: [id number] : 1950 Acct:[id number] Age/Sex: 69 / F Type: REG RCR [...] extremity. [facility]seen within the last 2 weeks and [...] October 2019--further follow-up by Dr. Chow and [facility] 5. DEXA in February 2018 reviewed--normal bone [...] Negative for environmental allergies and food allergies. [facility] - History Attestation statement: The following information was validated with the patient. - Social History Smoking Status: Never smoker Substance Use Type: None Home Medications & Allergies Allergies No Known Allergies Allergy (Verified 05/12/17 13:41) Home Medications Ca-D3-mag ns-lonk-uxv-rogelio-bor [Calcium 600-D3 Plus] 1 tab PO DAILY [...] DATA: Lumpectomy of the left breast in 2013, yearly checkup. FINDINGS: Craniocaudal and mediolateral oblique [...] for coordination of care (as documented) and dfqv-ah-mpnh counseling of patient and/or family. Dictated By: Chika Omalley MD DD/ 1449 Signed By: <Electronically signed by MD Chika Omalley> 03/10/19 [address] [facility] Work Phone: 1(702) 880-622302-21-2019 Progress note Author Chika Omalley [facility] September 08, 2018 3:10pm Note Date/Time September 08, 2018 2:46pm [facility] at [address] [address] Hem/Onc Follow Up Note - OP Signed Patient: Larisa Lo MR#: [id number] : 1950 Acct:[id number] Age/Sex: 68 / F Type: REG RCR Copies to: Rafi Burden Mersiha MD Itzkowitz,Viktoriya MORENO~ Subjective Date/Time of Service: Date of Service: [...] Medications Medication Instructions Recorded Confirmed Type Ca-D3-mag vk-skni-kvc-rogelio-bor 1 tab PO DAILY 05/12/17 09/08/18 History [...] the next mammogram. Transcribed By: MICHI 11/04/17 1434 Dictated By: Becca Lambert MD 11/04/17 142 [...] for coordination of care (as documented) and ahmj-rp-hacx counseling of patient and/or family. Dictated By: Chika Omalley MD DD/ 2327 Signed By: <Electronically signed by MD Chika Omalley> 09/08/18 3434 [facility] Work Phone: 1(157) 135-311708-23-2018 Progress note Author Titi Wong [facility] March 10, 2018 3:27pm Note Date/Time March 10, 2018 3: 19pm [facility] at [place] [id number] Hem/Onc Follow Up Note - OP Signed Patient: Larisa Lo MR#: [id number] : 1950 Acct:[id number] Age/Sex: 68 / F Type: REG RCR [...] Medications Medication Instructions Recorded Confirmed Type Ca-D3-mag wr-bbol-vze-rogelio-bor 1 tab PO DAILY 05/12/17 03/10/18 History [...] X10E3/uL (3.8-11.6) 11/04/17: RBC 4.22 x10E6/uL (3.60-5.00) 11/04/17: Hgb 13.2 g/dL (11.8-15.4) 11/04/17 15: Hct 38.9 % (34.0-46.4) 11/04/17: MCV 92.1 fl (80-100) 11/04/17: MCH 31.3 pg (24.7-34.3) 11/04/17: MCHC 34.0 g/dL (32.0-35.0) 11/04/17 RDW 13.6 % (11.9-15.3) 11/04/17 Plt Count 300 x10E3/uL (150-450) 11/04/17 MPV 8.0 fl (6.3-10.7) 11/04/17: Neut % (Auto) 71.6 % (.) 11/04/17: Lymph % (Auto) 13.2 % (.) 11/04/17: Leslie % (Auto) 10.3 % (.) 11/04/17 Eos % (Auto) 4.5 % (.) 11/04/17 Baso % (Auto) 0.4 % (.) 11/04/17 Neut # (Auto) 6.1 x10E3/uL (1.8-7.7) 11/04/17 Lymph # (Auto) 1.1 x10E3/uL (1.00-4.8) 11/04/17: Leslie # (Auto) 0.9 x10E3/uL (0.0-0.8) H 11/04/17: Eos # (Auto) 0.4 x10E3/uL (0.0-0.45) 11/04/17: Baso # (Auto) 0.0 x10E3/uL (0.0-0.2) 11/04/17: PHA Creatinine Clear 29.8299 11/04/17 15: Sodium 139 mmol/L (136-146) 04/19/18 15:27 Potassium 3.6 mmol/L (3.5-5.1) 11/04/17 15:27 [...] for coordination of care (as documented) and nybz-ww-utjy counseling of patient and/or family. Dictated By: Titi Wong MD DD/ 1515 Signed By: <Electronically signed by Titi Wong MD> 03/10/18 1527 [facility] Work Phone: 1(762) 629-544505-07-2018 Progress note Author Natalya Martinez [facility] November 22, 2017 2:58pm Note Date/Time November 11, 2017 2:2 5pm [facility] [place] [address] Rad Onc Follow Up Note - OP Signed Patient: Larisa Lo MR#: [id number] : 1950 Acct:[id number] Age/Sex: 67 / F Type: REG RCR [...] range of motion. No cyanosis/clubbing/edema. NEURO: AOx4, xerox machine mechanic II-XII grossly intact, speech is fluent without [...] <Electronically signed by Natalya Perales MD> 11/22/17 6589 [facility] Work Phone: 1(641) 333-695304-26-2018 Progress note Author Titi Wong [facility] November 11, 2017 3:08pm Note Date/Time November 11, 2017 3:0 5pm [facility] [place] [address] Hem/Onc Follow Up Note - OP Signed Patient: Larisa Lo MR#: [id number] : 1950 Acct:[id number] Age/Sex: 67 / F Type: REG RCR [...] Medications Medication Instructions Recorded Confirmed Type Ca-D3-mag xt-btkh-bme-rogelio-bor 1 tab PO DAILY 05/12/17 08/13/17 History [...] 11/04/17 15:27 RDW 13.6 % (11.9-15.3) 11/04/17 15:27 Plt Count 300 x10E3/uL (150-450) 11/04/17 15:27 MPV 8.0 fl (6.3-10.7) 11/04/17 15:27 Neut % (Auto) 71.6 % (.) 11/04/17 15:27 Lymph % (Auto) 13.2 % (.) 11/04/17 15:27 Leslie % (Auto) 10.3 % (.) 11/04/17 15:27 Eos % (Auto) 4.5 % (.) 11/04/17 15:27 Baso % (Auto) 0.4 % (.) 11/04/17 15:27 Neut # (Auto) 6.1 x10E3/uL (1.8-7.7) 11/04/17 15:27 Lymph # (Auto) 1.1 x10E3/uL (1.00-4.8) 11/04/17 15:27 Leslie # (Auto) 0.9 x10E3/uL (0.0-0.8) H 11/04/17 [...] She may have longitudinal follow-ups at our [facility] - Time Spent with Patient Greater than 50% of time spent with patient was for coordination of care (as documented) and kocm-mc-zquq counseling of patient and/or family. Dictated By: Titi Wong MD DD/ 1504 Signed By: <Electronically signed by Titi Wong MD> 11/11/17 [address] [facility] Work Phone: 1(129) 243-406810-25-2017 Progress note Author Essie Nobles [facility] May 12, 2017 4:32pm Note Date/Time May 12, 2017 4 :12pm [facility] [place] [address] Hem/Onc Follow Up Note - OP Signed Patient: Larisa Lo MR#: [id number] : 1950 Acct:[id number] Age/Sex: 67 / F Type: REG RCR [...] Medications Medication Instructions Recorded Confirmed Type Ca-D3-mag zn-yumk-kpa-rogelio-bor 1 tab PO DAILY 05/12/17 05/12/17 History [...] % (Auto) 15.0 % (.) 05/11/17 14:04 Leslie % (Auto) 9.5 % (.) 05/11/17 14:04 Eos % (Auto) 3.5 % (.) 05/11/17 14:04 Baso % (Auto) 0.6 % (.) 05/11/17 14:04 Neut # (Auto) 4.9 x10E3/uL (1.8-7.7) 05/11/17 14:04 Lymph # (Auto) 1.0 x10E3/uL (1.00-4.8) 05/11/17 14:04 Leslie # (Auto) 0.6 x10E3/uL (0.0-0.8) 05/11/17 14:04 [...] is bad on her commute here to [facility]. She wishes to readdress this at her next follow up with Dr. Wong in6 months. She is taking Calcium + Vitamin D. RTC in [address] Wong after routine mammogram. - Time Spent with Patient Greater than 50% of time spent with patient was for coordination of care (as documented) and lwry-ai-oenq counseling of patient and/or family. 25 - 35 minutes Dictated By: RICHIE Gonzalez DD/ 1611 Signed By: <Electronically signed by RICHIE Nobles> 05/12/17 1632 [facility] Work Phone: Chigm complaint Narrative - Reported* LARISA LO is being seen for a cardiovascular evaluation of coronary artery disease and DR BURDEN/JIA HX NSTEMI AND HYPERTOPIC CARDIOMYOPATHY. * 71-year-old white female who is being referred to me by Dr. Rafi Burden to assess further cardiac evaluation after recent admission to [facility] initially and subsequently to [facility]. She presented with acute bronchitis and wheezing and for some reason troponin wasordered and was elevated around 1999. She had no EKG changes, she was sent to [facility] for furthercardiac evaluation and was seen by Dr. Danyel Marcum who recommended cardiac catheterization or stress test which the patient categorically refused. Interestingly the troponin at [facility] was only 49pg/mL. Her EKG was normal. [...] to watch her diet and lose weight. [facility] 250 DO Work Phone: Evaluation + Plan note Future Appointments Appointment Date:11/03/2022 03:00:00 PM Scheduled Provider:TATIANA AMES PA-C Location:[facility] Appointment Type:URO Office Visit [facility] evaluation + Plan note Future Appointments Appointment Date:11/03/2022 03:00:00 PM Scheduled Provider:TATIANA AMES PA-C Location:[facility] Appointment Type:URO Office Visit Diagnostic Tests Pending * [facility] Future App[facility]ments Appointment Date:02/08/2024 01:00:00 PM Scheduled Provider:RICHIE Carrasco APRN, [place] [facility] Location:[facility] Appointment Type:URO Office Visit [facility] evaluation + Plan note Future Appointments Appointment Date:04/11/2024 02:30:00 PM Scheduled Provider:RICHIE Carrasco APRN, [place] [facility] Location:[facility] Appointment Type:URO Office Visit [facility] evaluqikvh noteNo assessment information available [facility] Work Phone: Evaluation noteNo [facility] Other Evaluation note* Diagnosis Onset Date Resolution Status Dysuria noneactive [facility] Work Phone: Evaluation note* Diagnosis Onset Date Resolution Status UTI (urinary tract infection) noneactive [facility] Work Phone: Evaluation note* Diagnosis Onset Date Resolution Status UTI (urinary tract infection) noneactive Urinary frequency acute Dysuria noneactive [facility] Work Phone: Evaluation note* Diagnosis Onset Date Resolution Status Urinary frequency acute Dysuria noneactive [facility] Work Phone: Hisdkyn general Narrative - Reported* Type Description Date Medical History anxiety Medical History hypertension Medical History Ideopathic Hypertrophic Subaorti c Stenosis Surgical History left breast Hospitalization History bronchitis/pneumonia 202 2 [facility] Other Hospital course Narrative No data available for this section [facility] Hospital Discharge instructions No data available for this section [facility] No data available for this section [facility] Summary Purpose Family History No Family History [...] section and content) DATE CREATED AUTHOR 09/28/2018 [facility] DATE CREATED AUTHOR AUTHOR'S ORGANIZ ATION 01/06/2022 [employer] DATE CREATED AUTHOR AUTHOR'S ORGANIZ ATION 01/17/2022 [facility] DATE CREATED AUTHOR AUTHOR'S ORGANIZ ATION 05/11/2022 [facility] DATE CREATED AUTHOR AUTHOR'S ORGANIZ ATION 11/06/2022 [facility] DATE CREATED AUTHOR AUTHOR'S ORGANIZ ATION 02/02/2024 [facility] DATE CREATED AUTHOR AUTHOR'S ORGANIZ ATION 03/31/2024 [facility] PSYCHIATRIC DATE CREATED AUTHOR AUTHOR'S ORGANIZ ATION 04/14/2024 [facility] Care Teams (unrecognized sec tion and content) Team Status: Inactive Member Role Status Dates BETO Ortega Attending Provider Active Team Status: Inactive Member Role Status Dates Clarisa Sangeeta , [employer] [employer]C Attending Provider Active PHYSICIAN NO FAMILY Primary Care Provider Active Team Status: Inactive Member Role Status Dates Rafi Burden , DO Primary Care Provider, Attending Prov ider Active Team Status: Active Member Role Status Guillermo Burden DO Primary Care Provider Active Team Status: Inactive Member Role Status Guillermo Burden DO Primary Care Provider Active Viktoriya Chow DO Attending Provider Active Team Status: Inactive Member Role Status Guillermo Burden DO Primary Care Provide r, Attending Provider Active Start: September 10, 2023 End: September 10, 2023 Team Status: Inactive Member Role Status Guillermo Burden DO Primary Care Provider Active St art: October 29, 2023 End: October 29, 2023 BETO Ortega Attending Provider Active S tart: October 29, 2023 End: October 29, 2023 Team Status: Inactive Member Role Status BETO Sepulveda Attending Provider Active S tart: October 29, [...] 2024 Team Status: Inactive Member Role Status Guillermo Burden DO Primary Care Provide r, Attending [...] this section No data available for this section [...] BE BASED ON THE PRIMARY CLINICAL RECORDS. [facility] [id number] | [employer] [facility]. provides no warranty or guarantee of the accuracy or completeness of information in this document."
== END 2024-05-04 14:50 | disposition home or self-care (01) ==
LOC: MRI 14:49
PROVIDERS: PCP Family Medicine; Visit Provider Pain Medicine Interventional Pain Medicine
DX: M54.17 Radiculopathy, lumbosacral region (principal); M51.369 Other intervertebral disc degeneration, lumbar region without mention of lumbar back pain or lower extremity pain
CPT/HCPCS: 72148

== ENCOUNTER 2025-07-14 17:14 | Emergency (ER) | payer MEDICARE, SELFPAY ==
[2025-07-14] VITALS (12 sets, daily range): BP systolic 137–141; BP diastolic 61–92; PULSE 46–86; TEMP 37.2; O2SAT 93–97; BMI 31.3
--- OUTSIDE RECORDS SUMMARY | 2025-07-14 17:44 | XMS_ITS | Data Portability ---
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 dunn. Had previous emg. xray consistent with arthritis. will update mri, and proceed with facet blocks. We discussed thoroughly with the patient the risks and benefits of the steroid injection including hyperglycemia or elevated blood sugar and osteoporosis. The patient voiced their understanding and acknowledges that their blood sugar and/or diabetes is under control and the potential risk for bone loss and by extension bone fracture. The patient has failed 3 months of conservative management, including trials of nsaids, tylenol, neuropathic agents, muscle relaxants and physical therapy or spinal manipulation. The patient is not asurgical candidate at this time. The patient is currently involved in our pain management program and undr my direction for a home exercise plan of care as clinically appropriate. The pain is severe and impairing function and adl's despite activity modification. There are no contraindications to injection therapy, such as bleeding or infection risk. The injection is medically necessary so as to avoid any potential escalation to opioid therapy I counseled the patient extensively regarding spine care, activity modification, their diagnosis, treatment options and the plan of care. Discussed the risks, benefits, and alternatives. The patient is agreeable. I look forward to their response. They will follow up accordingly. Thank you for allowing me to participate in their care. This office visit was coded a level 4 because the patient encounter involved a detailed problem history and examination involving two or more medical issues or problems. Specifically, the visit involved two or more self-limited medical problems, two stable chronic illnesses, or two acute uncomplicated illness, or 1 complicated medical illness. The combination of the above required a moderate level and degree of medical decision making as well as time. This encounter took an extensive amount of time based on medical history and patient complexity. ahedayaNot ixtvtxmcj30/27/2024 14:50:29 y/o with chronic back pain referred by Dr. dunn. 100% relief from shot reviewed her mri, no haile rgical indication We discussed thoroughly with the patient the risks and benefits of the steroid injection including hyperglycemia or elevated blood sugar and osteoporosis. The patient voiced their understanding and acknowledges that their blood sugar and/or diabetes is under control and the potential risk for bone loss and by extension bone fracture. The patient has failed 3 months of conservative management, including trials of nsaids, tylenol, neuropathic agents, muscle relaxants and physical therapy or spinal manipulation. The patient is not asurgical candidate at this time. The patient is currently involved in our pain management program and undr my direction for a home exercise plan of care as clinically appropriate. The pain is severe and impairing function and adl's despite activity modification. There are no contraindications to injection therapy, such as bleeding or infection risk. The injection is medically necessary so as to avoid any potential escalation to opioid therapy I counseled the patient extensively regarding spine care, activity modification, their diagnosis, treatment options and the plan of care. Discussed the risks, benefits, and alternatives. The patient is agreeable. I look forward to their response. They will follow up accordingly. Thank you for allowing me to participate in their care. This office visit was coded a level 4 because the patient encounter involved a detailed problem history and examination involving two or more medical issues or problems. Specifically, the visit involved two or more self-limited medical problems, two stable chronic illnesses, or two acute uncomplicated illness, or 1 complicated medical illness. The combination of the above required a moderate level and degree of medical decision making as well as time. This encounter took an extensive amount of time based on medical history and patient complexity. ahedayaNot annxsbsqi91/13/2024 14:41:01 Plan of Treatment Reminders Order DateSubmit DateProviderLast Modified ByGulilaume DetailsLast Modified TimeDetailsAppointmentsNone recorded.LabNone recorded.ReferralNone recorded. ProceduresNone recorded.Surgeriesfacet joint injection, lumbar (SURG)04/14/2024 06/09/20245831yihtycq21Uem uncefgaus15/21/2024 10:16:18ImagingMRI, lumbar spine, w/o hfeoqgej95/THENANot qdwzpgzdu18/28/2025 05:01:04Medication OrdersNone recorded. Patient TargetsNo targets recorded. Patient InstructionsNo instructions recorded. Reason for Referral None Reported. Results Created Date Observation Date Name Description Value Unit Range Abnormal Flag Note LastModifiedBy Organization Detail LastModifiedTime 05/26/2024 05/04/2024 MRI, lumbar spine, w/wo cont rast No observation recorded.API-120Not Pkxxymrpd89/08/2024 15:51:37 Result Notes None recorded. Problems No Known Problems Procedures Surgical History Date Name Laterality Status Provider Name and Address Organization Details Recorded Time 06/09/2024 LFJI B/L L3-S1 Ike Mcmanus MD [address] [place] [address], [phone], [facility]06/09/2024 05:31:31 Imaging Results None recorded. Procedure Notes None recorded. Medical Equipment None Reported. Allergies No known drug allergies Medications Name Sig Start Date Stop Date Status Note LastModified by Organization Details LastModified Time atorvastatin 10 mg tablet TAKE 1 TABLET BY MOUTH IN THE MORNING activeNot AvailableNot AvailableNot Availableciprofloxacin 250 mg tabletTAKE 1 TABLET BY MOUTH TWICE DAILY IN THE MORNING and AT BEDTIME FOR 3 DAYSactiveNot AvailableNot AvailableNot Availableciprofloxacin 500 mg tabletactiveNot AvailableNot AvailableNot Availablealprazolam 0.5 mg tabletTAKE 1 TABLET BY MOUTH TWICE DAILY NEEDED FOR ANXIETYactiveNot AvailableNot AvailableNot Availablepotassium chloride ER 20 mEq tablet,extended release(part/cryst)TAKE 1 TABLET BY MOUTH DAILYactiveNot AvailableNot AvailableNot Availabletriamcinolone acetonide 0.025 % topical creamAPPLY TO THE AFFECTED AREA(S) TWICE DAILYactive Not AvailableNot AvailableNot Availabledicyclomine 20 mg tabletTAKE 1 TABLET BY MOUTH THREE TIMES DAILY NEEDEDactiveNot AvailableNot AvailableNot Available gabapentin 300 mg capsuleTAKE 1 CAPSULE BY MOUTH THREE TIMES DAILYactiveNot AvailableNot AvailableNot Availablebumetanide 1 mg tabletTAKE 1 TABLET BY MOUTH TWICE DAILYactiveNot AvailableNot AvailableNot Availableperphenazine- amitriptyline 2 mg-25 mg tabletTAKE 1 TABLET BY MOUTH AT BEDTIMEactiveNot AvailableNot AvailableNot Availablemetoprolol succinate ER 25 mg tablet,extended release 24 hrTAKE 1 TABLET BY MOUTH DAILYactiveNot AvailableNot AvailableNot Availableestradiol 0.01% (0.1 mg/gram) vaginal creamAPPLY 1 (ONE) GRAM VAGINALLY NIGHTLY FOR 3 (THREE) WEEKS, then APPLY 1 (ONE) GRAM 3 (THREE) (THREE)times WEEK THEREAFTER, APPLY a pea sized amount around the urethraactiveNot AvailableNot AvailableNot Availablepioglitazone 30 mg tabletTAKE 1 TABLET BY MOUTH DAILY activeNot AvailableNot AvailableNot Availableoxybutynin chloride 5 mg tabletTAKE 1 TABLET BY MOUTH DAILYactiveNot AvailableNot AvailableNot Available nitrofurantoin monohydrate/macrocrystals 100 mg capsuleTAKE 1 CAPSULE BY MOUTH TWICE DAILY FOR 5 DAYS, must administer WITH A MEAL or foodactiveNot Available Not AvailableNot Availablelosartan 100 mg-hydrochlorothiazide 12.5 mg tabletTAKE 1 TABLET BY MOUTH IN THE MORNINGactiveNot AvailableNot AvailableNot Available Myrbetriq 25 mg tablet,extended releaseTAKE 1 TABLET BY MOUTH DAILYactiveNot AvailableNot AvailableNot AvailableOzempic 0.25 mg or 0.5 mg (2 mg/3 mL) subcutaneous pen injectorINJECT 0.5 mg SUBCUTANEOUSLY ONCE A WEEKactiveNot AvailableNot AvailableNot Available Vitals None Recorded Social History None recorded. Functional Status None recorded. Mental Status None recorded. Family History Relationship Description Onset Age of this Age Resolved Age Notes LastModified by Organization Details LastModified Time Father No current problems or disabilit y ahedayaNot gzgteasoy05/27/2024 14:43:01MotherNo current problems or disability edayaNot zmcxusofm89/27/2024 14:43:01 Medical History Condition Response Coronary Artery Disease N Gout N Head Trauma/Injury N Hernia N Thyroid Problems N Depression N COPD N Anemia N Ulcers N Heart Attack ([place]) N Diabetes N Anxiety Disorder N Bleeding Disorder N Arthritis N Tuberculosis N AIDS/HIV N Acid Reflux (GERD) N Cancer N Stroke N Asthma N Substance Abuse N Back Injury N High Cholesterol N Hepatitis N Liver Disease N Heart Disease N Headaches N Fibromyalgia N Hypertension N Osteoporosis N Kidney Disease N Gynecological HistoryNo gynecological history recorded. Obstetrics History GPAL:G 0 P 0 0 0 0 Past Encounters Encounter ID Performer Location Encounter Start Date Encounter Closed Date Diagnosis/Indication Diagnosis SNOMED-CT Code Diagnosis ICD10 Code Diagnosis IMO Codes Diagnosis Note [id number] MD Lul Zuniga/[facility]EFAN [address] [place] [address] 04/14/2024 14:05:23 04/14/2024 14:50:31 Lumbar spondylosis 537540500 M47.896 Lumbosacral [id number] [id number] Ying [facility]us [facility] [address] [place] [address] 06/09/2024 05:30:4606/11/2024 08:38:[id number] Vu/[facility]EF[facility] [address] [place] [address] 06/30/2024 12:25:5406/30/2024 14:46:53Lumbar [id number] Lumbosacral [id number] Health Concerns Section Related Observation LastModified by Organization Detai ls LastModified Time None Recorded Concern Status LastModified by Organization Details LastModified Time None Recorded Advance Directives Directive None Recorded Payers Insurance Date Sequence Insurance Name Policy Number Policy Teran Covered Member ID Teran Member ID Guarantor Name 06/27/2024 1 [employer] [id number] (MEDICARE REPLACEMENT/ADVANTAGE - PPO) [id number] Lar[facility] Lo [id number] Larisa Lo Notes Date Note Type Note Provider Name and Address Organization Details Recorded Time 04/14/2024 text/html Back PainReporte d by PatientHPIFor quality, patient reportssharp. For severity, patient reportssevere (8-10)andinterference with sleep. For location, patient reportslumbar. For duration, patient reportschronic. For onset/timing, patient reportsrecurrent episode. For context, patient reportsprior back problems,used medications for back pain, andhad evaluations by back specialist. For aggravating factors, patient reportsmovement/positi oning. For prior imaging, patient reportsx-ray. Alex Mcmanus MD [address] [place], [address], [facility] 04/14/2024 14:50:13 06/30/2024 text/html Back PainReporte d by PatientHPIFor quality, patient reportsdull. For severity, patient reportsmild (1-4)andinterference with sleepbut reportsimproving. For location, patient reportslumbar. For duration, patient reportschronic. For onset/timing, patient reportsrecurrent episode. For context, patient reportsprior back problems,used medications for back pain, andhad evaluations by back specialist. For aggravating factors, patient reportsmovement/positi oning. For prior imaging, patient reportsx-ray. Alex Mcmanus MD [address] [place] [address], [phone], [facility] - [facility] 06/30/2024 14:41:18 OBGyn Episode No OBEpisode recorded.
--- OUTSIDE RECORDS SUMMARY | 2025-07-14 17:44 | XMS_ITS | Clinical Summary ---
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)TAKE 1 CAPSULE BY MOUTH THREE TIMES DAILY 90 capsule 5001/21/2023ctive Aspirin Low Dose 81 MG EC tablet Indications:Non-ST elevation (NSTEMI) myocardial infarction (HCC)TAKE 1 TABLET BY MOUTH ONCE DAILY 90 tablet 3Active Myrbetriq 25 MG 24 hr tablet Take 25 mg by mouth Daily02/08/2024ctive dicyclomine (Bentyl) 20 MG tablet Take 1 tablet by mouth 3 (three) times a day as neededActive Perphenazine-Amitriptyline 2-25 MG tablet Indications:Anxiety about healthTAKE 1 TABLET BY MOUTH AT BEDTIME 90 tablet 5Active bumetanide (Bumex) 1 MG tablet Indications:Localized edemaTAKE 1 TABLET BY MOUTH TWICE DAILY 180 tablet 5Active triamcinolone (Kenalog) 0.025 % cream Indications:Eczema, unspecified typeApply topically 2 (two) times a day 80 g 5Active potassium chloride CR (Klor-Con M20) 20 MEQ ER tablet Indications:Edema, unspecified typeTAKE 1 TABLET BY MOUTH DAILY 90 tablet 5Active Semaglutide,0.25 or 0.5MG/DOS, (Ozempic, 0.25 or 0.5 MG/DOSE,) 2 MG/3ML solution pen-injector Indications:Type 2 Diabetes MellitusInject 0.5 mg under the skin 1 (one) time per week for 28 days 9 mL 5Active metoprolol succinate XL (Toprol-XL) 25 MG 24 hr tablet Indications:Non-ST elevation (NSTEMI) myocardial infarction (HCC)TAKE 1 TABLET BY MOUTH DAILY 90 tablet 5Active ciprofloxacin (Cipro) 250 MG tablet Indications:Frequent UTI1 tablet orally bid x 3 days 6 tablet 5Active nitrofurantoin, macrocrystal-monohydrate, (Macrobid) 100 MG capsule Indications:Frequent UTI1 capsule po daily for prophylaxis Do not start before March 28, 2025. 30 capsule 5Active losartan-hydroCHLOROthiazide (Hyzaar) 100-12.5 MG tablet Indications:Essential hypertensionTAKE 1 TABLET BY MOUTH IN THE MORNING 90 tablet 5Active atorvastatin (Lipitor) 10 MG tablet Indications:Type 2 diabetes mellitus without complications (HCC)TAKE 1 TABLET BY MOUTH IN THE MORNING 90 tablet 5Active Estradiol 0.01 % cream Indications:Atrophic vaginitisInsert 1 g into the vagina 3 (three) times a week 42.5 g 5Active ALPRAZolam (Xanax) 0.5 MG tablet Indications:AnxietyTake 1 tablet (0.5 mg) by mouth 2 (two) times a day as needed for anxiety 60 tablet 5Active ALPRAZolam (Xanax) 0.5 MG tablet Indications:AnxietyTake 1 tablet (0.5 mg) by mouth 2 (two) times a day as needed for anxiety 60 tablet Discontinued(Reorder) Active Problems ProblemNoted DateDiagnosed DateHistory of left breast cpjeag455Actinic vnleeqgac83/30/2024iabetic renal sjepmls8801/13/2023Estrogen receptor positive status (ER+)01/13/2023Frequent UTI01/13/2023astroesophageal reflux disease 01/13/2023History of colon aljyhq2801/13/2023History of kidney hkyhap5001/13/2023 Hypertrophic rvfoqowzmtfvpz22/28/2023Neurogenic nydkeztngxmc50/28/2023Notalgia zeigfhfxgiek09/28/2023Obstructive sleep apnea01/13/2023Other chronic pain 01/13/2023Stage 3b chronic kidney ijalyxa4501/13/2023Heart klgyutd4212/01/2021 Myocardial dbvnuttoke63/13/2022Coronary lwdyvvdwldqpctk02/29/2021Type 2 diabetes mellitus without ejnuqzkqbxpbt13/14/2020Hearing loss05/15/2020Personal history of malignant neoplasm of oaizft0711/29/20183382Mpfycvw25/29/2019Urinary incontinence 11/14/2018Irritable bowel paupnuaf86/07/2019Breast mass12/01/2017Acute non-ST segment elevation myocardial ipmlvzsifn40/04/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 neoplasm of central part of female ewnhls6407/01/2017Chronic kidney mygauvs5007/08/2015Essential lxucrwdlfpvr20/21/1626Vyfzrufwplfbwf63/21/2015 Encounters DateTypeDepartmentCare IlytKfnwcxyrgif55/02/2025Telephone [facility] [address] [place] [address] Rafi Torres, DO Med Itmccw1805/29/2025Telephone [facility] [address] [place] [address] Rafi Torres, DO Med Aqofsd2905/21/2025Telephone [facility] [address] [place] [address] Thomas Curtis, DO Medication Kymojnga26/01/2025Refill [facility] [address] [place] [address] Thomas Curtis, DO Type 2 diabetes mellitus without complications (HCC)05/19/2025Refill [facility] [address] [place] [phone] Rafi Torres, DO Essential /30/2025[facility] [address] [place] [address] Rafi Torres, DO Med Beqwvo3604/18/2025[facility] [address] [place] [address] Rafi Torres, DO Med Refillfrom Last 3 Months Immunizations ImmunizationAdministration DatesNext DueInfluenza Whole05/04/2007Influenza, High-dose Seasonal, Quadrivalent, Preservative Free05/11/2022,04/03/2021 Influenza, Xneqbxxjgpm61/31/2017Influenza, injectable, MDCK, preservative free, fefmnaenoekz12/13/2023Influenza, injectable, quadrivalent, preservative free 05/14/2020,04/03/2014Influenza, seasonal, injectable, preservative free 03/27/2015,03/19/2013Moderna Bivalent Booster Rvxfotriclf65/02/2022Pneumococcal Conjugate PCV 13009/21/2016Pneumococcal Polysaccharide WCYH3582Zoster, live03/19/2013 Family History * Patient is adopted Medical HistoryRelationNameCommentsHeart diseaseFatherHypertensionMother Pancreatic cancerMotherBreast cancerNeg HxColon cancerNeg HxOvarian cancerNeg Hx MhfjglwcFuomRuxxqzEigzuebcQukqozn5KfbebjCnotpqoeJvedvqMkuzbshoStufda4 Social History Tobacco UseTypesPacks/DayYears UsedDateSmoking Tobacco: NeverPassive Smoke Exposure: NeverSmokeless Tobacco: Never Tobacco Cessation:Counseling Given: Yes Alcohol UseStandard Drinks/WeekCommentsNever0 (1 standard drink = 0.6 oz pure alcohol)caffeine 1-2 cups/dayPHQ-2AnswerDate RecordedPatient Health Questionnaire-2 Rgkxg733CommentsUnknownSex and Gender InformationValueDate RecordedSex Assigned at BirthNot on fileLegal SexFemale 09/30/2022 6:38 PM EDTGender IdentityNot on fileSexual OrientationNot on file Last Filed Vital Signs Vital SignReadingTime TakenCommentsBlood Xqrjzgba118/8009 3:00 PM EDT Ozont235803/21/2025 3:00 PM MBTNqewyinvopr77.9 ??C (98.5 ??F)03/21/2025 3:00 PM EDTRespiratory Kvzn439903/02/2024 2:50 PM EDTOxygen Nueohcgdlu96%03/21/2025 3:00 PM EDTInhaled Oxygen Concentration--Ehpxzi31.1 kg (159 lb)03/21/2025 3:00 PM EDT Zdcqkd714.2 cm (4' 6 )03/21/2025 3:00 PM EDTBody Mass Index38.34003/21/2025 3:00 PM EDT Plan of Treatment Health MaintenanceDue DateLast DoneCommentsDiabetes: Retinopathy Screening 01/28/1958Diabetes: Hemoglobin A1C5003/21/2025, 09/13/2024, 01/27/2024, Additional history existsDiabetes: Urine Protein Fajpyouey71/26/23146609/13/2024, 09/13/2023, 07/27/2022, Additional history existsMedicare Annual Wellness (AWV) , 03/21/2025, 09/13/2023, Additional history exists QuldjlswdkiZsfroulwntlh06/06/2015Colorectal Cancer ScreeningDiscontinued Pneumococcal Vaccine: 65+ MpwfnOokpnjawa90/06/2017, 04/03/2014Mammogram Moycceculkbq31/30/2025, 01/13/2024, 01/07/2023, Additional history exists Influenza GpdpdjjEtpdktjvm02/25/2025, 05/09/2024, 05/31/2023, Additional history existsCT ColonographyDiscontinuedFIT-DNADiscontinuedFITDiscontinuedFOBT DiscontinuedSigmoidoscopyDiscontinued Procedures Procedure NamePriorityDate/TimeAssociated DiagnosisCommentsPOCT GLYCATED HEMOGLOBIN, SEBAXSihhbsm91/03/2025 3:38 PM EDT Type 2 diabetes mellitus with other specified complication, unspecified whether halfway insulin use (HCC) BI MAMMOGRAM SCREENING TOMOSYNTHESIS UOJFTRUAFQacgaqx15/30/2025 1:30 PM EDT Encounter for screening mammogram for malignant neoplasm of breast MICROALBUMIN / CREATININE URINE CJVKKZjhdfvg84/26/2025 2:05 PM EST LQNQHATQFRSYmlxvsi01/06/2015 from Last 3 Months or Most Recently Relevant to Health Maintenance Results * (ABNORMAL) POCT Glycated hemoglobin, total (03/21/2025 3:38 PM EDT)Component ValueRef RangeTest MethodAnalysis TimePerformed AtPathologist Signature Hemoglobin A1C6.8Specimen (Source)Anatomical Location / LateralityCollection Method / VolumeCollection TimeReceived MhimIrmrw46/03/2025 3:38 PM EDT Narrative Authorizing ProviderResult TypeResult StatusBrenda Gomez NPPOINT OF CARE TEST ENTER/EDIT ORDERABLESFinal Result * Bilateral screening mammogram with tomosynthesis (01/15/2025 1:30 PM EDT) Anatomical RegionLateralityModalityBreastBilateralMammographySpecimen (Source) Anatomical Location / LateralityCollection Method / VolumeCollection Time Received Time01/15/2025 1:30 PM EDT Impressions 01/15/2025 1:34 PM EDT NO MAMMOGRAPHIC EVIDENCE OF MALIGNANCY. ? ROUTINE FOLLOW-UP IS RECOMMENDED IN ONE YEAR. ? RESULT CODE: 1 ? Negative ? DENSITY CODE: 2 (approximately 25-50% glandular) There are scattered areas of fibroglandular density. ? FOLLOW UP: 1YR ? The false-negative rate of mammography is approximately 10-percent. ? Management of a palpable abnormality must be based on clinical grounds. ? Patient was entered into a reminder system with a target due date for the next mammogram. ? Impression dictated by: Khurram Benton M.D. ??01/15/2025 1:32 PM ? Dictation Location: [facility] ? Dictated By: ?Khurram Benton MD ? 01/15/25 1330 ? Signed By: <Electronically signed by Khurram Benton MD in OV> ? 01/15/25 1332 Narrative 01/15/2025 1:34 PM EDT [facility] ?[address] ?[place] [address] ?? [phone] ? Mammography Report ? Signed ? Patient: WallyLarisa G ?MR#: [id number] ?? 271 ? : 1950 ?Acct:[id number] ? Age/Sex: 74 / F ?Adm Date: //25 ? Loc: [place] ?Room: ?Type: DEP CLI ?? Attending Dr: Brayan Haro DO ? Ordering Provider: Brayan Haro, DO ? Date of Service: 01/15/ ? Procedure(s): MM screening mammo BI w/CAD ?? Accession Number(s): ([id number]) MM/MM screening mammo BI w/CAD: Yrly mamms ? Copies to: Brayan Haro, DO ?? Rafi Torres,DO ? CLINICAL DATA: ??Screening for malignancy. ? SCREENING MAMMOGRAM - FULL FIELD DIGITAL WITH TOMOSYNTHESIS AND CAD ? COMPARISON:Priors dating back to 2020 ? Tomosynthesis craniocaudal and mediolateral oblique views of both breasts were obtained using low- dose digital technique. ?? This examination was reviewed with the aid of CAD. ? The breast tissue is composed of scattered fibroglandular densities. ??There are no dominant masses, typically malignant calcifications or architectural distortion. ??There has been no significant interval change. ? MM/MM screening mammo BI w/CAD ?? Procedure Note Radiology, Radiologist, MD - 01/25/2025 [facility] [place] [address] Mammography Report Signed Patient: Larisa Lo GMR#: [id number] 271 : 8Acct:[id number] Age/Sex: 74 / FAdm Date: 01/15/25 Loc: [place] Room:Type: [facility] Attending Dr: Brayan Haro DO Ordering Provider: Brayan Haro DO Date of Service: 01/15/25 Procedure(s): MM screening mammo BI w/CAD Accession Number(s): ([id number]) MM/MM screening mammo BI w/CAD: Yrlymamms Copies to: DO Rafi Mae DO CLINICAL DATA: Screening for malignancy. SCREENING MAMMOGRAM - FULL FIELD DIGITAL WITH TOMOSYNTHESIS AND CAD COMPARISON:Priors dating back to 2020 Tomosynthesis craniocaudal and mediolateral oblique views of both breastswere obtained using low- dose digital technique. This examination was reviewed with the aid ofCAD. The breast tissue is composed of scattered fibroglandular densities.There are no dominant masses, typically malignant calcifications or architectural distortion. There hasbeen no significant interval change. MM/MM screening mammo BI w/CAD IMPRESSION: NO MAMMOGRAPHIC EVIDENCE OF MALIGNANCY. ROUTINE FOLLOW-UP IS RECOMMENDED IN ONE YEAR. RESULT CODE: 1 Negative DENSITY CODE: 2 (approximately 25-50% glandular) There are scattered areasof fibroglandular density. FOLLOW UP: 1YR The false-negative rate of mammography is approximately 10-percent. Management of a palpable abnormality must be based on clinical grounds. Patient was entered into a reminder system with a target due date for thenext mammogram. Impression dictated by: Khurram Benton M.D. 01/15/2025 1:32 PM Dictation Location: [facility] Dictated By: Khurram Benton MD 01/15/25 1330 Signed By: <Electronically signed by Khurram Benton MD in OV> 01/15/25 1332 Authorizing ProviderResult TypeResult StatusFredric H Tahir DOIMG BI PROCEDURESEdited Result - Final * Microalbumin / creatinine urine ratio (09/13/2024 2:05 PM EST)ComponentValue Ref RangeTest MethodAnalysis TimePerformed AtPathologist Signature MICROALBUMIN, URINE<0.70.0 - 1.8 mg/dL09/13/2024 3:30 PM [facility]tr[facility]AT[facility]INE, URINE (RANDOM)51.00mg/dL09/13/2024 3:14 PM [facility] CtrComment:No reference range established MICROALBUMIN/CREATININE RATIOTest not performed0.0 - 30.002 3:30 PM [facility] CtrSpecimen (Source)Anatomical Location / LateralityCollection Method / VolumeCollection TimeReceived TimeOther 09/13/2024 2:05 PM EST09/13/2024 2:05 PM EST Narrative Authorizing ProviderResult TypeResult StatusRafi Torres DOLAB URINE ORDERABLES Final ResultPerforming OrganizationAddressCity/State/ZIP CodePhone Number [facility] [address] [place] [address], [facility] [address] [place] [address] * Colonoscopy (04/23/2015)Anatomical RegionLateralityModalityEndoscopySpecimen (Source)Anatomical Location / LateralityCollection Method / VolumeCollection TimeReceived Time04/23/2015 Narrative 04/23/2015 12:00 AM EDT PERFORMED AT [facility] LOCATION:[place] [address] Procedure Note CONVERSION, GENERIC - 12/03/2022 PERFORMED AT [facility] LOCATION:[place] [address] Authorizing ProviderResult TypeResult StatusRafi Torres DOENDOSCOPY PROCEDURE ORDERABLESFinal Result from Last 3 Months or Most Recently Relevant to Health Maintenance Insurance Care Teams Team MemberRelationshipSpecialtyStart DateEnd Date Rafi Torres, [address] [place] [address] PCP - GeneralFamily Medicine12/30/22 Rafi Torres DO [address] [facility] [address] [place] [address] PCP - Gerardo LA08/19/24 Benny Serrato MD [address] [address] [place] [address] Referring PhysicianSle Medicine03/21/25 Karissa Carrasco NP [address] [place] [address] Referring PhysicianUrology03/21/25
--- OUTSIDE RECORDS SUMMARY | 2025-07-14 17:44 | XMS_ITS | Clinical Summary ---
Author Organization [facility] Address [address] [place] [address] Phone Care Team Providers Care Product Builder Name Role Phone Rafi Torres DO Primary Care Provider [phone] Social History Tobacco UseTypesPacks/DayYears UsedDateSmoking Tobacco: Never Assessed CommentsUnknownSex and Gender InformationValueDate RecordedSex Assigned at Not on fileLegal RzzVyuobk49/26/2022 3:53 PM ESTGender IdentityNot on fileSexual OrientationNot on file Last Filed Vital Signs Vital SignReadingTime TakenCommentsBlood Clhwdhqp987/68001/05/2022 1:12 PM EDT Tqiuk6046/20/2022 1:12 PM EDTTemperature--Respiratory Rate--Oxygen Saturation-- Inhaled Oxygen Concentration--Bqjbwj75.3 kg (177 lb)01/05/2022 1:12 PM EDTHeight 137.2 cm (4' 6 )01/05/2022 1:12 PM EDTBody Mass Index42.68001/05/2022 1:12 PM EDT Plan of Treatment Not on file Care Teams Team MemberRelationshipSpecialtyStart DateEnd Date Rafi Torres DO [address] [place] [address] PCP - General07/19/99
--- OUTSIDE RECORDS SUMMARY | 2025-07-14 17:44 | XMS_ITS | Clinical Summary ---
Author [facility] Address [facility] [place] [address] [place] [address] Care Team Providers Care Rehabilitation Engineer Name Role Phone Unavailable Primary Care Provider Unavailabl e Social History Tobacco UseTypesPacks/DayYears UsedDateSmoking Tobacco: Never AssessedChildcare AnswerDate MledqdcoFskzmkffeSrkujyj31/12/2019EmploymentAnswerDate Recorded BegeqccpsdDxqyfbg82/12/2019CommentsUnknownSex and Gender Information ValueDate RecordedSex Assigned at BirthNot on fileLegal MpiUifkrq86/06/2015 12:14 PM EDTGender IdentityNot on fileSexual OrientationNot on file Plan of Treatment Not on file Medical Devices Not on file
--- OUTSIDE RECORDS SUMMARY | 2025-07-14 17:44 | XMS_ITS | CCD ---
Author Organization [facility] Care Team Providers Care Import/Export Clerk Name Role Phone Chika Omalley Attending Unavailable Rafi Torres Unavailable Unavailable Unavailable BETO Rutherford Attending Provider [phone] Clarisa Rutherford Unavailable NO FAMILY, PHYSICIAN Primary Care Provider Unava ilable DO Rafi Torres Primary Care Provider DO Rafi Torres Attending Provider [phone] RAFI TORRES Primary Care Physician Asaad, Imad Unavailable RYLIE, DR ROWE Admitting Unavailable BRIAN, DR MCKEE Primary Care Unavailable RYLIE, DR ROWE Attending Unavailable RYLIE, DR ROWE Consulting Unavailable BRIAN, DR MCKEE Primary Care Unavailable NISHA, DR JAE Richards Consulting Unavailable HALEY HARRIS Admitting Unavailable HALEY HARRIS Attending Unavailable HALEY HARRIS Consulting Unavailable BRIAN, DR MCKEE Primary Care Unavailable AWILDA, DR XIMENA Murray Consulting Unavailable TATIANA MACIEL Admitting Unavailable TATIANA MACIEL Attending Unavailable TATIANA MACIEL Consulting Unavailable MIKAYLA JUSTICE Attending Unavailable MIKAYLA [...] AWILDA, DR XIMENA Murray Consulting Unavailable TATIANA MACIEL Admitting Unavailable TATIANA MACIEL Attending Unavailable TATIANA MACIEL Consulting Unavailable DO Rafi Torres Primary Care Provider [phone] DO Viktoriya Chow Attending Provider DO Rafi Torres Attending Provider DO Rafi Torres Primary Care Provider DO Rafi Torres Attending Provider [phone] BETO Rutherford Attending Provider [phone] NO FAMILY, PHYSICIAN Primary Care Provider Unava ilable DO Rafi Torres Primary Care Provider BETO Gomez Attending Provider DO Rafi Torres Attending Provider Rafi Torres DO Primary Care Provider Thomas Curtis DO Unavailable Rafi Torres DO Primary Care Provider [phone] Rafi Torres DO Attending Provider [phone] Rafi Torres DO Unavailable Rafi Torres DO Primary Care Provider [phone] Rafi Torres DO Attending Provider [phone] Ximena Serrato MD Attending Provider Rafi Torres DO Primary Care Provider [phone] Amie Tyler NP Attending Provider Ximena Serrato MD Other Provider Tahir MORENO, Viktoriya Attending Provider [phone] Viktoriya Chow Attending Unavailable Tahir, Viktoriya Admitting Unavailable Rafi Torres Primary Care Unavailable Ximena Serrato Attending Unavailable Ximena Serrato Admitting Unavailable Rafi Torres Primary Care Unavailable Rafi Torres Attending Unavailable Rafi Torres Primary Care Unavailable Rafi Torres Admitting Unavailable Ximena Serrato MD Unavailable [phone] Karissa Carrasco NP Unavailable RAFI TORRES Attending Unavailable RAFI TORRES Attending Unavailable VIKTORIYA CHOW H Attending Unavailable TAMARA BABB Attending Unavailable RAFI TORRES Attending Unavailable BRENDA GOMEZ Attending Unavailable RAFI OTRRES Attending Unavailable FREDIS العراقي Attending Unavailable BRENDA GOMEZ Attending Unavailable RAFI TORRES Referring Unavailable VIKTORIYA CHOW Attending Unavailable Thomas Curtis DO Unavailable [phone] Brenda Gomez NP Unavailable Ximena Serrato MD Unavailable Shanell Malin Attending Unavailable TATIANA MACIEL Attending Unavailable TATIANA MACIEL Attending Unavailable TATIANA MACIEL Admitting Unavailable Shanell Malin Attending Unavailable Allergies Allergy ClassificationReported Allergen(s)Allergy TypeDate of OnsetReaction(s) Facility (2 sources)No Known Medication Allergies; Translations: [No Known Medication Allergies]Propensity to adverse reactions (disorder)[facility] Repository Medications Current Medications MedicationDrug Class(es)DatesSig (Normalized)Sig (Original)0.25 MG, 0.5 MG Dose 3 ML semaglutide 0.68 MG/ML Pen Injector [Ozempic] (3 sources)Start: 00-94-0941qlyypk 0.5 mg by subcutaneous injection every week Ozempic 2 mg/3 mL (0.25 mg or 0.5 mg dose) subcutaneous solution INJECT 0.5 mg SUBCUTANEOUSLY ONCE A WEEK Start Date: 02/08/24 Status: Ordered Medication Dispense Status: Completed Total Allowed Fills: 1 Fills Dispensed: 0Start: 97-38-9232rsmyqn 0.5 mg by subcutaneous injection every weekOzempic 2 mg/3 mL (0.25 mg or 0.5 mg dose) subcutaneous solution INJECT 0.5 mg SUBCUTANEOUSLY ONCE A WEEK Start Date: 02/08/24 Status: OrderedALPRAZolam 0.5 mg oral tablet (20 sources)BenzodiazepineStart: 10-06-8397jjjf 1 tablet by mouth twice daily as needed for anxietyALPRAZolam (Xanax) 0.5 MG tablet Indications: Anxiety Take 1 tablet (0.5 mg) by mouth 2 (two) timesa day as needed for anxiety 60 tablet 05/18/2025 ActiveStart: 11-23-2024 End: 70-06-8947luym 1 tablet by mouth twice daily as needed for anxiety ALPRAZolam (Xanax) 0.5 MG tablet Indications: Anxiety Take 1 tablet (0.5 mg) by mouth 2 (two) timesa day as needed for anxiety 60 tablet 04/18/2025 ActiveStart: 13-57-1349mgwt 1 tablet by mouth three times daily as needed for anxiety alprazolam 0.5 mg Tab 0.5 mg = 1 tab(s), Oral, TID, PRN for anxiety, Refills(s) 0 Start Date: 08/04/22 Status: Ordered Medication Dispense Status: Completed Total Allowed Fills: 1 Fills Dispensed: 0Start: 05-12-2017 End: 16-59-0663igpq 1 tablet by mouth twice daily as needed for anxiety ALPRAZolam (Xanax) 0.5 MG tablet Indications: Anxiety Take 1 tablet (0.5 mg) by mouth 2 (two) timesa day as needed for anxiety 60 tablet 11/23/2024 Active ALPRAZolam Activeamitriptyline hydrochloride 25 mg / perphenazine 2 mg oral tablet (20 sources)Phenothiazine, Tricyclic AntidepressantStart: 08-04-2022 amitriptyline-perphenazine Refill(s) 0 Start Date: 08/04/22 Status: Ordered Medication Dispense Status: Completed Total Allowed Fills: 1 Fills Dispensed: 0 Start: 65-00-7657hyzwykowdtvoi-perphenazine Refill(s) 0 Start Date: 08/04/22 Status: OrderedStart: 69-37-5690lota 1 tablet by mouth at bedtimePerphenazine- Amitriptyline 2-25 MG tablet Indications: Anxiety about health TAKE 1 TABLET BY MOUTH AT BEDTIME 90 tablet 3 08/21/2024 Activeaspirin 81 mg delayed release oral tablet (20 sources)Platelet Aggregation Inhibitor, Nonsteroidal Anti-inflammatory Drug Start: 39-31-0557mjzm 1 tablet by mouth once dailyAspirin Low Dose 81 MG EC tablet Indications: Non-ST elevation (NSTEMI) myocardial infarction (HCC)TAKE 1 TABLET BY MOUTH ONCE DAILY 90 tablet 3 03/05/2023 ActiveStart: 51-17-2967gydc 1 tablet by mouth once dailyStart: 08-14-2017 End: 04-05-9891fcux 1 tablet by mouth once dailyAspirin (Aspir-) 81 mg tablet,delayed release (DR/EC) Discontinued 81 MG PO Daily August 14, 2017 1:00am September 12, 2017 1:00am September 13, 2017 1:08amatorvastatin 10 mg oral tablet (20 sources)HMG-CoA Reductase InhibitorStart: 71-58-2962drkl 1 tablet by mouth in the morningatorvastatin (Lipitor) 10 MG tablet Indications: Type 2 diabetes mellitus without complications (HCC) TAKE 1 TABLET BY MOUTH IN THE MORNING 90 tablet 1 05/21/2025 ActiveStart: 06-15-2023 End: 37-69-6681wnov 1 tablet by mouth in the morningatorvastatin (Lipitor) 10 MG tablet Indications: Type 2 diabetes mellitus without complication, unspecified whether half-way insulin use (HCC) TAKE 1 TABLET BY MOUTH IN THE MORNING 90 tablet 3 05/22/2024 Activebumetanide 1 mg oral tablet (20 sources)Loop DiureticStart: 07-22-5102spma 1 tablet by mouth twice daily bumetanide (Bumex) 1 MG tablet Indications: Localized edema TAKE 1 TABLET BY MOUTH TWICE DAILY 180 tablet 3 08/30/2024 ActiveStart: 02-45-1036vlfq 1 tablet by mouth twice dailybumetanide (Bumex) 1 MG tablet Indications: Localized edema TAKE 1 TABLET BY MOUTH TWICE DAILY 180 tablet 3 09/06/2023 ActiveStart: 30-51-5271ulke 1 tablet by mouth once dailybumetanide 1 mg Tab mg tab(s), Oral, Daily, Refills(s) 0 Start Date: 08/04/22 Status: Ordered Medication Dispense Status: Completed Total Allowed Fills: 1 Fills Dispensed: 0Bumetanide Active ciprofloxacin 250 mg oral tablet (9 sources)Quinolone AntimicrobialStart: 24-63-3012aefs 1 tablet by mouth twice dailyciprofloxacin (Cipro) 250 MG tablet Indications: Frequent UTI 1 tablet orally bid x 3 days 6 dfovxj7103/21/2025 ActiveStart: 05-31-2024 End: 01-89-5311wwvq 1 tablet by mouth in the morningciprofloxacin (Cipro) 250 MG tablet Indications: Acute cystitis with hematuria Take 1 tablet (250 mg) by mouth in the morning and 1 tablet (250 mg) before bedtime. Do all this for 3 days. 6 tablet 05/31/2024 06/03/2024 Expireddicyclomine hydrochloride 20 mg oral tablet (20 sources)Anticholinergictake 1 tablet by mouth three times daily as needed dicyclomine (Bentyl) 20 MG tablet Take 1 tablet by mouth 3 (three) times a day as needed Activeestradiol 0.1 mg/ml vaginal cream (20 sources)EstrogenStart: 61-10-3051Fneqcaslm 0.01 % cream Indications: Atrophic vaginitis Insert 1 g into the vagina 3 (three) times aweek 42.5 g 3 05/23/2025 ActiveStart: 93-35-5617ymyfwqgzx (Estrace) 0.1 MG/GM vaginal cream Indications: Atrophic vaginitis APPLY 1 (ONE) GRAM VAGINALLY NIGHTLY FOR 3 (THREE) WEEKS, then APPLY 1 (ONE) GRAM 3 (THREE) (THREE) times WEEK THEREAFTER, APPLY a pea sized amount around the urethra 42.5 g 1 08/10/2024 ActiveStart: 02-39-4414tovvdqvcv (Estrace) 0.1 MG/GM vaginal cream Indications: Atrophic vaginitis APPLY 1 (ONE) GRAM VAGINALLY NIGHTLY FOR 3 WEEKS, then APPLY 1 (ONE) GRAM 3 (THREE) times WEEK THEREAFTER, APPLY a pea sized amount around the urethra 42.5 g 1 12/22/2023 ActiveStart: 21-88-9641eapjuypdp 0.1 mg/g Vag Crm See Instructions, 42.5 gm, Refill(s) 11, 1 gm vaginally nightly x 3 weeks, then 3x per week thereafter. 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) TAKE 1 CAPSULE BY MOUTH THREE TIMES DAILY 90 capsule 5 01/21/2023 Active Start: 11-28-2021 End: 76-45-6839dmej 1 tablet by mouth twice dailyGabapentin 300 mg capsule Discontinued 1 TAB PO Twice daily November 28, 2021 4:50am October 20, 2024 11:18am Start: 05-12-2017 End: 08-74-0693skry 1 tablet by mouth three times dailyGabapentin 300 mg capsule Discontinued 1 TAB PO Three times daily 270 90 December 23, 2020 5:11pm November 28, 2021 4:50amGabapentin ActivehydroCHLOROthiazide 12.5 mg / losartan potassium 100 mg oral tablet (20 sources)Thiazide Diuretic, Angiotensin 2 Receptor BlockerStart: 05-21-2025 take 1 tablet by mouth in the morninglosartan-hydroCHLOROthiazide (Hyzaar) 100- 12.5 MG tablet Indications: Essential hypertension TAKE 1TABLET BY MOUTH IN THE MORNING 90 tablet 3 05/21/2025 ActiveStart: 47-59-1297ztuy 1 tablet by mouth in the morninglosartan-hydroCHLOROthiazide (Hyzaar) 100-12.5 MG tablet Indications: Essential hypertension TAKE 1TABLET BY MOUTH IN THE MORNING 90 tablet 3 05/22/2024 ActiveStart: 85-09-6088wdsxljcrsakxifiocyg-losartan 12.5 mg-50 mg Tab Refill(s) 0 Start Date: 08/04/22 Status: Ordered Medication Dispense Status: Completed Total Allowed Fills: 1 Fills Dispensed: 0Start: 05-12-2017 End: 74-97-1128rtyy 1 tablet by mouth once dailyletrozole 2.5 mg oral tablet (20 sources)Aromatase InhibitorStart: 80-61-2602aokb 1 mg by mouth once daily letrozole 2.5 mg Tab mg tab(s), Oral, Daily, Refills(s) 0 Start Date: 08/04/22 Status: Ordered Medication Dispense Status: Completed Total Allowed Fills: 1 Fills Dispensed: 0Start: 05-12-2017 End: 41-57-7166qyhl 1 tablet by mouth once dailyLetrozole 2.5 mg Tablet Discontinued 2.5 MG PO Daily February 24, 2019 1:26pm March 09, 2019 2:57pm Letrozole ActiveLosartan Potassium-HCTZ (3 sources)Losartan Potassium-HCTZ Sajdka84 hr metoprolol succinate 25 mg extended release oral tablet (20 sources)beta-Adrenergic BlockerStart: 02-23-2024 End: 33-86-9204htgg 1 tablet by mouth once dailymetoprolol succinate XL (Toprol- XL) 25 MG 24 hr tablet Indications: Non-ST elevation (NSTEMI) myocardial infarction (HCC) TAKE 1 TABLET BY MOUTH DAILY 90 tablet 3 02/22/2025 Active Start: 18-30-1106jvsq 1 tablet by mouth every twenty-four hoursStart: 12-14-2023 Metoprolol Succinate Active MG PO December 14, 2023 12:00amStart: 08-15-2017 End: 77-30-0309vcrl 2 tablets by mouth once dailyMetoprolol Succinate 25 mg tablet extended release 24 hr Discontinued 12.5 MG PO Daily 3.5 August 15, 2017 1:00am August 21, 2017 1:00am August 22, 2017 1:04amStart: 08-15-2017 End: 37-40-1568quhc 12.5 mg by mouth once dailyMetoprolol Succinate Discontinued 12.5 MG PO Daily 3.5 August 15, 2017 1:00am August 22, 2017 1:04amtake 1 tablet by mouth once dailyMetoprolol Succinate ER 25 MG Oral Tablet Extended Release 24 Hour TAKE 1 TABLET DAILY. Quantity: 90 Refills: 3 Ordered: 02-Jan-2022 DO Yvsxpi10 hr mirabegron 25 mg extended release oral tablet (20 sources)beta3-Adrenergic AgonistStart: 75-40-6399mmjy 1 tablet by mouth once dailyMyrbetriq 25 MG 24 hr tablet Take 25 mg by mouth Daily 02/08/2024 Active nitrofurantoin, macrocrystals 25 mg / nitrofurantoin, monohydrate 75 mg oral capsule (20 sources)Nitrofuran AntibacterialStart: 74-17-2369wunb 1 capsule by mouth once dailynitrofurantoin, macrocrystal-monohydrate, (Macrobid) 100 MG capsule Indications: Frequent UTI 1 capsule po daily for prophylaxis Do not start before March 28, 2025. 30 capsule 1 03/28/2025 ActiveStart: 61-82-0141ggyl 1 capsule by mouth once dailynitrofurantoin, macrocrystal-monohydrate, (Macrobid) 100 MG capsule Indications: Frequent UTI 1 capsule po daily for prophylaxis Do not start before March 28, 2025. 30 capsule 1 03/28/2025 ActiveStart: 02-12-2025 End: 57-61-7851xytl 1 capsule by mouth in the morningnitrofurantoin, macrocrystal-monohydrate, (Macrobid) 100 MG capsule Indications: Urinary tract infection with hematuria, site unspecified Take 1 capsule (100 mg) by mouth in the morning and 1 capsule(100 mg) before bedtime. Do all this for 5 days. 10 capsule 02/12/2025 02/17/2025 ActiveStart: 10-29-2023 End: 37-61-3859fyzw 1 capsule by mouth twice daily at mealtimeNitrofurantoin Monohyd/M-Cryst (Macrobid) 100 mg capsule Discontinued 100 MG PO Twice daily 10 5 October 29, 2023 12:00am December 14, 2023 6:35pm must administer with a meal/foodStart: 10-80-3072uapz 1 capsule by mouth every twelve hoursMacrobid 100 MG 1 cap(s) Orally 2 times a day for 5 day(s) May, Active Perphenazine-Amitriptyline (3 sources)Perphenazine-Amitriptyline Activephenazopyridine hydrochloride 200 mg oral tablet (3 sources)Start: 01-61-9403usii 1 tablet by mouth every eight hoursPyridium 200 MG 1 tablet after meals Orally Three times a day for 2 day(s) May, Activepioglitazone 30 mg oral tablet (7 sources)Peroxisome Proliferator Receptor alpha Agonist, Peroxisome Proliferator Receptor gamma Agonist, ThiazolidinedioneStart: 57-67-3098nqsp 1 tablet by mouth once dailypolyethylene glycol 3350 533088 mg / potassium chloride 2970 mg / sodium bicarbonate 6740 mg / sodium chloride 5860 mg / sodium sulfate 94232 mg powder for oral solution (1 source)Osmotic LaxativeStart: 98-08-4418MNW-3350/Electrolytes 236 GM as directed Orally once daily for 1 days Sep, Activemicroencapsulated potassium chloride 20 meq extended release oral tablet (20 sources)Start: 52-24-2292Hijrzrsfm Chloride (Eqv-K-Tab) 20 mEq oral tablet, extended release Refills(s) 0 Start Date: 08/04/22 Status: Ordered Medication Dispense Status: Completed Total Allowed Fills: 1 Fills Dispensed: 0Start: 41-91-5264ehwm 1 tablet by mouth once dailypotassium chloride CR (Klor-Con M20) 20 MEQ ER tablet Indications: Edema, unspecified type TAKE 1 TABLET BY MOUTH DAILY 90 tablet 3 11/24/2024 ActiveKlor-Con ActivePotassium Chloride Deborah ER (3 sources)Potassium Chloride Deborah ER ActiveSemaglutide,0.25 or 0.5MG/DOS, (Ozempic, 0.25 or 0.5 MG/DOSE,) 2 MG/3ML solution pen-injector (20 sources)Start: 16-32-2782Lewflvmcnuk,0.25 or 0.5MG/DOS, (Ozempic, 0.25 or 0.5 MG/DOSE,) 2 MG/3ML solution pen-injector Indications: Type 2 Diabetes Mellitus Inject 0.5 mg under the skin 1 (one) time per week for 28 days 9 [facility] 02/07/2025 ActiveStart: 02-07-2025 End: 84-36-1895Iqrmlbefehp,0.25 or 0.5MG/DOS, (Ozempic, 0.25 or 0.5 MG/DOSE,) 2 MG/3ML solution pen-injector Indications: Type 2 Diabetes Mellitus Inject 0.5 mg under the skin 1 (one) time per week for 28 days 9 [facility] 02/07/2025 03/07/2025 ActiveStart: 10-07-2024 End: 26-08-0555Fljckolhgls,0.25 or 0.5MG/DOS, (Ozempic, 0.25 or 0.5 MG/DOSE,) 2 MG/3ML solution pen-injector Indications: Type 2 Diabetes Mellitus Inject 0.5 mg under the skin 1 (one) time per week for 28 days 9 [facility] 10/07/2024 02/07/2025 Discontinued (Reorder)Start: 74-72-4462Xezwyscyajo,0.25 or 0.5MG/DOS, (Ozempic, 0.25 or 0.5 MG/DOSE,) 2 MG/3ML solution pen-injector Indications: Type 2 Diabetes Mellitus Inject 0.5 mg under the skin 1 (one) time per week for 28 days 9 [facility] 10/07/2024 ActiveStart: 10-07-2024 End: 79-85-9094Uxuxmtibjlg,0.25 or 0.5MG/DOS, (Ozempic, 0.25 or 0.5 MG/DOSE,) 2 MG/3ML solution pen-injector Indications: Type 2 Diabetes Mellitus Inject 0.5 mg under the skin 1 (one) time per week for 28 days 9 [facility] 10/07/2024 11/04/2024 ActiveStart: 16-43-8753Oxmwjgrjvim,0.25 or 0.5MG/DOS, (Ozempic, 0.25 or 0.5 MG/DOSE,) 2 MG/3ML solution pen-injector Indications: Type 2 Diabetes Mellitus Inject 0.5 mg under the skin 1 (one) time per week for 28 days 9 [facility] 08/03/2024 ActiveStart: 56-57-1442Krnywuagvsu,0.25 or 0.5MG/DOS, (Ozempic, 0.25 or 0.5 MG/DOSE,) 2 MG/3ML solution pen-injector Indications: Type 2 Diabetes Mellitus Inject 0.5 mg under the skin 1 (one) time per week for 28 days 9 [facility] 01/25/2024 Activetriamcinolone acetonide 0.25 mg/ml topical cream (20 sources)CorticosteroidStart: 37-29-3789gflvjeasgabao (Kenalog) 0.025 % cream Indications: Eczema, unspecified type Apply topically 2 (two)times a day 80 g 1 10/04/2024 ActiveStart: 12-24-2023 End: 49-50-9424jtgvwqijamdbe (Kenalog) 0.025 % cream Indications: Eczema, unspecified type APPLY TO THE AFFECTED AREA(S) TWICE DAILY 80 g 1 04/28/2024 Active Completed/Discontinued Medications MedicationDrug Class(es)DatesSig (Normalized)Sig (Original)[id number] 200 actuat albuterol 0.09 mg/actuat metered dose inhaler (14 sources)beta2-Adrenergic AgonistStart: 11-28-2021 End: 09-99-7682Fbdoubvyd Sulfate 90 mcg/actuation HFA aerosol inhaler Discontinued 1 INH INHALATION Q6H 8.5 November 28, 2021 12:00am October 29, 2023 5:36pm Use 4 times a day for the next 5 days, then 4 times a day as needed. Ca-D3-Mag El-Zikt-Skb-Rogelio-Bor (Calcium 600-D3 Plus) 600 mg calcium- 800 unit-50 mg Tablet (14 sources)Start: 05-12-2017 End: 14-33-7711chmq 1 tablet by mouth once ydlqmZg-D9-Yck Nq-Yetb-Slu-Rogelio-Bor (Calcium 600-D3 Plus) 600 mg calcium- 800 unit-50 mg Tablet Discontinued 1 TAB PO Daily May 12, 2017 12:00am November 28, 2021 4:49amStart: 05-12-2017 End: 87-50-0842rhis 1 tablet by mouth once ujuspSj-A1-Eee Oj-Jmpo-Mml-Rogelio-Bor (Calcium 600-D3 Plus) 600 mg calcium- 800 unit-50 mg Tablet Discontinued 1 TAB PO Daily May 11, 2017 11:00pm November 28, 2021 3:49ammelatonin 3 mg disintegrating oral tablet (2 sources)Start: 03-29-2024 End: 13-85-4705Erpwjrxzh 3 MG tablet dispersible Indications: Primary insomnia Take 3 mg by mouth as needed at bedtime (insomnia) 30 tablet 2 03/29/2024 04/28/2024 ExpiredmethylPREDNISolone 32 mg oral tablet (14 sources)CorticosteroidStart: 11-28-2021 End: 04-42-6000faae 1 tablet by mouth once dailyMethylprednisolone (Medrol) 32 mg tablet Discontinued 32 MG PO Daily November 28, 2021 12:00am 2023 5:36pmMultivitamin preparation (10 sources)Start: 05-12-2017 End: 61-72-7329byzp 1 tablet by mouth once dailyMultivitamin Discontinued 1 TAB PO Daily May 12, 2017 12:00am November 28, 2021 4:50amStart: 05-12-2017 End: 02-24-9085ezdp 1 tablet by mouth once dailyMultivitamin Discontinued 1 TAB PO Daily May 11, 2017 11:00pm November 28, 2021 3:50amMultivitamin Tablet (4 sources)Start: 05-12-2017 End: 54-80-9378ucew 1 tablet by mouth once dailyMultivitamin Tablet Discontinued 1 TAB PO Daily May 12, 2017 12:00am November 28, 2021 4:50amStart: 05-12-2017 End: 57-32-0553ujjk 1 tablet by mouth once dailyMultivitamin Tablet Discontinued 1 TAB PO Daily May 11, 2017 11:00pm November 28, 2021 3:50amnitroglycerin 0.4 mg sublingual tablet (14 sources)Nitrate VasodilatorStart: 08-15-2017 End: 97-76-4894Wjehfxxsepbgc 0.4 mg tablet, sublingual Discontinued 0.4 MG SUBLINGUAL Q5M as needed for chest painAugust 15, 2017 1:00am November 28, 2021 4:50am until response; do not exceed 3 doses per eventoxybutynin chloride 5 mg oral tablet (3 sources)Cholinergic Muscarinic AntagonistStart: 03-10-2024 End: 47-45-4656nffl 1 tablet by mouth once dailyoxybutynin (Ditropan) 5 MG tablet Indications: Dysuria Take 5 mg by mouth Daily 03/10/2024 03/23/2024 Expiredsimvastatin 40 mg oral tablet (14 sources)HMG-CoA Reductase InhibitorStart: 08-14-2017 End: 37-91-6288eqkn 1 tablet by mouth once dailySimvastatin 40 mg tablet Discontinued 40 MG PO Daily August 14, 2017 1:00am August 1:00am September 13, 2017 1:08am Problems Active Problems Problem ClassificationProblemDateDocumented DateEpisodic/ChronicAcute bronchitis (14 sources)Acute bronchitis; Translations: [Acute bronchitis, unspecified] 50-32-2816PfkhysjpYilvf myocardial infarction (20 sources)Myocardial infarction; Translations: [Non-ST elevation (NSTEMI) myocardial infarction]Onset: 400621-44-1305NdiypurVjhgylp disorders (20 sources)Anxiety; Translations: [Anxiety disorder, unspecified]Onset: 982980-35-8181SnyjrmqJwnujv of breast (20 sources)Malignant tumor of breast ; Translations: [Malignant neoplasm of unspecified site of unspecified female breast]Onset: 631035-10-3519Iqaogzg Cardiac and circulatory congenital anomalies (14 sources)Bicuspid aortic valve; Translations: [Congenital insufficiency of aortic valve]34-21-0824XkyquxiJbiqhop dysrhythmias (2 sources)Ventricular premature depolarization; Translations: [Ventricular tachycardia]Onset: 59-16-9551YsrftbbMqwgicv kidney disease (20 sources)Chronic kidney disease; Translations: [Chronic kidney disease, unspecified]Onset: 768323-37-1083GnrmtlnQesidio kidney disease (1 source)Chronic kidney disease; Translations: [Chronic kidney disease, stage 3b]Onset: 68-95-1025Ynnlpvpfhn heart failure; nonhypertensive (20 sources)Heart failure; Translations: [Heart failure, unspecified]Onset: 149884-38-1427KjrmjenTywvrsxf atherosclerosis and other heart disease (20 sources)Acute coronary syndrome; Translations: [Acute ischemic heart disease, unspecified]Onset: 312184-26-5590MntrqzfWaqixent mellitus with complications (20 sources)Disorder of kidney due to diabetes mellitus; Translations: [Type 2 diabetes mellitus with diabetic nephropathy]Onset: hronic Diabetes mellitus without complication (20 sources)Type 2 diabetes mellitus; Translations: [Type 2 diabetes mellitus without complication]Onset: 608049-92-8298KtaugopMkbtcbxob of lipid metabolism (20 sources)Hyperlipidemia; Translations: [Hyperlipidemia, unspecified]Onset: 602981-49-8540WgxhghiYqydtnpuyfezhn and diverticulitis (3 sources)Diverticulosis of sigmoid colon; Translations: [Diverticulosis of large intestine without perforation or abscess without bleeding]Chronic Esophageal disorders (20 sources)Gastroesophageal reflux disease; Translations: [Gastro-esophageal reflux disease without esophagitis]Onset: 142848-30-4050FyoqfatNozidjpat hypertension (20 sources)Benign essential hypertension; Translations: [Benign essential hypertension]Onset: 283888-67-6406PqwfwyyErnxwybkeglfs symptoms and ill- defined conditions (20 sources)Urge incontinence; Translations: [Urge incontinence of urine]Onset: 60-49-1982FurokptInfovfeznssfe symptoms and ill-defined conditions (20 sources)Dysuria; Translations: [Dysuria]Onset: 54-35-1583Hniwwpyz Hypertension with complications and secondary hypertension (1 source)Hypertensive heart disease with heart failure; Translations: [HTN HEART DISEASE W/HEART FAIL]Onset: 56-30-1128QadtflmKpxyclsifw disorders (14 sources)Menopausal syndrome; Translations: [Menopausal and female climacteric states]46-34-0485SznlumuHqfbfrhrrzcgn mental health disorders (6 sources)Primary insomnia; Translations: [Primary insomnia]48-96-5397Tqlksgx Mycoses (1 source)Pain in toe; Translations: [Tinea unguium]54-47-3890QirwwzxbZkaip and unspecified benign neoplasm (3 sources)Benign neoplasm of cecum; Translations: [Benign neoplasm of cecum] EpisodicOther connective tissue disease (5 sources)Other symptoms and signs involving the musculoskeletal system; Translations: [OTH SX AND SYMP INVOLV MUSCULOSKELTAL]Onset: 91-72-4809Vwfqsqfc Other diseases of veins and lymphatics (1 source)Vascular insufficiency; Translations: [Venous insufficiency (chronic) (peripheral)]68-20-9122MiadyvvwCuqyo ear and sense organ disorders (20 sources)Hearing loss; Translations: [Unspecified hearing loss, unspecified ear]Onset: 305823-39-1527SfqxfuwLcyvj ear and sense organ disorders (2 sources)Hearing loss in left ear; Translations: [Unspecified hearing loss, left ear]33-16-2022FjrzqywXfhiz ear and sense organ disorders (2 sources)Impacted cerumen of bilateral ears; Translations: [Impacted cerumen, bilateral]66-71-0868KuyhnstjMqyja gastrointestinal disorders (20 sources)Irritable bowel syndrome; Translations: [Irritable bowel syndrome without diarrhea]Onset: 354698-29-4627YlhoyghNvlmk hematologic conditions (17 sources)Raised cardiac enzyme or marker; Translations: [Other abnormal blood chemistry]16-02-5747JxppftkxSjsxf nervous system disorders (20 sources)Chronic pain; Translations: [Other chronic pain]Onset: 01-13-2023 43-32-5851JmqluimXbuci nutritional; endocrine; and metabolic disorders (6 sources)Body mass index 40+ - severely obese; Translations: [Morbid obesity] Onset: 14-24-2386FrzgkznNhxri nutritional; endocrine; and metabolic disorders (2 sources)Obesity caused by energy imbalance; Translations: [Morbid (severe) obesity due to excess calories]84-36-6409GgislpjHlrsw nutritional; endocrine; and metabolic disorders (3 sources)Body mass index 30+ - obesity; Translations: [Body mass index (BMI) 38.0-38.9, adult]67-65-1384KsqshzdMolsu nutritional; endocrine; and metabolic disorders (1 source)Body mass index (BMI) 38.0-38.9, adult; Translations: [Body Mass Index 38.0-38.9, adult]82-71-3686JcwhvhdKpbme screening for suspected conditions (not mental disorders or infectious disease) (18 sources)Patient encounter status; Translations: [Encounter for screening for osteoporosis]Onset: 427315-35-2050AeloxjclPkoag skin disorders (2 sources)Alopecia; Translations: [Nonscarring hair loss, unspecified] 16-99-2269BtywoysbGsnw-; endo-; and myocarditis; cardiomyopathy (except that caused by tuberculosis or sexually transmitted disease) (20 sources)Hypertrophic cardiomyopathy; Translations: [Other hypertrophic cardiomyopathy]Onset: 132209-78-5166IiubefgLurnvpaz codes; unclassified (20 sources)Obstructive sleep apnea syndrome; Translations: [Obstructive sleep apnea (adult) (pediatric)]Onset: 152980-73-4731AgawkwtJtjzgvkc codes; unclassified (3 sources)Sleep apnea; Translations: [Sleep apnea, unspecified]10-20-2024 ChronicResidual codes; unclassified (2 sources)Sleep apnea, unspecified; Translations: [Unspecified sleep apnea] Onset: 336985-12-1029YuaacnmDdomwygm codes; unclassified (3 sources)Family history of polyp of colon; Translations: [Family history of colonic polyps]EpisodicSpondylosis; intervertebral disc disorders; other back problems (2 sources)Lumbar spondylosis; Translations: [Spondylosis without myelopathy or radiculopathy, lumbar region]51-21-3127KyltupmIswwylunrhp; intervertebral disc disorders; other back problems (2 sources)Chronic low back pain; Translations: [Chronic bilateral low back pain without sciatica]57-24-8162ZtlkfdnwWojqizycbopy (2 sources)COUGH, UNSPECIFIED; Translations: [COUGH, UNSPECIFIED]Onset: 40-90-5085Ghyoerwcfzud (1 source)CONTACT W/AND (SUSP) EXPOS COVID-19; Translations: [CONTACT W/AND (SUSP) EXPOS COVID-19]Onset: 12-01-2021 Past or Other Problems Problem ClassificationProblemDateDocumented DateEpisodic/ChronicCalculus of urinary tract (20 sources)History of calculus of kidney; Translations: [Personal history of urinary calculi]Onset: 29-71-5664IxtmvgjtPwylye of breast (20 sources)History of malignant neoplasm of breast; Translations: [Personal history of malignant neoplasm of breast]Onset: 794592-97-9475Cjyslrkj Chronic obstructive pulmonary disease and bronchiectasis (1 source)Bronchitis, not specified as acute or chronic; Translations: [BRONCHITIS NOT SPEC ACUTE/CHRON]Onset: 43-08-1698PjpirresHesp disorders (20 sources)Mood disordersOnset: 09-13-2023 Resolved: 052408-97-8159Tjshxdzxmtyf breast conditions (20 sources)Breast lump; Translations: [Unspecified lump in unspecified breast] Onset: 552901-51-3786AdoodxaaFwlez aftercare (1 source)Other terminal gauger supervisor (current) drug therapy; Translations: [OTH ASSOCIATE VICE PRESIDENT CURRENT DRUG THERAPY]Onset: 66-39-0724YctgptdcEflnw and unspecified benign neoplasm (20 sources)History of polyp of colon; Translations: [History of colon polyps] Onset: 615508-08-3947KwyzomfpFqggo connective tissue disease (20 sources)Neurogenic claudication; Translations: [Other symptoms and signs involving the nervous system]Onset: 835610-47-0441JgevwhpxEvdar hematologic conditions (1 source)Other specified abnormalities of plasma proteins; Translations: [OTH SPEC ABNORM PLASMA PROTEINS]Onset: 92-74-4468RsglnondBtfmi nervous system disorders (20 sources)Notalgia paresthetica; Translations: [Paresthesia of skin]Onset: 646435-28-8849QotoiqpmAisfu skin disorders (20 sources)Actinic keratosis; Translations: [Actinic keratosis]Onset: 027122-22-7307EjxmshmtBhytcjuc codes; unclassified (1 source)Personal history of other specified conditions; Translations: [PERSONAL HISTORY OTH SPEC CONDITION]Onset: 24-06-2408ZwarthnhYohifdmd codes; unclassified (20 sources)Estrogen receptor positive tumor; Translations: [Estrogen receptor positive status [ER+]]Onset: 270753-02-5634XdtnyogdLufxpop disorders (1 source)Disorder of thyroid, unspecified; Translations: [DISORDER OF THYROID UNSPECIFIED]Onset: 98-01-2696VtjwsszaUzovhxpsuaxa (3 sources)Never smoked tobacco; Translations: [Never a smoker]Unclassified (1 source)COUGH, UNSPECIFIED; Translations: [COUGH, UNSPECIFIED]Onset: 19-28-1582Sicfvgw tract infections (20 sources)Urinary tract infection, site not specified; Translations: [Urinary tract infectious disease]Onset: 67-57-7746Rojhfqng Results Test NameValueInterpretationReference RangeFacilityAmbulatory Visit Summaryon 64-70-4119Qihzytoucs Visit SummaryAmbulatory Visit Summary LARISA LO :1950 Visit Date:05/16/2025 Ambulatory Visit Instructions Your Diagnosis Frequent UTI Urge incontinence History of kidney stones Your Care Team Attending Physician - Shanell Malin PA-C Primary Care Physician - RAFI TORRES DO This Is Your Medications List mirabegron (Myrbetriq 25 mg oral tablet, extended release) Contact prescribing physician if questions or concerns alprazolam (alprazolam 0.5 mg Tab) amitriptyline-perphenazine bumetanide (bumetanide 1 mg Tab) estradiol topical (estradiol 0.1 mg/g Vag Crm) gabapentin (gabapentin 300 mg Cap) hydrochlorothiazide-losartan (hydrochlorothiazide-losartan 12.5 mg-50 mg Tab) letrozole (letrozole 2.5 mg Tab) potassium chloride (Potassium Chloride (Eqv-K-Tab) 20 mEq oral tablet, extended release) semaglutide (Ozempic 2 mg/3 mL (0.25 mg or 0.5 mg dose) subcutaneous solution) Procedures Performed Colonoscopy, Lumpectomy of breast. Discharge Vitals Temperature (Tympanic) 37 ???C Heart Rate (Peripheral) 70 Respiratory Rate 16 Blood Pressure 124/66 Height 136 cm Height 54 in Weight 71 kg Weight 156.528 lb BMI 38.39 What to do next Scheduled Follow-Up Appointments Wednesday2025 3:10 PM EDT With: Shanell Malin PA-C Where: [facility] [address] [place] [address]- You Need to Schedule the Following Appointments Follow Up with Shanell Malin PA-C, URL When: Comments: 1 yr w/ PVR Where: Medications What How Much When Why Instructions Unchanged mirabegron (Myrbetriq 25 mg oral tablet, extended release) 1 Tablets By Mouth Every day Urge incontinence Unchanged alprazolam (alprazolam 0.5 mg Tab) 1 Tablets By Mouth 3 times a day as needed for for anxiety Contact prescribing physician if questions or concerns Unchanged amitriptyline-perphenazine Contact prescribing physician if questions or concerns Unchanged bumetanide (bumetanide 1 mg Tab) By Mouth Every day Contact prescribing physician if questions or concerns Unchanged estradiol topical (estradiol 0.1 mg/ g Vag Crm) See instructions Frequent UTI History of kidney stones 1 gm vaginally nightly x 3 weeks, then 3x per week thereafter. also apply a pea-sized amount around the urethra. Contact prescribing physician if questions or concerns Unchanged gabapentin (gabapentin 300 mg Cap) Contact prescribing physician if questions or concerns Unchanged hydrochlorothiazide-losartan (hydrochlorothiazide-losartan 12.5 mg-50 mg Tab) Contact prescribing physician [...] Contact prescribing physician if questions or concerns Allergies No Known Medication Allergies Problems Ongoing [...] us for your care. Education Materials Urinary Tract Infection, Adult A urinary tract infection (UTI) is an infection of any part of the urinary tract. The urinary tractincludes the kidneys, ureters, bladder, and urethra. These organs make, store, and get rid of urinein the body. An upper UTI affects the ureters and kidneys. A lower UTI affects the bladder and urethra. What are the causes? Most urinary tract infections are caused by bacteria in your genital area around your urethra, where urine leaves your body. These bacteria grow and cause inflammation of your urinary tract. What increases the risk? You are more likely to develop this condition if: ??? You have a urinary catheter that stays in place. ??? You are not able to control when you urinate or have a bowel movement (incontinence). ??? You are female and you: ? Use a spermicide or diaphragm for control. ? Have low estrogen levels. ? Are . ??? You have certain genes that increase your risk. ??? You are sexually active. ??? You take antibiotic medicines. ??? You have a condition that causes your flow of urine to slow down, such as: ? An enlarged prostate, if you are male. ? Blockage (more content not included)...[facility] Center[facility]/Clinic Noteon 32-70-0381Uimtruf Office/Clinic NoteUrology Office/Clinic Note Chief Complaint Pt here for 6 month follow up HPI Staff 75 yr old female here for 6 mth f/u Previous dx: Urge incontinence, Hx of kidney stones, Recurrent UTIs, *estrogen cream 2-3 times weekly. *Myrbetriq 25mg qd Pt is unable to give urine sample today Pt denies pain/burning denies visible blood denies flank pain Pt reports no urinary issues today History of Present Illness Tests reviewed: ucx I have reviewed the previous health record information and history for this patient from Tatiana Maciel PA-C. I have reviewed and verified the staff HPI to be accurate for this encounter. Review of Systems PHQ Score Initial [...] See HPI. Physical Exam Vitals & Measurements T: 37 ???C(Tympanic) HR: 70(Peripheral) RR: 16 BP: 124/66 HT: 54 in HT: 136 cm WT: 156.528 lb WT: 71 kg BMI: 38.39 General Appearance: alert , no acute distress, well nourished, well developed female. Assessment/Plan JASON pt here with an adult male today for 6 mo f/u visit 1. Frequent UTI (N39.0: Urinary tract infection, site not specified) UCx 11/13/24 - >100k Enterobacter cloacae, tx'd w/ Bactrim x7d. [+nitrites only on dipstick] 02/12/25 - E. coli. Pansensitive. Tx'd w/ Macrobid per PCP. Only notes one infection since last encounter, saw PCP. No UA today, not enough sample given to be analyzed. Reports malodorous urine, otherwise asx. Admits to dehydration. Drinking mostly tea and little water. Discussed bladder irritants. Advised pt concentrated urine can be odorous, recommend sheincrease water intake significantly. Shares she is no longer using estrogen cream 2-3x/wk. States she stopped this 6 mos ago. We also discussed implications of estrogen cream and recommended pt to restart this for UTI prevention. She is agreeable. All questions answered. -Restart estrogen cream, still has some at home. Call for refills. -Contact our office w all future UTI sx so we can monitor urine cx results, treat appropriately, and monitor frequency of infections. -If develops fever, severe flank pain, vomiting - needs to go to ER. 2. Urge incontinence (N39.41: Urge incontinence) Taking Myrbetriq 25mg qd. Denies bothersome SE to med. She is overall feels sxs are well-controlledon med and wishes to cont wo changes at this time. Will consider increase in Myrbetiq dose in the event sxs become more bothersome. -Cont Myrbetriq ER 25 mg qd. Refills sent to [facility] -Call if sxs worsen, will consider inc dose -F/u in 1 yr w/ PVR 3. History of kidney stones (Z87.442: Personal history of urinary calculi) Renal US 08/10/2022 and KUB 11/05/2023 negative No signs/sxs of stones. Denies gross hematuria. Offered to update imaging at today's visit, but pt declines at this time. Prefers to monitor her sxs. -Cont sx monitoring Follow-up With When Contact Information Dea FRANKLIN, Shanell, URL Additional Instructions: 1 yr w/ PVR Patient Education Urinary Tract Infection, Adult I, Sunita Pisano, personally scribed for Shanell Malin PA-C on 05/16/2025 14:44:48. . Documentation recorded by the chrissy Pisano accurately reflects the services(s) I performed anddecisions made by me. Authenticated by Shanell Malin PA-C on 05/16/2025 15:01:28. Problem List/Past Medical History Ongoing Anxiety Benign essential hypertension Coronary atherosclerosis Frequent UTI Gastroesophageal reflux disease Heart failure History of kidney stones Hyperlipidemia Myocardial infarction Type 2 diabetes mellitus Urge incontinence Historical No qualifying data Procedure/Surgical History Colonoscopy, Lumpectomy of breast. Medications alprazolam 0.5 mg Tab, 0.5 mg= 1 tab(s), Oral, TID, PRN amitriptyline-perphenazine bumetanide 1 mg Tab, Oral, Daily estradiol 0.1 mg/g Vag Crm, See Instructions, 11 refills gabapentin 300 mg Cap hydrochlorothiazide-losartan 12.5 mg-50 mg Tab letrozole 2.5 mg Tab, Oral, Daily Myrbetriq 25 mg oral tablet, extended release, 25 mg= 1 tab(s), Oral, Daily, 11 refills Ozempic 2 mg/3 mL (0.25 mg or 0.5 mg dose) subcutaneous solution Potassium Chloride (Eqv-K-Tab) 20 mEq oral tablet, extended release Allergies No Known Medication Allergies Social History Alcohol - Denies Alcohol Use, 11/13/2024 Substance Abuse - Denies Substance Abuse, 11/13/2024 Tobacco - Denies Tobacco Use, 11/13/2024 Never (less than 100 in lifetime) Tobac (more content not included)...Normal [facility] HospitalComment on above:Result Comment: Electronically Signed By: Shanell Malin PA-C\\.br\\Date and Time Signed: 05/16/25 15:01 EDT\\.br\\Electronically Co-Signed By: Sunita Pisano\\.br\\Date and Time Co-Signed: 05/16/25 14:45 EDTLaboratory - Hematology and Cell countson 89-90-4487VdU4b (Bld) [Mass fraction]6.8 %NOMS HealthcareNo Panel Informationon 03-21-2025 Interpretation and review of laboratory resultsAbnormalNOLiberty HospitalNOMA HealthcareUrinalysis macro (dipstick) panel (U)on 57-13-5160Jxztbmmvj, UA NegativeNegative - 4(70) +++ mg/dLNOMS HealthcareBlood, UAPositiveNegative - 50 Daniel/mcLNOMS HealthcareComment on above:traceClarity, UACloudyNOMS Healthcare Color, UAYellowNOMS HealthcareGlucose, UANegativeNegative - 2000(110) ++++ mg/dL NOMS HealthcareInterpretation and review of laboratory resultsAbnormalNOMA HealthcareKetones, UANegativeNegative - 160(16) ++++ mg/dLNOMA Healthcare Leukocytes, UAPositiveNegative - 500+++ Samantha/mcLNOMS HealthcareComment on above: moderateNitrite, UANegativeNegative - PositiveNOMS HealthcarepH, UA5.55 - 9NOMS HealthcareProtein, UANegativeNegative - 2000(20) ++++ mg/dLNOMS HealthcareSpec Grav, UA1.0051 - 1.03NOMS HealthcareUrobilinogen, UA0.20.2 - 12 mg/dLNOMS HealthcareNOMS HealthcareMM screening mammo BI w/CADon 97-04-8614GJ screening mamm[facility] [address] [place] [address] Mammography Report Signed Patient: Larisa Lo MR#: [id number] : 1950 Acct:[id number] Age/Sex: 74 / F Adm Date: 01/15/25 Loc: [place] Room: Type: [facility] Attending Dr: Viktoriya Chow DO Ordering Provider: Viktoriya Chow DO Date of Service: 01/15/25 Procedure(s): MM screening mammo BI w/CAD Accession Number(s): ([id number]) MM/MM screening mammo BI w/CAD: Yrly mamms Copies to: DO Rafi Mae DO CLINICAL DATA: Screening for malignancy. SCREENING MAMMOGRAM - FULL FIELD DIGITAL WITH TOMOSYNTHESIS AND CAD COMPARISON:Priors dating back to 2020 Tomosynthesis craniocaudal and mediolateral oblique views of both breasts were obtained using low- dose digital technique. This examination was reviewed with the aid of CAD. The breast tissue is composed of scattered fibroglandular densities. There are no dominant masses, typically malignant calcifications or architectural distortion. There has been no significant interval change. MM/MM screening mammo BI w/CAD IMPRESSION: NO MAMMOGRAPHIC EVIDENCE OF MALIGNANCY. ROUTINE FOLLOW-UP IS RECOMMENDED IN ONE YEAR. RESULT CODE: 1 Negative DENSITY CODE: 2 (approximately 25-50% glandular) There are scattered areas of fibroglandular density. FOLLOW UP: 1YR The false-negative rate of mammography is approximately 10-percent. Management of a palpable abnormality must be based on clinical grounds. Patient was entered into a reminder system with a target due date for the next mammogram. Impression dictated by: Khurram Benton M.D. 01/15/2025 1:32 PM Dictation Location: [facility] Dictated By: Khurram Benton MD 01/15/25 1330 Signed By: 01/15/25 1332NormalThe Firelands Physician GroupMammography reportOrdered By: Khurram Benton on 96-30-2075Zuxtkqvehq imaging [facility] [address] [place] [address] [place] [address] Mammography Report Signed Patient: Larisa Lo MR#: [id number] : 1950 Acct:[id number] Age/Sex: 74 / F Adm Date: 5 Loc: [place] [facility]: [facility]: Viktoriya Chow DO Ordering Provider: Viktoriya Chow DO Date of Service: 01/15/25 Procedure(s): MM screening mammo BI w/CAD Accession Number(s): ([id number]) MM/MM screening mammo BI w/CAD: Yrly mamms Copies to: DO Rafi Mae DO~ CLINICAL DATA: Screening for malignancy. SCREENING MAMMOGRAM - FULL FIELD DIGITAL WITH TOMOSYNTHESIS AND CAD COMPARISON:Priors dating back to 2020 Tomosynthesis craniocaudal and mediolateral oblique views of both breasts were obtained using low-dose digital technique. This examination was reviewed with the aid of CAD. The breast tissue is composed of scattered fibroglandular densities. There are no dominant masses, typically malignant calcifications or architectural distortion. There has been no significant interval change. MM/MM screening mammo BI w/CAD IMPRESSION: NO MAMMOGRAPHIC EVIDENCE OF MALIGNANCY. ROUTINE FOLLOW-UP IS RECOMMENDED IN ONE YEAR. RESULT CODE: 1 Negative DENSITY CODE: 2 (approximately 25-50% glandular) There are scattered areas of fibroglandular density. FOLLOW UP: 1YR The false-negative rate of mammography is approximately 10-percent. Management of a palpable abnormality must be based on clinical grounds. Patient was entered into a reminder system with a target due date for the next mammogram. Impression dictated by: Khurram Benton M.D. 01/15/2025 1:32 PM Dictation Location: [facility] Dictated By: Khurram Benton MD 01/15/25 133 Signed By: 01/15/[address] [place] [address] Work Phone: c Urineon [id number] identified Cx Nom (U) Microbiology PROCEDURE: Urine Culture [R1] SOURCE: U Random BODY SITE: COLLECTED DATE/TIME: 11/13/2024 16:55 EDT RECEIVED DATE/TIME: 11/14/2024 17:33 EDT START DATE/TIME: 11/14/2024 17:33 EDT FREE TEXT SOURCE: KWAKU FRANKLIN, TATIANA MACIEL PA-C, TATIANA Burt FINAL REPORTS Final Report [] Verified Date/Time: 11/16/2024 10:37 EDT >100,000 cfu/ml Enterobacter cloacae SUSCEPTIBILITY RESULTS LEGEND: S=Susceptible, N/R=Not Reported, Blank=Data not available, or drug not advisable or tested, I=Intermediate, ESBL=Extended spectrum beta-lactamase, R=Resistant, TFG=Thymidine-dependent strain, CECILIA=Beta-lactamase positive, TIMUR=mcg/m;(mg/L), S*=Predicted susceptible interp, R*=Predicted resistant interp Entclo Antibiotic TIMUR Dilutn TIMUR Interp Ampicillin >16 R Ampicillin/ <=8/4 R* Sulbactam Aztreonam <=4 S Cefazolin >16 R Cefepime <=2 S Ceftazidime <=1 S Ceftazidime/ <=8 S Avibactam Ceftriaxone <=1 S Cefuroxime >16 R Ciprofloxacin <=0.25 S Ertapenem <=0.5 S Gentamicin <=2 S Levofloxacin <=0.5 S Meropenem <=1 S Nitrofurantoin >64 R Piperacillin/ <=8 S Tazobactam Tetracycline 8 I Tobramycin <=2 S Trimethoprim/ <=2/38 S Sulfa Performing Locations R1: This test was performed at: [facility], [address] [place] [address], [id number] , , FjokfyPdgoafDayton VA Medical CenterComment on above:Performed By: #### [id number] #### [facility] [address] [place] [id number] Visit Summaryon 73-64-3834Axowqqufkx Visit Summary Ambulatory Visit Summary LARISA LO :1950 Visit Date:11/13/2024 Ambulatory Visit Instructions Your Diagnosis Urge incontinence History of kidney stones Frequent UTI Your Care Team Attending Physician - TATIAAN MACIEL PA-C Primary Care Physician - RAFI TORRES DO This Is Your Medications List alprazolam (alprazolam 0.5 mg Tab) amitriptyline-perphenazine bumetanide (bumetanide 1 mg Tab) estradiol topical (estradiol 0.1 mg/g Vag Crm) gabapentin (gabapentin 300 mg Cap) hydrochlorothiazide-losartan (hydrochlorothiazide-losartan 12.5 mg-50 mg Tab) letrozole (letrozole 2.5 mg Tab) mirabegron (Myrbetriq 25 mg oral tablet, extended release) potassium chloride (Potassium Chloride (Eqv-K-Tab) 20 mEq oral tablet, extended release) semaglutide (Ozempic 2 mg/3 mL (0.25 mg or 0.5 mg dose) subcutaneous solution) Procedures Performed Colonoscopy, Lumpectomy of breast. Discharge Vitals Temperature (Temporal Artery) 36.4 ???C Heart Rate (Peripheral) 78 Blood Pressure 119/70 Height 136 cm Height 54 in Weight 71.9 kg Weight 158.512 lb BMI 38.87 Medications What How Much When Why Instructions Unchanged alprazolam (alprazolam 0.5 mg Tab) 1 Tablets By Mouth 3 times a day as needed for for anxiety Unchanged amitriptyline-perphenazine Unchanged bumetanide (bumetanide 1 mg Tab) By Mouth Every day Unchanged estradiol topical (estradiol 0.1 mg/ g Vag Crm) See instructions Frequent UTI History of kidney stones 1 gm vaginally nightly x 3 weeks, then 3x per week thereafter. also apply a pea-sized amount around the urethra. Unchanged gabapentin (gabapentin 300 mg Cap) Unchanged hydrochlorothiazide-losartan (hydrochlorothiazide-losartan 12.5 mg-50 mg Tab) Unchanged letrozole (letrozole 2.5 mg Tab) By Mouth Every day Unchanged mirabegron (Myrbetriq 25 mg oral tablet, extended release) 1 Tablets By Mouth Every day Urge incontinence Unchanged potassium chloride (Potassium Chloride (Eqv-K-Tab) 20 mEq oral tablet, extended release) Unchanged semaglutide (Ozempic 2 mg/ 3 mL (0.25 mg or 0.5 mg dose) subcutaneous solution) INJECT 0.5 mg SUBCUTANEOUSLY ONCE A WEEK Allergies No Known Medication Allergies Problems Ongoing [...] you for choosing us for your care. [facility] CenterUrology Office/Clinic Noteon 04-10-9066Eqwnpye Office/Clinic NoteUrology Office/Clinic Note Chief Complaint Patient is here for follow up HPI Staff Patient is here for 7 month follow up to Urge incontinence, hx kidney stones, frequent UTI's. Myrbetriq 25mg po qd. patient would like discuss recent problems of having bad dreams at night, and her hair falling out to see if it is from her medication. Patient denies urgency, frequency, and leaks with sneezing. Denies blood. Review of Systems PHQ Score Initial Depression Screen Score: 0 SCORE no fever, chills, malaise, myalgia. no abdominal pain, nausea, vomiting. Physical Exam Vitals & Measurements T: 36.4 ???C(Temporal Artery) HR: 78(Peripheral) BP: 119/70 HT: 136 cm HT: 54 in WT: 71.9 kg WT: 158.512 lb BMI: 38.87 General: nontoxic, NAD Mouth: moist mucosa Lungs: normal respiratory effort Cardio: regular rate, good distal perfusion Abdomen: nondistended Neurologic: Grossly normal Skin: No rashes or suspicious lesions Assessment/Plan 1. Urge incontinence (N39.41: Urge incontinence) Pt is taking __Myrbetriq 25mg daily and is mostly satisfied with overall symptom control. very good control reported by pt. Current side effects: none Was worried about hair loss and nightmares. Neither of these are listed side effects. Advised to have PCP check other meds. Today we discussed the following options: Increase dose yes, this was discussed Discontinue med and switch to alternative yes, this was discussed Pt has elected to: stay on same medication at same dose. Risks, benefits, side effects discussed. Ordered: Body Mass Index (BMI) documented 3008F Current tobacco non-user 1036F Depression Screening Negative 3352F E&M of Est. Patient Moderate 30-39 Min 16194 Influenza immunization status assessed 1030F Medication list documented in medical record 1159F Most recent diastolic blood pressure <80 mm Hg 3078F Patient screen for fall risk: no falls in last year or 1 fall with no injury in last year 1101F Review of all meds by a prescribing practitioner or clinical pharmacist documented in EHR 1160F Systolic BP <130 mm Hg (Most Recent) 3074F Urnls Dip Stick Auto w/o Microscopy POC 25060 2. History of kidney stones (Z87.442: Personal history of urinary calculi) Renal US 08/10/2022 and KUB 11/05/2023 negative [1] Patient denies any recent episode of stone passing or flank pain. Declines updating imaging at this time. Ordered: E&M of Est. Patient Moderate 30-39 Min 97938 3. Frequent UTI (N39.0: Urinary tract infection, site not specified) Currently on estrogen cream 2-3 times weekly. Denies any recent UTIs. IO UA shows +nitrites. Pt does report some pressure. Will send for C&S and then treat w abx. Since no systemic sx will hold off on empiric abx. Ordered: E&M of Est. Patient Moderate 30-39 Min 82029 Follow-up With When Contact Information KWAKU FRANKLIN, TIM MANN In 6 months [address] [place] [place] [address] Additional Instructions: Patient Education Overactive Bladder, Adult Problem List/Past Medical History Ongoing Anxiety Benign essential hypertension Coronary atherosclerosis Frequent UTI Gastroesophageal reflux disease Heart failure History of kidney stones Hyperlipidemia Myocardial infarction Type 2 diabetes mellitus Urge incontinence Historical No qualifying data Procedure/Surgical History Colonoscopy, Lumpectomy of breast. Medications alprazolam 0.5 mg Tab, 0.5 mg= 1 tab(s), Oral, TID, PRN amitriptyline-perphenazine bumetanide 1 mg Tab, Oral, Daily estradiol 0.1 mg/g Vag Crm, See Instructions, 11 refills gabapentin 300 mg Cap hydrochlorothiazide-losartan 12.5 mg-50 mg Tab letrozole 2.5 mg Tab, Oral, Daily Myrbetriq 25 mg oral tablet, extended release, 25 mg= 1 tab(s), Oral, Daily, 11 refills Ozempic 2 mg/3 mL (0.25 mg or 0.5 mg dose) subcutaneous solution Potassium Chloride (Eqv-K-Tab) 20 mEq oral tablet, extended release Allergies No Known Medication Allergies Social History Alcohol - Denies Alcohol Use, 11/13/2024 Substance Abuse - Denies Substance Abuse, 11/13/2024 Tobacco - Denies Tobacco Use, 11/13/2024 Never (less than 100 in lifetime) Tobacco Use:. Never Smokeless Tobacco Use:. Household tobacco concerns: No. Yes, 11/13/2024 Family History Bladder cancer: Brother. Heart disease: Father. Immunizations Vaccine Date Status Comments influenza virus vaccine, inactivated 05/31/2023 Recorded SARS-CoV-2 (COVID-19) mRNAMUL.ORD![id number] 06/19/2022 Recorded influenza virus vaccine, inactivated 05/11/2022 Recorded SARS-CoV-2 (COVID-19) mRNA BNT-162b2 vax 05/02/2021 Recorded influenza virus vaccine, inactivated 04/03/2021 Recorded SARS-CoV-2 (COVID-19) mRNA BNT-162b2 vax 09/20/2020 Recorded 2022-08-04: TPV70 SARS-CoV-2 (COVID-19) mRNA BNT-162b2 vax 08/29/2020 Recorded 2022-08-04: TPV70 influenza virus vaccine, inactivated 05/14/2020 Recorded influenza virus vaccine, inactivated 03/18/2017 Errol (more content not included)...[facility] CenterComment on above:Result Comment: Electronically Signed By: TATIANA MACIEL PA-C\\Date and Time Signed: 11/14/2515:52 EDTHemoglobin a1c with eagon 17-63-1574Jzmtbks [Mass/Vol]143 mg/dL [facility] WopnysnjdrSnA6e (Bld) [Mass fraction]6.6 %High4.3 - 5.6 %[facility] Healthcare Comment on above:Increased risk for diabetes: 5.7 - 6.4 diabetes: >6.4 glycemic control for adults with diabetes: <7.0 Interpretation and review of laboratory resultsAbnoalGeneral Leonard Wood [facility] LdomkohhinR1E with Estimated Average Gluon 11-13-2450AiP8k (Bld) [Mass fraction] 6.6 %High4.3-5.6[facility] Physician GroupComment on above:Result Comment: Increased risk for diabetes: 5.7 - 6.4 diabetes: >6.4 glycemic control for adults with diabetes: <7.0Performed By: #### CMP, LIPID, A1C WTH eA, CBC #### [address]Alanine aminotransferase [Enzymatic activity/volume] in Serum or PlasmaOrdered By: Rafi Torres on 43-23-1791HHR [Catalytic activity/Vol] Alanine aminotransferase [Enzymatic activity/volume] in Serum or Plasma [facility] HospitalAlbumin [Mass/volume] in Serum or Plasma by Bromocresol green (BCG) dye binding methoOrdered By: Rafi Torres on 09-13-2024 Albumin BCG dye [Mass/Vol]Albumin [Mass/volume] in Serum or Plasma by Bromocresol green (BCG) dye binding metho3.5-5.7FParkview HealthAlkaline phosphatase [Enzymatic activity/volume] in Serum or PlasmaOrdered By: Rafi Torres on 13-03-8758QIC [Catalytic activity/Vol]Alkaline phosphatase [Enzymatic activity/volume] in Serum or Ndbvnq07-096ValijndzhAultman Orrville HospitalAspartate aminotransferase [Enzymatic activity/volume] in Serum or Plasma Ordered By: Rafi Torres on 21-57-8994ANG [Catalytic activity/Vol]Aspartate aminotransferase [Enzymatic activity/volume] in Serum or Ldytpt43-88MnosoazzmAultman Orrville HospitalBasophils Auto (Bld) [#/Vol]Ordered By: Rafi Torres on 95-70-3607Bwqojmyoh (Bld) [#/Vol]Automated basophil count0.0-0.2FParkview HealthBasophils/100 WBC Auto (Bld)Ordered By: Rafi Torres on 38-19-2669Mtysdbghi/100 WBC (Bld)Automated basophil %.[facility] HospitalBilirubin.total [Mass/volume] in Serum or PlasmaOrdered By: Rafi Torres on 63-02-1363Fnvzkspwt [Mass/Vol]Bilirubin.total [Mass/volume] in Serum or Plasma0.3-1.0[facility] HospitalBlood estimated average glucose determination by estimation from glycated hemoglobinOrdered By: Rafi Torres on 55-85-6370Rtwpiog glucose Estimated from glycated hemoglobin (Bld) [Mass/Vol] Glucose mean value [Mass/volume] in Blood Estimated from glycated hemoglobin [facility] HospitalCB W Auto Differential panel (Bld)on 01-14-2389Knmhovtlj (Bld) [#/Vol]0.1 10*3/uL0.0 - 0.2 10*3/uLNOMS Healthcare Basophils/100 WBC Manual cnt (Syn fld)0.7 %.NOMS HealthcareEosinophils (Bld) [#/Vol]0.2 10*3/uL0.0 - 0.45 10*3/uLNOMS HealthcareEosinophils/100 WBC Manual cnt (Syn fld)3 %.[facility]OMS HealthcareErythrocyte distribution width (RBC) [Ratio]14.3 %11.9 - 15.3 %[facility] HealthcareHematocrit (Bld) [Volume fraction]40.7 %34.0 - 46.4 %[facility] HealthcareHemoglobin (Bld) [Mass/Vol]13.9 g/dL11.8 - 15.4 g/dLMOUNTAIN POINT [facility]ICAL [facility]ENTER HealthcareLymphocytes (Bld) [#/Vol]1.4 10*3/uL1.00 - 4.8 10*3/uLNOMS Healthcare Lymphocytes/100 WBC Manual cnt (Syn fld)18.1 %.[facility] HospitalH (RBC) [Entitic mass]33.2 pg24.7 - 34.3 pgSaint Luke's East HospitalHC (RBC) [Mass/Vol]34.1 g/dL32.0 - 35.0 g/dLSaint Luke's East HospitalV (RBC) [Entitic vol]97.4 fL80 - 100 fLMOUNTAIN POINT MEDICAL CENTER Healthcare Monocytes (Bld) [#/Vol]0.8 10*3/uL0.0 - 0.8 10*3/uLNOMS Healthcare Monocytes+Macrophages/100 WBC Manual cnt (Syn fld)9.6 %.[facility] Neutrophils (Bld) [#/Vol]5.4 10*3/uL1.8 - 7.7 10*3/uLNOMS Healthcare Neutrophils/100 WBC Manual cnt (Syn fld)68.6 %.[facility] HealthcareNRBC0.1 /100{WBC}0 - 0.5 /100{WBC}[facility] HealthcarePlatelet mean volume (Bld) [Entitic vol]7.8 fL6.3 - 10.7 fLMOUNTAIN POINT MEDICAL CENTER HealthcarePlatelets (Bld) [#/Vol]318 10*3/uL150 - 450 10*3/uLNOMS Barnesville HospitalRBC LM.HPF (Urine sed) [#/Area]4.18 10*6/uL3.60 - 5.00 10*6/uLNOMS HealthcareWBC (Bld) [#/Vol]7.9 10*3/uL3.8 - 11.6 10*3/uLNOMS HealthcareWBC LM.HPF (Urine sed) [#/Area]7.9 10*3/uL3.8 - 11.6 10*3/uLNOMS HealthcareNOMA HealthcareCalcium [Mass/volume] in Serum or PlasmaOrdered By: Rafi Torres on 58-90-5237Gvrvlop [Mass/Vol]Calcium [Mass/volume] in Serum or PlasmaHigh8.6-10.3 [facility] HospitalCarbon dioxide, total [Moles/volume] in Serum or PlasmaOrdered By: Rafi Torres on 23-09-0099VZ7 [Moles/Vol]Carbon dioxide, total [Moles/volume] in Serum or UebeogZiyc87.0-31.0[facility] HospitalChloride [Moles/volume] in Serum or PlasmaOrdered By: Rafi Torres on 61-73-0294Sbiwdrgf [Moles/Vol]Chloride [Moles/volume] in Serum or PlasmaLow 98-107[facility] HospitalCholesterol [Mass/volume] in Serum or PlasmaOrdered By: Rafi Torres on 74-42-6917Kriftlkegor [Mass/Vol]Cholesterol [Mass/volume] in Serum or IdnxhdXbwp389-716JhnbfyvzwAultman Orrville Hospital Comment on above:Chol less than 200 mg/dl low riskChol 201-239 mg/dl borderline riskChol 240 mg/dl and greater high riskCholesterol in HDL [Mass/volume] in Serum or PlasmaOrdered By: Rafi Torres on 74-75-3159Fuimkkeoqif in HDL [Mass/Vol]Serum or plasma high density lipoprotein (HDL) cholesterol measurement 23-92[facility] HospitalComment on above:HDL CHOL ATP-III CLASSIFICATION Cardiovascular RiskHDL > or equal to 60 mg/dL LOWHDL < 40 mg/dL HIGHCholesterol in LDL Calc [Mass/Vol]Ordered By: Rafi Torres on 09-13-2024 Cholesterol in LDL [Mass/Vol]Cholesterol in LDL [Mass/volume] in Serum or Plasma by calculation0[facility] HospitalComment on above:LDL ATP III CLASSIFICATIONLDL less than 100 mg/dL OptimalLDL 100-129 mg/dL Near or above nsumllnNBS704-358 mg/dL Borderline highLDL 160-189 mg/dL HighLDL greater than 189 mg/dL Very highCholesterol in VLDL Calc [Mass/Vol]Ordered By: Rafi Torres on 28-81-5468Qijzraxnsbp in VLDL [Mass/Vol]Cholesterol in VLDL [Mass/volume] in Serum or Plasma by calculationAultman Orrville HospitalComplete Blood Count Auto Diffon 59-23-9091Mwhnjqcrh (Bld) [#/Vol]0.1 10*3/uLNormal0.0-0.2[facility] Physician GroupComment on above:Result Comment: PERFORMED BY: [place] [address] PATHOLOGIST [employer] REPRESENTATIVE BENNETT JJ M.D.Performed By: #### CMP, LIPID, A1C WTH eA, CBC #### [place] [address] USABasophils/100 WBC (Bld)0.7 %Normal.The [facility] Physician GroupComment on above:Performed By: #### CMP, LIPID, A1C WTH eA, CBC #### [place] [address] USAEosinophils (Bld) [#/Vol]0.2 10*3/uLNormal0.0-0.45The [facility] Physician GroupComment on above:Performed By: #### CMP, LIPID, A1C WTH eA, CBC #### [place] [address] USAEosinophils/100 WBC (Bld)3.0 %Normal.The [facility] Physician GroupComment on above:Performed By: #### CMP, LIPID, A1C WTH eA, CBC #### [place] [address] USAErythrocyte distribution width (RBC) [Ratio]14.3 %Normal 11.9-15.3The [facility] Physician GroupComment on above:Performed By: #### CMP, LIPID, A1C WTH eA, CBC #### [place] [address] USAHematocrit (Bld) [Volume fraction]40.7 %Xtjbjs90.0-46.4The [facility] Physician GroupComment on above:Performed By: #### CMP, LIPID, A1C WTH eA, CBC #### [place] [address] USAHemoglobin (Bld) [Mass/Vol]13.9 g/xAOvxsxp56.8-15.4The [facility] Physician GroupComment on above:Performed By: #### CMP, LIPID, A1C WTH eA, CBC #### [place] [address] USALymphocytes (Bld) [#/Vol]1.4 10*3/uLNormal1.00-4.8The [facility] Physician GroupComment on above:Performed By: #### CMP, LIPID, A1C WTH eA, CBC #### [place] [address] USALymphocytes/100 WBC (Bld)18.1 %Normal.The [facility] Physician GroupComment on above:Performed By: #### CMP, LIPID, A1C WTH eA, CBC #### [address] (RBC) [Entitic mass]33.2 shKymjlc87.7-34.3The [facility] Physician GroupComment on above:Performed By: #### CMP, LIPID, A1C WTH eA, CBC #### [address]V (RBC) [Entitic vol]97.4 pRHpxzcv35-281Gfz [facility] Physician GroupComment on above:Performed By: #### CMP, LIPID, A1C WTH eA, CBC #### [place] [address] USAMean Corpuscular HGB Conc34.1 g/gKDguser80.0-35.0The [facility] Physician GroupComment on above:Performed By: #### CMP, LIPID, A1C WTH eA, CBC #### [place] [address] USAMonocytes (Bld) [#/Vol]0.8 10*3/uLNormal0.0-0.8The [facility] Physician GroupComment on above:Performed By: #### CMP, LIPID, A1C WTH eA, CBC #### [place] [address] USAMonocytes/100 WBC (Bld)9.6 %Normal.[facility] Physician GroupComment on above:Performed By: #### CMP, LIPID, A1C WTH eA, CBC #### [address] [place] [address] USANeutrophils (Bld) [#/Vol]5.4 10*3/uLNormal1.8-7.7The [facility] Physician GroupComment on above:Performed By: #### CMP, LIPID, A1C WTH eA, CBC #### [facility] [address] [place] [address] USANeutrophils/100 WBC (Bld)68.6 %Normal.The [facility] Physician GroupComment on above:Performed By: #### CMP, LIPID, A1C WTH eA, CBC #### [facility] [address] [place] [address] USANRBC%0.1 /100{WBC}Normal0-0.5The [facility] Comment on above:Performed By: #### CMP, LIPID, A1C WTH eA, CBC #### [place] [address] USAPlatelet mean volume (Bld) [Entitic vol]7.8 fLNormal 6.3-10.7The [facility] Physician GroupComment on above:Performed By: #### CMP, LIPID, A1C WTH eA, CBC #### [place] [address] USAPlatelets (Bld) [#/Vol]318 10*3/cWPuvewx579-708Asz [facility] Physician GroupComment on above:Performed By: #### CMP, LIPID, A1C WTH eA, CBC #### [place] [address] USARBC (Bld) [#/Vol]4.18 10*6/uLNormal3.60-5.00The [facility] Physician GroupComment on above:Performed By: #### CMP, LIPID, A1C WTH eA, CBC #### [place] [address] USAWBC (Bld) [#/Vol]7.9 10*3/uLNormal3.8-11.6The [facility] Physician GroupComment on above:Performed By: #### CMP, LIPID, A1C WTH eA, CBC #### [facility] [address] [place] [address] USAComprehensive Metabolic Panelon 67-37-4734Hsxngvj [Mass/Vol]4.5 g/dLNormal3.5-5.7The [facility] Physician GroupComment on above: Performed By: #### CMP, LIPID, A1C WTH eA, CBC #### [facility] [address] [place] [address] USAAlbumin/Globulin [Mass ratio]1.5 {ratio}NormalThe [facility] Physician GroupComment on above:Performed By: #### CMP, LIPID, A1C WTH eA, CBC #### [place] [address] USAALP [Catalytic activity/Vol]59 U/MXxjeao27-855Cqb [facility] Physician GroupComment on above:Performed By: #### CMP, LIPID, A1C WTH eA, CBC #### [place] [address] USAALT [Catalytic activity/Vol]23 U/LNormal7-52The [facility] Physician GroupComment on above:Performed By: #### CMP, LIPID, A1C WTH eA, CBC #### [place] [address] USAAnion gap [Moles/Vol]14.1 mmol/LNormal6.0-15.0The [facility] Physician GroupComment on above:Performed By: #### CMP, LIPID, A1C WTH eA, CBC #### [place] [address] USAAST [Catalytic activity/Vol]22 U/QKvtfkv78-66Elf [facility] Physician GroupComment on above:Performed By: #### CMP, LIPID, A1C WTH eA, CBC #### [place] [address] USABilirubin [Mass/Vol]0.8 mg/dLNormal0.3-1.0The [facility] Physician GroupComment on above:Performed By: #### CMP, LIPID, A1C WTH eA, CBC #### [place] [address] USACalcium [Mass/Vol]10.4 mg/dLHigh8.6-10.3The [facility] Physician GroupComment on above:Performed By: #### CMP, LIPID, A1C WTH eA, CBC #### [facility] [address] [place] [address] USAChloride [Moles/Vol]94 mmol/RKkn81-831Gld [facility] Physician GroupComment on above:Performed By: #### CMP, LIPID, A1C WTH eA, CBC #### [facility] [address] [place] [address] USACO2 [Moles/Vol]32.8 mmol/LHigh21.0-31.0The [facility] Physician GroupComment on above:Performed By: #### CMP, LIPID, A1C WTH eA, CBC #### [facility] [address] [place] [address] USACreatinine [Mass/Vol]1.69 mg/dLHigh0.60-1.20The [facility] Physician GroupComment on above:Performed By: #### CMP, LIPID, A1C WTH eA, CBC #### [facility] [address] [place] [address] USAEstimated GFR31.106 mL/MinNormTampa General Hospital Physician GroupComment on above:Performed By: #### CMP, LIPID, A1C WTH eA, CBC #### [facility] [address] [place] [address] USAGlobulin (S) [Mass/Vol]3.0 g/dLNormTampa General Hospital Physician GroupComment on above:Performed By: #### CMP, LIPID, A1C WTH eA, CBC #### [facility] [address] [place] [address] USAGlucose [Mass/Vol]143 mg/dLNoFormerly Park [facility] Health Physician GroupComment on above:Result Comment: Random Glucose Reference Range is dependent on time and content of last meal. Glucose of more than 200 mg/dL in a nonstressed, ambulatory subject supports the diagnosis of Diabetes Mellitus. ADA recommended reference rangePerformed By: #### CMP, LIPID, A1C WTH eA, CBC #### [facility] [address] [place] [address] USAResult Comment: PERFORMED BY: [place] [address] PATHOLOGIST [employer] REPRESENTATIVE BENNETT JJ M.D.Potassium [Moles/Vol]3.9 mmol/LNormal3.5-5.1The [facility] Physician GroupComment on above:Performed By: #### CMP, LIPID, A1C WTH eA, CBC #### [place] [address] USAProtein [Mass/Vol]7.5 g/dLNormal6.4-8.9The [facility] Physician GroupComment on above:Performed By: #### CMP, LIPID, A1C WTH eA, CBC #### [place] [address] USASodium [Moles/Vol]137 mmol/DLsakms489-688Nix [facility] Physician GroupComment on above:Performed By: #### CMP, LIPID, A1C WTH eA, CBC #### [place] [address] USAUrea nitrogen [Mass/Vol]35 mg/dLHigh7-25The [facility] Physician GroupComment on above:Performed By: #### CMP, LIPID, A1C WTH eA, CBC #### [place] [address] USAComprehensive metabolic panelon 39-92-1810Oztrjey [Mass/Vol]4.5 g/dL3.5 - 5.7 g/dLNOMS HealthcareAlbumin/Globulin [Mass ratio]1.5 {ratio}NOMS HealthcareALP [Catalytic activity/Vol]59 U/L34 - 104 U/LNOMS HealthcareALT [Catalytic activity/Vol]23 U/L7 - 52 U/LNOMS HealthcareAnion gap [Moles/Vol]14.1 mmol/L6.0 - 15.0 meq/LNOMS HealthcareAST [Catalytic activity/Vol]22 U/L13 - 39 U/LNOMS HealthcareBilirubin [Mass/Vol]0.8 mg/dL0.3 - 1.0 mg/dLNOMS HealthcareCalcium [Mass/Vol]10.4 mg/dLHigh8.6 - 10.3 mg/dLNOMS HealthcareChloride [Moles/Vol]94 mmol/LLow98 - 107 mmol/LNOMS HealthcareCO2 [Moles/Vol]32.8 mmol/LHigh21.0 - 31.0 mmol/LNOMS HealthcareCreatinine (U) [Mass/Vol]1.69 mg/dLHigh0.60 - 1.20 mg/dLNOMS HealthcareGFR/1.73 sq M.predicted MDRD (S/P/Bld) [Vol rate/Area]31.106 mL/min/{1.73_m2}mL/MinNOMS Healthcare Globulin (S) [Mass/Vol]3 g/dLNOMS HealthcareGlucose [Mass/Vol]143 mg/hIWwgy24 - 100 mg/dLNOMA HealthcareComment on above:Random Glucose Reference Range is dependent on time and content of last meal. Glucose of more than 200 mg/dL in a nonstressed, ambulatory subject supports the diagnosis of Diabetes Mellitus. ADA recommended reference range Potassium [Moles/Vol]3.9 mmol/L3.5 - 5.1 mmol/LNOMS HealthcareProtein [Mass/Vol] 7.5 g/dL6.4 - 8.9 g/dLNOMA HealthcareSodium [Moles/Vol]137 mmol/L136 - 145 mmol/LNOMS HealthcareUrea nitrogen [Mass/Vol]35 mg/dLHigh7 - 25 mg/dLNOMA HealthcareCreatinine [Mass/volume] in Serum or PlasmaOrdered By: Rafi Torres on 46-14-6757Fcssmehttj [Mass/Vol]Creatinine [Mass/volume] in Serum or PlasmaHigh 0.60-1.20[facility] HospitalCreatinine [Mass/volume] in Urine Ordered By: Rafi Torres on 61-28-2867Mhhvqpkgmw (U) [Mass/Vol]Creatinine [Mass/volume] in UrineAultman Orrville HospitalComment on above:No reference range establishedEosinophils Auto (Bld) [#/Vol]Ordered By: Rafi Torres on 42-94-1556Btsrkvtqrkv (Bld) [#/Vol]Automated eosinophil count0.0-0.45 [facility] HospitalEosinophils/100 WBC Auto (Bld)Ordered By: Rafi Torres on 56-74-1575Scrnrctpsnc/100 WBC (Bld)Automated eosinophil %.[facility] HospitalErythrocyte distribution width Auto (RBC) [Ratio]Ordered By: Rafi Torres on 72-33-8979Tmjdczfwbwz distribution width (RBC) [Ratio] Erythrocyte distribution width [Ratio] by Automated count11.9-15.3FParkview HealthGlobulin Calc (S) [Mass/Vol]Ordered By: Rafi Torres on 71-84-1307Plphjubl (S) [Mass/Vol]Serum globulin measurement by calculation (mass/volume)[facility] HospitalGlucose [Mass/volume] in Serum or PlasmaOrdered By: Rafi Torres on 87-37-5149Uofylsz [Mass/Vol]Glucose [Mass/volume] in Serum or YctiquNwmr46-460WojrrwfbrAultman Orrville Hospital Comment on above:ADA recommended reference rangeRandom Glucose Reference Range is dependent on time and content of last meal. Glucose of more than 200 mg/dL in a nonstressed, ambulatory subject supports the diagnosisof Diabetes Mellitus. Hematocrit Auto (Bld) [Volume fraction]Ordered By: Rafi Torres on 09-13-2024 Hematocrit (Bld) [Volume fraction]Hematocrit [Volume Fraction] of Blood by Automated count34.0-46.4FParkview HealthHemoglobin A1c/Hemoglobin.total in BloodOrdered By: Rafi Torres on 56-54-9011PyD9x (Bld) [Mass fraction]Hemoglobin A1c percentageHigh4.3-5.6FParkview HealthComment on above:Increased risk for diabetes: 5.7 - 6.4diabetes: >6.4glycemic control for adults with diabetes: <7.0Hemoglobin [Mass/volume] in BloodOrdered By: Rafi Torres on 42-33-9671Ujxvcuruyj (Bld) [Mass/Vol] Hemoglobin [Mass/volume] in Blood11.8-15.4FParkview Health Leukocytes [#/volume] corrected for nucleated erythrocytes in Blood by Automated counOrdered By: Rafi Torres on 24-65-9157LDF corrected for nucl RBC Auto (Bld) [#/Vol]Leukocytes [#/volume] corrected for nucleated erythrocytes in Blood by Automated coun3.8-11.6FParkview HealthLipid 1996 panelon 19-42-9415Drhgyximntr [Mass/Vol]204 mg/dHTlwb749 - 200 mg/dLMercy Hospital Washington Comment on above:Chol less than 200 mg/dl low risk Chol 201-239 mg/dl borderline risk Chol 240 mg/dl and greater high risk Cholesterol in HDL [Mass/Vol]57 mg/dL23 - 92 mg/dLNOMA HealthcareComment on above:HDL CHOL ATP-III CLASSIFICATION Cardiovascular Risk HDL > or equal to 60 mg/dL LOW HDL < 40 mg/dL HIGH Cholesterol.total/Cholesterol in HDL [Mass ratio]3.6 {ratio}NINF - 5.0NOLiberty HospitalLDL CHOLESTEROL,KAPCANDQRN82 mg/dL0 - 100 mg/dLNOMA HealthcareComment on above:LDL ATP III CLASSIFICATION LDL less than 100 mg/dL Optimal LDL 100-129 mg/dL Near or above optimal LDL 130-159 mg/dL Borderline high LDL 160-189 mg/dL High LDL greater than 189 mg/dL Very high Magnesium [Mass/Vol]77 mg/dLNOLiberty HospitalTRIGLYCERIDE W/BDRJZJ289 mg/dLHigh0 - 149 mg/dLNOMA HealthcareComment on above:TRIG ATP III CLASSIFICATION TRIG less than 150 mg/dL Normal TRIG 150-199 mg/dL Borderline high TRIG 200-500 mg/dL High TRIG greater than 500 mg/dL Very high Standard traceable to the Center for Disease Conrtrol and Prevention (CDC) test method. Lipid Panelon [id number] [Mass/Vol]204 mg/uIDrwg911-220Bld [facility] Physician GroupComment on above:Result Comment: Chol less than 200 mg/dl low risk Chol 201-239 mg/dl borderline risk Chol 240 mg/dl and greater high riskPerformed By: #### CMP, LIPID, A1C WTH eA, CBC #### [facility] [address] [place] [address] USACholesterol in HDL [Mass/Vol]57 mg/gCZdwaad37-30Jxe [facility] Physician GroupComment on above:Result Comment: HDL CHOL ATP-III CLASSIFICATION Cardiovascular Risk HDL > or equal to 60 mg/dL LOW HDL < 40 mg/dL HIGHPerformed By: #### CMP, LIPID, A1C WT eA, CBC #### [facility] [address] [place], [place] [id number] USACholesterol.total/Cholesterol in HDL [Mass ratio]3.6 {ratio}Normal<5.0[facility] Physician GroupComment on above:Result Comment: PERFORMED BY: [place] [address] PATHOLOGIST MERCH[employer] RETAIL REPRESENTATIVE BENNETT JJ M.D.Performed By: #### CMP, LIPID, A1C WT eA, CBC #### [facility] [address] [place] [address] USALDL Cholesterol,Snberubwcl91 mg/dLNormal0-100[facility] Physician GroupComment on above:Result Comment: LDL ATP III CLASSIFICATION LDL less than 100 mg/dL Optimal LDL 100-129 mg/dL Near or above optimal LDL 130-159 mg/dL Borderline high LDL 160-189 mg/dL High LDL greater than 189 mg/dL Very highPerformed By: #### CMP, LIPID, A1C WT eA, CBC #### [facility] [address] [place] [address] USATriglyceride w/Pwedvx945 mg/dLHigh0-149[facility] Physician GroupComment on above:Result Comment: TRIG ATP III CLASSIFICATION TRIG less than 150 mg/dL Normal TRIG 150-199 mg/dL Borderline high TRIG 200-500 mg/dL High TRIG greater than 500 mg/dL Very high Standard traceable to the Center for Disease Conrtrol and Prevention (CDC) test method.Performed By: #### CMP, LIPID, A1C WT eA, CBC #### [place] [address] USAVLDL ABZLLUSRQLR56 mg/dLNormalThe [facility] Hospital Physician GroupComment on above:Performed By: #### CMP, LIPID, A1C WT eA, CBC #### [facility] [address] [place] [id number] USALymphocytes Auto (Bld) [#/Vol]Ordered By: Rafi Torres on 56-65-3485Etaxrhiyint (Bld) [#/Vol]Lymphocytes [#/volume] in Blood by Automated count1.00-4.8[facility]rville HospitalLymphocytes/100 WBC Auto (Bld) Ordered By: Rafi Torres on 96-55-6679Ptqnjmubcnz/100 WBC (Bld)Lymphocytes/100 leukocytes in Blood by Automated count.[facility] Auto (RBC) [Entitic mass]Ordered By: Rafi Torres on 02-49-0183EQS (RBC) [Entitic mass]MCH [Entitic mass] by Automated count24.7-34.3FSt. Francis HospitalHC Auto (RBC) [Mass/Vol]Ordered By: Rafi Torres on 58-99-2714BMQM (RBC) [Mass/Vol]MCHC [Mass/volume] by Automated count32.0-35.0[facility] CenterV Auto (RBC) [Entitic vol]Ordered By: Rafi Torres on 09-13-2024 MCV (RBC) [Entitic vol]MCV [Entitic volume] by Automated -582EqqjipddvAultman Orrville HospitalMicroAlb Creat Ratio,Uon 94-65-8731Lcxgnqq DL <= 20 mg/L (U) [Mass/Vol]mg/dLNormal0.0-1.8[facility] Physician GroupComment on above: Performed By: #### URMACRERAT #### [facility] [address] [place] [address] USACreatinine, Urine (Random)51.00 mg/dLNormTampa General Hospital Physician [facility] River RegionComment on above:Result Comment: No reference range established Performed By: #### URMACRERAT #### [facility] [address] [place] [address] USAMicroalbumin/Creatinine RatioNot performedNormal0.0-30.0 [facility] Physician GroupComment on above:Result Comment: PERFORMED BY: [facility] [address] [place] [address] PATHOLOGIST MERCH[employer] RETAIL REPRESENTATIVE BENNETT JJ M.D.Performed By: #### URMACRERAT #### [facility] [address] [place] [address] USAMicroalbumin [Mass/volume] in UrineOrdered By: Rafi Torres on 07-93-9997Ibrofmc DL <= 20 mg/L (U) [Mass/Vol]Microalbumin [Mass/volume] in Urine0.0-1.8[facility] HospitalMicroalbumin/Creatinine ratio panel (U)on 26-18-7816Ceihjsy [Mass/Vol]mg/dL0.0 - 1.8 mg/dLMercy Hospital WashingtonCreatinine spec 2 (U) [Mass/Vol]51 mg/dLMercy Hospital WashingtonComment on above:No reference range establishedMICROALBUMIN/CREATININE RATIONot performed0.0 - 30.0[facility] HealthcareMonocytes Auto (Bld) [#/Vol]Ordered By: Rafi Torres on 09-13-2024 Monocytes (Bld) [#/Vol]Automated blood monocyte count0.0-0.8[facility]rville HospitalMonocytes/100 WBC Auto (Bld)Ordered By: Rafi Torres on 09-13-2024 Monocytes/100 WBC (Bld)Automated monocyte %.[facility] Neutrophils Auto (Bld) [#/Vol]Ordered By: Rafi Torres on 39-48-1033Huegnqgcwju (Bld) [#/Vol]Neutrophils [#/volume] in Blood by Automated count1.8-7.7FParkview HealthNeutrophils/100 WBC Auto (Bld)Ordered By: Rafi Torres on 18-54-7087Hdcdkefsmgp/100 WBC (Bld)Automated neutrophil %.[facility] HospitalNo Panel Informationon 41-81-3707Lpsbewdihhegix and review of laboratory resultsAbnormalVidant Pungo HospitalNo Panel Information Ordered By: Rafi Torres on 68-91-8372Abdwafgxv GFR (CKD-EPI)31.106 mL/Min [facility] HospitalPharmacy Creatinine Clearance (ChemN/AFParkview HealthNucleated erythrocytes [Presence] in Blood by Automated countOrdered By: Rafi Torres on 29-23-1660Kfauydbtb RBC Auto Ql (Bld)Nucleated erythrocytes [Presence] in Blood by Automated count0-0.5FParkview HealthPlatelet mean volume Auto (Bld) [Entitic vol]Ordered By: Rafi Torres on 33-97-3788Hiapyeus mean volume (Bld) [Entitic vol]Platelet mean volume [Entitic volume] in Blood by Automated count6.3-10.7FParkview HealthPlatelets Auto (Bld) [#/Vol]Ordered By: Rafi Torres on 78-91-5248Zzqrdhhrd (Bld) [#/Vol]Platelets [#/volume] in Blood by Automated cgoyg317-287WpilrolozAultman Orrville HospitalPotassium [Moles/volume] in Serum or PlasmaOrdered By: Rafi Torres on 68-94-6112Omccfgjyl [Moles/Vol]Potassium [Moles/volume] in Serum or Plasma3.5-5.1FParkview HealthProtein [Mass/volume] in Serum or PlasmaOrdered By: Rafi Torres on 79-65-7927Mhrmsbx [Mass/Vol]Protein [Mass/volume] in Serum or Plasma6.4-8.9[facility] HospitalRBC Auto (Bld) [#/Vol]Ordered By: Rafi Torres on 12-64-9438VLD (Bld) [#/Vol]Erythrocytes [#/volume] in Blood by Automated count3.60-5.00[facility] Medical Centererum or plasma albumin/globulin mass ratioOrdered By: Rafi Torres on 39-18-7876Sirfovv/Globulin [Mass ratio]Serum or plasma albumin/globulin mass ratioUniversity Hospitals Portage Medical Centererum or plasma anion gap determination Ordered By: Rafi Torres on 83-14-2231Etsoe gap [Moles/Vol]Serum or plasma anion gap determination6.0-15.0[facility] Centererum or plasma total cholesterol/high density lipoprotein (HDL) cholesterol mass ratOrdered By: Rafi Torres on 74-33-8538Fciydjfrfli.total/Cholesterol in HDL [Mass ratio]Serum or plasma total cholesterol/high density lipoprotein (HDL) cholesterol mass rat<5.0 [facility] Centerodium [Moles/volume] in Serum or PlasmaOrdered By: Rafi Torres on 55-50-5610Htgetp [Moles/Vol]Sodium [Moles/volume] in Serum or Zikuek828-222ZwqjlergyAultman Orrville HospitalTriglyceride [Mass/volume] in Serum or PlasmaOrdered By: Rafi Torres on 41-77-1303Nzjfeabeylee [Mass/Vol] Triglyceride [Mass/volume] in Serum or PlasmaHigh0-149[facility] HospitalComment on above:TRIG ATP III CLASSIFICATIONTRIG less than 150 mg/dL NormalTRIG 150-199 mg/dL Borderline highTRIG 200-500 mg/dL High TRIG greater than 500 mg/dL Very highStandard traceable to the Center for Disease Conrtrol and Prevention (CDC) test method.Urea nitrogen [Mass/volume] in Serum or Plasma Ordered By: Rafi Torres on 65-15-9888Srqb nitrogen [Mass/Vol]Urea nitrogen [Mass/volume] in Serum or PlasmaHigh7-25[facility]rville HospitalUrine microalbumin/creatinine mass ratioOrdered By: Rafi Torres on 09-13-2024 Albumin/Creatinine DL <= 20 mg/L (U) [Mass ratio]Urine microalbumin/creatinine mass ratioAultman Orrville HospitalComment on above:Test not performed WBC Auto (Bld) [#/Vol]Ordered By: Rafi Torres on 27-14-2698VTB (Bld) [#/Vol] Leukocytes [#/volume] in Blood by Automated count3.8-11.6FParkview HealthBacteria identified Cx Nom (U)on 74-17-0927EFICMercy Hospital Washington Laboratory - Microbiology and Antimicrobial susceptibilityon 29-12-5417Yoefepok identified Cx Nom (U)Final reportAbnoWellSpan HealthBacteria identified Cx Nom (U)Escherichia coliAbnoWellSpan HealthComment on above:Cefazolin <=4 ug/mL Cefazolin with an TIMUR <=16 predicts susceptibility to the oral agents cefaclor, cefdinir, cefpodoxime, cefprozil, cefuroxime, cephalexin, and loracarbef when used for therapy of uncomplicated urinary tract infections due to E. coli, Klebsiella pneumoniae, and Proteus mirabilis. Greater than 100,000 colony forming units per mL Other Antibiotic [Susc][facility]umberland Medical CenterComment on above: S = Susceptible; I = Intermediate; R = Resistant P = Positive; N = Negative MICS are expressed in micrograms per mL Antibiotic RSLT#1 RSLT#2 RSLT#3 RSLT#4 Amoxicillin/Clavulanic Acid S Ampicillin S Cefepime S Ceftriaxone S Cefuroxime S Ciprofloxacin S Ertapenem S Gentamicin S Imipenem S Levofloxacin S Meropenem S Nitrofurantoin S Piperacillin/Tazobactam S Tetracycline S Tobramycin S Trimethoprim/Sulfa S No Panel Informationon 18-25-2529Gclkbhwvkspejt and review of laboratory results AbnormalNOMS HealthcarePerformed at: 01 - [facility] [id number] Web Marketing Analyst: Bay Terry PhD, Phone: [phone] Healthcare Urinalysis macro (dipstick) panel (U)on 02-15-8055Cmbealqbe, UANegativeNegative - 4(70) +++ mg/dLNOMS HealthcareBlood, UAPositiveNegative - 50 Daniel/mcLNOMS HealthcareClarity, UACloudyNOMS HealthcareColor, UAYellowNOMS HealthcareGlucose, UANegativeNegative - 2000(110) ++++ mg/dLNOMA HealthcareInterpretation and review of laboratory resultsAbnormalNOMS HealthcareKetones, UANegativeNegative - 160(16) ++++ mg/dLNOMA HealthcareLeukocytes, UAPositiveNegative - 500+++ Samantha/mcLNOMS HealthcareNitrite, UANegativeNegative - PositiveNOMS HealthcarepH, UA65 - 9NOMS HealthcareProtein, UA3+Negative - 2000(20) ++++ mg/dLNOMS HealthcareSpec Grav, UA1.0151 - 1.03NOMS HealthcareUrobilinogen, UA0.20.2 - 12 mg/dLNOMS HealthcareNOMS HealthcareMR LUMBAR SPINE WO CONon 43-72-8788[place] [address] Magnetic Resonance Report Signed Patient: LARISA LO MR#: [id number] : 1950 Acct:[id number] Age/Sex: 74 / F ADM Date: 05/04/24 Loc: MRI Attending Dr: Alex Selby M.D. Ordering Physician: Alex Selby M.D. Date of Service: 05/04/24 Procedure(s): MR lumbar spine wo con Accession Number(s): [id number] cc: RAFI TORRES ; Alex Selby M.D. [address] [address] Patient Name: LARISA LO MRN: [id number] date: 1950 Sex: F Assigned Patient Location: MRI Current Patient Location: Accession/Order Number: [id number] Exam Date: 05/04/2024 15:10 Report Date: 05/05/2024 08:20 At the request of: ALEX SELBY Procedure: MR lumbar spine wo con EXAMINATION: MR lumbar spine wo con HISTORY: Lumbosacral Radiculopathy COMPARISON: No relevant comparison available. TECHNIQUE: A variety of imaging planes and parameters were utilized for visualization of suspected pathology. FINDINGS: For the purposes of numbering, sagittal T2 image # 8 extends from the T10 vertebral body superiorly to the S4 level inferiorly. PARASPINAL AREA: Normal with no visible mass. BONES: Normal alignment with no acute fracture or spondylolisthesis. 20% anterior superior wedge compression fracture of the T11 vertebral body without bone edema consistent with a chronic fracture. Mild degenerative spondylosis and facet osteoarthropathy CORD/CAUDA EQUINA: Normal caliber, contour, and signal intensity. DISC LEVELS: 12-L1: Disc desiccation. Mild diffuse disc bulge with annular tear. No central or foraminal stenosis L1-L2: Mild diffuse disc bulge. No central or foraminal stenosis L2-L3: Moderate disc space narrowing. Mild diffuse disc/osteophyte complex. No central canal or right foraminal stenosis. Mild to moderate narrowing of the left neural foramen L3-L4: Moderate disc space narrowing and disc desiccation. Posterior broad-based disc protrusion. Ligamentum flavum hypertrophy. No central canal stenosis or foraminal stenosis L4-L5: Early degenerative disc disease is present without focal protrusion or neural impingement. L5-S1: Early degenerative disc disease is present without focal protrusion or neural impingement. MR/MR lumbar spine wo con IMPRESSION: Degenerative changes resulting in mild to moderate narrowing of the left L2-L3 neural foramen Electronically authenticated by: XIMENA HENDERSON Date: 05/05/2024 08:20 Dictated By: Ximena Henderson M.D. Signed By: 05/05/24822 DD/ 9 TD/TT: Investigation Clerk:TBHRadiology, Radiologist, - 05/05/2024 [place] [address] Magnetic Resonance Report Signed Patient: LARISA LO MR#: [id number] : 1950 Acct:[id number] Age/Sex: 74 / F ADM Date: 05/04/24 Loc: MRI Attending Dr: Alex Selby M.D. Ordering Physician: Alex Selby M.D. Date of Service: 05/04/24 Procedure(s): MR lumbar spine wo con Accession Number(s): [id number] cc: RAFI TORRES ; Alex Selby M.D. [place] [address] Patient Name: LARISA LO MRN: [id number] date: 1950 Sex: F Assigned Patient Location: MRI Current Patient Location: Accession/Order Number: [id number] Exam Date: 05/04/2024 15:10 Report Date: 05/05/2024 08:20 At the request of: ALEX SELBY Procedure: MR lumbar spine wo con EXAMINATION: MR lumbar spine wo con HISTORY: Lumbosacral Radiculopathy COMPARISON: No relevant comparison available. TECHNIQUE: A variety of imaging planes and parameters were utilized for visualization of suspected pathology. FINDINGS: For the purposes of numbering, sagittal T2 image # 8 extends from the T10 vertebral body superiorly to the S4 level inferiorly. PARASPINAL AREA: Normal with no visible mass. BONES: Normal alignment with no acute fracture or spondylolisthesis. 20% anterior superior wedge compression fracture of the T11 vertebral body without bone edema consistent with a chronic fracture. Mild degenerative spondylosis and facet osteoarthropathy CORD/CAUDA EQUINA: Normal caliber, contour, and signal intensity. DISC LEVELS: 12-L1: Disc desiccation. Mild diffuse disc bulge with annular tear. No central or foraminal stenosis L1-L2: Mild diffuse disc bulge. No central or foraminal stenosis L2-L3: Moderate disc space narrowing. Mild diffuse disc/osteophyte complex. No central canal or right foraminal stenosis. Mild to moderate narrowing of the left neural foramen L3-L4: Moderate disc space narrowing and disc desiccation. Posterior broad-based disc protrusion. Ligamentum flavum hypertrophy. No central canal stenosis or foraminal stenosis L4-L5: Early degenerative disc disease is present without focal protrusion or neural impingement. L5-S1: Early degenerative disc disease is present without focal protrusion or neural impingement. MR/MR lumbar spine wo con IMPRESSION: Degenerative changes resulting in mild to moderate narrowing of the left L2-L3 neural foramen Electronically authenticated by: XIMENA HENDERSON Date: 05/05/2024 08:20 Dictated By: Ximena Henderson M.D. Signed By: 05/05/24822 DD/ 9 TD/TT: Investigation Clerk: [facility] WashingtonRadiology Study observation (narrative)[facility] LUMBAR SPINE WO CONOrdered By: Radiologist Radiology on 17-58-8181KXLZMercy Hospital Washington Work Phone: alanine aminotransferase [Enzymatic activity/volume] in Serum or PlasmaOrdered By: Rafi Torres on 05-88-9699ETZ [Catalytic activity/Vol]22 U/L7-52[facility]rville HospitalAlbumin [Mass/volume] in Serum or Plasma by Bromocresol green (BCG) dye binding methoOrdered By: Rafi Torres on 49-43-7890Unyrhdw BCG dye [Mass/Vol]4.4 g/dL3.5-5.7FParkview HealthAlkaline phosphatase [Enzymatic activity/volume] in Serum or PlasmaOrdered By: Rafi Torres on 33-61-8114ZEA [Catalytic activity/Vol]66 U/L 34-104A[facility]man Orrville HospitalAspartate aminotransferase [Enzymatic activity/volume] in Serum or PlasmaOrdered By: Rafi Torres on 31-95-3220DSR [Catalytic activity/Vol]19 U/R03-99EbxspidayAultman Orrville Hospital Bilirubin.total [Mass/volume] in Serum or PlasmaOrdered By: Rafi Torres on 58-17-5994Hivkyeuwz [Mass/Vol]0.5 mg/dL0.3-1.0[facility] Calcium [Mass/volume] in Serum or PlasmaOrdered By: Rafi Torres on 01-27-2024 Calcium [Mass/Vol]10.1 mg/dL8.6-10.3FParkview HealthCarbon dioxide, total [Moles/volume] in Serum or PlasmaOrdered By: Rafi Torres on 26-02-7257MC4 [Moles/Vol]34.8 mmol/LHigh21.0-31.0[facility]rville HospitalChloride [Moles/volume] in Serum or PlasmaOrdered By: Rafi Torres on 96-38-6374Ukkwrppo [Moles/Vol]99 mmol/U04-959FmnrbqjloAultman Orrville Hospital Creatinine [Mass/volume] in Serum or PlasmaOrdered By: Rafi Torres on 01-27-2024 Creatinine [Mass/Vol]1.60 mg/dLHigh0.60-1.20[facility] Erythrocyte distribution width Auto (RBC) [Ratio]Ordered By: Rafi Torres on 52-18-9948Cqmouzrxqsp distribution width (RBC) [Ratio]14.0 %11.9-15.3FParkview HealthGlobulin Calc (S) [Mass/Vol]Ordered By: Rafi Torres on 00-43-4495Rgvbzmxf (S) [Mass/Vol]3.1 g/dLAultman Orrville Hospital Glucose [Mass/volume] in Serum or PlasmaOrdered By: Rafi Torres on 01-27-2024 Glucose [Mass/Vol]160 mg/iQTreq51-876PaiqpstsbAultman Orrville HospitalComment on above:ADA recommended reference rangeRandom Glucose Reference Range is dependent on time and content of last meal. Glucose of more than 200 mg/dL in a nonstressed, ambulatory subject supports the diagnosisof Diabetes Mellitus. Hematocrit Auto (Bld) [Volume fraction]Ordered By: Rafi Torres on 01-27-2024 Hematocrit (Bld) [Volume fraction]40.1 %34.0-46.4FParkview HealthHemoglobin [Mass/volume] in BloodOrdered By: Rafi Torres on 01-27-2024 Hemoglobin (Bld) [Mass/Vol]13.3 g/dL11.8-15.4FParkview Health Leukocytes [#/volume] corrected for nucleated erythrocytes in Blood by Automated counOrdered By: Rafi Torres on 44-90-4199KGI corrected for nucl RBC Auto (Bld) [#/Vol]7.4 10*3/uL3.8-11.6FParkview HealthMCH Auto (RBC) [Entitic mass]Ordered By: Rafi Torres on 73-51-9543FYP (RBC) [Entitic mass]32.5 pg24.7-34.3FParkview HealthMCHC Auto (RBC) [Mass/Vol]Ordered By: Rafi Torres on 00-50-3238PXBT (RBC) [Mass/Vol]33.1 g/dL32.0-35.0[facility]rville HospitalMCV Auto (RBC) [Entitic vol]Ordered By: Rafi Torres on 14-41-7130QHX (RBC) [Entitic vol]98.1 fV88-487TaaayocdrAultman Orrville Hospital No Panel InformationOrdered By: Rafi Torres on 12-98-2895Hgmaibrsp GFR (CKD-EPI) 33.425 mL/MinAultman Orrville HospitalPharmacy Creatinine Clearance (ChemN/[facility] CompanyPlatelet mean volume Auto (Bld) [Entitic vol]Ordered By: Rafi Torres on 83-80-8096Kbastlea mean volume (Bld) [Entitic vol]8.0 fL6.3-10.7FParkview HealthPlatelets Auto (Bld) [#/Vol]Ordered By: Rafi Torres on 99-51-1914Uuiovnflt (Bld) [#/Vol]271 10*3/uL 150-450A[facility]rville HospitalPotassium [Moles/volume] in Serum or PlasmaOrdered By: Rafi Torres on 32-31-5005Mgevsxldq [Moles/Vol]4.0 mmol/L 3.5-5.1FParkview HealthProtein [Mass/volume] in Serum or Plasma Ordered By: Rafi Torres on 24-31-4086Xzmufxw [Mass/Vol]7.5 g/dL6.4-8.9[facility] Orrville HospitalRBC Auto (Bld) [#/Vol]Ordered By: Rafi Torres on 57-32-3094ZRX (Bld) [#/Vol]4.09 10*6/uL3.60-5.00[facility] Centererum or plasma albumin/globulin mass ratioOrdered By: Rafi Torres on 35-91-6149Kwlwpcw/Globulin [Mass ratio]1.4 {ratio}[facility] Centererum or plasma anion gap determinationOrdered By: Rafi Torres on 21-18-5255Xvpjp gap [Moles/Vol]13.2 mmol/L6.0-15.0[facility] Medical Centerodium [Moles/volume] in Serum or PlasmaOrdered By: Rafi Torres on 81-80-5099Nyovic [Moles/Vol]143 mmol/L739-478GvrljnvvmAultman Orrville Hospital Urea nitrogen [Mass/volume] in Serum or PlasmaOrdered By: Rafi Torres on 27-90-6306Fefu nitrogen [Mass/Vol]38 mg/dLHigh7-25[facility] HospitalLaboratory - Chemistry and Chemistry - challengeon 89-42-9431Hdxvmaspq Ql (U)NegativeAultman Orrville HospitalGlucose (U) [Mass/Vol]Negative [facility] HospitalKetones Ql (U)[facility] CenterpH (U)6.0 [pH][facility] Medical Centerpecific gravity (U) [Rel density]1.015A[facility] Orrville HospitalUrobilinogen (U) [Mass/Vol]0.2 mg/dLAultman Orrville HospitalLaboratory - Specimen informationon 96-86-2350Ithmxsgogs (U)ClearAultman Orrville Hospital Color (U)PaleyellowAultman Orrville HospitalLaboratory - Urinalysison 90-47-2442Vkcskcxtz esterase Test strip Ql (U)SmallAultman Orrville HospitalNitrite Ql (U)NegativeAultman Orrville HospitalProtein Ql (U) NegativeAultman Orrville HospitalNo Panel Informationon 52-17-9164Mjjfu Occult BloodNegativeAultman Orrville HospitalUrine culture routine Ordered By: Clarisa Rutherford on 80-47-2703Xgjdwzal identified Cx Nom (U)bacilli - 2 DaysAultman Orrville HospitalAlanine aminotransferase [Enzymatic activity/volume] in Serum or PlasmaOrdered By: Rafi Torres on 87-30-8671RXC [Catalytic activity/Vol]18 U/L7-52[facility] HospitalAlbumin [Mass/volume] in Serum or Plasma by Bromocresol green (BCG) dye binding metho Ordered By: Rafi Torres on 90-11-4665Zvbuvmc BCG dye [Mass/Vol]4.5 g/dL3.5-5.7 [facility]rville HospitalAlkaline phosphatase [Enzymatic activity/volume] in Serum or PlasmaOrdered By: Rafi Torres on 35-74-0706DME [Catalytic activity/Vol]72 U/N90-054WwdhvrynyAultman Orrville HospitalAspartate aminotransferase [Enzymatic activity/volume] in Serum or PlasmaOrdered By: Rafi Torres on 22-93-7522UJW [Catalytic activity/Vol]20 U/K96-63SqsmtckelAultman Orrville HospitalBilirubin.total [Mass/volume] in Serum or PlasmaOrdered By: Rafi Torres on 84-42-4523Hweqribxf [Mass/Vol]0.5 mg/dL0.3-1.0[facility] HospitalCalcium [Mass/volume] in Serum or PlasmaOrdered By: Rafi Torres on 59-53-3271Dqqzebx [Mass/Vol]10.5 mg/dL8.6-10.3FParkview Health Carbon dioxide, total [Moles/volume] in Serum or PlasmaOrdered By: Rafi Torres on 38-71-9645OG8 [Moles/Vol]32.8 mmol/L21.0-31.0[facility] HospitalChloride [Moles/volume] in Serum or PlasmaOrdered By: Rafi Torres on 98-75-6838Awhfijne [Moles/Vol]96 mmol/S40-172LkrdegzzjAultman Orrville Hospital Cholesterol [Mass/volume] in Serum or PlasmaOrdered By: Rafi Torres on 13-85-3880Iohaptcagnt [Mass/Vol]219 mg/oH822-394YreusnxxgAultman Orrville HospitalComment on above:Chol less than 200 mg/dl low riskChol 201-239 mg/dl borderline riskChol 240 mg/dl and greater high riskCholesterol in LDL Calc [Mass/Vol]Ordered By: Rafi Torres on 31-67-3190Qedgazawzvx in LDL [Mass/Vol]110 mg/dL0-100A[facility] Orrville HospitalComment on above:LDL ATP III CLASSIFICATIONLDL less than 100 mg/dL OptimalLDL 100-129 mg/dL Near or above jexpcgvFJU204-270 mg/dL Borderline highLDL 160-189 mg/dL HighLDL greater than 189 mg/dL Very highCholesterol in VLDL Calc [Mass/Vol]Ordered By: Rafi Torres on 39-01-4429Cccmszfchkq in VLDL [Mass/Vol]51 mg/dLAultman Orrville HospitalCreatinine [Mass/volume] in Serum or PlasmaOrdered By: Rafi Torres on 66-23-5141Lavhvmiyju [Mass/Vol]1.66 mg/dL0.60-1.20A[facility] Orrville HospitalErythrocyte distribution width Auto (RBC) [Ratio]Ordered By: Rafi Torres on 51-38-7077Wqounmiouhl distribution width (RBC) [Ratio]12.9 %11.9-15.3 [facility]rville HospitalGlobulin Calc (S) [Mass/Vol]Ordered By: Rafi Torres on 56-60-4915Xrrnlund (S) [Mass/Vol]3.5 g/dLAultman Orrville HospitalGlucose [Mass/volume] in Serum or PlasmaOrdered By: Rafi Torres on 75-62-6311Kcuxzqp [Mass/Vol]131 mg/qB38-819UzznogrdcAultman Orrville Hospital Comment on above:ADA recommended reference rangeRandom Glucose Reference Range is dependent on time and content of last meal. Glucose of more than 200 mg/dL in a nonstressed, ambulatory subject supports the diagnosisof Diabetes Mellitus. Glucose mean value [Mass/volume] in Blood Estimated from glycated hemoglobin Ordered By: Rafi Torres on 63-12-4094Yhixvoq glucose Estimated from glycated hemoglobin (Bld) [Mass/Vol]137 mg/dLAultman Orrville HospitalHematocrit Auto (Bld) [Volume fraction]Ordered By: Rafi Torres on 48-02-2926Lhnbwzygsj (Bld) [Volume fraction]39.1 %34.0-46.4FParkview Health Hemoglobin A1c percentageOrdered By: Rafi Torres on 27-90-9586UzN1n (Bld) [Mass fraction]6.4 %4.3-5.6FParkview HealthComment on above:Increased risk for diabetes: 5.7 - 6.4diabetes: >6.4glycemic control for adults with diabetes: <7.0Hemoglobin [Mass/volume] in BloodOrdered By: Rafi Torres on 43-07-7854Qbusnfipew (Bld) [Mass/Vol]13.0 g/dL11.8-15.4FParkview HealthLeukocytes [#/volume] corrected for nucleated erythrocytes in Blood by Automated counOrdered By: Rafi Torres on 75-47-2670MNY corrected for nucl RBC Auto (Bld) [#/Vol]6.6 10*3/uL3.8-11.6FParkview Health MCH Auto (RBC) [Entitic mass]Ordered By: Rafi Torres on 91-42-9600EVV (RBC) [Entitic mass]32.5 pg24.7-34.3FParkview HealthMCHC Auto (RBC) [Mass/Vol]Ordered By: Rafi Torres on 96-01-8481LXGE (RBC) [Mass/Vol]33.3 g/dL 32.0-35.0[facility] HospitalMCV Auto (RBC) [Entitic vol]Ordered By: Rafi Torres on 94-15-6887AUJ (RBC) [Entitic vol]97.5 dJ94-113ZeoxogshuAultman Orrville HospitalNo Panel InformationOrdered By: Rafi Torres on 09-10-2023 Estimated GFR (CKD-EPI)31.980 mL/MinAultman Orrville HospitalPharmacy Creatinine Clearance (ChemN/[facility] CompanyPlatelet mean volume Auto (Bld) [Entitic vol]Ordered By: Rafi Torres on 80-43-9823Mvcxkvol mean volume (Bld) [Entitic vol]8.5 fL6.3-10.7FParkview Health Platelets Auto (Bld) [#/Vol]Ordered By: Rafi Torres on 56-82-7750Cblcpoymk (Bld) [#/Vol]294 10*3/hF907-380PcpktduvkAultman Orrville HospitalPotassium [Moles/volume] in Serum or PlasmaOrdered By: Rafi Torres on 03-72-8635Bwbzpdkin [Moles/Vol]3.5 mmol/L3.5-5.1FParkview HealthProtein [Mass/volume] in Serum or PlasmaOrdered By: Rafi Torres on 35-82-6167Mwehtgz [Mass/Vol]8.0 g/dL6.4-8.9[facility] HospitalRBC Auto (Bld) [#/Vol] Ordered By: Rafi Torres on 05-64-1479HIU (Bld) [#/Vol]4.01 10*6/uL3.60-5.00 [facility] Centererum or plasma albumin/globulin mass ratio Ordered By: Rafi Torres on 62-62-7512Glpayst/Globulin [Mass ratio]1.3 {ratio} [facility] Centererum or plasma anion gap determinationOrdered By: Rafi Torres on 48-07-7454Rebvr gap [Moles/Vol]14.7 mmol/L6.0-15.0[facility] Centererum or plasma high density lipoprotein (HDL) cholesterol measurementOrdered By: Rafi Torres on 16-07-0124Mjzmrdarfat in HDL [Mass/Vol]57 mg/nD47-53LxqppzplzAultman Orrville HospitalComment on above:HDL CHOL ATP-III CLASSIFICATION Cardiovascular RiskHDL > or equal to 60 mg/dL LOWHDL < 40 mg/dL HIGHSerum or plasma total cholesterol/high density lipoprotein (HDL) cholesterol mass ratOrdered By: Rafi Torres on 09-10-2023 Cholesterol.total/Cholesterol in HDL [Mass ratio]3.8 {ratio}<5.0[facility] Centerodium [Moles/volume] in Serum or PlasmaOrdered By: Rafi Torres on 74-16-6123Ygfrjk [Moles/Vol]140 mmol/U813-542SardjmsjkAultman Orrville HospitalTriglyceride [Mass/volume] in Serum or PlasmaOrdered By: Rafi Torres on 49-26-6040Rvxdlwnujqjg [Mass/Vol]258 mg/dL0-149[facility] HospitalComment on above:TRIG ATP III CLASSIFICATIONTRIG less than 150 mg/dL NormalTRIG 150-199 mg/dL Borderline highTRIG 200-500 mg/dL High TRIG greater than 500 mg/dL Very highStandard traceable to the Center for Disease Co nrtrol and Prevention (CDC) test method.Urea nitrogen [Mass/volume] in Serum or PlasmaOrdered By: Rafi Torres on 95-59-8082Xefe nitrogen [Mass/Vol]44 mg/dL7- [facility] HospitalAlanine aminotransferase [Enzymatic activity/volume] in Serum or PlasmaOrdered By: Rafi Torres on 03-40-3594CVM [Catalytic activity/Vol]17 U/L7-52[facility] HospitalAlbumin [Mass/volume] in Serum or Plasma by Bromocresol green (BCG) dye binding metho Ordered By: Rafi Torres on 78-65-1984Tesjgcx BCG dye [Mass/Vol]4.2 g/dL3.5-5.7 [facility] HospitalAlkaline phosphatase [Enzymatic activity/volume] in Serum or PlasmaOrdered By: Rafi Torres on 04-82-8151TSM [Catalytic activity/Vol]61 U/O67-367MyoflkuueAultman Orrville HospitalAspartate aminotransferase [Enzymatic activity/volume] in Serum or PlasmaOrdered By: Rafi Torres on 03-39-4911LYD [Catalytic activity/Vol]19 U/O64-09HqwbmxqsaAultman Orrville HospitalBasophils Auto (Bld) [#/Vol]Ordered By: Rafi Torres on 03-09-2023 Basophils (Bld) [#/Vol]0.0 10*3/uL0.0-0.2FParkview Health Basophils/100 WBC Auto (Bld)Ordered By: Rafi Torres on 11-24-2749Ymjszziwy/100 WBC (Bld)0.7 %.[facility] HospitalBilirubin.total [Mass/volume] in Serum or PlasmaOrdered By: Rafi Torres on 36-57-7672Vajmdmxwy [Mass/Vol]0.5 mg/dL0.3-1.0[facility] HospitalCalcium [Mass/volume] in Serum or PlasmaOrdered By: Rafi Torres on 43-71-0062Tlohwmm [Mass/Vol]9.8 mg/dL8.6-10.3 [facility] HospitalCarbon dioxide, total [Moles/volume] in Serum or PlasmaOrdered By: Rafi Torres on 04-69-6379LB5 [Moles/Vol]35.1 mmol/L 21.0-31.0[facility] HospitalChloride [Moles/volume] in Serum or PlasmaOrdered By: Rafi Torres on 02-73-9142Lcvghebo [Moles/Vol]97 mmol/L98-107 [facility] HospitalCholesterol [Mass/volume] in Serum or Plasma Ordered By: Rafi Torres on 56-53-7358Ozrgsxrfhtr [Mass/Vol]226 mg/cW807-683 [facility] HospitalComment on above:Chol less than 200 mg/dl low riskChol 201-239 mg/dl borderline riskChol 240 mg/dl and greater high risk Cholesterol in LDL Calc [Mass/Vol]Ordered By: Rafi Torres on 03-09-2023 Cholesterol in LDL [Mass/Vol]113 mg/dL0-100[facility] Comment on above:LDL ATP III CLASSIFICATIONLDL less than 100 mg/dL OptimalLDL 100-129 mg/dL Near or above yhffhnzIYA598-080 mg/dL Borderline highLDL 160-189 mg/dL HighLDL greater than 189 mg/dL Very highCholesterol in VLDL Calc [Mass/Vol]Ordered By: Rafi Torres on 98-50-8633Kpbzjcovqiz in VLDL [Mass/Vol]58 mg/dLAultman Orrville HospitalCreatinine [Mass/volume] in Serum or PlasmaOrdered By: Rafi Torres on 34-30-1080Ijdaebmquq [Mass/Vol]1.51 mg/dL 0.60-1.20[facility] HospitalEosinophils Auto (Bld) [#/Vol]Ordered By: Rafi Torres on 02-90-1892Owobzrjwofk (Bld) [#/Vol]0.2 10*3/uL0.0-0.45 [facility] HospitalEosinophils/100 WBC Auto (Bld)Ordered By: Rafi Torres on 25-12-1909Udeaslmhdtu/100 WBC (Bld)3.9 %.[facility] HospitalErythrocyte distribution width Auto (RBC) [Ratio]Ordered By: Rafi Torres on 62-99-5843Zktlkqzbyxz distribution width (RBC) [Ratio]13.8 %11.9-15.3 [facility] HospitalGlobulin Calc (S) [Mass/Vol]Ordered By: Rafi Torres on 96-55-7588Pjqocqvg (S) [Mass/Vol]3.2 g/dLAultman Orrville HospitalGlucose [Mass/volume] in Serum or PlasmaOrdered By: Rafi Torres on 50-86-1757Fgurinu [Mass/Vol]135 mg/iZ88-747IxlhqlunuAultman Orrville Hospital Comment on above:ADA recommended reference rangeRandom Glucose Reference Range is dependent on time and content of last meal. Glucose of more than 200 mg/dL in a nonstressed, ambulatory subject supports the diagnosisof Diabetes Mellitus. Glucose mean value [Mass/volume] in Blood Estimated from glycated hemoglobin Ordered By: Rafi Torres on 44-76-4417Bkrpvpn glucose Estimated from glycated hemoglobin (Bld) [Mass/Vol]140 mg/dLAultman Orrville HospitalHematocrit Auto (Bld) [Volume fraction]Ordered By: Rafi Torres on 36-41-3507Kiovaonstn (Bld) [Volume fraction]39.4 %34.0-46.4FParkview Health Hemoglobin A1c percentageOrdered By: Rafi Torres on 78-88-8389DnR0x (Bld) [Mass fraction]6.5 %4.3-5.6FParkview HealthComment on above:Increased risk for diabetes: 5.7 - 6.4diabetes: >6.4glycemic control for adults with diabetes: <7.0Hemoglobin [Mass/volume] in BloodOrdered By: Rafi Torres on 93-81-4973Xsknuzscwf (Bld) [Mass/Vol]13.0 g/dL11.8-15.4FParkview HealthLeukocytes [#/volume] corrected for nucleated erythrocytes in Blood by Automated counOrdered By: Rafi Torres on 55-47-1686NSE corrected for nucl RBC Auto (Bld) [#/Vol]5.9 10*3/uL3.8-11.6FParkview Health Lymphocytes Auto (Bld) [#/Vol]Ordered By: Rafi Torres on 57-91-1705Qgojvobxvej (Bld) [#/Vol]1.3 10*3/uL1.00-4.8[facility] HospitalLymphocytes/100 WBC Auto (Bld)Ordered By: Rafi Torres on 69-50-8926Xjzwuiierjy/100 WBC (Bld) 22.5 %.[facility] HospitalMCH Auto (RBC) [Entitic mass]Ordered By: Rafi Torres on 01-85-4971QLA (RBC) [Entitic mass]31.8 pg24.7-34.3FParkview HealthMCHC Auto (RBC) [Mass/Vol]Ordered By: Rafi Torres on 10-18-7484TDAT (RBC) [Mass/Vol]33.0 g/dL32.0-35.0[facility] HospitalMCV Auto (RBC) [Entitic vol]Ordered By: Rafi Torres on 34-37-5841OVS (RBC) [Entitic vol]96.5 cM81-287LduarepnbAultman Orrville HospitalMonocytes Auto (Bld) [#/Vol]Ordered By: Rafi Torres on 36-42-9253Pbofjvpgr (Bld) [#/Vol]0.6 10*3/uL 0.0-0.8[facility] HospitalMonocytes/100 WBC Auto (Bld)Ordered By: Rafi Torres on 34-69-6852Omibiwlpk/100 WBC (Bld)10.0 %.[facility] HospitalNeutrophils Auto (Bld) [#/Vol]Ordered By: Rafi Torres on 91-03-5998Erkssqtlnbx (Bld) [#/Vol]3.7 10*3/uL1.8-7.7FParkview HealthNeutrophils/100 WBC Auto (Bld)Ordered By: Rafi Torres on 03-09-2023 Neutrophils/100 WBC (Bld)62.9 %.[facility] HospitalNo Panel InformationOrdered By: Rafi Torres on 86-05-7746Dcvfuupfr GFR (CKD-EPI)35.830 mL/MinAultman Orrville HospitalPharmacy Creatinine Clearance (ChemN/A [facility] HospitalNucleated erythrocytes [Presence] in Blood by Automated countOrdered By: Rafi Torres on 48-19-3610Azyasostx RBC Auto Ql (Bld) 0.0 /100{WBC}0-0.5FParkview HealthPlatelet mean volume Auto (Bld) [Entitic vol]Ordered By: Rafi Torres on 80-93-2327Ezsmnnry mean volume (Bld) [Entitic vol]8.0 fL6.3-10.7FParkview HealthPlatelets Auto (Bld) [#/Vol]Ordered By: Rafi Torres on 62-46-2418Hgkbrkzmj (Bld) [#/Vol]263 10*3/uP451-607OzhnnxriaAultman Orrville HospitalPotassium [Moles/volume] in Serum or PlasmaOrdered By: Rafi Torres on 17-73-7343Fgdfxkoby [Moles/Vol]4.0 mmol/L 3.5-5.1FParkview HealthProtein [Mass/volume] in Serum or Plasma Ordered By: Rafi Torres on 39-66-8115Ihqdaii [Mass/Vol]7.4 g/dL6.4-8.9[facility] HospitalRBC Auto (d) [#/Vol]Ordered By: Rafi Torres on 00-37-9244MZP (d) [#/Vol]4.08 10*6/uL3.60-5.00[facility] Centererum or plasma albumin/globulin mass ratioOrdered By: Rafi Torres on 06-14-6904Tvizlcw/Globulin [Mass ratio]1.3 {ratio}[facility] Centererum or plasma anion gap determinationOrdered By: Rafi Torres on 56-36-9370Tttwj gap [Moles/Vol]9.9 mmol/L6.0-15.0[facility] Centererum or plasma high density lipoprotein (HDL) cholesterol measurement Ordered By: Rafi Torres on 33-42-7130Kapjmdryrbr in HDL [Mass/Vol]55 mg/dL23-92 [facility] HospitalComment on above:HDL CHOL ATP-III CLASSIFICATION Cardiovascular RiskHDL > or equal to 60 mg/dL LOWHDL < 40 mg/dL HIGHSerum or plasma total cholesterol/high density lipoprotein (HDL) cholesterol mass ratOrdered By: Rafi Torres on 42-69-6216Zhhydfednwp.total/Cholesterol in HDL [Mass ratio]4.1 {ratio}<5.0[facility] Centerodium [Moles/volume] in Serum or PlasmaOrdered By: Rafi Torres on 17-53-1997Bokxjo [Moles/Vol]138 mmol/I145-505ZnjgnxregAultman Orrville HospitalTriglyceride [Mass/volume] in Serum or PlasmaOrdered By: Rafi Torres on 03-09-2023 Triglyceride [Mass/Vol]290 mg/dL0-149[facility] HospitalComment on above:TRIG ATP III CLASSIFICATIONTRIG less than 150 mg/dL NormalTRIG 150-199 mg/dL Borderline highTRIG 200-500 mg/dL High TRIG greater than 500 mg/dL Very highStandard traceable to the Center for Disease Conrtrol and Prevention (CDC) test method.Urea nitrogen [Mass/volume] in Serum or PlasmaOrdered By: Rafi Torres on 98-39-1353Kodk nitrogen [Mass/Vol]35 mg/dL7-25[facility] HospitalWBC Auto (Bld) [#/Vol]Ordered By: Rafi Torres on 18-00-4140IRQ (Bld) [#/Vol]5.9 10*3/uL3.8-11.6FParkview HealthMRI [facility] WO CONon 48-97-8078RXG [facility] CONEXAMINATION: MRI [facility] CON HISTORY: Musculoskeletal symptom ; chronic lumbar [...] Electronically authenticated by: JAE CAMERON Date: 2022-11-04 14:08[facility] CenterXR KUB 1 VIEWon [id number] KUB 1 VIEWEXAMINATION: XR KUB 1 VIEW HISTORY: Urinary tract infectious disease COMPARISON: No relevant comparison available. FINDINGS: KIDNEY/URETER - RIGHT: No visible renal or ureteral calcifications. KIDNEY/URETER - LEFT: No visible renal or ureteral calcifications. PELVIS: No visible ureteral calcifications. Any visible calcifications favor phleboliths. BOWEL: No abnormal dilation or deviation. Moderate atherosclerosis BONES: No acute abnormality. Degenerative spondylosis. Otax-wq-drbcpvar hip osteoarthritis OTHER: Negative. No abnormal gaseous collections. IMPRESSION: No definite urinary tract calculi Electronically authenticated by: XIMENA HENDERSON Date: 2022-11-04 19:47[facility] CenterUS KIDNEYSon [id number] KIDNEYSEXAMINATION: US KIDNEYS HISTORY: Kidney stone COMPARISON: No relevant comparison [...] medical renal disease Electronically authenticated by: XIMENA HENDERSON Date: 2022-08-10 15:16[facility] CenterBasophils Auto (Bld) [#/Vol]Ordered By: Rafi Torres on 91-26-4154Wvlcdsmxz (Bld) [#/Vol]0.0 10*3/uL0.0-0.2FParkview HealthBasophils/100 WBC Auto (Bld)Ordered By: Rafi Torres on 07-27-2022 Basophils/100 WBC (Bld)0.7 %.[facility] HospitalCholesterol [Mass/volume] in Serum or PlasmaOrdered By: Rafi Torres on 19-45-8168Kmmwsngongm [Mass/Vol]221 mg/wE456-613QriehlovrAultman Orrville HospitalComment on above: Chol less than 200 mg/dl low riskChol 201-239 mg/dl borderline riskChol 240 mg/dl and greater high riskCholesterol in LDL Calc [Mass/Vol]Ordered By: Rafi Torres on 06-07-3017Tqesypuxztx in LDL [Mass/Vol]133 mg/dL0-100[facility] HospitalComment on above:LDL ATP III CLASSIFICATIONLDL less than 100 mg/dL OptimalLDL 100-129 mg/dL Near or above xroooggSSP600-235 mg/dL Borderline highLDL 160-189 mg/dL HighLDL greater than 189 mg/dL Very high Cholesterol in VLDL Calc [Mass/Vol]Ordered By: Rafi Torres on 07-27-2022 Cholesterol in VLDL [Mass/Vol]44 mg/dLAultman Orrville Hospital Creatinine [Mass/volume] in UrineOrdered By: Rafi Torres on 93-29-5990Ofhvdeqilg (U) [Mass/Vol]81.7 mg/dLAultman Orrville HospitalComment on above:No reference range establishedCreatinine and Glomerular filtration rate.predicted panel (S/P/Bld)Ordered By: Rafi Torres on 90-63-7209Mjkrhsaduo [Mass/Vol]1.38 mg/dL0.44-1.03[facility] HospitalEosinophils Auto (Bld) [#/Vol] Ordered By: Rafi Torres on 01-61-5187Updarufvqfj (Bld) [#/Vol]0.3 10*3/uL 0.0-0.45[facility] HospitalEosinophils/100 WBC Auto (Bld)Ordered By: Rafi Torres on 04-58-8763Pqpzjenkorj/100 WBC (Bld)5.0 %.[facility] HospitalErythrocyte distribution width Auto (RBC) [Ratio]Ordered By: Rafi Torres on 74-90-5571Cniusnpoatm distribution width (RBC) [Ratio]13.6 %11.9-15.3 [facility] HospitalEstimated glomerular filtration rate (GFR) non- AmericanOrdered By: Rafi Torres on 87-84-7507ZUT/1.73 sq M.predicted among non-blacks MDRD (S/P/Bld) [Vol rate/Area]37 mL/MinAultman Orrville HospitalHematocrit Auto (Bld) [Volume fraction]Ordered By: Rafi Torres on 44-06-9119Spfyzebwll (Bld) [Volume fraction]40.8 %34.0-46.4FParkview HealthHemoglobin [Mass/volume] in BloodOrdered By: Rafi Torres on 40-27-4454Oikzteunvx (Bld) [Mass/Vol]13.3 g/dL11.8-15.4FParkview HealthLeukocytes [#/volume] corrected for nucleated erythrocytes in Blood by Automated counOrdered By: Rafi Torres on 60-28-9864EXL corrected for nucl RBC Auto (Bld) [#/Vol]6.9 10*3/uL3.8-11.6FParkview Health Lymphocytes Auto (Bld) [#/Vol]Ordered By: Rafi Torres on 40-31-1666Ufhdaspkefp (Bld) [#/Vol]1.5 10*3/uL1.00-4.8[facility] HospitalLymphocytes/100 WBC Auto (Bld)Ordered By: Rafi Torres on 98-00-0210Lovglelxfqt/100 WBC (Bld) 21.6 %.[facility] CenterH Auto (RBC) [Entitic mass]Ordered By: Rafi Torres on 86-59-0755VNC (RBC) [Entitic mass]31.4 pg24.7-34.3FParkview HealthMCHC Auto (RBC) [Mass/Vol]Ordered By: Rafi Torres on 69-61-6446NRCB (RBC) [Mass/Vol]32.7 g/dL32.0-35.0[facility] HospitalMCV Auto (RBC) [Entitic vol]Ordered By: Rafi Torres on 78-54-4687SCZ (RBC) [Entitic vol]96.1 xF41-942LzdmrafacAultman Orrville HospitalMonocytes Auto (Bld) [#/Vol]Ordered By: Rafi Torres on 79-22-3512Bjborshxt (Bld) [#/Vol]0.6 10*3/uL 0.0-0.8[facility] HospitalMonocytes/100 WBC Auto (Bld)Ordered By: Rafi Torres on 42-52-8798Dwqtvgogh/100 WBC (Bld)8.8 %.[facility] HospitalNeutrophils Auto (Bld) [#/Vol]Ordered By: Rafi Torres on 07-27-2022 Neutrophils (Bld) [#/Vol]4.4 10*3/uL1.8-7.7FParkview Health Neutrophils/100 WBC Auto (Bld)Ordered By: Rafi Torres on 07-27-2022 Neutrophils/100 WBC (Bld)63.9 %.[facility] HospitalNo Panel InformationOrdered By: Rafi Torres on 68-28-9756Lznaneoeq GFR () 45 mL/MinAultman Orrville HospitalComment on above:GFR estimated reference range: According to KDOQI guidelines, <60 ml/min/1.73m2 is sufficient todiagnose a patient with chronic kidney disease.Pharmacy Creatinine Clearance (ChemN/[facility] CompanyNucleated erythrocytes [Presence] in Blood by Automated countOrdered By: Rafi Torres on 96-73-7814Zqhymknlc RBC Auto Ql (Bld)0.1 /100{WBC}0-0.5FParkview HealthPlatelet mean volume Auto (Bld) [Entitic vol]Ordered By: Rafi Torres on 05-00-5548Nzkmoaua mean volume (Bld) [Entitic vol]7.9 fL6.3-10.7FParkview Health Platelets Auto (Bld) [#/Vol]Ordered By: Rafi Torres on 02-98-1108Npkijfyqv (Bld) [#/Vol]313 10*3/yP425-514JxtfjkkpuAultman Orrville HospitalRBC Auto (Bld) [#/Vol]Ordered By: Rafi Torres on 69-10-8451NEQ (Bld) [#/Vol]4.24 10*6/uL 3.60-5.00[facility] Centererum or plasma alanine aminotransferase measurement without P-5'-P (enzymatic activiOrdered By: Rafi Torres on 39-29-1931OQG No additional P-5'-P [Catalytic activity/Vol]29 U/L10-60 [facility] Centererum or plasma anion gap determinationOrdered By: Rafi Torres on 60-18-6221Obrpd gap [Moles/Vol]11.0 mmol/L6.0-15.0[facility] Centererum or plasma calcium measurement (mass/volume)Ordered By: Rafi Torres on 80-56-6499Bksqhff [Mass/Vol]9.6 mg/dL8.2-10.2FACMC Healthcare System Glenbeigherum or plasma chloride measurement (moles/volume) Ordered By: Rafi Torres on 58-17-0377Kuvbnmgv [Moles/Vol]100 mmol/L95-114 [facility] Centererum or plasma glucose measurement (mass/volume)Ordered By: Rafi Torres on 89-20-3070Nfixdwt [Mass/Vol]175 mg/dL 70-100[facility] HospitalComment on above:ADA recommended reference rangeRandom Glucose Reference Range is dependent on time and content of last meal. Glucose of more than 200 mg/dL in a nonstressed, ambulatory subject supports the diagnosisof Diabetes Mellitus.Serum or plasma high density lipoprotein (HDL) cholesterol measurementOrdered By: Rafi Torres on 07-27-2022 Cholesterol in HDL [Mass/Vol]44 mg/nP60-08VmvqrblzrAultman Orrville Hospital Comment on above:HDL CHOL ATP-III CLASSIFICATION Cardiovascular RiskHDL > or equal to 60 mg/dL LOWHDL < 40 mg/dL HIGHSerum or plasma potassium measurement (moles/volume)Ordered By: Rafi Torres on 10-37-9632Pjykothpo [Moles/Vol]3.9 mmol/L3.5-5.1FACMC Healthcare System Glenbeigherum or plasma sodium measurement (moles/volume)Ordered By: Rafi Torres on 96-48-3722Ehrhvk [Moles/Vol]136 mmol/L 136-146[facility] Centererum or plasma total carbon dioxide measurement (moles/volume)Ordered By: Rafi Torres on 79-16-7003UV9 [Moles/Vol] 28.9 mmol/L22.0-30.0[facility] Centererum or plasma total cholesterol/high density lipoprotein (HDL) cholesterol mass ratOrdered By: Rafi Torres on 39-95-4835Nshvmcbxnzr.total/Cholesterol in HDL [Mass ratio]5.0 {ratio} <5.0[facility] Centererum or plasma urea nitrogen measurement (mass/volume)Ordered By: Rafi Torres on 94-00-0249Xirk nitrogen [Mass/Vol]26 mg/dL9-23[facility] HospitalTriglyceride [Mass/volume] in Serum or PlasmaOrdered By: Rafi Torres on 93-13-4375Euttmxeeqfkp [Mass/Vol]221 mg/dL 35-149[facility] HospitalComment on above:TRIG ATP III CLASSIFICATIONTRIG less than 150 mg/dL NormalTRIG 150-199 mg/dL Borderline highTRIG 200-500 mg/dL High TRIG greater than 500 mg/dL Very highStandard traceable to the Center for Disease Conrtrol and Prevention (CDC) test method. Urine microalbumin measurement with detection limit of 20 mg/L or less (mass/volume)Ordered By: Rafi Torres on 61-68-2708Jbdbdqm DL <= 20 mg/L (U) [Mass/Vol]1.8 mg/dL0.0-1.8[facility] HospitalUrine microalbumin/creatinine mass ratioOrdered By: Rafi Torres on 07-27-2022 Albumin/Creatinine DL <= 20 mg/L (U) [Mass ratio]22.0 mg/g0.0-30.0[facility] HospitalComment on above:30-300 mg/g indicates an increased risk for diabetic nephropathy. Greater than 300 mg/g is consistent with clinical nephropathy. (Am. J. Kidney Disease 1995, 25:107)WBC Auto (Bld) [#/Vol]Ordered By: Rafi Torres on 80-50-8228KQR (Bld) [#/Vol]6.9 10*3/uL3.8-11.6FParkview HealthCPKon 64-66-9995MJ [Catalytic activity/Vol]56 U/LNormal 26-192[facility] HospitalComment on above:Performed By: #### URCX #### [facility] [address] [place] [address] Dr. Lucia QuinteroOGLOBINon 10-31-3959ZVC54 ng/mLNormal9-82[facility] Comment on above:Performed By: #### URCX #### [facility] [address] [place] [address] Dr. Lucia Cruz 90-01-2766FEK1.066 uIU/mLCritically high0.358-3.740The [facility] CampusComment on above:Performed By: #### URCX #### [facility] [address] [place] [address] Dr. Lucia NogueiraURE URINEon 07-59-2122CUUQDAU URINEIsolate 1 Klebsiella pneumoniae >100,000 cfu/mL of ORGANISM [...] <=0.12 S F Nitrofurantoin 64 I F Trimethoprim/Sulfamethoxazole <=[address] [facility] CampusComment on above:Performed By: #### URCX #### [facility] [address] [place] [address] Dr. Lucia Lambert URINE PROFILEon 75-19-2606Kibwfeuoc Ql (U)Unable to perform testing due to color interference.AbnormalNEGATIVEThe St. [facility] CampusComment on above:Performed By: #### PURVI COWART #### [facility] [address] [place] [address] Dr. Lucia Field (U)SL CLOUDYAbnormalCLEARThe St. [facility] CampusComment on above:Performed By: #### UMICRO, ERUR #### [facility] [address] [address] [address] Lucia Beach (U)RAJENDRA. ORANGEAbnormalYELLOWThe Rifton HospitalComment on above:Performed By: #### UMICRO, ERUR #### [facility] [address] [address] [address] Lucia Youngblood micrscopic examination will be performed if indicated. NormalThe Rifton HospitalComment on above:Performed By: #### UMICRO, ERUR #### [facility] [address] [address] [address] Lucia Berkowitzose Ql (U)Unable to perform testing due to color interference.AbnormalNEGATIVEMercy Health St. [facility] Hospital HospitalComment on above:Performed By: #### UMICRO, ERUR #### [facility] [address] [place] [address] Dr. Lucia QueenHemoglobin Ql (U)Unable to perform testing due to color interference.AbnormalNEGATIVEMercy Health St. [facility] Hospital HospitalComment on above:Performed By: #### UMICRO, ERUR #### [facility] [address] [address] [address] Lucia Rock Ql (U)Unable to perform testing due to color interference.AbnormalNEGATIVEMercy Health St. [facility] Hospital HospitalComment on above:Performed By: #### UMICRO, ERUR #### [facility] [address] [place] [address] Dr. Lucia Morejon to perform testing due to color interference. AbnormalNEGATIVEMercy Health St. [facility] Hospital HospitalComment on above:Performed By: #### UMICRO, ERUR #### [facility] [address] [address] [address] Lucia Wei Ql (U)Unable to perform testing due to color interference.AbnormalNEGATIVEMercy Health St. [facility] Hospital HospitalComment on above:Performed By: #### UMICRO, ERUR #### [facility] [address] [address] [address] Lucia Doyle to perform testing due to color interference.Abnormal5-[address] [facility] on [facility]:Performed By: #### SOFYA, ERUR #### [facility] [address] [address] [address] Lucia Lopez [id number] [facility] CampusComment on above:Performed By: #### SOFYA, ERUR #### [facility] [address] [place] [address] Dr. Lucia Benoit PROTEINUnacheko to perform testing due to color interference. NormalNEGATIVE/ TRACEThe St. [facility] CampusComment on above:Performed By: #### SOFYA ERUR #### [facility] [address] [place] [address] Dr. Lucia Sherman MICRO INDINDICATEDMercy Health Springfield Regional Medical CenterComment on above: Performed By: #### SOFYA ERUR #### [facility] [address] [place] [address] Dr. Lucia Francisco to perform testing due to color interference. Normal0.2 - 1.0The [facility] CampusComment on above:Performed By: #### JAZMINE COWARTR #### [facility] [address] [place] [address] Dr. Lucia Dumont MICROSCOPIC ONLYon 94-78-4061YHZNIBWWIKZSXEfhwgzqeWYIP SEEN [facility] HospitalComhur[facility] on above:Performed By: #### JAZMINE COWARTR #### [facility] [address] [place] [address] Dr. Lucia Fisher identified Cx Nom (U)INDICATEDNoKettering HealthComment on above:Performed By: #### SOFYA ERUR #### [facility] [address] [place] [address] Dr. Lucia Doe SEENNormalNONE SEENAshtabula County Medical Centerment on above:Performed By: #### SOFYA ERUR #### [facility] [address] [place] [address] Dr. Lucia Lau LM Nom (Urine sed)NONE SEENNormalNONE SEENThe St. [facility] CampusComment on above:Performed By: #### SOFYA, ERUR #### [facility] [address] [address] [address] Myers ChangEpithelial cells LM Ql (Urine sed)FEWAbnormalNONE SEEN /RAREThe St. [facility] CampusComment on above:Performed By: #### SOFYA, ERUR #### [facility] [address] [address] [address] Lucia RodriguezUSTRACEAbnormalNONE SEENThe St. [facility] CampusComment on above:Performed By: #### SOFYA, ERUR #### [facility] [address] [place] [address] Dr. Lucia QueenMqwzlGNY1-3Itphntsp5-9Hvd [facility] CampusComhurley medical center on above:Performed By: #### SOFYA, ERUR #### [facility] [address] [address] [address] Lucia QueenWBC (U) [#/Vol]/uLAbnormalNONE SEENThe St. [facility] CampusComhurley medical center on above:Performed By: #### SOFYA, ERUR #### [facility] [address] [place] [address] Dr. Lucia QueenUrinalysis - AUTOMATEDon 60-51-0136Ofkcmeoyeb (U)UTILICASE Other Bilirubin Ql (U)[employer] Other Color (U)[employer] Odeme | [employer] Other Glucose Ql (U)[employer] Other Hemoglobin Ql (U)[facility] west hospitalKonotor Other Ketones Ql (U)[employer] Other Leukocyte esterase Test strip Ql (U)[employer] Other Nitrite Ql (U)[employer] Other pH (U)5.5 [pH][facility] [employer] Other Protein Ql (U)30[facility] [employer] Other Specific gravity (U) [Rel density]1.015[facility] [employer] Other Urobilinogen (U) [Mass/Vol]0.2 mg/dLOmaha [employer] Other Urinalysis - AUTOMATEDNofreeman orthopaedics & sports medicine [employer] Other Urine Cultureon 08-17-4867Zkfld Culture>100,000[facility] [employer] Other Urine Culture<16SusceptibleOmaha [employer] Other Urine Culture>16ResistantOmaha [employer] Other Urine Culture<4SusceptibleOmaha [employer] Other Urine Culture<2SusceptibleAnaergia [employer] Other Urine Culture<1SusceptibleBalayafreeman orthopaedics & sports medicine [employer] Other Urine Culture<0.5SusceptibleBalayafreeman orthopaedics & sports medicine [employer] Other Urine Edhumyi83LxixfnaijbcfIprle [employer] Other Urine Culture<2/38SusceptibleOmaha [employer] Other Urine culture routineOrdered By: Clarisa Rutherford on 85-74-3972Xqrwapwy identified Cx Nom (U)Klebsiella pneumoniaeAultman Orrville HospitalXR Spine Lumbar Complete w/Flex AND [place] 26-89-7462XT Spine Lumbar Complete w/Flex AND ExtTECHNIQUE: AP, lateral, bilateral oblique views of the [...] and signed by Ezequiel Woody on 05/06/2022 1652NormalNorthern [facility]uder Hospital CARDIAC STRESS/REST INJECTIONon [id number] CARDIAC STRESS/REST INJECTIONMRN: [id number] Patient Name: LARISA LO STUDY: MYOCARDIAL PERFUSION STRESS TEST WITH LEXISCAN Performing facility: [facility], [address] [place] [address], [address] Provider: Micheline Garcia MD, [facility] PCP: Dr. Tanna Torres Supervising provider: Micheline Garcia MD, [facility] INDICATION: Elevated troponin Hypertrophic cardiomyopathy HISTORY: Gender: F; Age: 71 y/o ; Height: 0 cm; Weight: 0 kg. Family HX CAD; Family HX CAD; HTN; Elevated troponin Denies smoking. COMPARISON: No comparison. ACCESSION NUMBER(S): [id number]; [id number]; [id number] ORDERING CLINICIAN: MICHELINE GARCIA TECHNIQUE: ONE DAY protocol. Stress injection: Date:01-15-22, [...] available for comparison. Electronically signed by: MICHELINE GARCIA MDChildren's Healthcare of Atlanta [facility]gl[facility] Informationon 74-47-1783KrulaeZR-[place] [facility]Pull[facility] 250 DO Work Phone: Office Visit (Cardiology)on 33-61-5432Iweuzk-up visit Diagnoses/Problems Assessed Elevated troponin (790.6) (R77.8) [...] and in the presence of Dr. Micheline Garcia MD. All medical record entries made by the Scribe were at my direction and personally dictated by me. Ihave reviewed the chart and agree that the [...] evaluation of coronary artery disease and DR TORRES/JIA HX NSTEMI AND HYPERTOPIC CARDIOMYOPATHY. 71-year-old white female who is being referred to me by Dr. Rafi Torres to assess further cardiac evaluation after recent admission to [facility] initially and [facility] to [facility]. She presented with acute bronchitis and wheezing and for some reason troponin wasordered and was elevated around 1999. She had no EKG changes, she was sent to [facility] for furthercardiac evaluation and was seen by Dr. Danyel Marcum who recommended cardiac catheterization or stress test which the patient categorically refused. Interestingly the troponin at [facility] was only 49pg/mL. Her EKG [...] along with bumetanide. The patient has no kasi betes or dyslipidemia. No family history of premature CAD. She denies orthopnea PND or lower extremity edema and has no palpitations. She has no history of syncope. No vascular disease is noted. All other review of system was unremarkable. Her physical examination was remarkable for morbid obesity. Assessment/recommendations: 1?recent admission for acute bronchitis with elevated [...] without abnormal stress test.Patient is in agreement. 2?hypertension currently under control [...] pancreatic cancer (V16.0) (Z80.0) (more content not included)...NormalUH TouchworksTobacco Screening.on 01-05-2022 Adult depression screening assessmentNoMultiCare Health [employer] DO Work Phone: Fall risk assessmentb) One or more falls in the last yearMultiCare Health [employer] 250 DO Work Phone: Tobacco use status CPHSb) [facility] [employer] 250 DO Work Phone: Complete Blood Counton 41-96-3270Gmfvhcejzcd distribution width (RBC) [Ratio]13.2 %Kjqfwb84.0-15.0NortWVUMedicine Harrison Community HospitalComment on above:Performed By: #### CMP, CBC #### [facility] [address] [place], [place] [id number] (Bld) [Volume fraction]40.2 %Glbmhh96.0-47.0 [facility] Behavioral Medical CenterComment on above:Performed By: #### CMP, CBC #### [facility] [address], [place] [id number] (Bld) [Mass/Vol]13.3 g/nKFhhdmt92.6-15.5NortGlenbeigh Hospital SpecialistComment on above:Performed By: #### CMP, CBC #### [facility] [address], [place] [id number] (RBC) [Entitic mass]31.7 obEhivbt23.0-33.0NortGlenbeigh Hospital SpecialistComment on above:Performed By: #### CMP, CBC #### [facility] [address], [place] [id number] (RBC) [Mass/Vol]33.1 g/aVYxvqtg09.0-36.0NortGlenbeigh Hospital SpecialistComment on above:Performed By: #### CMP, CBC #### [facility] [address], [place] [id number] (RBC) [Entitic vol]96 yTTfwafx89-619Stlhqypa [place] Medical SpecialistComment on above:Performed By: #### CMP, CBC #### [facility] [address], [place] [id number] mean volume (Bld) [Entitic vol]9.90 fLNormal 7.50-12.50NortGlenbeigh Hospital SpecialistComment on above:Performed By: #### CMP, CBC #### [facility] [address], [place] [id number] (Bld) [#/Vol]313 10*3/bYZrffrf683-984Dljslmxb [place] Medical SpecialistComment on above:Performed By: #### CMP, CBC #### [facility] [address], [place] [id number] (Bld) [#/Vol]4.20 10*6/uLNormal3.90-5.20NortGlenbeigh Hospital SpecialistComment on above:Performed By: #### CMP, CBC #### [facility] [address], [place] [id number]-FE61.3 fWPqjswp06.0-50.0NortOhioHealth Berger Hospital Credit Coordinator Comment on above:Performed By: #### CMP, CBC #### [facility] [address], [place] [id number] (Bld) [#/Vol]6.9 10*3/uLNormal3.8-11.0NortGlenbeigh Hospital SpecialistComment on above:Performed By: #### CMP, CBC #### [facility] [address], [place] [id number] Metabolic Panelon 32-89-0636Bwruzlk [Mass/Vol] 4.3 g/dLNormal3.6-5.1[facility] SpecialistComment on above:Performed By: #### CMP, CBC #### [facility] [address], [place] [id number]/Globulin [Mass ratio]1.5 {ratio}Normal1.0-2.5NoLutheran Hospital SpecialistComment on above:Performed By: #### CMP, CBC #### [facility] [address], [place] [id number] [Catalytic activity/Vol]87 U/VMoqubq95-257Okhlqjyj [place] Medical SpecialistComment on above:Performed By: #### CMP, CBC #### [facility] [address], [place] [id number] [Catalytic activity/Vol]29 U/LNormal6-33NoLutheran Hospital SpecialistComment on above:Result Comment: 06/18/2021 Female reference range changed.Performed By: #### CMP, CBC #### [facility] [address], [place] [id number] gap [Moles/Vol]19 mmol/IYtpheb35-14Ifgjwbuk [place] Medical SpecialistComment on above:Result Comment: Effective 07/24/2019 reference range changed.Performed By: #### CMP, CBC #### [facility] [address], [place] [id number] [Catalytic activity/Vol]37 U/LHigh9-34NoLutheran Hospital SpecialistComment on above:Performed By: #### CMP, CBC #### [facility] [address], [place] [id number]/CREA22 RatioNormal6-22Nortbullhead community hospitaln [place] Credit Coordinator Comment on above:Performed By: #### CMP, CBC #### [facility] [address], [place] [id number] [Mass/Vol]9.6 mg/dLNormal8.6-10.2[facility] [place] [facility] SpecialistComment on above:Performed By: #### CMP, CBC #### [facility] [address], [place] [id number] [Moles/Vol]98 mmol/ZYufqer45-591Dpcptfpe [place] Medical SpecialistComment on above:Performed By: #### CMP, CBC #### [facility] [address], [place] [id number] [Moles/Vol]26 mmol/QUembgb85-94Dycwbzmr [place] Medical SpecialistComment on above:Performed By: #### CMP, CBC #### [facility] [address], [place] [id number] [Mass/Vol]1.1 mg/dLNormal0.6-1.4[facility] [place] Medical SpecialistComment on above:Performed By: #### CMP, CBC #### [facility] [address], [place] [id number] mL/min/1.60h1Wsaoqd>60Nortbullhead community hospitaln [place] Medical SpecialistComment on above:Performed By: #### CMP, CBC #### [facility] [address], [place] [id number] mL/min/1.60e6Jrj>60[facility] [place] Credit Coordinator Comment on above:Performed By: #### CMP, CBC #### [facility] [address], [place] [id number] (S) [Mass/Vol]2.9 g/dLNormal1.9-3.7[facility] [place] Medical SpecialistComment on above:Performed By: #### CMP, CBC #### [facility] [address], [place] [id number] [Mass/Vol]222 mg/wGAbpp11-60Pfdvfvhf [place] Medical SpecialistComment on above:Result Comment: For FASTING Glucose --- ADA reference ranges: Normal 65-99 mg/dl Prediabetes 100-125 Diabetes >/= 126Performed By: #### CMP, CBC #### [facility] [address], [place] [id number] [Moles/Vol]3.7 mmol/LNormal3.5-5.5NortGlenbeigh Hospital SpecialistComment on above:Performed By: #### CMP, CBC #### [facility] [address], [place] [id number] [Mass/Vol]7.2 g/dLNormal6.1-8.1[facility] SpecialistComment on above:Performed By: #### CMP, CBC #### [facility] [address], [place] [id number] [Moles/Vol]139 mmol/BIeswvc358-649Sdbheeig [place] Medical SpecialistComment on above:Performed By: #### CMP, CBC #### [facility] [address], [place] [id number]<0.3NormalNoLutheran Hospital SpecialistComment on above:Performed By: #### CMP, CBC #### [facility] [address], [place] [id number] nitrogen [Mass/Vol]23 mg/dLNormal7-25NortGlenbeigh Hospital SpecialistComment on above:Performed By: #### CMP, CBC #### [facility] [address], [place] [id number] - B-TYPE NATRIURETIC (BNP)on 64-78-1192Biprnornnhl peptide B (Bld) [Mass/Vol]56 pg/mLNormal<100NortGlenbeigh Hospital SpecialistComment on above:Order Comment: [facility] Testing performed at: [facility], [employer] [facility] [address], [address] [place] [address], [address] [place] [address], [place], [address], Quality Assurance Manager: Tod Merati MD [facility] Collection Date/Time: [facility] Results Received Date/Time: [facility] Reported Date/Time: [id number] Comment: BNP levels increase with age in the general population with the highest values seen in individuals greater than 75 years of age. Reference: J. Am. Bethany. Cardiol. 2002; 40:976-982.Performed By: #### 33603B, 8659X, 23648U #### [facility] Default [address] [place] [address]G - D-DIMER,QUANTITATIVEon 35-24-0678M-DIMER, QUANTITATIVE1.19 mcg/mL FEUHigh<0.50[facility]Memorial HospitalComment on above:Order Comment: [facility] Testing performed at: [facility], [employer] [facility] [address], [address] [place] [address], [address] [place] [address], [phone], Quality Assurance Manager: Tod Fam MD [facility] Collection Date/Time: [facility] Results Received Date/Time: [facility] Reported Date/Time: [id number] Comment: The D-Dimer test is used frequently [...] 11:295(2):199-207] For additional information, please refer to: http://education.[employer]/faq/COP918 (This link is being provided for informational/ educational purposes only)Performed By: #### 50043S, 8659X, 83066D #### [facility] Default [address] [place] [address]U - TROPONIN Ion 11-04-0115QXDCTMTM I767 ng/LCritically high< OR = 47Northern [facility]Memorial HospitalComment on above:Order Comment: [facility] Testing performed at: [facility], [employer] [facility] [address], [address], [address] [facility], [place], [address], Quality Assurance Manager: Tod Fam MD [facility] Collection Date/Time: [facility] Results Received Date/Time: [facility] Reported Date/Time: [id number] Comment: called to Birgit at office-0900am/[facility] (TROPONIN I) In accord with published recommendations, serial testing of troponin I at intervals of 2 to 4 hours for up to 12 to 24 hours is suggested in order to corroborate a single troponin I result. An elevated troponin alone is not sufficient to make the diagnosis of CA.Performed By: #### 01230C, 8659X, 02776W #### [facility] [address] [place], [place] [address]CI Chest 2 Views*on 19-07-0390CB Chest 2 Views*HISTORY: Cough. Dyspnea. COMPARISON: None available TECHNIQUE: Frontal and lateral views of the chest FINDINGS: The cardiomediastinal silhouette is within normal limits. Patchy and linear left lower lobe opacities. No pneumothorax or pleural effusion. No acute osseous abnormality. Degenerative changes of the spine and both shoulders. IMPRESSION: Left lower lobe infiltrate. Continued follow-up recommended to ensure resolution. Report reported and signed by Ezequiel Woody on 12/01/2021 1318NormalNorthern [place] Medical SpecialistBNPon 33-88-4308Bowpschmbtq peptide B (Bld) [Mass/Vol] 441.0 pg/mLNormal<=900.0The [facility] CampusComment on above:Performed By: #### URCX #### [facility] [address] [place] [address] Dr. Lucia Reese AUTO DIFFon 75-40-3716LYAC #0.0 103/ulNormal0.0-0.1The [facility] CampusComment on above:Performed By: #### CBC #### [facility] [address] [place], [place] [address] Dr. Lucia QueenBasophils/100 WBC (Bld)0.3 %Normal0.2-2.0[facility] Comment on above:Performed By: #### CBC #### [facility] [address] [place] [address] Dr. Lucia Delcid #0.2 103/ulNormal0.0-0.7The [facility] CampusComment on above: Performed By: #### CBC #### [facility] [address] [place] [address] Dr. Lucia Annosinophils/100 WBC (Bld)3.2 %Normal0.9-7.0The [facility] Comment on above:Performed By: #### CBC #### [facility] [address] [place] [address] Dr. Lucia Annrythrocyte distribution width (RBC) [Ratio]13.3 %Tvgaxi59.0-15.[address] [facility] CampusComment on above:Performed By: #### CBC #### [facility] [address] [place] [address] Dr. Lucia QueenHematocrit (Bld) [Volume fraction]41.7 %Xlehbd85.0-48.0The [facility] CampusComment on above:Performed By: #### CBC #### [facility] [address] [place] [address] Dr. Lucia QueenHemoglobin (Bld) [Mass/Vol]13.5 g/lMTseksk40.0-16.0The [facility] CampusComment on above:Performed By: #### CBC #### [facility] [address] [place] [address] Dr. Lucia Salmon #0.02 10e3/ulNormal0.00-0.03The [facility] CampusComment on above:Performed By: #### CBC #### [facility] [address] [place] [address] Dr. Lucia Salmon %0.3 %Normal0.0-0.5The [facility] CampusComment on above: Performed By: #### CBC #### [facility] [address] [place] [address] Dr. Lucia Melgoza #1.3 103/ulNormal1.2-3.8The [facility] CampusComment on above:Performed By: #### CBC #### [facility] [address] [place] [address] Dr. Lucia Orlandomphocytes/100 WBC (Bld)17.1 %Critically low20.5-60.0The [facility] CampusComment on above:Performed By: #### CBC #### [facility] [address] [place] [address] Dr. Lucia Akbar DIFF REQNONormalThe St. [facility] CampusComment on above: Performed By: #### CBC #### [facility] [address] [place] [address] Dr. Lucia Schofield (RBC) [Entitic mass]31.4 cpSekbog50.7-34.0The [facility] CampusComment on above:Performed By: #### CBC #### [facility] [address] [place] [address] Dr. Lucia Schofield (RBC) [Mass/Vol]32.4 g/cTYffemu06.9-35.2The [facility] CampusComment on above:Performed By: #### CBC #### [facility] [address] [place] [address] Dr. Lucia Ramirez (RBC) [Entitic vol]97.0 vPCnetav67.0-99.0The [facility] CampusComment on above:Performed By: #### CBC #### [facility] [address] [place] [address] Dr. Lucia Hendrix #0.8 103/ulNormal0.3-0.8The [facility] CampusComment on above:Performed By: #### CBC #### [facility] [address] [place] [address] Dr. Lucia Lintonocytes/100 WBC (Bld)10.3 %Normal1.7-12.0The [facility] Comment on above:Performed By: #### CBC #### [facility] [address] [place] [address] Dr. Yilan ChangNEUT #5.2 103/ulNormal1.4-6.5The [facility] CampusComment on above:Performed By: #### CBC #### [facility] [address] [place] [address] Dr. Lucia Clayutrophils/100 WBC (Bld)68.8 %Nuugbi74.0-75.0The [facility] CampusComment on above:Performed By: #### CBC #### [facility] [address] [place] [address] Dr. Lucia QueenPlatelet mean volume (Bld) [Entitic vol]9.6 fLNormal9.5-13.5The [facility] CampusComment on above:Performed By: #### CBC #### [facility] [address] [place] [address] Dr. Lucia QueenPLT293 103/fcYlroed378-639Gel [facility] CampusComment on above: Performed By: #### CBC #### [facility] [address] [place] [address] Dr. Lucia QueenRBC4.30 106/ulNormal4.20-5.40The [facility] CampusComment on above:Performed By: #### CBC #### [facility] [address] [place] [address] Dr. Lucia QueenWBC7.6 103/ulNormal4.0-11.0The [facility] CampusComment on above: Performed By: #### CBC #### [facility] [address] [place] [address] Dr. Lucia QueenCovid-19 PCR (CVDJOSIAH B. [facility])on 54-51-6516NZFQ-CoV-2 (COVID-19) RNA MILLIE+probe Ql (Unsp spec)Not detectedNormalNOT DETECTEDThe St[facility] Comment on above:Result Comment: When diagnostic testing is negative, the [...] for this test is supported by the Sales Recruitment Specialist of Health and Human Service's declaration that circumstances exist to justify the emergency use of in vitro diagnostics for the detection and/or diagnosis of the virus that causes COVID-19. This EUA will remain in effect for the duration of the COVID-19 declaration justifying emergency of IVDs, unless it is terminated or revoked by the FDA (after which the test may no longer be used).Performed By: #### CVDTBH #### [facility] [address] [place] [address] Dr. Lucia QueenPROF 14(COMP METB)on 36-78-3025Oshsvom [Mass/Vol]4.0 g/dLNormal 3.4-5.0The [facility] CampusComment on above:Performed By: #### CMP, HSTROPN #### [facility] [address] [place] [address] Dr. Lucia QueenAlbumin/Globulin [Mass ratio]0.9 {ratio}NormalThe St. [facility] CampusComment on above:Performed By: #### CMP, HSTROPN #### [facility] [address] [place] [address] Dr. Lucia Hood [Catalytic activity/Vol]80 U/ZGesjhi22-090Ksv [facility] CampusComment on above:Performed By: #### CMP, HSTROPN #### [facility] [address] [place] [address] Dr. Lucia Vickers [Catalytic activity/Vol]37 U/AYrxuui64-22Ijw [facility] CampusComment on above:Performed By: #### CMP, HSTROPN #### [facility] [address] [place] [address] Dr. Lucia Pak gap [Moles/Vol]12.4 mmol/LNormalThe [facility] on above:Performed By: #### CMP, HSTROPN #### [facility] [address] [place] [address] Dr. Lucia Hilario [Catalytic activity/Vol]29 U/RBeyqqz39-67Jio [facility] CampusComment on above:Performed By: #### CMP, HSTROPN #### [facility] [address] [place] [address] Dr. Lucia QueenBilirubin [Mass/Vol]0.3 mg/dLNormal0.2-1.0[facility] Comment on above:Performed By: #### CMP, HSTROPN #### [facility] [address] [place] [address] Dr. Lucia QueenCalcium [Mass/Vol]9.4 mg/dLNormal8.5-10.1The [facility] Comment on above:Performed By: #### CMP, HSTROPN #### [facility] [address] [place] [address] Dr. Lucia QueenChloride [Moles/Vol]97 mmol/LCritically nfq51-772Voo [facility] CampusComment on above:Performed By: #### CMP, HSTROPN #### [facility] [address] [place] [address] Dr. Lucia QueenCO2 [Moles/Vol]30.9 mmol/RJrxcid83.0-32.0The [facility] Comment on above:Performed By: #### CMP, HSTROPN #### [facility] [address] [place] [address] Dr. Lucia QueenCreatinine [Mass/Vol]1.37 mg/dLCritically high0.55-1.02The [facility] CampusComment on above:Performed By: #### CMP, HSTROPN #### [facility] [address] [place] [address] Dr. Myers ChangEGFR-AF UKTUUEIH10 mL/min/1.27d5Qhiferimyr low>=60The [facility] CampusComment on above:Performed By: #### CMP, HSTROPN #### [facility] [address] [place] [address] Dr. Myers ChangEGFR-NON AF LWEYSVMH06 mL/min/1.97d8Byzepcxejg low>=60The [facility] CampusComment on above:Performed By: #### CMP, HSTROPN #### [facility] [address] [address] [address] Lucia QueenGlobulin (S) [Mass/Vol]4.4 g/dLNoKettering HealthComment on above:Performed By: #### CMP, HSTROPN #### [facility] [address] [place] [address] Dr. Lucia QueenGlucose [Mass/Vol]168 mg/dLCritically tnbb70-032Ong [facility] CampusComment on above:Performed By: #### CMP, HSTROPN #### [facility] [address] [place] [address] Dr. Lucia QueenPotassium [Moles/Vol]3.3 mmol/LCritically low3.5-5.1The [facility] CampusComment on above:Performed By: #### CMP, HSTROPN #### [facility] [address] [place] [address] Dr. Lucia QueenProtein [Mass/Vol]8.4 g/dLCritically high6.4-8.2The [facility] CampusComment on above:Performed By: #### CMP, HSTROPN #### [facility] [address] [place] [address] Dr. Lucia QueenSodium [Moles/Vol]137 mmol/RJewuso339-953Btg [facility] Comment on above:Performed By: #### CMP, HSTROPN #### [facility] [address] [place] [address] Dr. Lucia QueenUrea nitrogen [Mass/Vol]21.0 mg/dLCritically high7.0-18.0The [facility] CampusComment on above:Performed By: #### CMP, HSTROPN #### [facility] [address] [place] [address] Dr. Lucia Reis nitrogen/Creatinine [Mass ratio]15.3 mg/mgNoKettering HealthComment on above:Performed By: #### CMP, HSTROPN #### [facility] [address] [place] [address] Dr. Lucia Obando, HIGH SENSITIVITYon 23-84-9083EIKLMZ0339.3 pg/mL Critically high4.0-51.3The [facility] CampusComment on above:Result Comment: CUT-OFF POINTS HAVE BEEN ESTABLISHED BASED ON THE FOURTH UNIVERSAL DEFINITIONS OF MYOCARDIAL INFARCTION. THE UPPER REFERENCE LIMIT (URL) OF TROPONIN, DEFINED THE 99TH PERCENTILE OF cTnI DISTRIBUTION IN A REFERENCE POPULATION, HAS BEEN CONFIRMED THE DECISION THRESHOLD FOR CA DIAGNOSIS.Performed By: #### URCX #### [facility] [address] [address] [address] Lucia QueenXR CHEST 1 Von [id number] CHEST 1 VEXAMINATION: XR CHEST 1 V, , 11/27/2021 10:35 PM EDT INDICATION: COUGH HISTORY: Ordering Provider Reason for Exam: Technologist Note: Additional: COMPARISON: None. TECHNIQUE: Chest x-ray: One view. FINDINGS: No pneumothorax, pleural effusion or focal airspace consolidation. Mild enlarged cardiac silhouette is seen. Bony thorax is unremarkable. IMPRESSION: No acute pulmonary process. Mild enlarged cardiac silhouette is seen. Electronically authenticated by: ANGLE SCHNEIDER Date: 2021-11-27 23:11[facility] CenterXR NECK SOFT TISSUEon 12-33-0839RK NECK SOFT TISSUEEXAM: XR NECK SOFT TISSUE HISTORY: COUGH COMPARISON: None. TECHNIQUE: 2 views [...] Electronically authenticated by: Traci SHARIF Date: 2021-11-27 23:17[facility] Vital Signs Date TimeVital SignValuePerforming RubqejjcfTclqhdff44-77-9044 14:33-0400Body .2 cmBrenda Gomez NP Work Phone: [facility] Yophihuwrx28-67-2401 14:33-0400Body mass index (BMI) [Ratio]38.34 kg/m4Vnhhc Luby [employer] Work Phone: NOLiberty HospitalIjnmiuross47-47-7945 14:33-0400Body temperature 98.49 [degF]Brenda Gomez [employer] Work Phone: NOLiberty HospitalVjdouzlmdm46-95-5355 14:33-0400Body enypto43.12 kgBrenda Gomez [employer] Work Phone: EPLiberty HospitalXieoqpasap79-01-2346 14:33-0400Diastolic blood kjyhewek98 mm[Hg]Brenda Gomez [employer] Work Phone: NOLiberty HospitalOuwlugtmqc94-58-0820 14:33-0400Heart rate68 /min Brenda Gomez [employer] Work Phone: SQLiberty HospitalDzoetfhuuk54-39-1569 14:33-7703ElM7% (BldA) [Mass fraction]94 %Brenda Gomez [employer] Work Phone: KWLiberty HospitalZdrwrfkxge13-54-1883 14:33-0400Systolic blood wznkesjk510 mm[Hg]Brenda Ferreirazoë [employer] Work Phone: NOLiberty HospitalNoytdjhxdg99-89-3597 14:10-0400Body nogqyr657.2 Angelique Babb PA Work Phone: NOLiberty HospitalWdjlybzoif63-60-5626 14:10-0400Body mass index (BMI) [Ratio]38.1 kg/m2Tamara Babb PA Work Phone: MALiberty HospitalSldibvwfiw53-92-3255 14:10-0400Body temperature 98.2 [degF]Tamara Babb PA Work Phone: NOLiberty HospitalCslzalzpxt07-82-0915 14:10-0400Body .67 kgTamara Babb PA Work Phone: NOLiberty HospitalIftsekvoec44-48-0307 14:10-0400Diastolic blood mruipmuy47 mm[Hg]Tamara Babb PA Work Phone: NOLiberty HospitalFxwnkqtvcq41-20-9250 14:10-0400Heart rate79 /min Tamara Babb PA Work Phone: NOLiberty HospitalFsaakahygi79-68-2329 14:10-7407QdC1% (BldA) [Mass fraction]98 %Tamara Babb PA Work Phone: [facility] WashingtonSswpfyckba73-95-1560 14:10-0400Systolic blood ooocnfsz660 mm[Hg]Tamara Babb PA Work Phone: [facility] WashingtonTjupjkyeph14-31-8479 15:01-0400Body mass index (BMI) [Ratio]37.61 kg/l3Jbhifwc Itzrisa DO Work Phone: [facility] WashingtonKrgpthzniv01-77-5805 15:01-0400Body .76 kgFredric Itzrisa DO Work Phone: [facility] WashingtonHmeqhytdle98-97-0785 15:01-0400Diastolic blood qtylnjpa87 mm[Hg]Viktoriya Itdom DO Work Phone: [facility] WashingtonMyuwvnatln22-38-4029 15:01-0400Systolic blood fkfxoeuh709 mm[Hg]Viktoriya Itdom DO Work Phone: [facility] WashingtonYurfvqczcg66-20-9648 14:48-0400Body nrvvme659.2 Orquidea Brian DO Work Phone: noLiberty HospitalIhimjcgyzy33-25-1898 14:48-0400Body mass index (BMI) [Ratio]37.61 kg/m2Rafi Torres DO Work Phone: [facility] WashingtonTeudwyulau85-68-4005 14:48-0400Body temperature 98.2 [degF]Rafi Torres DO Work Phone: [facility] WashingtonFtibbcbfna13-10-1823 14:48-0400Body .76 kgRafi Torres Work Phone: [facility] WashingtonUijiogbzum91-44-8001 14:48-0400Diastolic blood wujlzgxw33 mm[Hg]Rafi Torres DO Work Phone: [facility] WashingtonMvvcuqyijq95-71-7917 14:48-0400Heart rate74 /min Rafi Torres DO Work Phone: [facility] WashingtonIgjrhwihdz39-90-4767 14:48-0400Systolic blood rufnpvcy924 mm[Hg]Rafi Torres DO Work Phone: [facility] WashingtonBjjakwqgbk51-85-7302 11:17-0400Body .16 cmPanisha Torres DO Work Phone: 1(720)[address] [place], [place] 9602804-04-2025 11:17-0400 Body mass index (BMI) [Ratio]38 kg/m2Pabecca Torres DO Work Phone: 1(854)[address] [place], [place] 960[address]4-04-2025 11:17-0400 Body suxqsx38.66 kgPaul Brian DO Work Phone: [phone])[address] [place], [place] 960[address]4-04-2025 11:17-0400 Diastolic blood emhntiup24 mm[Hg]Rafi Torres DO Work Phone: 1(086)[address] [place], [place] 960[address]4-04-2025 11:17-0400 Heart rate71 /minPabecca Torres DO Work Phone: 1(340)[address] [place], [place] 960[address]4-04-2025 11:17-0400 SaO2% (BldA) [Mass fraction]96 %Rafi Torres DO Work Phone: 1(447)[address] [place], [place] 960[address]4-04-2025 11:17-0400 Systolic blood denmcxio587 mm[Hg]Rafi Torres DO Work Phone: 1(914)[address] [place], [place] [address]60[address]3-06-2025 14:12-0500 Body dcciff210.2 cmPanisha Torres DO Work Phone: 1(717)[address] [place], [place] 566[address]3-06-2025 14:12-0500Body mass index (BMI) [Ratio]38.1 kg/m2Pabecca Torres DO Work Phone: 1(948)[address] [place], [place] 566[address]3-06-2025 14:12-0500Body temperature 97.3 [degF]Rafi Torres DO Work Phone: 1(544)[address] [place], [place] 566[address]3-06-2025 14:12-0500Body owvuoa15.67 kgPaul Brian DO Work Phone: 1(976)[facility] [place], [place] [address]Nqrsohwapx92-52-8571 14:12-0500Diastolic blood xdtpuwbf45 mm[Hg]Rafi Brian DO Work Phone: 1(159)[address] [place], [place] 566[address]3-06-2025 14:12-0500Heart rate90 /min Rafi Torres DO Work Phone: [facility] WashingtonRrzwamhfua58-25-2722 14:12-5310IvG6% (BldA) [Mass fraction]95 %Rafi Torres DO Work Phone: 1(006)[facility] [place], [place] [address]Biuqnzvfow37-94-2392 14:12-0500Systolic blood mm[Hg]Rafi Torres DO Work Phone: 1(328)553-[address] [place], [place] [address]Dqthrbaiud41-86-5764 14:20-0500Body umkxnc761.2 cmFredric Itzkowitz DO Work Phone: 1(864)[facility]-8303[facility] WashingtonSdciifdtai11-01-9058 14:20-0500Body mass index (BMI) [Ratio]41.71 kg/b6Oxmqwqj Itzkowitz DO Work Phone: 1(682)[facility]-4779[facility] WashingtonMtnonjsmem77-18-4274 14:20-0500Body wbilxt79.47 kgFredric Itzkowitz DO Work Phone: 1(889)[facility]-8295[facility] WashingtonOqcfqjnsah04-09-7948 14:20-0500Diastolic blood ivxdxdto64 mm[Hg]Viktoriya Itzkowitz DO Work Phone: 1(535)[facility]-7872[facility] WashingtonPhluzlwltb24-31-5372 14:20-0500Systolic blood xqxssigd664 mm[Hg]Viktoriya Itzkowitz DO Work Phone: 1(242)[facility]-[address] [place], [place] [address]Rdzsycxant70-26-3116 15:12-0500Body ztspmu620.2 cmBrenda Gomez [employer] Work Phone: 1(311)[facility] [place], [place] [address]Fgdmyhyunc70-89-6511 15:12-0500Body mass index (BMI) [Ratio]41.71 kg/g4DepujBrenda Gomez [employer] Work Phone: 1(702)[facility] [place] [address]-13-2024 15:12-0500Body temperature 98.1 [degF]Brenda Gomez [employer] Work Phone: 1(119)[facility] [place], [place] [address]Ukhnlfcbwn90-10-7610 15:12-0500Body rnayty65.47 kgBrenda Gomez [employer] Work Phone: 1(881)[facility] [place] [address]-13-2024 15:12-0500Diastolic blood eziauynx04 mm[Hg]Brenda Gomez [employer] Work Phone: NOLiberty HospitalNukbsfkhuq82-51-5537 15:12-0500Heart rate81 /min Brenda Gomez [employer] Work Phone: [facility] WashingtonXdfeldcves22-15-5679 15:12-0809EvE3% (BldA) [Mass fraction]95 %Brenda Gomez [employer] Work Phone: noLiberty HospitalBswqlmpiaq43-28-6376 15:12-0500Systolic blood twjxzaqh388 mm[Hg]Brenda Gomez [employer] Work Phone: [facility] WashingtonXuyukkauyt85-22-9528 16:38-0400Body cpxvgu404.2 cmFredis العراقي DPM Work Phone: [facility] WashingtonJwnjsosmwa66-69-7903 16:38-0400Body mass index (BMI) [Ratio]40.99 kg/d5MfjlojhiFredis العراقي DPM Work Phone: [facility] WashingtonNwhyvmlryx50-79-8914 16:38-0400Body unodnu36.11 kgFredis العراقي DPM Work Phone: [facility] WashingtonNdolrveazo91-10-9126 16:38-0400Diastolic blood zjvmsmek01 mm[Hg]Fredis العراقي DPM Work Phone: [facility] WashingtonXbcmvlrrmf02-52-1516 16:38-0400Heart rate82 /min Fredis العراقي DPM Work Phone: [facility] WashingtonAujwogayya88-41-4545 16:38-0400Systolic blood mcitbulp127 mm[Hg]Fredis العراقي DPM Work Phone: [facility] WashingtonObcmiprvks34-72-8208 13:56-0400Body qjxtny396.2 Orquidea Torres DO Work Phone: noLiberty HospitalCfahvdyyaz74-20-8213 13:56-0400Body mass index (BMI) [Ratio]40.99 kg/m2Rafi Torres DO Work Phone: noLiberty HospitalDojmszncgn35-52-5228 13:56-0400Body temperature 98.01 [degF]Rafi Torres DO Work Phone: [facility] WashingtonVngnlqlfui16-38-5119 13:56-0400Body oijkof42.11 kgPaul Brian DO Work Phone: [facility] WashingtonNxckixtzpo03-53-9997 13:56-0400Diastolic blood bflajavh48 mm[Hg]Rafi Brian DO Work Phone: NOLiberty HospitalLrapofpwoz36-05-4236 13:56-0400Heart rate74 /min Rafi Brian DO Work Phone: [facility] WashingtonFctuirofxe88-96-0551 13:56-0400Systolic blood omwnzvou793 mm[Hg]Rafi Brian DO Work Phone: [address] [address]Isavwelcyp65-85-8732 15:19-0400Body sasnrv921.2 cmPanisha Torres DO Work Phone: 1(926)[facility]1199[facility] WashingtonYimgltwrvr50-18-3686 15:19-0400Body mass index (BMI) [Ratio]41.95 kg/m2Pabecca Brian DO Work Phone: [facility] WashingtonLpxsciuvuj76-22-8617 15:19-0400Body temperature 98.29 [degF]Rafi Torres DO Work Phone: [facility] WashingtonXfzptsmavg61-62-0697 15:19-0400Body .93 kgPaul Brian DO Work Phone: [facility] WashingtonJaauzxsgli29-28-5339 15:19-0400Diastolic blood ueibuygc68 mm[Hg]Rafi Torres DO Work Phone: [facility] WashingtonHuobftkxcd27-52-0341 15:19-0400Heart rate74 /min Rafi Brian DO Work Phone: [facility] WashingtonYhifewgops89-61-3068 15:19-0400Systolic blood mm[Hg]Rafi Torres DO Work Phone: [facility] WashingtonEdatarovwe68-87-8603 13:14-0400Blood Pressure LocationAurora Danilo [facility]07-23-2024 13:14-0400Diastolic blood bbmzodkz20 mm[Hg]Karissa Orzebethany [facility]07-23-2024 13:14-0400Heart rate72 /minAurora Orzech [facility]07-23-2024 13:14-0400Respiratory rate16 /minAurora Orzech [facility]07-23-2024 13:14-0400Systolic blood mvyiwvgm540 mm[Hg]Karissa Orzech [facility]05-28-2024 18:33-0400Body bdcwxe394.16 cmPHYSICIAN [facility]05-28-20[facility] 18:33-0400Body mass index (BMI) [Ratio]45.4 kg/d0TSAFSZLYR [facility]05-28-2024 18:33-0400 Body dszqtvuspzv18.3 [degF]PHYSICIAN [facility] 12-14-2023 18:33-0400Body ortxih58.5 kgPHYSICIAN [facility]05-28-2024 18:33-0400Heart rate74 /minPHYSICIAN [facility]05-28-2024 18:33-0400Respiratory rate18 /minPHYSICIAN [facility]05-28-2024 18:33-2282EkQ7% (BldA) [Mass fraction]94 %PHYSICIAN [facility]04-12-2024 17:31-0400Body dercvr796.16 cmDO Rafi Torres Work Phone: 1(791)128-[address] [place], [place] 9737104-12-2024 17:31-0400 Body mass index (BMI) [Ratio]43.9 kg/m2DO Rafi Torres Work Phone: [facility]04-12-2024 17:31-0400 Body xwyhxrkmkot49.8 [degF]DO Rafi Torres Work Phone: 1(921)846-[address] [place], [place] 9737104-12-2024 17:31-0400 Body aegqef67.55 kgDO Rafi Torres Work Phone: 1(749)[facility] [place], [place] 9737104-12-2024 17:31-0400 Diastolic blood mm[Hg]DO Rafi Torres Work Phone: 1(864)[address] [place], [place] 960[address]4-12-2024 17:31-0400 Heart rate86 /minDO Rafi Torres Work Phone: 1(750)[address] [place], [place] [address]60[address]4-12-2024 17:31-0400 SaO2% (BldA) [Mass fraction]94 %DO Rafi Torres Work Phone: 1(728)[address] [place], [place] 960[address]4-12-2024 17:31-0400 Systolic blood mm[Hg]DO Rafi Torres Work Phone: 1(816)[address] [place], [place] [address]602801-17-2023 13:48-0500 Blood Pressure LocationJENNIFER KWAKU [facility]01-17-2023 13:48-0500Diastolic blood zxjttnuv47 mm[Hg]TATIANA KWAKU [facility]01-17-2023 13:48-0500Heart rate68 /minJENNIFER KWAKU [facility]01-17-2023 13:48-0500Respiratory rate16 /minJENNIFER KWAKU [facility]01-17-2023 13:48-0500Systolic blood mm[Hg]TATIANA KWAKU [facility]11-14-2022 12:35-0500Body hikjvh002.16 Alem Rutherford Other [place] [employer] Other 11-14-2022 12:35-0500Body mass index (BMI) [Ratio] 40.98 kg/j1XbadkfClarisa Rutherford Other [employer] Other 11-14-2022 12:35-0500Body ohuostzdtzo58.5 [degF]Clarisa Oneilmond Other [employer] Other 11-14-2022 12:35-0500Body uzcbql88.11 kgClarisa Rutherford Other [employer] Other 11-14-2022 12:35-0500Diastolic blood kfadwako37 mm[Hg] Clarisa Oneilmond Other [employer] Other 11-14-2022 12:35-0500Respiratory rate20 /minClarisa Rutherford Other [employer] Other 11-14-2022 12:35-2563VvP6% (BldA) [Mass fraction]97 % Clarisa Rutherford Other [employer] Other 11-14-2022 12:35-0500Systolic blood hrhifnwt991 mm[Hg] Clarisa Oneilmond Other [employer] Other 06-30-2022 12:00-015110 1Panisha Torres Work Phone: [phone]-Iwxbj [facility] [address] [place] Work Phone: Comment on above:XALLXFJG8301-28-6276 13:12-0400Body qwreur246.16 cmPanisha Torres Work Phone: mp760-6956TI-Kvizf [facility] [address] DO Work Phone: 1(929) 717-375606-20-2022 13:12-0400Body mass index (BMI) [Ratio] 42.68 kg/m2Pabecca Torres Work Phone: mp509-3633QV-Fuxqe [facility] [address] DO Work Phone: 1(120) 503-912106-20-2022 13:12-0400Body surface area Derived from formula1.64 m2Pabecca Lina Torres Work Phone: mp613-8070IQ-Dktki [facility] [address] DO Work Phone: 1(953) 690-123206-20-2022 13:12-0400Body sxubmn30.29 kgPabecca Torres Work Phone: mp798-6940KU-Kmqnl [facility] [address] DO Work Phone: 1(787) 148-853506-20-2022 13:12-0400Diastolic blood hpxynaeg64 mm[Hg] Rafi Torres Work Phone: mp619-8554BQ-Cnedc [facility] [address] DO Work Phone: 1(474) 443-918906-20-2022 13:12-0400Heart rate80 /minPabecca Torres Work Phone: mp641-9008ER-Okyld [facility] DO Work Phone: 1(148) 419-822706-20-2022 13:12-0400Systolic blood hkeqqhcn562 mm[Hg] Rafi Torres Work Phone: [phone]-Fredp [facility] [address] DO Work Phone: Encounters Encounter DateEncounter TypeCare ProviderFacilityStart: 87-89-4097xmdjxvijfr Lauren TannaFacility:EU BellevueStart: 05-29-2025 End: 55-12-2452Cumefckhi encounterPabecca [place] Brian DO Work Phone: [facility] 230Comment on above:Med RefillStart: 05-21-2025 End: 48-52-2344Qvgbkrmnb encounterTimhunter Curtis DO Work Phone: noMS [facility] 230Comment on above: Medication QuestionStart: 05-17-2025 End: 03-66-0077Sdzjqjlvn encounterPabecca Lina Torres DO Work Phone: noms [facility] 230Comment on above:Med RefillStart: 05-16-2025 End: 96-40-0685cymnfusjrvIesiqv TannaFacility:EU [place]vueStart: 05-16-2025 End: 20-42-4834Dwasopr encounter procedureShanell Marcuma [facility] start: 04-18-2025 End: 14-23-4323Yojpxhlee encounterPaul Lina Torres DO Work Phone: noms [facility] 230Comment on above:Med RefillStart: 03-26-2025 End: 87-73-5534Zforphmor encounterPabecca Lina Torres DO Work Phone: noms [facility] 230Comment on above: Medication QuestionStart: 03-21-2025 End: 54-49-7188Bouht of hemosiderin, quantBrenda Gomez [employer] Work Phone: [facility] Work Phone: Start: 03-21-2025 End: 99-86-3667Xyybmmx encounter Katlyn Gomez NP Work Phone: noms [facility] 230Comment on above: Routine general medical examination at health care facility (Primary Dx); Type 2 diabetes mellitus with other specified complication, unspecified whether terminal gauger supervisor insulin use (HCC); Obstructive sleep apnea; Other chronic pain; Essential hypertension ; Hyperlipidemia, unspecified hyperlipidemia typeStart: 03-21-2025 End: 01-97-5094farpzcpqinAEDFK L LUBYNot AvailableStart: 03-21-2025 End: 52-23-7403Vqeytd outpatient visit 25 minutesPabecca Lina Torres DO Work Phone: noms [facility] 230Comment on above: Frequent UTI (Primary Dx); Anxiety; Chronic bilateral low back pain without sciaticaStart: 03-21-2025 End: 13-24-9845Uuuybq flowsAixa [place] Brian DO Work Phone: NOSZ [facility] 230Start: 03-21-2025 End: 27-83-2667Dpskqr juliusAixa Lina Torres DO Work Phone: [facility] 230Start: 02-16-2025 End: 65-89-4967RnhglmIfvyqr Abner MANCYNDY [facility] 230Comment on above:AnxietyStart: 02-12-2025 End: 84-31-3285ftafzconftLOHJ M MYERSNot AvailableStart: 02-12-2025 End: 65-86-1117Budmwy Dwain AYALA Work Phone: NORM [facility] 230Start: 02-12-2025 End: 30-14-9023Nuqqkh Dwain AYALA Work Phone: NONG [facility] 230Start: 02-12-2025 End: 20-58-9094Iaumlc outpatient visit 15 minutesTamara AYALA Work Phone: NONI [facility] 230Comment on above: Acute cystitis with hematuria (Primary Dx); Urinary tract infection with hematuria, site unspecifiedStart: 02-07-2025 End: 39-30-6517Tuwmtg OnlyTimhunter Curtis DO Work Phone: NOTU [facility] 230Comment on above:Type 2 diabetes mellitus without complication, without long-term current use of insulin (HCC) Start: 01-22-2025 End: 02-61-1989GdimzvOcfacaa Bias MANOMS [facility] 230Comment on above:Anxiety Start: 01-17-2025 End: 62-91-0963Qklutr outpatient visit 25 minutesFredric H Itdom DO Work Phone: NOMS [facility] GENSComment on above:History of left breast cancer (Primary Dx)Start: 01-17-2025 End: 87-45-6689ysclebgldqLWUWSTT H ITZKOHERBERTNot AvailableStart: 01-15-2025 End: 70-52-4167Ssbeerf encounter procedureFredric Tahir DO-[facility] Work Phone: Start: 01-15-2025 End: 89-62-9370gobhkihksbTbuy Bruner DO Work Phone: [facility] Work Phone: Start: 12-25-2024 End: 37-58-5758Zpcvxctkc encounterRafi Torres DO Work Phone: [facility] 230Comment on above:Med RefillStart: 12-18-2024 End: 55-71-1902oaovabcdssCFGD J BRUNERNot AvailableStart: 12-18-2024 End: 94-10-4149Covomt outpatient visit 25 minutesPabecca Torres DO Work Phone: [facility] 230Comment on above: Alopecia (Primary Dx); Bilateral impacted cerumenStart: 12-18-2024 End: 89-42-4018Zfimvt Kendrick Torres DO Work Phone: [facility] 230Start: 12-18-2024 End: 55-67-5775Ckdwzo Kendrick Torres DO Work Phone: [facility] 230Start: 16-17-5927Wmk-patient / Non-visitDavid Lv Serrato MD-[facility] Work Phone: Start: 11-16-2024 End: 16-28-9523Tnuhxgy encounter procedureRafi Torres DO Work Phone: [facility] Work Phone: Start: 11-16-2024 End: 24-16-7241quwmgsganrSwwb Bruner DO Work Phone: [facility] Work Phone: Start: 11-13-2024 End: 85-49-6426zuuabuhblpHFTDVUON E PERRYFacility:FTMCStart: 11-13-2024 End: 75-30-2874Vtb Drop offJENNIFER E KWAKU [facility] Start: 11-13-2024 End: 48-90-5586hfkqpmpjjzQWYETKWG E PERRYFacility:[facility] BellevueStart: 10-20-2024 End: 51-98-6107txrdbvulliIkhy Bruner DO Work Phone: [facility] Work Phone: Start: 10-20-2024 End: 81-07-1971Vfivtrr encounter procedureRafi Torres DO Work Phone: [facility] Work Phone: Start: 10-09-2024 End: 23-30-7768Xejkvifus encounterPabecca Torres DO Work Phone: [facility] 230Comment on above:Med RefillStart: 09-21-2024 End: 53-82-7354jkxxzxcvxiDXAM J BRUNERNot AvailableStart: 09-21-2024 End: 15-96-5518Jltgdi outpatient visit 25 minutesPabecca Torres DO Work Phone: [facility] 230Comment on above:Type 2 diabetes mellitus with diabetic chronic kidney disease (CMS/HCC) (Primary Dx); Morbid (severe) obesity due to excess calories (CMS/HCC); Body mass index (BMI) 40.0-44.9, adult (CMS/HCC); Type 2 diabetes mellitus with other specified complication (CMS/HCC); Hyperlipidemia, unspecified (CMS/HCC); Type 2 diabetes mellitus with other circulatory complications (CMS/HCC); Heart failure, unspecified (CMS/HCC); Chronic kidney disease, stage 3b (HCC) (CMS/HCC); Malignant neoplasm of central portion of unspecified female breast (CMS/HCC); Malignant neoplasm of central portion of left female breast (CMS/HCC); Other hypertrophic cardiomyopathy (CMS/HCC); AnxietyStart: 09-13-2024 End: 81-22-3573Kpaqlvyw Result EncounterRafi Torres DO Work Phone: NOKP External Department UnsolicitedStart: 09-13-2024 End: 72-21-5253Zqwwjvop Result EncounterPaul Lina Torres DO Work Phone: noms External Department UnsolicitedStart: 09-13-2024 End: 02-36-1734Agdvhyz encounter procedurePaul Brian DO Work Phone: [facility] [place] Work Phone: Start: 09-13-2024 End: 84-75-4680bvykenssarDegu Brian DO Work Phone: [facility] Work Phone: Start: 07-17-2024 End: 96-62-8038Jdtjxu outpatient visit 15 minutesFredric H Itzkowitz DO Work Phone: noms ST GENSComment on above:Actinic keratosis (Primary Dx)Start: 07-17-2024 End: 16-56-6859vdmnbbtrviVEKNYEK H ITZKOWITZNot AvailableStart: 06-30-2024 End: 07-07-8932Ucocyehxe encounterPaul Lina Torres DO Work Phone: [facility] S[facility] FM 230Start: 06-26-2024 End: 58-25-8544Dnelaiaax encounterPaul Lina Torres DO Work Phone: [facility] FM 230Start: 06-23-2024 End: 39-63-6757KuftulOknjol Young MANOMS SWS FM 230Comment on above:Anxiety Start: 05-31-2024 End: 85-39-1236qaceqtwldsVMKKP L LUBYNot AvailableStart: 05-31-2024 End: 29-34-0288Ccqfha outpatient visit 15 Myrna Gomez [employer] Work Phone: [facility] S[facility] FM 230Comment on above:Acute cystitis with hematuria (Primary Dx); Sensation of pressure in bladder areaStart: 05-31-2024 End: 95-20-0212Uljllf flowsheetBrenda Gomez [employer] Work Phone: [facility] S[facility] FM 230Start: 05-31-2024 End: 86-01-4137Tdampk flowsGrover Gomez NP Work Phone: [facility] 230Start: 05-26-2024 End: 26-42-3737IlyeryLijmxl aFzal [facility] FM 230Comment on above:Anxiety Start: 05-18-2024 End: 00-68-1500Iksaxec encounter Angelica العراقي DPM Work Phone: NOMS CI PODIATRYComment on above:Type 2 diabetes mellitus without complication, without long-term current use of insulin ([facility]) (Primary Dx); Pain due to onychomycosis of toenails of both feet; Venous insufficiencyStart: 05-18-2024 End: 03-58-0054pnrmyrejkdGBNVZREK A BROWNNot AvailableStart: 05-18-2024 End: 85-60-5010Tvneja Claudia العراقي DPM Work Phone: noMS CI PODIATRYStart: 05-18-2024 End: 56-86-4015Woxyty Claudia العراقي DPM Work Phone: noms CI PODIATRYStart: 05-05-2024 End: 84-20-3032Bwlfuxjug Result EncounterAlex Selby MD Work Phone: NOMS External Department UnsolicitedStart: 05-05-2024 End: 62-84-6336Gfpnscoqs Result EncounterAdabaliee Selby MD Work Phone: [phone] External Department UnsolicitedStart: 04-11-2024 End: 97-39-2276Mbiplkw encounter procedureAurora X Danilo [facility] start: 03-29-2024 End: 54-01-9756Cvisdf Kendrick Torres DO Work Phone: [facility] 230Start: 03-29-2024 End: 50-11-0539Asuloj luisRafi Lina Torres DO Work Phone: [facility] FM 230Start: 03-29-2024 End: 20-65-9149Bjolst outpatient visit 25 minutesRafi Torres DO Work Phone: [facility] FM 230Comment on above:Primary insomnia (Primary Dx); Obstructive sleep apnea; Hearing loss of left ear, unspecified hearing loss typeStart: 03-29-2024 End: 50-56-8523pfukiqftdrNTSZ Lina TORRESNot AvailableStart: 03-23-2024 End: 51-85-4154Usufxb outpatient visit 25 minutesRafi Torres DO Work Phone: [facility] S[facility] FM 230Comment on above:Stage 3b chronic kidney disease (HCC) (CMS/HCC) (Primary Dx); Atherosclerosis of coronary artery of [place] heart without angina pectoris, unspecified vessel or lesion type (CMS/HCC); Osteoarthritis of lumbar spine, unspecified spinal osteoarthritis complication status; Diabetic nephropathy associated with type 2 diabetes mellitus (HCC) (CMS/HCC); Hyperlipidemia, unspecified hyperlipidemia type (CMS/HCC)Start: 03-23-2024 End: 62-95-6558Eeeqpn luisRafi Lina Torres DO Work Phone: [facility] FM 230Start: 03-23-2024 End: 93-97-7848Xhnasj Kendrick Torres DO Work Phone: [facility] FM 230Start: 03-08-2024 End: 67-50-8021Ajzlltznw Result EncounterGeneric External Data ProviderNOMS External Department UnsolicitedStart: 03-08-2024 End: 32-00-2893Fhvgoolwp Result EncounterGeneric External Data ProviderNOMS External Department UnsolicitedStart: 02-08-2024 End: 55-29-5636Krbbhdw encounter procedureAurora X Orzech [facility] start: 01-27-2024 End: 33-92-2248zpwvjmtwhpII Paul Brian Work Phone: [facility] Work Phone: Start: 01-27-2024 End: 56-53-2987Ugyoyqr encounter procedureDO Rafi Torres Work Phone: [facility] [place] Work Phone: Start: 01-13-2024 End: 08-96-7517jnmcdkddvtXBZRHQJOE NO [facility] Work Phone: Start: 01-13-2024 End: 68-84-8424Suyxsxn encounter procedurePHYSICIAN NO [facility] Work Phone: Start: 12-28-2023 End: 19-14-3528Hdbolbp encounter procedureAurora X Orzech [facility] start: 12-14-2023 End: 96-12-4272mlmmfghmjjZASJMFJHW NO [facility] Work Phone: Start: 12-14-2023 End: 73-33-5096Mzqwlub encounter procedurePHYSICIAN NO [facility] Work Phone: Start: 10-29-2023 End: 43-17-5819Wxhkzusk ReferredDO Rafi Torres Work Phone: [facility] [place] Work Phone: Start: 10-29-2023 End: 12-52-3470ankqnlghapBH Rafi Torres Work Phone: [facility] Work Phone: Start: 10-29-2023 End: 98-10-1193Smeycav encounter procedureDO Rafi Torres Work Phone: [facility] Work Phone: Start: 09-10-2023 End: 76-65-3255Hbdiypd encounter procedureDO Rafi Torres Work Phone: [facility] [place] Work Phone: Start: 03-09-2023 End: 84-83-9057kjapjavvdpPG Rafi Brian Work Phone: [facility] Work Phone: Start: 03-09-2023 End: 03-21-5565Drcvyyi encounter procedureDO Rafi Brian Work Phone: [facility] [place] Work Phone: Start: 01-07-2023 End: 97-39-9160bddjmrobwjMO Rafi Torres Work Phone: [facility] Work Phone: Start: 01-07-2023 End: 33-30-6648Blleiew encounter procedureDO Rafi Torres Work Phone: [facility] Work Phone: Start: 11-04-2022 End: 42-18-7875vcazayueqcLI PAUL BRUNERFacility:R6Oqhzv: 10-06-2022 End: 20-76-4559tzpkajgkzgMgur Asaad Other [place] [employer] Other Start: 95-75-3563Njqpwqgje encounterImad AsaadFPG Referral CoordinatorStart: 08-10-2022 End: 23-39-0713gdzdxtlwacXQ RAFI TORRESFacility:R1Nqhfg: 08-04-2022 End: 74-50-0197Ofy Drop offJENNIFER E KWAKU [facility] Start: 08-04-2022 End: 66-55-2729Gnfacaz encounter procedureJENNIFER E KWAKU [facility] start: 07-27-2022 End: 67-77-3115egyjjgqngtPFAJSUIHA NO [facility] Work Phone: Start: 07-27-2022 End: 36-80-5828Wrhyahs encounter procedurePHYSICIAN NO [facility] [place] Work Phone: Start: 06-16-2022 End: 58-31-3658bdecwgnjdcYX JAE GANCTFacility:W2Ixwpx: 06-04-2022 End: 82-63-0639wgknohtfazXCQFI PARKERFacility:L8Kwnwc: 46-39-1340Hydsxt outpatient visit 25 Adriana Siddiqui [facility] ClydeStart: 06-01-2022 End: 52-93-4251mpepkclwevQA-C Clarisa Rutherford Work Phone: [facility] Work Phone: Start: 06-01-2022 End: 35-82-0178Uvcstcfh ReferredNP-C Clarisa Rutherford Work Phone: [facility] DaytonStart: 59-55-5286Ymtlj Danna Torres Work Phone: [facility] [facility] DO Work Phone: Start: 27-31-3444Fysvmzz encounter Krystal Torres Work Phone: [facility] [address] [place] Work Phone: Start: 06-88-9267Sgjfyw consultation new/estab patient 58 Andreina Torres Work Phone: [phone]-Avbpw [facility] 250 DO Work Phone: Start: 11-28-2021 End: 60-58-2965hrrfmurgexJD MYRNA BOBBYFacility:W5Ixgvu: 23-56-0515Prigfay encounter procedureAmy Ro ReeseFacility:9122 Procedures DateProcedureProcedure DetailPerforming ClinicianStart: 10-10-5317Xsqubjpjvh glycosylated f5uApqjd L Jhonzoë [employer] Work Phone: Start: 20-78-0324Jehkp dip stick/tablet rgnt non-auto w/o micrscpRyan Bailee Babb PA Work Phone: Start: 13-45-8522Wueywgzlq mammography of bilateral breastsPaul Brian DO Work Phone: Start: 73-34-7026Gpssp albumin quantitativePaul Lina Torres DO Work Phone: Start: 09-67-1055Sbrmylcm blood count with white cell differential, automatedRafi Torres DO Work Phone: Start: 84-20-6704Twpxjavtcidoh metabolic panelPabecca Torres DO Work Phone: Start: 51-72-7729Xadyd panelPabecca Torres DO Work Phone: Start: 22-99-1591Bfftodu bacterial quanttative colony count urineBrenda Gomez [employer] Work Phone: Start: 70-25-7904OVHPE CULTURE CLEAN CATCH REFLEXBrenda Baca Jhonzoë [employer] Work Phone: Start: 88-24-1805Bftpb dip stick/tablet rgnt non-auto w/o micrscpBrenda Gomez [employer] Work Phone: Start: 10-29-5389DG LUMBAR SPINE WO Andrew Selby MD Work Phone: Start: 23-68-3206Aqofmcrv identified in Urine by CultureGeneric External Data ProviderStart: 39-05-5145Fpkrtuvvl mammography of bilateral breastsPHYSICIAN NO FAMILYStart: 01-22-2254Rtdny culturePHYSICIAN NO FAMILYStart: 91-89-1726Tlhtjsnby mammographyDO Rafi Torres Work Phone: Start: 57-33-7352Taegrnvviemh/tazobactamPcarolina Rutherford Other Start: 72-91-1556Dyciy culturePHYSICIAN NO FAMILY Start: 99-87-9166Nsxcj colonoscopyRafi Torres Work Phone: ColonoscopyJENNIFER KWAKU EsophagogastroduodenoscopyRafi Torres Work Phone: Lumpectomy of breastRafi Torres Work Phone: Comment on above:left breast;Lumpectomy of breast TATIANA MACIEL Comment on above:Outside Source Comment: Comment on above: left breast; Plan of Treatment DateCare ActivityDetailAuthorStart: 09-03-2026Medicare Annual Wellness (AWV) Medicare Annual Wellness (AWV)[facility] HealthcareStart: 13-42-1086Dysud screening for proteinDiabetes: Urine Protein ScreeningNOMA HealthcareStart: 06-20-2025 Hemoglobin A1c measurementDiabetes: Hemoglobin M0RMGDO HealthcareStart: 03-21-2025 End: 61-66-2914Jicycxr encounter procedureNOJOHN [facility] 230Start: 55-49-8861QMOHF- 19 Vaccine ( season)COVID-19 Vaccine ( season)[facility] HealthcareStart: 94-39-4882Yzgaaezvc vaccinationInfluenza Vaccine (#1)[facility] HealthcareStart: 02-12-2025 End: 85-57-0741Odqvjcvb identified in Urine by CultureUrine culture (clean catch) Microbiology Routine Acute cystitis with hematuria Expected: 02/12/2025 (Approximate), Expires: 02/12/2026[facility] Work Phone: Comment on above:Expected: 02/12/2025 (Approximate), Expires: 02/12/2026Start: 01-17-2025 End: 36-96-3352Rmjtcsr encounter pzvawmhvo50/02/2025 3:15 PM EDT Office Visit NOMSeda GILLIS [address] [address] Viktoriya Chow DO 703 [facility] 150 [place] [address] NOMS GENSStart: 89-42-4783Nvgpajkxfb A1c measurement Diabetes: Hemoglobin Z2MYJAW HealthcareStart: 09-21-2024 End: 45-63-0985Sxbnrlp encounter /06/2025 2:00 PM EST Office Visit NOMS [facility] FM [address] [facility] 230 [place] [phone] Rafi Torres DO [address] [facility] 230 [place] [address] N[facility]S [facility] FM 230Start: 84-70-1579NykquakdbUniversity Hospitals Portage Medical Centertart: 02-26-2025Medicare Annual Wellness (AWV)Medicare Annual Wellness (AWV)NOMS HealthcareStart: 89-43-2151Rujne screening for protein Diabetes: Urine Protein ScreeningMOUNTAIN POINT [facility] HealthcareStart: 09-11-2024 End: 39-97-4824PIU W Auto Differential panel - BloodCBC and differential Lab Routine Stage 3b chronic kidney disease (HCC) ([facility]) Expected: 09/11/2024 (Approximate), Expires: 03/23/2025[facility] Work Phone: Comment on above:Expected: 09/11/2024 (Approximate), Expires: 03/23/2025Start: 09-11-2024 End: 43-08-0027Rqmvvijxzatmi metabolic 2000 panel - Serum or PlasmaComprehensive metabolic panel Lab Routine Stage 3b chronic kidney disease (HCC) ([facility]/HCC) Expected:09/11/2024 (Approximate), Expires: 03/23/2025N[facility] HealthcareComment on above:Expected: 09/11/2024 (Approximate), Expires: 03/23/2025Start: 09-11-2024 End: 09-98-8321Smgrlpkmhk a1c with eagHemoglobin a1c with eag Lab Routine Diabetic nephropathy associated with type 2 diabetes mellitus (HCC) ([facility]) Expected: 09/11/2024 (Approximate), Expires: 03/23/2025NOMA HealthcareComment on above:Expected: 09/11/2024 (Approximate), Expires: 03/23/2025Start: 09-11-2024 End: 54-83-8986Skgqd 1996 panel - Serum or PlasmaLipid panel Lab Routine Hyperlipidemia, unspecified hyperlipidemia type ([facility]/HCC) Expected: 09/11/2024 (Approximate), Expires: 03/23/2025NOMA HealthcareComment on above:Expected: 09/11/2024 (Approximate), Expires: 03/23/2025Start: 09-11-2024 End: 78-44-4016Qrslrpqziolw/Creatinine panel in random UrineMicroalbumin / creatinine, urine ratio Lab Routine Diabetic nephropathy associated with type 2 diabetes mellitus (HCC) ([facility]/HCC) Expected: 09/11/2024 (Approximate), Expires: 03/23/2025N[facility] HealthcareComment on above:Expected: 09/11/2024 (Approximate), Expires: 03/23/2025Start: 07-27-2024 End: 78-82-8152Eluditz encounter bfcdewrsg75/09/2025 4:40 PM EST Procedure Visit [facility] [address] [facility] [address] [place] [address] Fredis العراقي DPM [address] [address] NOMS CI PODIATRYStart: 07-17-2024 End: 64-79-7243Lbmdgxu encounter ypfjcgiok84/30/2024 3:45 PM EST Office Visit [facility] [address] [facility] 150 [place] [address] Viktoriya Chow DO 703 [facility] 150 [place] [address] GENSStart: 05-18-2024 End: 54-07-1088Vipimep encounter nngztxcif80/31/2024 4:40 PM EDT Procedure Visit [facility] [address] [facility] [address] [place] [phone] Fredis العراقي DPM [address] [address] Type 2 diabetes mellitus without complication, without long-term current useof insulin (CMS/HCC) (Primary Dx); Pain due to onychomycosis of toenails of both feet; Venous insufficiencyNOMS CI PODIATRY Comment on above:Type 2 diabetes mellitus without complication, without long- term current use of insulin (CMS/HCC) (Primary Dx); Pain due to onychomycosis of toenails of both feet; Venous insufficiencyStart: 05-11-2024 End: 43-37-1296Xzpztjb encounter shporzzwo67/24/2024 3:20 PM EDT Procedure Visit [facility] 112 [facility] 120 [place] [phone] Fredis العراقي, DPBailee [address] [address] NOMS CI PODIATRYStart: 60-09-0118Tqkwcthzli A1c measurementDiabetes: Hemoglobin Z2MVNAD HealthcareStart: 03-29-2024 End: 83-20-8747Fgnlvud encounter rwydwofbv60/11/2024 2:00 PM EDT Office Visit N[facility] FM [address] [facility] 230 [place] [phone] Rafi Torres DO [address] [facility] 230 [place] [address] ArrivedNOMS [facility] FM 230Comment on above:ArrivedStart: 03-23-2024 End: 45-13-5365Ngifyqd encounter procedureNOMS [facility] FM 230Comment on above: ArrivedStart: 67-25-9014Dfkcijyea vaccinationInfluenza Vaccine (#1)NOMS HealthcareStart: 78-10-0468Vkxnufdk identified in Urine by CultureUniversity Hospitals Portage Medical Centertart: 87-19-0676BZUYUM NUC, Provider: DEVEN ELLIOTTI VERENICE ,[id number], Status: Pen, Time: 12:00 PMSTRESS NUC, Provider: DEVEN HHVI NUCLEAR 01,[id number], Status: Pen, Time: 12:00 [facility] [place] 250 DO Work Phone: Start: 31-15-0369Salfvayn screeningDiabetes: Retinopathy ScreeningMOUNTAIN POINT [facility] HealthcareStart: 35-64-9518OGfJ/Tdap/Td Vaccines (1 - Tdap)DTaP/Tdap/Td Vaccines (1 - Tdap)NOMS HealthcareBacteria identified in Urine by CultureAultman Orrville HospitalBacteria identified in Urine by CultureURINE CULTURE, ROUTINE Lab Routine 03/08/2024 9:30 AM EDTMercy Hospital Washington Glucose measurement estimated from glycated hemoglobinAultman Orrville HospitalGlucose measurement estimated from glycated hemoglobinAultman Orrville HospitalHemoglobin A1c/Hemoglobin.total in BloodCanyon Ridge Hospital Immunizations Immunization DateImmunizationNotesCare LouuipgwMeaucudt38-29-4887eltndzyid virus vaccine, unspecified formulationLauren Dea [facility]10-22-2024influenza virus vaccine, unspecified formulationNiccarolina العراقي DPM Work Phone: [facility]11-13-2023influenza virus vaccine, unspecified formulationAurora Claudinezech [facility]11-13-2023Influenza, injectable, Madin Alejandra Canine Kidney, preservative free, quadrivalentGeneric ProviderMercy Hospital WashingtonBzdddcdduh87-58-5411Znhfdvs Bivalent Booster VaccinationGeneric Naval Hospital BremertonKsilllcslc98-94-6919AQUT-BoB-8 (COVID- 19) mRNAMUL.ORD![id number] KWAKU [facility]10-24-2022influenza virus vaccine, unspecified formulationJENNIFER KWAKU [facility]10-24-2022Influenza, High-dose Seasonal, Quadrivalent, Preservative Free Generic Naval Hospital BremertonOrzacfxicm77-11-9611Gipzgn-DmvMOhxw COVID-19 Vacc 30 MCG/0.3ML Intramuscular SuspensionPaul Lina Torres Work Phone: [facility]09-16-2021Fluzone High-Dose Quadrivalent 0.7 ML Intramuscular Suspension Prefilled SyringePaul Lina Torres Work Phone: mp[facility] DO Work Phone: [phone]gnysom virus vaccine, unspecified formulationJENNMECCA MACIEL [facility]03-05-2021Pfizer-BioNTech COVID-19 Vacc 30 MCG/0.3ML Intramuscular SuspensionPaul Lina Torres Work Phone: [facility] on above:Result Comment: 2022-08-04: NLS2104-24-2090Bmeqrd- BioNTech COVID-19 Vacc 30 MCG/0.3ML Intramuscular SuspensionPaul Lina Torres Work Phone: [facility] on above:Result Comment: 2022-08-04: EQL1186-91-2233vhzdpdqvo virus vaccine, unspecified formulationJENNMECCA KWAKU [facility]10-27-2020influenza, injectable, quadrivalent, preservative freePaul Lina Holter Work Phone: [facility] WashingtonGwtcpvmhwm95-20-6743pkcpomqrr virus vaccine, unspecified formulationJENNIFER KWAKU [facility]08-31-2017influenza, seasonal, injectable, preservative freePaul J Brian Work Phone: mpGrand [facility] 250 DO Work Phone: [phone]ntvovedb conjugate vaccine, 13 valent Rafi Lina Brian Work Phone: [facility]09-09-2015influenza, seasonal, injectable, preservative freeGeneric [facility] Hospital BremertonFahzrinzay28-58-3346cdfdzigbg, injectable, quadrivalent, preservative freeGeneric [facility] BremertonFgssatvdtn33-73-7551hvajrxeaelbi polysaccharide vaccine, 23 valentGeneric [facility]remerton09-01-2013 influenza, seasonal, injectable, preservative freeGeneric [facility] Hospital BremertonSwhojmjpfc18-45-3195krkgtg vaccine, liveGeneric [facility] 94-41-6758zdaopwnvf virus vaccine, whole virusRafi Torres Work Phone: mp031-3630GK-[place]ufbdCindy [place] [address] DO Work Phone: [phone]zitb, wholeJENNIFER KWAKU [facility] Payers DatePayer CategoryPayerPolicy PF03-06-2525Bwue-wcb [id number] MEDICARE ADVANTAGE ANTHEM MEDICARE ADVANTAGE [id number] 2017-Present [address] [place] [id number] 2018Medicare (Managed Care)FORMERLY [facility] MEDICARE ADVANTAGE [id number] [id number] 2.16.840.1.969675.3.57[id number] 2.16.840.1.742434.3.579.[id number] 2.16.840.1.334708.3.579.[id number] 2.16.840.1.977061.3.579.[id number] 2.16840.1.158480.3.579.2.59120-56-8198Ogwnzdr8771001 2.16840.1.271928.3.579.2.38781-99-6382Wiinump0353466 2.16.840.1.145004.3.579.[id number] 2.16.840.1.123169.3.579.2.258200-55-9580Dfcbnqo87654169 2.16840.1.645019.3.579.2.356[id number] 2.16.840.1.642994.3.579.2.096180-26-1454Bvtjmrc68013456 2.16.840.1.469642.3.579.2.941234-96-8550Uptawsc6064635 2.16.840.1.730713.3.579.2.905615-55-6791Uyjlbkz2847473 2.16840.1.572525.3.579.2.047274-85-3192Yrazwmw3991183 2..840.1.787321.3.579.2.695209-73-5937Olrkrnx7824020 2..840.1.677217.3.579.2.747116-43-4965Aknxkzm9642007 2..840.1.574274.3.579.2.180754-03-6318Ljloknn1376895 2..840.1.887625.3.57[id number] 2..840.1.513898.3.579.[id number] 2..0.1.258234.3.579.2.[id number] 2.0.1.311201.3.57[id number] 2..840.1.259179.3.579.2.727UnknownHCAP/HFA/FAP [id number] 19n3z233-9h8w-1182-f10v-[id number] 2.840.1.616136.[id number] 2.840.1.529207.3.579.2.531 [id number] 2.0.1.338378.3.579.2.531 Social History DateTypeDetailFacilityStart: 03-29-2024 End: 83-86-5866Gu alcohol useNo alcohol useNOMS HealthcareStart: 11-28-2021 End: 03-70-8587Yrdxwip smoking status NHISNever smoked tobacco (finding) [facility] Medical Centertart: 11-11-3438Ykx [facility]igned At [facility]tart: 03-29-2024 End: 19-62-1735Rfk Assigned At [facility] Healthcaretart: 24-24-2317Twagsqw smoking statusNeverExecutive Urology of [facility] Community General Hospitaltart: 90-35-0627Wlrmxgp use and exposureSmokeless tobacco non-userNOMA HealthcareStart: 03-29-2024 End: 58-92-4171Rmsbdfuws beverage intakeLifetime non-drinker (finding)[facility] HealthcareStart: 05-55-2122Debfzrl Commentcaffeine 1-2 cups/dayMOUNTAIN [facility]INT [facility] Healthcare Start: 30-17-9034Juq assigned at [facility] HealthcareStart: 09-14-2024 End: 78-92-3235GnkYhlagw (finding)[facility] NEGATED: Highlighted rowStart: NINFHistory of tobacco usePassive smokerMercy Hospital [facility] Functional Status OzjzAmoihtirpqFbdwcjGfqqfizm07-16-6916Lrqtfmi Health Questionnaire 2 item (PHQ- 2) [Reported][facility] WashingtonQaccqrwffk97-47-0410Fpdosrr Health Questionnaire 2 item (PHQ- 2) [Reported][facility] WashingtonVxsvcgbqce94-56-5933Zrperso Health Questionnaire 2 item (PHQ- 2) [Reported][facility] WashingtonBgugolyzzx77-24-2733Zgybnve Health Questionnaire 2 item (PHQ- 2) [Reported][facility] WashingtonPeyfpfhceb49-81-7094Wujklnuvtp StatusN/AExec[facility]07[facility]-2024Functional StatusN/A[facility]06-11-2024Functional StatusN/A [facility]01-17-2023Functional StatusN/AExec[facility] of [facility] Clinical Notes 05-12-2017 to 05-29-2025 Note Date & [id number] Telephone encounter Note* Telephone Encounter - Barb Martinez - 05/29/2025 9:15 AM EST Pt's called requesting a refill of ALPRAZolam (Xanax) sent to [facility] in [place]. [id number] Miscellaneous Notes* Telephone Encounter - Barb Martinez - 05/29/2025 9:15 AM EST Pt's called requesting a refill of ALPRAZolam (Xanax) sent to [facility] in [place]. documented in this [facility]11-03-2025 Telephone encounter Note* Telephone Encounter - Mikaela Torres - 05/21/2025 1:25 PM EST [facility] rx estradiol cream. They are needing clarification on the directionsof this. They want to make sure if the directions at the end were a separate 2nd set of directions or if this is to be done after the first set of directions are completed. Please call [phone] option 1 [facility] [id number] Miscellaneous Notes* Telephone Encounter - Mikaela Torres - 05/21/2025 1:25 PM EST [facility] the rx estradiol cream. They are needing clarification on the directionsof this. They want to make sure if the directions at the end were a separate 2nd set of directions or if this is to be done after the first set of directions are completed. Please call [phone] option 1 documented in this [facility]10-30-2025 Telephone encounter Note* Telephone Encounter - Barb Martinez - 05/17/2025 1:13 PM EDT Pt's called requesting a refill of ALPRAZolam (Xanax) sent to [facility] in [place]. [facility] [id number] Miscellaneous Notes* Telephone Encounter - Barb Michelle - 05/17/2025 1:13 PM EDT Pt's called requesting a refill of ALPRAZolam (Xanax) sent to [facility] in [place]. documented in this encounterMer[facility] [id number] Hospital Discharge instructions Patient Education 05/16/2025 14:40:53 Urinary Tract Infection, Adult Urinary Tract Infection, Adult A urinary tract infection (UTI) is an infection of any part of the urinary tract. The urinary tractincludes the kidneys, ureters, bladder, and urethra. These organs make, store, and get rid of urinein the body. An upper UTI affects the ureters and kidneys. A lower UTI affects the bladder and urethra. What are the causes? Most urinary tract infections are caused by bacteria in your genital area around your urethra, where urine leaves your body. These bacteria grow and cause inflammation of your urinary tract. What increases the risk? You are more likely to develop this condition if: You have a urinary catheter that stays in place. You are not able to control when you urinate or have a bowel movement (incontinence). You are female and you: ?Use a spermicide or diaphragm for control. ?Have low estrogen levels. ?Are . You have certain genes that increase your risk. You are sexually active. You take antibiotic medicines. You have a condition that causes your flow of urine to slow down, such as: ?An enlarged prostate, if you are male. ?Blockage in your urethra. ?A kidney stone. ?A nerve condition that affects your bladder control (neurogenic bladder). ?Not getting enough to drink, or not urinating often. You have certain medical conditions, such as: ?Diabetes. ?A weak disease-fighting system (immunesystem). ?Sickle cell disease. ?Gout. ?Spinal cord injury. What are the signs or symptoms? Symptoms of this condition include: Needing to urinate right away (urgency). Frequent urination. This may include small amounts of urine each time you urinate. Pain or burning with urination. Blood in the urine. Urine that smells bad or unusual. Trouble urinating. Cloudy urine. Vaginal discharge, if you are female. Pain in the abdomen or the lower back. You may also have: Vomiting or a decreased appetite. Confusion. Irritability or tiredness. A fever or chills. Diarrhea. The first symptom in older adults may be confusion. In some cases, they may not have any symptoms until the infection has worsened. How is this diagnosed? This condition is diagnosed based on your medical history and a physical exam. You may also have other tests, including: Urine tests. Blood tests. Tests for STIs (sexually transmitted infections). If you have had more than one UTI, a cystoscopy or imaging studies may be done to determine the cause of the infections. How is this treated? Treatment for this condition includes: Antibiotic medicine. Xwau-tlm-irnrhuv medicines to treat discomfort. Drinking enough water to stay hydrated. If you have frequent infections or have other conditions such as a kidney stone, you may need to see a health care provider who specializes in the urinary tract (urologist). In rare cases, urinary tract infections can cause sepsis. Sepsis is a life- threatening condition that occurs when the body responds to an infection. Sepsis is treated in the hospital with IV antibiotics, fluids, and other medicines. Follow these instructions at home: Medicines Take dpku-jbd-vicdkaa and prescription medicines only as told by your health care provider. If you were prescribed an antibiotic medicine, take it as told by your health care provider. Do notstop using the antibiotic even if you start to feel better. General instructions Make sure you: ?Empty your bladder often and completely. Do not hold urine for long periods of time. ?Empty your bladder after sex. ?Wipe from front to back after urinating or having a bowel movement if you are female. Use each tissue only one time when you wipe. Drink enough fluid to keep your urine pale yellow. Keep all follow-up visits. This is important. Contact a health care provider if: Your symptoms do not get better after 1 2 days. Your symptoms go away and then return. Get help right away if: You have severe pain in your back or your lower abdomen. You have a fever or chills. You have nausea or vomiting. Summary A urinary tract infection (UTI) is an infection of any part of the urinary tract, which includes the kidneys, ureters, bladder, and urethra. Most urinary tract infections are caused by bacteria in your genital area. Treatment for this condition often includes antibiotic medicines. If you were prescribed an antibiotic medicine, take it as told by your health care provider. Do notstop using the antibiotic even if you start to feel better. Keep all follow-up visits. This is important. This information is not intended to replace advice given to you by your health care provider. Make sure you discuss any questions you have with your health care provider. Document Revised: 02/09/2021 Document Reviewed: 02/14/2021 [employer] Patient Education 2023 [employer]. Follow Up Care 11/13/2024 16:50:54 With:Shanell Malin PA-C, URL Address: When: Unknown Comments:1 yr w/ [facility] 10-29-2025 NotePatient Education Obstetrics and Gynecology Urinary Tract Infection, Adult A urinary tract infection (UTI) is an infection of any part of the urinary tract. The urinary tractincludes the kidneys, ureters, bladder, and urethra. These organs make, store, and get rid of urinein the body. An upper UTI affects the ureters and kidneys. A lower UTI affects the bladder and urethra. What are the causes? Most urinary tract infections are caused by bacteria in your genital area around your urethra, where urine leaves your body. These bacteria grow and cause inflammation of your urinary tract. What increases the risk? You are more likely to develop this condition if: ??? You have a urinary catheter that stays in place. ??? You are not able to control when you urinate or have a bowel movement (incontinence). ??? You are female and you: ? Use a spermicide or diaphragm for control. ? Have low estrogen levels. ? Are . ??? You have certain genes that increase your risk. ??? You are sexually active. ??? You take antibiotic medicines. ??? You have a condition that causes your flow of urine to slow down, such as: ? An enlarged prostate, if you are male. ? Blockage in your urethra. ? A kidney stone. ? A nerve condition that affects your bladder control (neurogenic bladder). ? Not getting enough to drink, or not urinating often. ??? You have certain medical conditions, such as: ? Diabetes. ? A weak disease-fighting system (immunesystem). ? Sickle cell disease. ? Gout. ? Spinal cord injury. What are the signs or symptoms? Symptoms of this condition include: ??? Needing to urinate right away (urgency). ??? Frequent urination. This may include small amounts of urine each time you urinate. ??? Pain or burning with urination. ??? Blood in the urine. ??? Urine that smells bad or unusual. ??? Trouble urinating. ??? Cloudy urine. ??? Vaginal discharge, if you are female. ??? Pain in the abdomen or the lower back. You may also have: ??? Vomiting or a decreased appetite. ??? Confusion. ??? Irritability or tiredness. ??? A fever or chills. ??? Diarrhea. The first symptom in older adults may be confusion. In some cases, they may not have any symptoms until the infection has worsened. How is this diagnosed? This condition is diagnosed based on your medical history and a physical exam. You may also have other tests, including: ??? Urine tests. ??? Blood tests. ??? Tests for STIs (sexually transmitted infections). If you have had more than one UTI, a cystoscopy or imaging studies may be done to determine the cause of the infections. How is this treated? Treatment for this condition includes: ??? Antibiotic medicine. ??? Yhen-wlw-axcenbz medicines to treat discomfort. ??? Drinking enough water to stay hydrated. If you have frequent infections or have other conditions such as a kidney stone, you may need to see a health care provider who specializes in the urinary tract (urologist). In rare cases, urinary tract infections can cause sepsis. Sepsis is a life- threatening condition that occurs when the body responds to an infection. Sepsis is treated in the hospital with IV antibiotics, fluids, and other medicines. Follow these instructions at home: Medicines ??? Take ewqn-qie-seizsar and prescription medicines only as told by your health care provider. ??? If you were prescribed an antibiotic medicine, take it as told by your health care provider. Donot stop using the antibiotic even if you start to feel better. General instructions ??? Make sure you: ? Empty your bladder often and completely. Do not hold urine for long periods of time. ? Empty your bladder after sex. ? Wipe from front to back after urinating or having a bowel movement if you are female. Use each tissue only one time when you wipe. ??? Drink enough fluid to keep your urine pale yellow. ??? Keep all follow-up visits. This is important. Contact a health care provider if: ??? Your symptoms do not get better after 1?2 days. ??? Your symptoms go away and then return. Get help right away if: ??? You have severe pain in your back or your lower abdomen. ??? You have a fever or chills. ??? You have nausea or vomiting. Summary ??? A urinary tract infection (UTI) is an infection of any part of the urinary tract, which includes the kidneys, ureters, bladder, and urethra. ??? Most urinary tract infections are caused by bacteria in your genital area. ??? Treatment for this condition often includes antibiotic medicines. ??? If you were prescribed an antibiotic medicine, take it as told by your health care provider. Donot stop using the antibiotic even if you start to feel better. ??? Keep all follow-up visits. This is important. This information is not intended to replace advice given to you by your health care provider. Make sure you di (more content not included)...[facility]10-01-2025 Telephone encounter Note* Telephone Encounter - Mikaela Torres - 04/18/2025 11:12 AM EDT Patient's Ezequiel called to request refill of ALPRAZolam (Xanax) 0.5 MG tablet and [facility] to [facility] [place] [id number] Miscellaneous Notes* Telephone Encounter - Mikaela Torres - 04/18/2025 11:12 AM EDT Patient's Ezequiel called to request refill of ALPRAZolam (Xanax) 0.5 MG tablet and [facility] to [facility] [place]. documented in this encounterMer[facility] [id number] Telephone encounter Note* Telephone Encounter - Mikaela Torres - 03/26/2025 9:39 AM EDT Patient called because she says she was told that she was going to be able to get 3 refills of her xanax sent to her pharmacy but when they filled it, she says now it is showing as 0 refills. Please advise. [facility] [id number] Miscellaneous Notes* Telephone Encounter - Mikaela Torres - 03/26/2025 9:39 AM EDT Patient called because she says she was told that she was going to be able to get 3 refills of her xanax sent to her pharmacy but when they filled it, she says now it is showing as 0 refills. Please advise. documented in this encounterMer[facility] [id number] History of Present illness Narrative* Brenda Gomez NP - 03/21/2025 4:20 PM EDT Images from the original note were not included. Subjective : Chief Complaint: Larisa Lo is an 75 y.o. female here for an annual wellness visit. I have reviewed and reconciled the history and medication list with the patient today. Current Outpatient Medications Medication Sig Dispense Refill ALPRAZolam (Xanax) 0.5 MG tablet Take 1 tablet (0.5 mg) by mouth 2 (two) times a day as needed for anxiety 60 tablet 0 Aspirin Low Dose 81 MG EC tablet TAKE 1 TABLET BY MOUTH ONCE DAILY 90 tablet 3 atorvastatin (Lipitor) 10 MG tablet TAKE 1 TABLET BY MOUTH IN THE MORNING 90 tablet 3 bumetanide (Bumex) 1 MG tablet TAKE 1 TABLET BY MOUTH TWICE DAILY 180 tablet 3 ciprofloxacin (Cipro) 250 MG tablet 1 tablet orally bid x 3 days 6 tablet 0 dicyclomine (Bentyl) 20 MG tablet Take 1 tablet by mouth 3 (three) times a day as needed estradiol (Estrace) 0.1 MG/GM vaginal cream APPLY 1 (ONE) GRAM VAGINALLY NIGHTLY FOR 3 (THREE) WEEKS, then APPLY 1 (ONE) GRAM 3 (THREE) (THREE) times WEEK THEREAFTER, APPLY a pea sized amount around the urethra 42.5 g 1 gabapentin (Neurontin) 300 MG capsule TAKE 1 CAPSULE BY MOUTH THREE TIMES DAILY 90 capsule 5 losartan-hydroCHLOROthiazide (Hyzaar) 100-12.5 MG tablet TAKE 1 TABLET BY MOUTH IN THE MORNING 90 tablet 3 metoprolol succinate XL (Toprol-XL) 25 MG 24 hr tablet TAKE 1 TABLET BY MOUTH DAILY 90 tablet 3 Myrbetriq 25 MG 24 hr tablet Take 25 mg by mouth Daily [START ON 03/28/2025] nitrofurantoin, macrocrystal-monohydrate, (Macrobid) 100 MG capsule 1 capsule po daily for prophylaxis Do not start before March 28, 2025. 30 capsule 1 Perphenazine-Amitriptyline 2-25 MG tablet TAKE 1 TABLET BY MOUTH AT BEDTIME 90 tablet 3 potassium chloride CR (Klor-Con M20) 20 MEQ ER tablet TAKE 1 TABLET BY MOUTH DAILY 90 tablet 3 Semaglutide,0.25 or 0.5MG/DOS, (Ozempic, 0.25 or 0.5 MG/DOSE,) 2 MG/3ML solution pen-injector Inject 0.5 mg under the skin 1 (one) time per week for 28 days 9 mL 1 triamcinolone (Kenalog) 0.025 % cream Apply topically 2 (two) times a day 80 g 1 No current facility-administered medications for this visit. Review of Systems List of current healthcare providers: Patient Care Team: Rafi Torres DO as PCP - General (Family Medicine) Rafi Torres DO as PCP - Gerardo Serrato MD as Referring Physician (Sleep Medicine) Karissa Carrasco NP as Referring Physician (Urology) Medicare Annual Visit Over the past 2 weeks, how often have you been bothered by any of the following problems? Little interest or pleasure in doing things: Not at all Feeling down, depressed, or hopeless: Not at all Patient Health Questionnaire-2 Score: 0 Over the past 2 weeks, how often have you been bothered by any of the following problems? Trouble falling or staying asleep, or sleeping too much: Not at all Feeling tired or having little energy: Not at all Poor appetite or overeating: Not at all Feeling bad about yourself - or that you are a failure or have let yourself or your family down: Not at all Trouble concentrating on things, such as reading the newspaper or watching television: Not at all Moving or speaking so slowly that other people could have noticed? Or the opposite - being so fidgety or restless that you have been moving around a lot more than usual.: Not at all Thoughts that you would be better off or hurting yourself in some way: Not at all Patient Health Questionnaire-9 Score: 0 Noelle Fall Risk History of Falling, Immediate or Within 3 Months: No Secondary Diagnosis: No Ambulatory Aid: Walks without aid/bedrest/nurse assist Intravenous Therapy/Heparin Lock: No Gait/Transferring: Normal/bedrest/immobile Mental Status: Oriented to own ability Drake Fall Risk Score: 0 Health Risk Assessment Form Do you need help eating, bathing, using the toilet, dressing, or getting around your home?: No Can you prepare your own meals?: Yes Can you do your own housework without help?: Yes Can you shop for groceries or clothes without help?: Yes Do you exercise for about 20 minutes 3 or more days a week?: No How confident are you that you can control and manage most of your health problems?: Very confident Can you mange your money, credit cards and accounts, pay bills and taxes?: Yes Vision Screening: Yes, no gross abnormalities Hearing Screening: Not done Cognitive Screening Three Word Registration: Melissa Oates, Finger Clock Drawing: Partial Clock - 1 Three Word Recall: 2/3 words correct - 2 Total Score (0-5 Points): 3 Pain Assessment Pain Score: 5 - Moderate pain Advance Care Planning Do you have a living will?: Yes Do you have a medical power of senior attorney?: Yes Who is your medical power of senior attorney?: Ezequiel song daughter Objective : BP 122/80 Pulse 68 Temp 98.5 F Ht 4' 6 Wt 159 lb SpO2 94% BMI 38.34 kg/m No results found. Physical Exam Assessment/Plan : The following health maintenance schedule was reviewed with the patient and provided in printed form in the after visit summary: Health Maintenance Topic Date Due Diabetes: Retinopathy Screening Never done Influenza Vaccine (1) 03/19/2025 Diabetes: Hemoglobin A1C 06/20/2025 Diabetes: Urine Protein Screening 09/13/2025 Medicare Annual Wellness (AWV) 03/21/2026 Pneumococcal Vaccine: 65+ Years Completed Mammogram Discontinued Colorectal Cancer Screening Discontinued Advance Care Planning Has LW and POA Diagnoses and all orders for this visit: Routine general medical examination at health care facility (Primary) Type 2 diabetes mellitus with other specified complication, 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 Demographics were updated. Self-assessment was completed. Past medical, family and social history were updated. The medication list, including supplements being taken, was updated. A list of other current medical providers was established/updated. Time was spent discussing health maintenance issues, ordering proper testing, and schedule was provided regarding recommended screening. We discussed safety issues and fall risk. Depression screening was completed and addressed. Cognitive function was assessed by direct observation and assessment of ability to perform ADL's and IADL's was done. We also discussed Advanced Directives and code status. The current BMI was provided along with an education packet regarding healthy living and maintenanceof a healthy weight. The BMI will cont to be monitored at routine office visits as well. Major riskfactors for chronic disease including family history were discussed . Orders Placed This Encounter Procedures POCT Glycated hemoglobin, total Electronically signed by Brenda Gomez NP on March 21, 2025 documented in this encounterMercy Hospital [id number] History of Present illness Narrative* Rafi Torres, - 03/21/2025 2:30 PM EDT Images from the original note were not included. Larisa Lo is a 75 y.o. female presents with chief complaint of No chief complaint on file. HPI: HPI Needs Xanax refill. Needs lab order. Still having frequent bladder infections. Will will Brenda for MWV today History of Present Illness The patient is a 75-year-old female who presents for evaluation of recurrent bladder infections, back pain, and medication management. She experienced a bladder infection yesterday, characterized by pressure and burning sensations during urination. Previous antibiotic treatments have been beneficial, although the last treatment tooklonger to be effective. The first bladder infection in a long time occurred about a month ago. She frequently consumes tea and is concerned about its potential contribution to her bladder infections. She has been experiencing back pain, which limits her ability to stand and cook meals. The pain is constant but subsides with rest. She reports poor sleep quality and has been managing the pain with Tylenol, taking one tablet twice daily, but finds it ineffective. She received shots in her back andunderwent radiofrequency ablation, which provided some relief. She has been on Xanax for the past 30 years, which she takes daily and tolerates well. She is requesting a refill of this medication. She reports no chest pain, irregular heartbeats, or unusual shortness of breath. Social History: Diet: Frequently consumes tea Tobacco: Quit smoking over 25 years ago Coffee/Tea/Caffeine-containing Drinks: Frequently consumes tea Sleep: Reports poor sleep quality PAST SURGICAL HISTORY: - Radiofrequency ablation - Shots in the back SUBJECTIVE: MEDICATIONS: ALLERGIES Current Outpatient Medications Medication Instructions ALPRAZolam (XANAX) 0.5 mg, Oral, 2 times daily PRN Aspirin Low Dose 81 MG EC tablet TAKE 1 TABLET BY MOUTH ONCE DAILY atorvastatin (LIPITOR) 10 mg, Oral, Every morning bumetanide (Bumex) 1 MG tablet TAKE 1 TABLET BY MOUTH TWICE DAILY ciprofloxacin (Cipro) 250 MG tablet 1 tablet orally bid x 3 days dicyclomine (Bentyl) 20 MG tablet 1 tablet, 3 times daily PRN estradiol (Estrace) 0.1 MG/GM vaginal cream APPLY 1 (ONE) GRAM VAGINALLY NIGHTLY FOR 3 (THREE) WEEKS, then APPLY 1 (ONE) GRAM 3 (THREE) (THREE) times WEEK THEREAFTER, APPLY a pea sized amount around the urethra gabapentin (Neurontin) 300 MG capsule TAKE 1 CAPSULE BY MOUTH THREE TIMES DAILY losartan-hydroCHLOROthiazide (Hyzaar) 100-12.5 MG tablet 1 tablet, Oral, Every morning metoprolol succinate XL (TOPROL-XL) 25 mg, Oral, Daily Myrbetriq 25 mg, Daily nitrofurantoin, macrocrystal-monohydrate, (Macrobid) 100 MG capsule 1 capsule po daily for prophylaxis Ozempic (0.25 or 0.5 MG/DOSE) 0.5 mg, Subcutaneous, Weekly Perphenazine-Amitriptyline 2-25 MG tablet TAKE 1 TABLET BY MOUTH AT BEDTIME potassium chloride CR (Klor-Con M20) 20 MEQ ER tablet 20 mEq, Oral, Daily triamcinolone (Kenalog) 0.025 % cream Topical, 2 times daily Allergies[1] Depression: Not at risk (03/21/2025) PHQ-2 PHQ-2 Score: 0 REVIEW OF SYMPTOMS: Review of Systems OBJECTIVE: BP 122/80 Pulse 68 Temp 98.5 F Ht 4' 6 Wt 159 lb SpO2 94% BMI 38.34 kg/m No results found for this or any previous visit (from the past 6 weeks). Results Labs - Urine culture: Sensitivity to all tested antibiotics Imaging - MRI of the lower back: 2023, Significant arthritis GENERAL EXAM: Physical Exam Physical Exam Neck: Carotid arteries auscultated, no abnormalities noted. Respiratory: Clear to auscultation, no wheezing, rales or rhonchi Cardiovascular: Regular rate and rhythm, no murmurs, rubs, or gallops ASSESSMENT AND PLAN: Diagnoses and all orders for this visit: Frequent UTI (Primary) - ciprofloxacin (Cipro) 250 MG tablet; 1 tablet orally bid x 3 days - nitrofurantoin, macrocrystal-monohydrate, (Macrobid) 100 MG capsule; 1 capsule po daily for prophylaxis Do not start before March 28, 2025. Anxiety - Discontinue: ALPRAZolam (Xanax) 0.5 MG tablet; Take 1 tablet (0.5 mg) by mouth 2 (two) times a day as needed for anxiety Chronic bilateral low back pain without sciatica Assessment & Plan 1. Recurrent bladder infections: - She reported waking up with a bladder infection and experiencing pressure and burning. - Her urine culture from 4 weeks ago revealed sensitivity to all tested antibiotics. - A 3-day course of antibiotics will be initiated, followed by a daily regimen of nitrofurantoin 1 capsule for a month to prevent recurrence. - A lab test order has been placed at [facility] in [place]. She is advised to maintain adequate hydration on the day of the test. 2. Back pain: - She reported significant back pain that affects her ability to stand and cook, which is sometimesrelieved by rest. - Her MRI from last year indicates significant arthritis in the lower back. - She was advised to take Tylenol Arthritis Strength, 2 tablets every 8 hours, apply heat to the lower back, and perform general stretches including side bending, forward bending, and arching back. 3. Medication management: - A prescription for Xanax with several refills has been provided. - She has been on Xanax for 30 years and tolerates it well. Follow-up: The patient will follow up in 6 months. No follow-ups on file. I have reviewed and reconciled the history and medication list with the patient today. [1] No Known Allergies documented in this encounterMercy Hospital [id number] Telephone encounter Note* Telephone Encounter - Mary Kay Lemus MA - 02/16/2025 3:03 PM EDT Pt called for a refill on Xanax to be sent to in [place]. [facility] [id number] Miscellaneous Notes* Telephone Encounter - Mary Kay Lemus MA - 02/16/2025 3:03 PM EDT Pt called for a refill on Xanax to be sent to in [place]. documented in this [facility]07-28-2025 History of Present illness Narrative* LUCY Shannon - 02/12/2025 2:00 PM EDT Images from the original note were not included. Subjective Nurse Notes: Larisa Lo is a 75 y.o. year old female patient with complaints of UTI. Pt presents for a UTI. Onset about a week. Pt has been using OTC cranberry but this has not helped. Pt notes pressure in her bladder. No other concerns at this time. UTI This is a new problem. The current episode started in the past 7 days. The problem is unchanged. Associated symptoms include pain. Pertinent negatives include no hematuria. The pain is present in thebladder. Review of Systems Constitutional: Negative for chills and fever. Respiratory: Negative for shortness of breath. Cardiovascular: Negative for chest pain. Gastrointestinal: Positive for abdominal distention. Negative for diarrhea, nausea and vomiting. Genitourinary: Positive for dysuria. Negative for hematuria. Musculoskeletal: Negative for back pain and myalgias. Skin: Negative for rash. All other systems reviewed and are negative. Objective Visit Vitals BP 128/74 Pulse 79 Temp 98.2 F Ht 4' 6 Wt 158 lb SpO2 98% BMI 38.10 kg/m Smoking Status Never BSA 1.65 m Physical Exam Constitutional: General: She is not in acute distress. Appearance: Normal appearance. HENT: Head: Normocephalic and atraumatic. Mouth/Throat: Mouth: Mucous membranes are moist. Cardiovascular: Rate and Rhythm: Normal rate and regular rhythm. Pulses: Normal pulses. Heart sounds: No murmur heard. No friction rub. No gallop. Pulmonary: Effort: No respiratory distress. Breath sounds: Normal breath sounds. No wheezing, rhonchi or rales. Abdominal: General: Bowel sounds are normal. There is no distension. Palpations: Abdomen is soft. Tenderness: There is no abdominal tenderness. Skin: General: Skin is warm and dry. Findings: No rash. Neurological: General: No focal deficit present. Mental Status: She is alert and oriented to person, place, and time. Psychiatric: Mood and Affect: Mood normal. Behavior: Behavior normal. Judgment: Judgment normal. Assessment/Plan Diagnoses and all orders for this visit: Acute cystitis with hematuria - POCT Urinalysis dipstick - Urine culture (clean catch); Future Urinary tract infection with hematuria, site unspecified - nitrofurantoin, macrocrystal-monohydrate, (Macrobid) 100 MG capsule; Take 1 capsule (100 mg) by mouth in the morning and 1 capsule (100 mg) before bedtime. Do all this for 5 days. Start the above medications as directed. Increase water intake, get plenty of rest. Advised patientthat the urine will be sent out for culture. May need to change the antibiotic based on the cultureresults. Cranberry juice ok. Avoid bath tubs and hot tubs, wipe front to back, avoid fragrance soaps in that area, urinate before and after intercourse if sexually active. Discussed if patient develops any N/V, fever/chills, or symptoms dramatically increase, the patient is to go to the ER. Otherwise follow up at our office if no improvement in one week. All questions answered. Call the office with any further questions or concerns. Recent Results (from the past hour) POCT Urinalysis dipstick Collection Time: 02/12/25 2:24 PM Result Value Ref Range Color, UA Yellow Clarity, UA Cloudy Glucose, UA Negative Negative - 2000(110) ++++ mg/dL Bilirubin, UA Negative Negative - 4(70) +++ mg/dL Ketones, UA Negative Negative - 160(16) ++++ mg/dL Spec Grav, UA 1.005 1 - 1.03 Blood, UA Positive Negative - 50 Daniel/mcL pH, UA 5.5 5 - 9 Protein, UA Negative Negative - 2000(20) ++++ mg/dL Urobilinogen, UA 0.2 0.2 - 12 mg/dL Leukocytes, UA Positive Negative - 500+++ Samantha/mcL Nitrite, UA Negative Negative - Positive *I have reviewed and reconciled the history and medication list with the patient today documented in this [facility]07-07-2025 Telephone encounter Note* Telephone Encounter - Kimmie Buchanan MA - 01/22/2025 8:32 AM EDT Pt was last seen on 12/18, she is scheduled for a follow up on 03/21 [facility] [id number] Miscellaneous Notes* Telephone Encounter - Kimmie Buchanan MA - 01/22/2025 8:32 AM EDT Pt was last seen on 12/18, she is scheduled for a follow up on 03/21 documented in this [facility]06-09-2025 Telephone encounter Note* Telephone Encounter - Haley Conrelius - 12/25/2024 11:41 AM EDT Refill for xanax 0.5 mg to [facility] [id number] Miscellaneous Notes* Telephone Encounter - Haley Adryan - 12/25/2024 11:41 AM EDT Refill for xanax 0.5 mg to [facility] documented in this encounterMercy Hospital [id number] History of Present illness Narrative* Rafi Torres, DO - 12/18/2024 2:40 PM EDT Images from the original note were not included. Larisa Lo is a 74 y.o. female presents with chief complaint of No chief complaint on file. HPI: DAX Carrillo came to her house for MWV a month ago. They did not give her any papers to show this wasdone. Hair loss for almost 2 months. History of Present Illness The patient is a 74-year-old female who presents for evaluation of generalized alopecia and cerumenimpaction. She reports experiencing significant hair loss, which her beautician advised her to seek medical attention for. The hair loss is more pronounced in the posterior region of her scalp, with three distinct areas affected. She has been dealing with severe nerve issues over the past few months. Additionally, she mentions a history of eczema on her scalp, which causes itching, but she manages this witha topical cream. She has been making conscious efforts to avoid pulling at her hair. Initially, shesuspected that a new medication might be the cause of her hair loss, but [facility], this was ruled out. She notes that her father also experienced hair loss. She has been experiencing hearing difficulties since her ears were cleaned. During the cleaning process, an instrument was used to remove hard wax, after which she noticed a decline in her hearing. She also reports chronic sinus issues and suspects that there may be drainage into her ear. FAMILY HISTORY Her father had hair loss. SUBJECTIVE: MEDICATIONS: ALLERGIES Current Outpatient Medications Medication Instructions ALPRAZolam (XANAX) 0.5 mg, Oral, 2 times daily PRN Aspirin Low Dose 81 MG EC tablet TAKE 1 TABLET BY MOUTH ONCE DAILY atorvastatin (LIPITOR) 10 mg, Oral, Every morning bumetanide (Bumex) 1 MG tablet TAKE 1 TABLET BY MOUTH TWICE DAILY dicyclomine (Bentyl) 20 MG tablet 1 tablet, 3 times daily PRN estradiol (Estrace) 0.1 MG/GM vaginal cream APPLY 1 (ONE) GRAM VAGINALLY NIGHTLY FOR 3 (THREE) WEEKS, then APPLY 1 (ONE) GRAM 3 (THREE) (THREE) times WEEK THEREAFTER, APPLY a pea sized amount around the urethra gabapentin (Neurontin) 300 MG capsule TAKE 1 CAPSULE BY MOUTH THREE TIMES DAILY losartan-hydroCHLOROthiazide (Hyzaar) 100-12.5 MG tablet 1 tablet, Oral, Every morning metoprolol succinate XL (TOPROL-XL) 25 mg, Oral, Daily Myrbetriq 25 mg, Daily Ozempic (0.25 or 0.5 MG/DOSE) 0.5 mg, Subcutaneous, Weekly Perphenazine-Amitriptyline 2-25 MG tablet TAKE 1 TABLET BY MOUTH AT BEDTIME potassium chloride CR (Klor-Con M20) 20 MEQ ER tablet 20 mEq, Oral, Daily triamcinolone (Kenalog) 0.025 % cream Topical, 2 times daily No Known Allergies Depression: Not at risk (02/12/2025) PHQ-2 PHQ-2 Score: 0 REVIEW OF SYMPTOMS: Review of Systems OBJECTIVE: BP 124/78 Pulse 74 Temp 98.2 F Ht 4' 6 Wt 156 lb BMI 37.61 kg/m Recent Results (from the past 6 weeks) Urine culture (clean catch) Collection Time: 02/12/25 12:00 AM Specimen: Urine, Clean Catch Urine, Clean Catch Pr Result Value Ref Range Urine Cult Rt Status Final report (A) Urine Culture Clean Catch Reflex Collection Time: 02/12/25 12:00 AM Result Value Ref Range Ur Cult 1 Escherichia coli (A) Ur Cult Suscep Comment POCT Urinalysis dipstick Collection Time: 02/12/25 2:24 PM Result Value Ref Range Color, UA Yellow Clarity, UA Cloudy Glucose, UA Negative Negative - 2000(110) ++++ mg/dL Bilirubin, UA Negative Negative - 4(70) +++ mg/dL Ketones, UA Negative Negative - 160(16) ++++ mg/dL Spec Grav, UA 1.005 1 - 1.03 Blood, UA Positive Negative - 50 Daniel/mcL pH, UA 5.5 5 - 9 Protein, UA Negative Negative - 2000(20) ++++ mg/dL Urobilinogen, UA 0.2 0.2 - 12 mg/dL Leukocytes, UA Positive Negative - 500+++ Samantha/mcL Nitrite, UA Negative Negative - Positive Results GENERAL EXAM: Physical Exam Physical Exam Ears: Significant cerumen occlusion noted in both external auditory canals Skin: Generalized alopecia noted. No localized process or trichotillomania observed. ASSESSMENT AND PLAN: Assessment/Plan Diagnoses and all orders for this visit: Alopecia Bilateral impacted cerumen Assessment & Plan 1. Generalized alopecia. - Examination revealed no evidence of a localized process or trichotillomania. - Hair loss appears to be generalized, with more significant loss noted in the back of the scalp. - Stress is discussed as a potential contributing factor. - Advised to monitor symptoms and avoid any habits that may exacerbate the condition. 2. Bilateral cerumen occlusion. - Patient reported difficulty hearing following an ear cleaning procedure. - Examination revealed significant cerumen occlusion in both external auditory canals, particularlyon the right side against the eardrum. - Ear lavage performed today, successfully clearing the EACs. - Patient reported improved hearing post-procedure. PROCEDURE Procedure: Bilateral Ear Lavage All questions were answered and agreement to proceed was given after the following Pre-Procedure details were reviewed: - Risks and Benefits: Discussed potential discomfort and temporary dizziness; benefits include improved hearing. - Alternative Options: Manual removal of cerumen. - Side effects: Temporary dizziness, potential discomfort. - Consent: Verbal consent obtained. Intra-Procedure: - Time-Out: Confirmed patient identity and procedure. Post-Procedure: - Tolerance Level: Patient tolerated the procedure well. - Complications: None. - Home Care Instructions: Advised to avoid inserting objects into ears and to report any persistentdiscomfort or hearing issues. No follow-ups on file. I have reviewed and reconciled the history and medication list with the patient today. documented in this encounterMercy Hospital [id number] NotePatient Education Obstetrics and Gynecology Overactive Bladder, Adult [...] You may also have very sensitive muscles thatmake your bladder squeeze too soon. This condition may also be caused by other factors, such as: ??? Medical conditions: ? Urinary tract infection. ? Infection of nearby tissues. ? Prostate enlargement. ? Bladder stones, inflammation, or tumors. ? Diabetes. ? Muscle or nerve weakness, especially from these conditions: ? A spinal cord injury. ? Stroke. ? Multiple sclerosis. ? Parkinson's disease. ??? Other causes: ? Surgery on the uterus or urethra. ? Drinking too much caffeine or alcohol. ? Certain medicines, especially those that eliminate extra fluid in the body (diuretics). ? Constipation. What increases the risk? You may be at greater risk for overactive bladder if you: ??? Are an older adult. ??? Smoke. ??? Are going through menopause. ??? Have prostate problems. ??? Have a neurological disease, such as stroke, dementia, Parkinson's disease, or multiple sclerosis (MS). ??? Eat or drink alcohol, spicy food, caffeine, and other things that irritate the bladder. ??? Are overweight or obese. What are the signs or symptoms? Symptoms of this condition include a sudden, strong urge to urinate. Other symptoms include: ??? Leaking urine. ??? Urinating 8 or more times a day. ??? Waking up to urinate 2 or more times overnight. How is this diagnosed? This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 positive history of back pain Cardiovascular: denies CP, palpitations, irregular rhythms OBJECTIVE LE EXAM: DERM: Elongated thick yellow crumbly nails digits 1 through 10. Negative hair growth with thin shiny atrophic skin bilaterally. + 1 pitting edema to b/l ankles. VASC: Negative DP and negative PT pedal pulses NEURO: 5.07 [place]ira monofilament test positive to digits and forefoot bilaterally 125Hz tuning fork positive to 1st MPJ bilaterally ORTHO: Positive pain on palpation to nails 1 through 10 ASSESSMENT 1. Type 2 diabetes mellitus without complication, without long-term current use of insulin ([facility]) 2. Pain due to onychomycosis of toenails of both feet 3. Venous insufficiency PLAN Discussed proper foot care with patient today. Debride nails in length and thickness digits 1 through 10 Patient educated today on proper diabetic foot care including monitoring feet daily for any signs of infection openings in the skin or irregularities to both feet. Patient had a diabetic neurologicalexam today to both their feet and discussed proper shoe gear. Visit spent with patient education on condition and treatment of condition. Pt to continue with elevation of feet while resting or NWB. Fredis العراقي DPM documented in this encounterMercy Hospital [id number] Hospital Discharge instructions Patient Education 04/11/2024 15:06:08 Overactive Bladder, [...] You may also have very sensitive muscles thatmake your bladder squeeze too soon. This condition [...] your health care provider. General instructions Take fszw-kzv-jpkibhc and prescription medicines only as told by your health care provider. If you were prescribed an antibiotic medicine, take it as told by your health care provider. Do notstop taking the antibiotic even if you start [...] provider. Document Revised: 03/24/2021 Document Reviewed: 03/24/2021 [employer] Patient Education 2023 [employer] 04/11/2024 15:06:07 Urinary Incontinence Urinary Incontinence Urinary incontinence refers to a condition in which a person is unable to control where and when topass urine. A person with this condition will urinate involuntarily. This means that the person urinates when he or she does not mean to. What are the causes? This condition may be caused by: Medicines. Infections. Constipation. Overactive bladder muscles. Weak bladder muscles. Weak pelvic floor muscles. These muscles provide support for the bladder, intestine, and, in women,the uterus. Enlarged prostate in men. The prostate [...] a small amount, or constantly dribbling urine (overflowincontinence). Urinating because you cannot get to the [...] fiber include beans, whole grains, and fresh fruitsand vegetables. Behavioral changes, such as: ?Pelvic floor [...] (electrical nerve stimulation). ?For women, using a biomedical specialist to prevent urine leaks. This is a small, tampon-like, disposabledevice that is inserted into the urethra. ?Injecting [...] right after experiencing incontinence. General instructions Take hhze-tlz-ezfscoz and prescription medicines only as told by [...] important. Where to find more information National [place] of Diabetes and Digestive and Kidney Diseases: www.niddk.nih.gov [place] [employer]: www.urologyhealth.org Contact a health care [...] is unable to control where and when topass urine. This condition may be caused by medicines, infection, weak bladder muscles, weak pelvic floor muscles, enlargement of the prostate (in men), or surgery. Factors such as older age, obesity, and childbirth, menopause, neurological diseases, andchronic coughing may increase your risk for developing [...] provider. Document Revised: 02/07/2021 Document Reviewed: 02/07/2021 [employer] Patient Education 2023 [employer]. Follow Up Care 02/08/2024 13:57:36 With:RICHIE Carrasco APRN, Karissa Mccallum, ALYCIA, URL Address: When: Unknown Comments:6 mos [facility] 09-11-2024 History of Present illness Narrative* Rafi Torres, - 03/29/2024 2:00 PM EDT Larisa Lo is a 74 y.o. female presents with chief complaint of No chief complaint on file. HPI: HPI Bilateral ear pressure. Decreased hearing and insomnia. Physical Exam Constitutional: Appearance: Normal appearance. HENT: Right Ear: Tympanic membrane normal. Left Ear: Tympanic membrane normal. Cardiovascular: Rate and Rhythm: Normal rate and regular rhythm. Neurological: Mental Status: She is alert. Psychiatric: Mood and Affect: Mood normal. Diagnoses and all orders for this visit: Primary insomnia (Primary) - Melatonin 3 MG tablet dispersible; Take 3 mg by mouth as needed at bedtime (insomnia) Obstructive sleep apnea - Ambulatory referral to Sleep Studies; Future Hearing loss of left ear, unspecified hearing loss type I have reviewed and reconciled the history and medication list with the patient today. documented in this encounterMercy Hospital [id number] History of Present illness Narrative* Rafi Torres DO - 03/23/2024 3:00 PM EDT Images from the original note were not included. Larisa Lo is a 74 y.o. female presents with chief complaint of No chief complaint on file. HPI: HPI Relates she is here to discuss sleep apnea. Chronic back pain. Denies any further symptoms History of Present Illness The patient presents for evaluation of multiple medical concerns. She is accompanied by an adult male. She reports a recent bladder infection, which was treated with medication prescribed by her respite worker. She mentions that she has not been able to hear well recently and requests an ear examination to check for possible blockage. She admits to using Q-tips for ear cleaning. She continues to have severe back pain. She consulted a doctor about it, and an MRI was supposed alice performed, but it was never done. She has not been able to engage in whittling since her back issues began. She reports no chest pain or irregular heartbeats but does experience unusual shortness of breath. SUBJECTIVE: MEDICATIONS: ALLERGIES Current Outpatient Medications Medication Instructions ALPRAZolam (XANAX) 0.5 mg, Oral, 2 times daily PRN Aspirin Low Dose 81 MG EC tablet TAKE 1 TABLET BY MOUTH ONCE DAILY atorvastatin (LIPITOR) 10 mg, Oral, Every morning bumetanide (Bumex) 1 MG tablet TAKE 1 TABLET BY MOUTH TWICE DAILY dicyclomine (Bentyl) 20 MG tablet 1 tablet, 3 times daily PRN estradiol (Estrace) 0.1 MG/GM vaginal cream APPLY 1 (ONE) GRAM VAGINALLY NIGHTLY FOR 3 WEEKS, then APPLY 1 (ONE) GRAM 3 (THREE) times WEEK THEREAFTER, APPLY a pea sized amount around the urethra gabapentin (Neurontin) 300 MG capsule TAKE 1 CAPSULE BY MOUTH THREE TIMES DAILY losartan-hydroCHLOROthiazide (Hyzaar) 100-12.5 MG tablet 1 tablet, Oral, Every morning metoprolol succinate XL (Toprol-XL) 25 MG 24 hr tablet TAKE 1 TABLET BY MOUTH ONCE DAILY Myrbetriq 25 mg, Daily Ozempic (0.25 or 0.5 MG/DOSE) 0.5 mg, Subcutaneous, Weekly Perphenazine-Amitriptyline 2-25 MG tablet TAKE 1 TABLET BY MOUTH AT BEDTIME potassium chloride CR (Klor-Con M20) 20 MEQ ER tablet 20 mEq, Oral, Daily triamcinolone (Kenalog) 0.025 % cream APPLY TO THE AFFECTED AREA(S) TWICE DAILY No Known Allergies Depression: Not at risk (01/27/2024) PHQ-2 PHQ-2 Score: 0 REVIEW OF SYMPTOMS: Review of Systems OBJECTIVE: BP 122/80 Pulse 74 Temp 98.3 F Ht 4' 6 Wt 174 lb BMI 41.95 kg/m Recent Results (from the past 6 weeks) POCT Urinalysis dipstick Collection Time: 05/31/24 3:38 PM Result Value Ref Range Color, UA Yellow Clarity, UA Cloudy Glucose, UA Negative Negative - 2000(110) ++++ mg/dL Bilirubin, UA Negative Negative - 4(70) +++ mg/dL Ketones, UA Negative Negative - 160(16) ++++ mg/dL Spec Grav, UA 1.015 1 - 1.03 Blood, UA Positive Negative - 50 Daniel/mcL pH, UA 6.0 5 - 9 Protein, UA 3+ Negative - 2000(20) ++++ mg/dL Urobilinogen, UA 0.2 0.2 - 12 mg/dL Leukocytes, UA Positive Negative - 500+++ Samantha/mcL Nitrite, UA Negative Negative - Positive Urine culture Collection Time: 05/31/24 3:40 PM Specimen: Urine, Clean Catch Urine, Clean Catch Pr Result Value Ref Range Urine Cult Rt Status Final report (A) Urine Culture Clean Catch Reflex Collection Time: 05/31/24 3:40 PM Result Value Ref Range Ur Cult 1 Escherichia coli (A) Ur Cult Suscep Comment Results Laboratory Studies Kidney function improved from 31 to 33. Blood sugar was 160. Salts in the blood stream and protein,liver function are normal. White blood cells are normal. Iron levels are normal. Hemoglobin A1c is in a good range. GENERAL EXAM: Physical Exam Physical Exam Right ear has almost complete blockade of wax. Left ear has 70 percent blockade of wax. ASSESSMENT AND PLAN: Assessment/Plan Assessment & Plan 1. Chronic Kidney Disease. His kidney function has shown improvement, with a current GFR of 33, up from 31. Continued monitoring is necessary. A urine specimen will be collected in August 2024 to assess proteinuria. 2. Diabetes Mellitus. His blood glucose level was recorded at 160 this morning. His hemoglobin A1c, which was in the 8s about 1.5 years ago, is now well-controlled. He is advised to maintain his current dietary and medication regimen. 3. E. coli Infection. He recently had an E. coli infection and was treated with antibiotics. Continued monitoring for recurrence is necessary. 4. Cerumen Impaction. He presents with almost complete cerumen impaction in the right ear and 70 percent impaction in theleft ear. He was instructed to instill 4 to 5 drops of hydrogen peroxide in each ear every other day. An appointment was scheduled for Wednesday for further evaluation and removal. 5. Bladder Infection. He had a recent bladder infection and was treated with antibiotics by another provider. Continued monitoring for recurrence is necessary. 6. Hearing Loss. He reports decreased hearing and requests an ear examination. Examination revealed significant cerumen impaction, which will be addressed in the upcoming appointment. 7. Health Maintenance. He was advised to receive the influenza vaccine between April 02, 2024, and July 02, 2024. The high-strength flu vaccine is recommended for better immunity. No follow-ups on file. I have reviewed and reconciled the history and medication list with the patient today. documented in this encounterMercy Hospital [id number] Hospital Discharge instructions Patient Education 02/08/2024 13:40:13 Urinary Incontinence Urinary Incontinence Urinary incontinence refers to a condition in which a person is unable to control where and when topass urine. A person with this condition will urinate involuntarily. This means that the person urinates when he or she does not mean to. What are the causes? This condition may be caused by: Medicines. Infections. Constipation. Overactive bladder muscles. Weak bladder muscles. Weak pelvic floor muscles. These muscles provide support for the bladder, intestine, and, in women,the uterus. Enlarged prostate in men. The prostate [...] a small amount, or constantly dribbling urine (overflowincontinence). Urinating because you cannot get to the [...] fiber include beans, whole grains, and fresh fruitsand vegetables. Behavioral changes, such as: ?Pelvic floor [...] (electrical nerve stimulation). ?For women, using a biomedical specialist to prevent urine leaks. This is a small, tampon-like, disposabledevice that is inserted into the urethra. ?Injecting [...] right after experiencing incontinence. General instructions Take bpab-ktl-pxtmqde and prescription medicines only as told by [...] important. Where to find more information National [place] of Diabetes and Digestive and Kidney Diseases: www.niddk.nih.gov [place] [employer]: www.urologyhealth.org Contact a health care [...] is unable to control where and when topass urine. This condition may be caused by medicines, infection, weak bladder muscles, weak pelvic floor muscles, enlargement of the prostate (in men), or surgery. Factors such as older age, obesity, and childbirth, menopause, neurological diseases, andchronic coughing may increase your risk for developing [...] provider. Document Revised: 02/07/2021 Document Reviewed: 02/07/2021 [employer] Patient Education 2022 [employer] Follow Up Care 12/28/2023 13:50:15 With:RICHIE Carrasco APRN, ALYCIA Kelly, URL Address: When: Unknown [facility] 05-28-2024 Hospital Discharge instructionsAmbulatory Orders* AMB POC UA Automated Time Frame: 12/14/23, Location: Determined By [facility] Work Phone: 1(983) 560-505001-17-2023 Hospital Discharge instructions Patient Education 08/04/2022 16:33:12 Dysuria Dysuria [...] alcohol may irritate the prostate. Medicines Take vfxc-egf-zaylgot and prescription medicines only as told by your health care provider. If you were prescribed an antibiotic medicine, take it as told by your health care provider. Do notstop taking the antibiotic even if you start [...] have the sudden feeling that you have tourinate (urgency). Watch your condition for any changes. [...] 04/02/2005 Document Revised: 06/17/2018 Document Reviewed: 04/21/2018 [employer] Patient Education [employer]. Follow Up Care 07/08/2022 14:35:16 With:KWAKU FRANKLIN, TATIANA Burt, URL Address: [address] [place] [id number] When:3 months [facility] 11-14-2022 Evaluation note* Encounter Date Diagnosis Assessment Notes Treatment Notes Treatment Clinical Notes May, Dysuria (ICD-10 - R30.0) May,Urinary tract infection, site not specified (ICD-10 - N39.0)Urinary tract infection (UTI) home care material was printed Drink plenty fluids, get plenty of rest. Continue home medications as prescribed. Take the Macrobidand Pyridium as prescribed until gone. Follow-up with your family physician if no improvement in 2 to 3 days. May,Hematuria, unspecified (ICD-10 - R31.9) [employer] Other 08-23-2019 Progress note Author Chika Omalley [facility] March 10, 2019 5:14pmNote Date/TimeAugust 2018 2:50pmSt[facility] at [address] [address] Hem/Onc Follow Up Note - OP Signed Patient: Larisa Lo MR#: [id number] : 1950 Acct:[id number] Age/Sex: 69 / F Type: REG RCR Copies to: Rafi Torres, DO Natalya Perales MD~ Subjective Date/Time of Service: Date of Service: 03/09/2019 Time of Service: 14:49 Chief Complaint: Patient is here for follow up history of breast cancer currently on letrozole coming up on fifth year. No concerns voiced at this time. HPI: Mrs. Lo is feeling well. She has been compliant with adjuvant endocrine therapy and calcium andvitamin D. No recent illnesses. She denies significanttenderness at the site of prior lumpectomy and left axillary area. No lymphedema of left upper extremity. [facility] the [facility] 2 weeks and she declines clinical breast exam by me today.She has not had any new medical issues and has decided to stop letrozole therapy since the end of 5years of therapy will be next month and she does not want to refill the medication. She had prior hot flashes whichare well managed with gabapentin 100 mg 3 times daily--we discussed titrating off diane apentin since she is no longer taking letrozole and she will titrate downto 2 tablets daily, then 1tablet daily, then 1 tablet every other day, [...] sentinel lymph nodes were negative; ER 95%, SD 90%, HER2 unamplified, grade 2, stage IA. 2. Radiation therapy was completed in 03/2014. 3. Antiestrogen therapy with Femara 2.5 mg p.o.daily started 03/2014--she has now stopped February 2019 as she completed nearly 5 years and does not wish one further month refill. 4. Next mammogram will be in October 2019--further follow-up by Dr. Chow and [facility] 5. DEXA in February 2018 reviewed--normal [...] Negative for environmental allergies and food allergies. COUNT INCLUDES THE [facility] - History Attestation statement: The following information was validated with the patient. - Social History Smoking Status: Never smoker Substance Use Type: None Home Medications & Allergies Allergies No Known Allergies Allergy (Verified 05/12/17 13:41) Home Medications Ca-D3-mag id-rwdf-dbh-rogelio-bor [Calcium 600-D3 Plus] 1 tab PO DAILY [...] neoplasm of breast Copies to: Viktoriya Chow, DO~ BILATERAL DIAGNOSTIC MAMMOGRAMS - FULL FIELD DIGITAL [...] sex: female Laterality: left Qualified Code(s): C50.412 - Malignant neoplasm of upper-outer quadrant of left female breast; Z17.0 - Estrogen receptor positive status [ER+] 1. T1c N0 M0 1.6 x 1.2 x 1 cm left breast tumor diagnosed on 12/01/2013. Lumpectomy on 01/03/[address] Hardwick ; sentinel lymph nodes were negative; ER 95%, SD 90%, HER2 unamplified, grade 2, stage IA. [...] will return to medical oncology on an as- needed basis since she has completed AI therapy. [...] for coordination of care (as documented) and ggsr-cp-eljs counseling of patient and/or family. Dictated By: Chika Omalley MD DD/ [id number] Signed By: <Electronically signed by MD Chika Omalley> 03/10/[address] [facility] Work Phone: 1([phone]) [phone] Progress note Author Chika Omalley [facility] September 08, 2018 3:10pmNote Date/TimeFebruary 2018 2:46pmSt[facility] at [address] [address] Hem/Onc Follow Up Note - OP Signed Patient: Larisa Lo MR#: [id number] : 1950 Acct:[id number] Age/Sex: 68 / F Type: REG RCR Copies to: Rafi Torres Mersiha MD Itzkowitz, Fredric DO~ Subjective Date/Time [...] sentinel lymph nodes were negative; ER 95%, SD 90%, HER2 unamplified, grade 2, stage IA. [...] compliant with adjuvant endocrine therapy and calcium andvitamin D. No recent illnesses. She had some [...] years of adjuvant hormonal therapy in March 2019.At that time she will likely stop letrozole [...] tenderness over lumpectomy site, incision site - Well-healed,no changes, no lumps, no swelling, no other [...] Medications Medication Instructions Recorded Confirmed Type Ca-D3-mag nz-wcak-swr-rogelio-bor 1 tab PO DAILY 05/12/17 09/08/18 History [...] all extremities, vision grossly intact, hearing grossly intact,normal speech. Absent: sensory deficit, motor deficit, abnormal [...] sex: female Laterality: left Qualified Code(s): C50.412 - Malignant neoplasm of upper-outer quadrant of left female breast; Z17.0 - Estrogen receptor positive status [ER+] Status: Resolved 1. T1c N0 M0 1.6 x 1.2 x 1 cm left breast tumor diagnosed on 12/01/2013. Lumpectomy on 01/03/[address] Hardwick ; sentinel lymph nodes were negative; ER 95%, SD 90%, HER2 unamplified, grade 2, stage IA. [...] evidence of recurrence, we will stop aromatase inhibitortherapy in March 2019. Defer to annual follow-up [...] for coordination of care (as documented) and teyz-as-zqdg counseling of patient and/or family. Dictated By: Chika Omalley MD DD/ 1443 Signed By: <Electronically signed by MD Chika Omalley> 09/08/[address] [facility] Work Phone: [phone]) 231-214308-23-2018 Progress note Author Titi [facility] March 10, 2018 3:27pmNote Date/TimeAugust 2017 3:19pmStarr [facility] [place] [address] Hem/Onc Follow Up Note - OP Signed Patient: Larisa Lo MR#: [id number] : 1950 Acct:[id number] Age/Sex: 68 / F Type: REG RCR Copies to: Rafi Torres Mersiha MD~ Subjective Date/Time of Service: Date of Service: 03/10/2018 Time of Service: 15:15 Chief Complaint: Patient here for routine follow up appointment. No concerns voiced. HPI: Mrs. Lo is feeling well. She has been compliant with adjuvant endocrine therapy and calcium andvitamin D Subjective/ROS - Narrative: As per the HPI, otherwise 10 point review of systems is negative. ROS Details: All systems reviewed & no additional complaints except as documented Home Medications & Allergies Allergies Allergy/AdvReac Type Severity Reaction Status Date / Time No Known Allergies Allergy Verified 05/12/17 13:41 Home Medications Medication Instructions Recorded Confirmed Type Ca-D3-mag uh-vkjg-gxs-rogelio-bor 1 tab PO DAILY 05/12/17 03/10/18 History [...] - Labs CBC & Chem 7: 11/04/17 15:11/04/17 15: Labs: Laboratory Last Values WBC 8.5 X10E3/uL (3.8-11.6) 11/04/17 15: RBC 4.22 x10E6/uL (3.60-5.00) 11/04/17: Hgb 13.2 g/dL (11.8-15.4) 11/04/17 15: Hct 38.9 % (34.0-46.4) 11/04/17: MCV 92.1 fl (80-100) 11/04/17: MCH 31.3 pg (24.7-34.3) 11/04/17 15: MCHC 34.0 g/dL (32.0-35.0) 11/04/17: RDW 13.6 % (11.9-15.3) 11/04/17: Plt Count 300 x10E3/uL (150-450) 11/04/17 15: MPV 8.0 fl (6.3-10.7) 11/04/17: Neut % (Auto) 71.6 % (.) 11/04/17: Lymph % (Auto) 13.2 % (.) 11/04/17: [place] % (Auto) 10.3 % (.) 11/04/17: Eos % (Auto) 4.5 % (.) 11/04/17: Baso % (Auto) 0.4 % (.) 11/04/17: Neut # (Auto) 6.1 x10E3/uL (1.8-7.7) 11/04/17 15: Lymph # (Auto) 1.1 x10E3/uL (1.00-4.8) 04/19/18 15:27 [place] # (Auto) 0.9 x10E3/uL (0.0-0.8) H 11/04/17 [...] sentinel lymph nodes were negative; ER 95%, SD 90%, HER2 unamplified, grade 2, stage IA. [...] for coordination of care (as documented) and bunh-vo-wpmm counseling of patient and/or family. Dictated By: Titi Wong MD DD/ 1515 Signed By: <Electronically signed by Titi Wong MD> 03/10/18 1527 [facility] Work Phone: [phone] Progress note Author Natalya Martinez [facility] November 22, 2017 2:58pmNote Date/TimeApril 2017 2:25pmStarr [facility] at [address] [address] Rad Onc Follow Up Note - OP Signed Patient: Larisa Lo MR#: [id number] : 1950 Acct:[id number] Age/Sex: 67 / F Type: REG RCR Copies to: Rafi Torres DO~ Subjective - Service Date/Time Date: 11/11/17 Time: 14:00 - Diagnosis 67 y.o. postmenopausal woman diagnosed with early stage breast cancer in late spring 2013 status post lumpectomy, sentinel lymph node biopsy and adjuvant radiotherapy that concluded on 03/30/2014. She is currently taking Letrozole as anti-endocrine therapy. - Chief Complaint I'm fine. - [...] EOMI. On inspection of oral cavity andvisible oropharynx,mucous membranes moist, tongue protrudes midline without deviation, uvula elevates symmetrically onphonation, no suspicious lesions or asymmetry. NECK: No palpable adenopathy. LUNGS: Clear to auscultation bilaterally, with good aeration. HEART: Normal rate, regular rhythm, normal S1/S2. BREAST: s/p lumpectomy in LEFT breast. Mild santo-incisional induration, as expected. No palpable abnormality in either breast, axillae or supraclavicular fossae. ABD: Truncal obesity. Normoactive bowel sounds, no visceromegaly or masses appreciated. LYMPH: No appreciable adenopathy. EXT: Normal range of motion. No cyanosis/clubbing/edema. NEURO: AOx4, identification clerk II-XII grossly intact, speech is fluent without dysarthria, gait is normal, musclepower normal in major muscle groups in upper and lower extremities. PSYCH: Affect appropriate for clinical situation. Insight and judgement not impaired. Results CBC & Chem 7: 11/04/17 15:27 11/04/17 15:27 Impression: October 2017 Mammogram benign. Assessment & Plan (1) Breast cancer Status: Resolved Plan: No evidence of disease. Patient expresses a wish to follow-up with Dr. Wong, because she wants tominimize the number of doctors she has to see. I explainedto her that the convention is to continueregular follow-up with all of the physicians who played a role in breast cancer treatment, but if she so desires, we will honor her wishes. She states that she does not want to pay so many co- pays. We reviewed red-flag symptoms/signs that'd be concerning [...] care. Dictated By: Natalya Perales MD DD/ 1420 Signed By: <Electronically signed by Natalya Perlaes MD> 11/22/[address] [facility] Work Phone: 1([phone]) [phone] Progress note Author Titi Wong [facility] November 11, 2017 3:08pmNote Date/TimeApril 2017 3:05pmSt[facility] [place] [id number] Hem/Onc Follow Up Note - OP Signed Patient: Larisa Lo MR#: [id number] : 1950 Acct:[id number] Age/Sex: 67 / F Type: REG RCR Copies to: Rafi Torres DO~ Subjective Date/Time of Service: Date of [...] Medications Medication Instructions Recorded Confirmed Type Ca-D3-mag gr-oxux-wtf-rogelio-bor 1 tab PO DAILY 05/12/17 08/13/17 History [...] Last Values WBC 8.5 X10E3/uL (3.8-11.6) 11/04/17 15:27 RBC 4.22 x10E6/uL (3.60-5.00) 11/04/17 15:27 Hgb 13.2 g/dL (11.8-15.4) 11/04/17 15:27 Hct 38.9 % (34.0-46.4) 11/04/17 15:27 MCV 92.1 fl (80-100) 11/04/17 15:27 MCH 31.3 pg (24.7-34.3) 11/04/17 15: MCHC 34.0 g/dL (32.0-35.0) 11/04/17: RDW 13.6 % (11.9-15.3) 11/04/17 15: Plt Count 300 x10E3/uL (150-450) 11/04/17 15 MPV 8.0 fl (6.3-10.7) 11/04/17 Neut % (Auto) 71.6 % (.) 11/04/17: Lymph % (Auto) 13.2 % (.) 11/04/17: [place] % (Auto) 10.3 % (.) 11/04/17 Eos % (Auto) 4.5 % (.) 11/04/17 Baso % (Auto) 0.4 % (.) 11/04/17 Neut # (Auto) 6.1 x10E3/uL (1.8-7.7) 11/04/17: Lymph # (Auto) 1.1 x10E3/uL (1.00-4.8) 11/04/17: [place] # (Auto) 0.9 x10E3/uL (0.0-0.8) H 11/04/17: Eos # (Auto) 0.4 x10E3/uL (0.0-0.45) 11/04/17: Baso # (Auto) 0.0 x10E3/uL (0.0-0.2) 11/04/17 15: PHA Creatinine Clear 29.8299 11/04/17 15: Sodium 139 mmol/L (136-146) 11/04/17 15: Potassium 3.6 mmol/L (3.5-5.1) 11/04/17: Chloride 96 mmol/L (95-114) 11/04/17 15: Carbon Dioxide 31.5 mmol/L (22.0-30.0) H 11/04/17 15: BUN 15 mg/dL (9-23) 11/04/17 15: Creatinine 1.02 mg/dL (0.44-1.03) 11/04/17 15:27 Est [...] sentinel lymph nodes were negative; ER 95%, SD 90%, HER2 unamplified, grade 2, stage IA. [...] physical exam there appears to be no evidenceof cancer recurrence. She will bereassessed in about 4 months with CBC, CMP and a DEXA scan. She may have longitudinal follow-ups at our [facility] - Time Spent with Patient Greater than 50% of time spent with patient was for coordination of care (as documented) and rzle-rg-arpa counseling of patient and/or family. Dictated By: Titi Wong MD DD/ 1504 Signed By: <Electronically signed by Titi Wong MD> 11/11/[address] [facility] Work Phone: [phone] Progress note Author Essie Nobles [facility] May 12, 2017 4:32pmNote Date/TimeOct2016 4:[facility] [place] [address] Hem/Onc Follow Up Note - OP Signed Patient: Larisa Lo MR#: [id number] : 1950 Acct:[id number] Age/Sex: 67 / F Type: REG RCR Copies to: Rafi Torres DO~ Subjective Date/Time of Service: Date of Service: 05/12/2017 Time of Service: 13:20 Chief Complaint: Patient here for six month follow up appointment with labs. - Diagnosis DIAGNOSIS: 1. T1c N0 M0 1.6 x 1.2 x 1 cm left breast tumor diagnosed on 12/01/2013. Lumpectomy on 01/03/[address] Hardwick ; sentinel lymph nodes were negative; ER 95%, SD 90%, HER2 unamplified, grade 2, stage IA. [...] edema. She was started on Neurontin a whileback for hot flashes and states that this has been a miracle drug. Subjective/ROS - Narrative: As per the HPI, otherwise 10 point review of systems is negative. Home Medications & Allergies Allergies Allergy/AdvReac Type Severity Reaction Status Date / Time No Known Allergies Allergy Verified 05/12/17 13:41 Home Medications Medication Instructions Recorded Confirmed Type Ca-D3-mag it-hesg-atu-rogelio-bor 1 tab PO DAILY 05/12/17 05/12/17 History [...] % (Auto) 15.0 % (.) 05/11/17 14:04 [place] % (Auto) 9.5 % (.) 05/11/17 14:04 Eos % (Auto) 3.5 % (.) 05/11/17 14:04 Baso % (Auto) 0.6 % (.) 05/11/17 14:04 Neut # (Auto) 4.9 x10E3/uL (1.8-7.7) 05/11/17 14:04 Lymph # (Auto) 1.0 x10E3/uL (1.00-4.8) 05/11/17 14:04 [place] # (Auto) 0.6 x10E3/uL (0.0-0.8) 05/11/17 14:04 [...] bones are fine. She also cites that sheltara in [place] and worried about having to drive here next month for the bonescan because it could be snowing and traffic is bad on her commute here to [facility]. She wishes to readdress this at her next follow up with Dr. Wong in6 months. She is taking Calcium + Vitamin D. RTC in [address] Wong after routine mammogram. - Time Spent with Patient Greater than 50% of time spent with patient was for coordination of care (as documented) and zbvy-cu-xfnt counseling of patient and/or family. 25 - 35 minutes Dictated By: RICHIE Gonzalez DD/ 1611 Signed By: <Electronically signed by RICHIE Nobles> 05/12/[address] [facility] Work Phone: Chief complaint Narrative - Reported* LARISA LO is being seen for a cardiovascular evaluation of coronary artery disease and DR TORRES/JIA HX NSTEMI AND HYPERTOPIC CARDIOMYOPATHY. * 71-year-old white female who is being referred to me by Dr. Rafi Torres to assess further cardiac evaluation after recent admission to [facility] initially and subsequently to [facility]. She presented with acute bronchitis and wheezing and for some reason troponin wasordered and was elevated around 1999. She had no EKG changes, she was sent to [facility] for furthercardiac evaluation and was seen by Dr. Danyel Marcum who recommended cardiac catheterization or stress test which the patient categorically refused. Interestingly the troponin at [facility] was only 49pg/mL. Her EKG [...] to watch her diet and lose weight. -[facility] [employer] DO Work Phone: Evaluation + Plan note Future Appointments Appointment Date:11/03/2022 03:00:00 PM Scheduled Provider:TATIANA MACIEL PA-C Location:[facility] Appointment Type:URO Office Visit [facility] evaluation + Plan note Future Appointments Appointment Date:11/03/2022 03:00:00 PM Scheduled Provider:TATIANA MACIEL PA-C Location:[facility] Appointment Type:URO Office Visit Diagnostic Tests Pending * [facility]ments Appointment Date:02/08/2024 01:00:00 PM Scheduled Provider:RICHIE Carrasco APRN, [place] Location:[facility] Appointment Type:URO Office Visit [facility] evaluation + Plan note Future Appointments Appointment Date:04/11/2024 02:30:00 PM Scheduled Provider:RICHIE Carrasco APRN, [place] X Location:[facility] Appointment Type:URO Office Visit [facility] evaluation + Plan note Future Appointments Appointment Date:05/14/2025 02:40:00 PM Scheduled Provider:TATIANA MACIEL PA-C Location:[facility] Appointment Type:URO Office Visit Diagnostic Tests Pending * Urine Culture 11/13/24 [facility] Evaluation noteNo assessment information available [facility] Work Phone: Evaluation noteNo InformationNort [place] Other Evaluation note* Diagnosis Onset Date Resolution Status Dysuria noneactive [place] Work Phone: Evaluation note* Diagnosis Onset Date Resolution Status UTI (urinary tract infection) noneactive [facility] Work Phone: evaluation note* Diagnosis Onset Date Resolution Status UTI (urinary tract infection) noneactiveUrinary frequencyacuteDysurianoneactive [place] Work Phone: Evaluation note* Diagnosis Onset Date Resolution Status Urinary frequency acuteDysurianoneactive [facility] Work Phone: Evaluation note* Diagnosis Type 2 diabetes mellitus without complication, without long-term current use of insulin ([facility])- Primary Pain due to onychomycosis of toenails of both feet Venous insufficiency Unspecified venous (peripheral) insufficiency [facility] Diagnosis Anxiety Anxiety state, unspecified [facility] Diagnosis Acute cystitis with hematuria- Primary Sensation of pressure in bladder area [facility]* Diagnosis Stage 3b chronic kidney disease (HCC) ([facility])- Primary Atherosclerosis of coronary artery of [place] heart without angina pectoris, unspecified vessel or lesion type ([facility]/HCC) Osteoarthritis of lumbar spine, unspecified spinal osteoarthritis complication status Diabetic nephropathy associated with type 2 diabetes mellitus (HCC) ([facility]) Hyperlipidemia, unspecified hyperlipidemia type ([facility]/HCC) [facility]* Diagnosis Primary insomnia- Primary Persistent disorder of initiating or maintaining sleep Obstructive sleep apnea Obstructive sleep apnea (adult) (pediatric) Hearing loss of left ear, unspecified hearing loss type [facility]* Diagnosis Anxiety Anxiety state, unspecified [facility]* Diagnosis Actinic keratosis- Primary [facility]* Diagnosis Type 2 diabetes mellitus with diabetic chronic kidney disease ([facility]/HCC)- Primary Morbid (severe) obesity due to excess calories ([facility]) Body mass index (BMI) 40.0-44.9, adult ([facility]) Type 2 diabetes mellitus with other specified complication ([facility]/HCC) Hyperlipidemia, unspecified ([facility]) Type 2 diabetes mellitus with other circulatory complications ([facility]) Heart failure, unspecified ([facility]) Heart failure, unspecified Chronic kidney disease, stage 3b (HCC) ([facility]) Malignant neoplasm of central portion of unspecified female breast ([facility]) Malignant neoplasm of central portion of left female breast ([facility]) Other hypertrophic cardiomyopathy ([facility]) Other hypertrophic cardiomyopathy Anxiety Anxiety state, unspecified [facility]* Diagnosis History of left breast cancer- Primary [facility]* Diagnosis Type 2 diabetes mellitus without complication, without long-term current use of insulin (HCC) [facility]* Diagnosis Acute cystitis with hematuria- Primary Urinary tract infection with hematuria, site unspecified [facility]* Diagnosis Anxiety Anxiety state, unspecified [facility]* Diagnosis Alopecia- Primary Bilateral impacted cerumen Impacted cerumen documented in this encounter [facility]* Diagnosis Routine general medical examination at health care facility- Primary Routine general medical examination at a health care facility Type 2 diabetes mellitus with other specified complication, unspecified whether half-way insulin use (HCC) Obstructive sleep apnea Obstructive sleep apnea (adult) (pediatric) Other chronic pain Essential hypertension Unspecified essential hypertension Hyperlipidemia, unspecified hyperlipidemia type documented in this encounter [facility]* Diagnosis Frequent UTI- Primary Urinary tract infection, site not specified Anxiety Anxiety state, unspecified Chronic bilateral low back pain without sciatica documented in this encounter [facility] general Narrative - Reported* Type Description Date Medical History anxiety Medical HistoryhypertensionMedical HistoryIdeopathic Hypertrophic Subaortic StenosisSurgical Historyleft breastHospitalization Historybronchitis/pneumonia 2021 [place] Other History of Present illness Narrative* Viktoriya Chow DO - 07/17/2024 3:45 PM EST Images from the original note were not included. Larisa Lo is a 74 y.o. female presents for Moles on breast (Left breast) HPI: HPI Larisa found some moles on the lateral area of her left breast and wanted them checked out. OBJECTIVE: Physical Exam Lateral left breast area of concern are benign appearing actinic keratosis. ASSESSMENT AND PLAN: Assessment/Plan Problem List Items Addressed This Visit Actinic keratosis - Primary I explained that these are benign skin lesion and do not alisha to be removed. She was fine with that and I'll see her in January for her next scheduled appointment. documented in this encounterNOMS HealthcareHistory of Present illness Narrative * Viktoriya H Tahir, DO - 01/17/2025 3:15 PM EDT Images from the original note were not included. Larisa Lo 1950 Larisa Lo is a 74 y.o. female presents with chief complaint of 11th poy Lt. lumpectomy w/mamms HPI: HPI Larisa is 11 years post left lumpectomy, she is doing well SUBJECTIVE: MEDICATIONS: ALLERGIES Current Outpatient Medications Medication Instructions ALPRAZolam (XANAX) 0.5 mg, Oral, 2 times daily PRN Aspirin Low Dose 81 MG EC tablet TAKE 1 TABLET BY MOUTH ONCE DAILY atorvastatin (LIPITOR) 10 mg, Oral, Every morning bumetanide (Bumex) 1 MG tablet TAKE 1 TABLET BY MOUTH TWICE DAILY dicyclomine (Bentyl) 20 MG tablet 1 tablet, 3 times daily PRN estradiol (Estrace) 0.1 MG/GM vaginal cream APPLY 1 (ONE) GRAM VAGINALLY NIGHTLY FOR 3 (THREE) WEEKS, then APPLY 1 (ONE) GRAM 3 (THREE) (THREE) times WEEK THEREAFTER, APPLY a pea sized amount around the urethra gabapentin (Neurontin) 300 MG capsule TAKE 1 CAPSULE BY MOUTH THREE TIMES DAILY losartan-hydroCHLOROthiazide (Hyzaar) 100-12.5 MG tablet 1 tablet, Oral, Every morning metoprolol succinate XL (Toprol-XL) 25 MG 24 hr tablet TAKE 1 TABLET BY MOUTH ONCE DAILY Myrbetriq 25 mg, Daily Ozempic (0.25 or 0.5 MG/DOSE) 0.5 mg, Subcutaneous, Weekly Perphenazine-Amitriptyline 2-25 MG tablet TAKE 1 TABLET BY MOUTH AT BEDTIME potassium chloride CR (Klor-Con M20) 20 MEQ ER tablet 20 mEq, Oral, Daily triamcinolone (Kenalog) 0.025 % cream Topical, 2 times daily No Known Allergies PAST MEDICAL HISTORY: SOCIAL HISTORY SURGICAL HISTORY: Past Medical History: Diagnosis Date Anxiety Arthritis Breast cancer (HCC) 2012 Chicken pox Family history of cancer Fibrocystic breast disease Fibromyalgia Heart disease Hyperlipidemia Hypertension Measles MVP (mitral valve prolapse) MUSA (obstructive sleep apnea) Schatzki's ring 2013 Social History Tobacco Use Smoking status: Never Passive exposure: Never Smokeless tobacco: Never Substance Use Topics Alcohol use: Never Comment: caffeine 1-2 cups/day Drug use: Never Past Surgical History: Procedure Laterality Date BREAST LUMPECTOMY Left 2013 COLONOSCOPY 2015 ESOPHAGOGASTRODUODENOSCOPY w/bx 2013x4 2014 x2 FAMILY HISTORY Family History Adopted: Yes Problem Relation Name Age of Onset Pancreatic cancer Mother Hypertension Mother Heart disease Father Breast cancer Neg Hx Colon cancer Neg Hx Ovarian cancer Neg Hx REVIEW OF SYMPTOMS: Review of Systems Constitutional: Negative for diaphoresis and unexpected weight change. Lost 25 lbs on Ozempic HENT: Negative for hearing loss, tinnitus and voice change. Respiratory: Negative for shortness of breath. Cardiovascular: Negative for chest pain and palpitations. Musculoskeletal: Negative for arthralgias. Neurological: Negative for dizziness, seizures and headaches. All other systems reviewed and are negative. Hematological: Negative for adenopathy. Does not bruise/bleed easily. OBJECTIVE: Visit Vitals Smoking Status Never Physical Exam Exam conducted with a cooker tender present. HENT: Head: Normocephalic. Cardiovascular: Rate and Rhythm: Normal rate and regular rhythm. Pulmonary: Effort: Pulmonary effort is normal. Breath sounds: Normal breath sounds. Chest: Comments: Bilateral supraclavicular, infraclavicular, bicipital and axillary lymph nodes were foundto be normal. Each breast was examined in the sitting and supine position, there was no evidence ofmasses, dimpling or discharge in either breast Abdominal: General: Abdomen is flat. Bowel sounds are normal. Palpations: Abdomen is soft. Skin: General: Skin is warm and dry. Neurological: Mental Status: She is alert. ASSESSMENT AND PLAN: Assessment/Plan Diagnoses and all orders for this visit: History of left breast cancer I reviewed her mamm's done 01/15/25 which were negative. From a breast surgical standpoint, she is doing well. I explained to her that at this time she can follow up with her PCP or [facility] for yearly mamm's and return to me if she has an issue. She wants to stay with me so I'll see her next year [facility] Narrative No data available for this section [facility] Hospital Discharge instructions No data available for this section [facility] No data available for this section [facility] reason for referral (narrative)No reason for referral information availableSt. Francis [facility] Work Phone: Summary Purpose Family History Unknown Family Member Name Dates Details Family history of cardiac di sorder: Father(V17.49, Z82.49) Status:ActiveFamily history of hypertension: Mother(V17.49, Z82.49) Status:ActiveFamily history of pancreatic cancer: Mother(V16.0, Z80.0) Status:ActiveFamily history of malignant neoplasm of urinary bladder: Brother (V16.52, Z80.52) Status:ActiveFamily history of cardiovascular disease: Sister(V17.49, Z82.49) Status:Active Unknown Family Member Name Dates Details Family history of cardiac di sorder: Father(V17.49, Z82.49) Status:ActiveFamily history of hypertension: Mother(V17.49, Z82.49) Status:ActiveFamily history of pancreatic cancer: Mother(V16.0, Z80.0) Status:ActiveFamily history of malignant neoplasm of urinary bladder: Brother (V16.52, Z80.52) Status:ActiveFamily history of cardiovascular disease: Sister(V17.49, Z82.49) Status:Active Unknown Family Member Name Dates Details Family history of cardiac di sorder: Father(V17.49, Z82.49) Status:ActiveFamily history of hypertension: Mother(V17.49, Z82.49) Status:ActiveFamily history of pancreatic cancer: Mother(V16.0, Z80.0) Status:ActiveFamily history of malignant neoplasm of urinary bladder: Brother (V16.52, Z80.52) Status:ActiveFamily history of cardiovascular disease: Sister(V17.49, Z82.49) Status:Active Relationship Condition Age at Onset Recorded Date/T nolan father Coronary artery disease Unknown Not SpecifiedCoronary artery diseaseUnknownNot SpecifiedMalignant neoplasm of pancreasUnknownbrotherMalignant neoplasm of urinary bladderUnknownHepatic cirrhosisUnknownChronic obstructive pulmonary diseaseUnknownsisterMyocardial infarctionUnknown Relationship Condition Age at Onset Recorded Date/T nolan father Coronary artery disease Unknown Not SpecifiedCoronary artery diseaseUnknownNot SpecifiedMalignant neoplasm of pancreasUnknownbrotherMalignant neoplasm of urinary bladderUnknownHepatic cirrhosisUnknownChronic obstructive pulmonary diseaseUnknownsisterMyocardial infarctionUnknownfatherDeceasedUnknownNot SpecifiedDeceasedUnknown Relationship Condition Age at Onset Recorded Date/T nolan father Coronary artery disease Unknown motherCoronary artery diseaseUnknownmotherMalignant neoplasm of pancreasUnknown brotherMalignant neoplasm of urinary bladderUnknownHepatic cirrhosisUnknown Chronic obstructive pulmonary diseaseUnknownsisterMyocardial infarctionUnknown fatherDeceasedUnknownmotherDeceasedUnknown Advance Directives Advance Directive Response Recorded Date/ Time Advance Directives Yes March 13, 2017 6:46am Advance Directive Response Recorded Date/ Time Advance Directives Yes March 13, 2017 7:46am Chief Complaint and Reason for Visit Chief Complaint Dysuria Chief Complaint R30.0 E78.5 I10 N18.9 Chief Complaint Z85.3 Chief Complaint Z85.3 i10 e11.22 n18.9 e78.5 Chief Complaint e11.9 n18.32 e78.5 i 10 Urinary frequencyReason for VisitDysuria Chief Complaint e11.9 n18.32 e78.5 i 10 Urinary frequency DysuriaReason for VisitUTI (urinary tract infection) Chief Complaint Urinary frequency R30.0 Poss utiReason for VisitUTI (urinary tract infection) Urinary frequency Dysuria Chief Complaint Urinary frequency R30.0 Poss uti Z12.31Reason for VisitUTI (urinary tract infection) Urinary frequency Dysuria Chief Complaint Poss uti Z12.31 I10;E11.69Reason for VisitUrinary frequency Dysuria Chief Complaint Admit Date N18.32 E78.5 E11.21 September 13, 2024 1:54pm Chief Complaint Admit Date N18.32 E78.5 E11.21 September 13, 2024 1:54pm Apnea October 20, 2024 10:4 3am Chief Complaint Admit Date N18.32 E78.5 E11.21 September 13, 2024 1:54pm Apnea October 20, 2024 10:4 3am G74.30 November 16, 2024 7:19pm Reason for Visit Admit Date Anxiety October 20, 2024 10:4 3am BMI 38.0-38.9,adult October 20, 2024 10:4 3am Diabetes mellitus October 20, 2024 10:4 3am HTN (hypertension) October 20, 2024 10:4 3am Insomnia, psychophysiological October 20, 2024 10:43am Non-ST elevation CA (NSTEMI) October 20, 2024 10:43am Sleep apnea, unspecified October 20, 2024 10:43am Chief Complaint Admit Date Apnea October 20, 2024 10:4 3am G74.30 November 16, 2024 7:19pm G74.30 November 21, 2024 1:05pm z12.31 January 15, 2025 1:02 pm Additional Source Comments INFORMATION SOURCE (unrecogn ized section and content) DATE CREATED AUTHOR 09/28/2018 [facility] DATE CREATED AUTHOR AUTHOR'S ORGANIZ ATION 01/06/2022 [employer] DATE CREATED AUTHOR AUTHOR'S ORGANIZ ATION 01/17/2022 [facility] DATE CREATED AUTHOR AUTHOR'S ORGANIZ ATION 05/11/2022 [facility] [employer] DATE CREATED AUTHOR AUTHOR'S ORGANIZ ATION 11/06/[address] [facility] DATE CREATED AUTHOR AUTHOR'S ORGANIZ ATION 11/21/2024 [facility] DATE CREATED AUTHOR AUTHOR'S ORGANIZ ATION 01/30/2025 [facility] DATE CREATED AUTHOR AUTHOR'S ORGANIZ ATION 03/23/2025 [facility] DATE CREATED AUTHOR AUTHOR'S ORGANIZ ATION 05/18/2025 [facility] Care Teams (unrecognized sec tion and content) Team Status: Inactive Member Role Status Dates BETO Ortega Attending Provider Active Team Status: Inactive Member Role Status Dates BETO Ortega Attending Provider Active PHYSICIAN NO FAMILYPrimary Care ProviderActive Team Status: Inactive Member Role Status Dates Rafi Torres DO Primary Care Provider, Attending Prov ider Active Team Status: Active Member Role Status Dates Rafi Torres DO Primary Care Provider Active Team Status: Inactive Member Role Status Dates Rafi Torres DO Primary Care Provider Active Viktoriya Chow DOAttending ProviderActive Team Status: Inactive Member Role Status Dates Rafi Torres DO Primary Care Provide r, Attending Provider Active Start: September 10, 2023 End: September 10, 2023 Team Status: Inactive Member Role Status Dates Rafi Torres DO Primary Care Provider Active St art: October 29, 2023 End: October 28carolina Rutherford [employer]POS[employer] LEAKAGE-CAttending ProviderActiveStart: October 29, 2023 End: October 29, 2023 Team Status: Inactive Member Role Status Dates BETO Ortega Attending Provider Active S tart: October 29, 2023 End: October 29, 2023 Team Status: Active Member Role Status Dates PHYSICIAN NO FAMILY Primary Care Provider Active Team Status: Inactive Member Role Status Dates BETO Ortega Attending Provider Active S tart: October 29, 2023 End: October 28HYSICIAN NO FAMILYPrimary Care ProviderActiveStart: October 29, 2023 End: October 29, 2023 Team Status: Inactive Member Role Status Dates PHYSICIAN NO FAMILY Primary Care Provider Active Start: December 14, 2023 End: December 13jameson Gil APRNAttensuzanna ProviderActiveStart: December 14, 2023 End: December 14, 2023 Team Status: Inactive Member Role Status Dates Rafi Torres DO Primary Care Provider Active St art: January 13, 2024 End: January 13, 2024Brenda Gomez [employer] LEAKAGE-CAttending ProviderActiveStart: January 13, 2024 End: January 13, 2024 Team Status: Inactive Member Role Status Dates Rafi Torres DO Primary Care Provide r, Attending Provider Active Start: January 27, 2024 End: January 27, 2024Team MemberRelationshipSpecialtyStart DateEnd Date Rafi Torres DO [address] [facility] [address] [place] [address] PCP - [facility]12/30/22 Thomas Curtis, DO [address] [place] [address] PCP - [facility]01/17/24Te MemberRelationshipSpecialtyStart DateEnd Date Rafi Torres, DO [address] [place] [address] (Fax) [facility] - [facility]12/30/22 Thomas Curtis, DO [address] [place] [address] PCP - [facility]01/17/24Te MemberRelationshipSpecialtyStart DateEnd Date Rafi Torres, DO [address] [place] [address] PCP [facility]12/30/22 Thomas Curtis, DO [address] [place] [address] PCP [facility]01/17/24Te MemberRelationshipSpecialtyStart DateEnd Date Rafi Torres, DO [address] [place] [address] PCP [facility]12/30/22 Thomas Curtis, DO [address] [place] [address] PCP [facility]01/17/24Te MemberRelationshipSpecialtyStart DateEnd Date Rafi Torres, DO [address] [place] [address] PCP - [facility]12/30/22 Thomas Curtis, DO [address] [place] [address] PCP - [place]01/17/24Team MemberRelationshipSpecialtyStart DateEnd Date Rafi Torres, DO [address] [place] [address] PCP - [facility] Medicine12/30/22 Thomas Curtis, DO [address] [place] [address] PCP - [place]01/17/24Team MemberRelationshipSpecialtyStart DateEnd Date Rafi Torres, DO [address] [place] [address] PCP - [facility]12/30/22 Thomas Curtis, DO [address] [place] [address] PCP - [place]01/17/24Team MemberRelationshipSpecialtyStart DateEnd Date Rafi Torres, DO [address] [place] [address] PCP - [facility]12/30/22 Thomas Curtis, DO [address] [place] [address] PCP - [place]01/17/24Team MemberRelationshipSpecialtyStart DateEnd Date Rafi Torres, DO [address] [place] [address] PCP - [facility]12/30/22 Thomas Curtis, [address] [place] [address] PCP - [place]01/17/24Team MemberRelationshipSpecialtyStart DateEnd Date Rafi Torres, [address] [place] [address] PCP - [facility] Medicine12/30/22 Thomas Curtis, [address] [place] [address] PCP - [facility] [place]01/17/24Team MemberRelationshipSpecialtyStart DateEnd Date Rafi Torres, [address] [place] [address] PCP - [facility]12/30/22Team MemberRelationshipSpecialtyStart DateEnd Date Rafi Torres, [address] [place] [address] PCP - [facility]12/30/22 Team Status: Inactive Member Role Status Dates Rafi Torres DO Primary Care Provide r, Attending Provider Active Start: September 13, 2024 End: September 13, 2024Team MemberRelationshipSpecialtyStart DateEnd Date Rafi Torres, [address] [place] [address] PCP - [facility] Medicine12/30/22Team MemberRelationshipSpecialtyStart DateEnd Date Rafi Torres, [address] [place] [address] PCP - [facility] Medicine12/30/22 Rafi Torres, [address] [place] [address] PCP - [facility]08/19/24Team MemberRelationshipSpecialtyStart DateEnd Date Rafi Torres, [address] [place] [address] PCP - [facility]12/30/22 Rafi Torres, [address] [place] [address] PCP - [facility]08/19/24 Team Status: Inactive Member Role Status Dates Rafi Torres DO Primary Care Provider Active St art: October 20, 2024 End: October 20, 2024PeKristine Ruiz ProviderActiveStart: October 20, 2024 End: October 20, 2024 Team Status: Inactive Member Role Status Guillermo Torres DO Primary Care Provider Active St art: November 16, 2024 End: November 16, 2024DaSharon De Leon ProviderActiveStart: November 16, 2024 End: November 16, 2024 Team Status: Active Member Role Status Guillermo Torres DO Primary Care Provider Active St art: November 21, 2024 Sharon Cuba ProviderActiveStart: November 21, 2024 Shae Cuba ProviderActiveStart: November 21, 2024 Team Status: Inactive Member Role Status Guillermo Torres DO Primary Care Provider Active St art: January 15, 2025 End: January 15, 2025Fredmyles Chow DOAttending ProviderActiveStart: January 15, 2025 End: January 15, 2025Team MemberRelationshipSpecialtyStart DateEnd Date Rafi Torres DO [address] [place] [address] PCP - [facility] Medicine12/30/22 Rafi Torres, DO [address] [place] [address] PCP - [place] [facility] MemberRelationshipSpecialtyStart DateEnd Date Rafi Torres, DO [address] [place] [address] PCP - [facility]12/30/22 Rafi Torres, DO [address] [place] [address] PCP - [place]08/19/24Te MemberRelationshipSpecialtyStart DateEnd Date Rafi Torres, DO [address] [place] [address] PCP - [facility]12/30/22 Rafi Torres, DO [address] [place] [address] PCP - [place] [facility] MemberRelationshipSpecialtyStart DateEnd Date Rafi Torres, DO [address] [place] [address] PCP - [facility]12/30/22 Rafi Torres, DO [address] [place] [address] PCP - [place]08/19/24Team MemberRelationshipSpecialtyStart DateEnd Date Rafi Torres, DO [address] [place] [address] PCP - [facility] Medicine12/30/22 Rafi Torres, DO [address] [place] [address] PCP - [place]08/19/24Te MemberRelationshipSpecialtyStart DateEnd Date Rafi Torres, DO [address] [place] [address] PCP - [facility]12/30/22 Rafi Torres, DO [address] [place] [address] PCP - [place]08/19/24Te MemberRelationshipSpecialtyStart DateEnd Date Rafi Torres, DO [address] [place] [address] PCP - [facility]12/30/22 Rafi Torres, DO [address] [place] [address] PCP - [place]08/19/24Te MemberRelationshipSpecialtyStart DateEnd Date Rafi Torres, DO [address] [place] [address] PCP - [facility]12/30/22 Rafi Torres, DO [address] [place] [address] PCP - [place]08/19/24 Ximena Serrato MD [address] [place] [address] Referring [facility]03/21/25 Karissa Carrasco, [employer] [address] [place] [address] Referring PhysicianUrology03/21/25Team MemberRelationshipSpecialtyStart DateEnd Date Rafi Torres, DO [address] [place] [address] [facility] Rafi Torres, DO [address] [place] [address] PCP - [place]08/19/24 Ximena Serrato MD [address] [place] [address] Referring [facility]03/21/25 RashelKarissa, [employer] LEAKAGE [address] [place] [address] Referring PhysicianUrology03/21/25Team MemberRelationshipSpecialtyStart DateEnd Date Rafi Torres, DO [address] [place] [address] PCP - GeneralFamily Medicine12/30/22 Thomas Curtis, DO [address] [place] [address] PCP - [place]01/16/2411 Brenda Gomez NP [address] [place] [address] PCP - [facility] [place]06/18/2412 Rafi Torres DO [address] [place] [address] PCP - [place]08/19/24 Ximena Serrato MD [address] [place] [address] Referring [facility]03/21/25 Karissa Carrasco NP [address] [place] [address] Referring PhysicianUrology03/21/25Team MemberRelationshipSpecialtyStart DateEnd Date Rafi Torres, [address] [place] [address] [facility]/22 Rafi Torres DO [address] [place] [address] PCP - [place]08/19/24 Ximena Serrato MD [address] [place] [address] Referring PhysicianSleep Medicine03/21/25 Karissa Carrasco NP [address] [place] [address] Referring PhysicianUrology03/21/25Team MemberRelationshipSpecialtyStart DateEnd Date Rafi Torres DO [address] [place] [address] PCP - [facility]12/30/22 Rafi Torres DO [address] [place] [address] PCP - [facility]08/19/24 Ximena Serrato MD [address] [place] [address] Referring PhysicianSleep Medicine03/21/25 Karissa Carrasco NP [address] [place] [address] Referring PhysicianUrology03/21/25Team MemberRelationshipSpecialtyStart DateEnd Date Rafi Torres DO [address] [place] [address] PCP - [facility]12/30/22 Rafi Torres DO [address] [place] [address] PCP - [facility]08/19/24 Ximena Serrato MD [address] [place] [address] Referring PhysicianSleep Medicine03/21/25 Karissa Carrasco NP [address] [place] [address] Referring PhysicianUrology03/21/25 Goals (unrecognized section and content) Goals may [...] this section No data available for this sectionGoals may be documented in an alternate sectionGoals may be documented in an alternate section No data available for this sectionGoals may be documented in an alternate sectionGoals may be documented in an alternate section No data available for this section REASON FOR VISIT (unrecogniz ed section and content) ReasonCommentsToenail CareNon Dm NailsReasonOnset DateCommentsMed Refill 4ReasonCommentsMoles on breastLeft breastReasonOnset DateCommentsMed Kpggud6110/09/2024ReasonOnset DateCommentsMed Mstopk6112/25/20242725WbvsyyCohohcnt10zs poy Lt. lumpectomy w/mammsReasonOnset DateCommentsMed Lmmaxv2701/22/2025Reason CommentsUTIReasonOnset DateCommentsMed Gjiwzm9502/16/2025ReasonOnset DateComments Medication Edwazifl66/08/2025ReasonOnset DateCommentsMed Dzbuhr4004/18/2025Reason Onset DateCommentsMed Xbhpew3205/17/2025ReasonOnset DateCommentsMedication Xisyvpve56/03/2025ReasonOnset DateCommentsMed Lkymec0805/29/2025 FOR RECORDS PERTAINING TO PATIENTS WHO ARE [...] BE BASED ON THE PRIMARY CLINICAL RECORDS. [facility] advisorCONNECT [facility]. provides no warranty or guarantee of the accuracy or completeness of information in this document."
--- NOTE | 2025-07-14 17:50 | CT_ITS ---
The [address] [address] Patient Name: BLAYNE LÓPEZ MRN: [id number] date: 1950 Sex: F Assigned Patient Location: ER Current Patient Location: ER Accession/Order Number: [id number] Exam Date: 07/14/2025 18:20 Report Date: 07/14/2025 18:55 At the request of: VERONICA AYALA Procedure: CT head/brain wo con Unenhanced head CT TECHNIQUE: Contiguous axial imaging of the head. The CT exam was performed using one or more the following dose reduction techniques: Automated exposure control, adjustment of the MA and/or Kv according to patient size, or use of the iterative reconstruction technique. COMPARISON: None HISTORY: Fell. Facial injury. VENTRICLES: Within normal limits ATROPHY: None BRAIN PARENCHYMA: Adequate baltazar-white matter differentiation identified. HEMORRHAGE: None HERNIATION: No mass effect or herniation INFARCTION: No recent vascular distribution infarction is seen. EXTRA-AXIAL FLUID COLLECTIONS None MIDBRAIN: Unremarkable DANIEL: Unremarkable MEDULLA: Unremarkable SINUSES: Unremarkable ORBITS: Grossly unremarkable MASTOIDS: Unremarkable BONY STRUCTURES Intact ADDITIONAL FINDINGS: CT/CT head/brain wo con IMPRESSION: No acute findings. Impression dictated by: Faisal Ga M.D. 07/14/2025 6:55 PM Dictation Location: [place] [address] Electronically authenticated by: [id number] Y Date: 07/14/2025 18:55
--- NOTE | 2025-07-14 17:50 | ECG_ITS ---
The [facility] Test Date: 2025-07-14 Pat Name: BLAYNE LÓPEZ Department: Room: - Gender: Female [employer]: : 1950 Requested By: [id number] Order Number: [id number] Reading MD: KELVIN LOVE M.D. Measurements Intervals [place] Rate: 84 P: -43 SD: 232 QRS: -30 QRSD: 96 T: 79 QT: 350 QTc: 391 Interpretive Statements NORMAL SINUS RHYTHM 2231 First degree AV block 3114 Cannot rule out anterior myocardial infarction, age undetermined 8102 Low QRS voltage in chest leads TECHNICALLY POOR TRACING - PLEASE REPEAT ECG 9150 abnormal ECG Compared to ECG 11/27/2021 22:38:41 First degree AV block now present Myocardial infarct finding now present Ventricular premature complex(es) no longer present Left-axis deviation no longer present Electronically Signed On 07-15-2025 13:25:04 EST by KELVIN LOVE M.D.
--- NOTE | 2025-07-14 17:52 | CT_ITS ---
[address] [address] Patient Name: BLAYNE LÓPEZ MRN: [id number] date: 1950 Sex: F Assigned Patient Location: ER Current Patient Location: ER Accession/Order Number: [id number] Exam Date: 07/14/2025 18:20 Report Date: 07/14/2025 18:57 At the request of: VERONICA AYALA Procedure: CT cervical spine wo con CT Cervical Spine withoutcontrast TECHNIQUE: Axial imaging with 2-D and 3-D reconstruction. The CT exam was performed using one or more the following dose reduction techniques: Automated exposure control, adjustment of the MA and/or Kv according to patient size, or use of the iterative reconstruction technique. COMPARISON: None HISTORY: Facial injury POST SURGERY CHANGES: None BONY ALIGNMENT: Straightening of cervical lordosis with mild degenerative listhesis BONY SPINAL CANAL: Patent central bony canal FRACTURE: None BONY LESIONS: None SOFT TISSUES: Unremarkable DEGENERATIVE CHANGES: Multilevel degenerative changes LUNG APICES: Unremarkable ADDITIONAL FINDINGS: CT/CT cervical spine wo con IMPRESSION: No acute process Impression dictated by: Faisal Ga M.D. 07/14/2025 6:57 PM Dictation Location: [place] [address] Electronically authenticated by: [id number] Y Date: 07/14/2025 18:57
--- NOTE | 2025-07-14 17:54 | ED.GENADUL1 ---
Documented by User: LUCY Baker 07/14/25 21:54 HPI HPI - General Adult General Chief complaint: Fall Stated complaint: FALL Time Seen by Provider: 07/14/25 17:17 Source: patient and family Mode of arrival: walk-in History of Present Illness HPI narrative: Patient is a 75-year-old female that presents emergency department with her daughters with complaint of fall this morning out of bed secondary to dizziness/lightheadedness. She does have a history of previous falls from being dizzy. This history is provided by her daughters at bedside, patient denies this. She reports that she hit her right cheek and right shoulder with some pain. Patient and her daughters do not think she takes any anticoagulation or antiplatelet medications. Related Data Home Medications ?Medication ?Instructions ?Recorded ?Confirmed alprazolam 0.5 mg tablet 0.5 mg PO BID 03/08/24 07/14/25 bumetanide 1 mg tablet 1 mg PO DAILY 03/08/24 07/14/25 losartan 100 1 tab PO DAILY 03/08/24 07/14/25 mg-hydrochlorothiazide 12.5 mg tablet perphenazine-amitriptyline 2 mg-25 2 tab PO DAILY 03/08/24 07/14/25 mg tablet atorvastatin 10 mg tablet 10 mg PO DAILY 07/14/25 07/14/25 mirabegron 25 mg tablet,extended 25 mg PO Q24H 07/14/25 07/14/25 release 24 hr (Myrbetriq) potassium chloride 20 mEq 20 meq PO DAILY 07/14/25 07/14/25 tablet,extended release(part/cryst) Previous Rx's ?Medication ?Instructions ?Recorded oxybutynin chloride 5 mg tablet 5 mg PO DAILY #14 tabs 03/08/24 Allergies Allergy/AdvReac Type Severity Reaction Status Date / Time No Known Drug Allergies Allergy Verified 07/14/25 17:26 Review of Systems ROS Status of ROS 10 or more systems reviewed and unremarkable except as noted in history and below PFSH PFSH Social History Little interest or pleasure in doing things: not at all Feeling down, depressed, or hopeless: not at all Exam Narrative Exam Narrative: General: No distress, age-appropriate, no signs of trauma on exam Skin: Warm, dry, no pallor. No rash. Head: Normocephalic, atraumatic. Neck: Supple, non-tender. Eye: Pupils are equal, round and EOMI. No scleral icterus. Ears, Nose, Mouth, and Throat: No nasal mucosal hypertrophy. Oral mucosa is moist, no posterior oropharynx erythema, uvula is mid-line. No trismus. No malocclusion. Cardiovascular: Regular Rate and Rhythm without murmur, gallop or rub. Respiratory: No accessory muscle use or respiratory distress. Lungs are clear to auscultation, no wheezing, rales or rhonchi Chest Wall: no tenderness Back: No midline thoracic or lumbar vertebral tenderness. Musculoskeletal: Full ROM of all extremities, no calf or popliteal tenderness GI: Abdomen is soft, non-distended, non tender to palpation. No masses appreciated. No rebound, guarding, or rigidity noted. Neurological: A&O x4. No cranial nerve dysfunction observed. No truncal ataxia. Moves all extremities. Sensation intact. Psychiatric: Cooperative and interactive. Normal mood and affect. Constitutional Vital Signs, click to edit/add: Last Vital Signs Temp 98.9 F 07/14/25 17: Pulse 81 07/14/25 22:00 Resp 23 H 07/14/25 22:00 BP 137/82 07/14/25 21:56 Pulse Ox 97 07/14/25 21:56 O2 Del Method Room Air 07/14/25 19:34 Documenting provider has reviewed patient's vital signs: yes Course Vital Signs Vital signs: Vital Signs Temperature 98.9 F 07/14/25 17:27 Pulse Rate 51 L 07/14/25 17:27 Respiratory Rate 18 07/14/25 17:27 Blood Pressure 141/92 H 07/14/25 17:27 Pulse Oximetry 96 07/14/25 17:27 Oxygen Delivery Method Room Air 07/14/25 17:27 Temperature 98.9 F 07/14/25 17:27 Pulse Rate 81 07/14/25 22:00 Respiratory Rate 23 H 07/14/25 22:00 Blood Pressure 137/82 07/14/25 21:56 Pulse Oximetry 97 07/14/25 21:56 Oxygen Delivery Method Room Air 07/14/25 19:34 Medical Decision Making MDM Narrative Medical decision making narrative: This 75-year-old female with a history of dizziness and falls presented with complaints of pain after falling this morning while being lightheaded/dizzy. Initial imaging, including CT head, cervical spine, chest x-ray, and pelvic x-ray, revealed no acute traumatic injuries, although cardiomegaly was noted on the chest x-ray. Laboratory findings demonstrated elevated troponin (1234.1 ng/L) and BNP (1719 pg/mL), indicating possible myocardial injury and acute heart failure. The urinalysis revealed signs of urinary tract infection (UTI), with significant pyuria and bacteriuria, though this is likely a secondary concern in light of her primary cardiac findings. The patient's second troponin level of 1186.2 ng/L (a slight decrease from the initial 1234.1 ng/L) provides further support for ongoing myocardial injury, consistent with an acute coronary syndrome (NSTEMI). The troponin levels, though slightly decreasing, remain elevated, confirming the presence of myocardial injury and the need for continued management as a high-risk ACS. This, combined with the elevated BNP (1719 pg/mL) and EKG findings (rapid atrial rhythm, first-degree AV block, and low QRS voltage), suggests that the patient is likely experiencing acute decompensated heart failure secondary to ischemic heart disease. Given the elevated troponin levels, the patient's clinical presentation, and the findings on the EKG, acute coronary syndrome (NSTEMI) is highly suspected. The elevated BNP supports the diagnosis of acute decompensated heart failure, likely secondary to ischemic heart disease. I discussed results with patient and her daughters at bedside and recommended admission for further evaluation and management. I did speak with our hospitalist, Dr. Escobar, who states that patient should be transferred to [facility] for Cardiology management with catheterization. She apparently had been transferred to [facility] in 2021 when her troponin was in the 40s and had seen cardiology then and had denied a cardiac cath at that time. [facility]'s transfer was initiated and hospitalist was paged. At this time 2199, my shift is ending and patient's care was discussed and transferred to Dr. aFng. I anticipate transfer to [facility] once he speaks with the hospitalist and patient is accepted there. Differential Diagnosis Differential Diagnosis: Intracranial hemorrhage, shoulder fracture, orthostatic hypotension, arrhyt Lab Data Lab results reviewed: Yes I reviewed the patient's lab results Labs: Lab Results 07/14/25 07/14/25 07/14/25 Range/Units 18:47 19:25 20:20 WBC 7.9 (4.0-11.0) 10^3/uL RBC 4.29 (4.20-5.40) 10^6/uL Hgb 13.5 (12.0-16.0) g/dL Hct 41.6 (36.0-48.0) % MCV 97.0 (81.0-99.0) fL MCH 31.5 (26.7-34.0) pg MCHC 32.5 (29.9-35.2) g/dL RDW 13.3 (11.0-15.0) % Plt Count 222 (150-450) 10^3/uL MPV 9.7 (9.5-13.5) fL Neut % (Auto) 77.6 H (43.0-75.0) % Lymph % (Auto) 8.9 L (20.5-60.0) % Keith % (Auto) 11.8 (1.7-12.0) % Eos % (Auto) 0.9 (0.9-7.0) % Baso % (Auto) 0.5 (0.2-2.0) % Neut # (Auto) 6.2 (1.4-6.5) 10^3/uL Lymph # (Auto) 0.7 L (1.2-3.8) 10^3/uL Keith # (Auto) 0.9 H (0.3-0.8) 10^3/uL Eos # (Auto) 0.1 (0.0-0.7) 10^3/uL Baso # (Auto) 0.0 (0.0-0.1) 10^3/uL Abs Immat Gran (auto) 0.02 (0.00-0.03) 10^3/uL Imm/Tot Granulo (auto) 0.3 (0.0-0.5) % Sodium 137 (136-145) mmol/L Potassium 3.8 (3.5-5.1) mmol/L Chloride 103 (98-107) mmol/L Carbon Dioxide 25.7 (21.0-32.0) mmol/L Anion Gap 12.1 BUN 18.0 (7.0-18.0) mg/dL Creatinine 1.17 H (0.55-1.02) mg/dL Est GFR ( Amer) 54 L (>=60 mL/min/1.73m^2) Est GFR (Non-Af Amer) 45 L (>=60 mL/min/1.73m^2) BUN/Creatinine Ratio 15.4 Glucose 173 H (74-106) mg/dL Calcium 9.4 (8.5-10.1) mg/dL Total Bilirubin 0.3 (0.2-1.0) mg/dL AST 24 (15-37) U/L ALT 35 (14-59) U/L Alkaline Phosphatase 83 (46-116) U/L Troponin I High Sens 1234.1 H* 1186.2 H* (4.0-51.3) pg/mL NT-Pro-B Natriuret Pep 1719.0 (<=1800.0) pg/mL Total Protein 7.3 (6.4-8.2) g/dL Albumin 3.7 (3.4-5.0) g/dL Globulin 3.6 g/dL Albumin/Globulin Ratio 1.0 Urine Color Lt. yellow (YELLOW) Urine Clarity Sl cloudy (CLEAR) Urine pH 6.5 (5.0-9.0) Ur Specific [place] 1.010 (1.005-1.025) Urine Protein Negative (NEG/TRACE) mg/dL Urine Glucose (UA) Negative (NEGATIVE) mg/dL Urine Ketones Negative (NEGATIVE) mg/dL Urine Occult Blood Trace-i (NEGATIVE) Urine Nitrite Negative (NEGATIVE) Urine Bilirubin Negative (NEGATIVE) Urine Urobilinogen 0.2 (0.2-1.0) EU/dL Ur Leukocyte Esterase Large A (NEGATIVE) Urine RBC None seen (0-2) #/HPF Urine WBC 75-100 A (NONE SEEN) #/HPF Ur Squamous Epith Cells Many A (NONE/RARE) #/LPF Urine Crystals None seen (None Seen) #/HPF Urine Bacteria Moderate A (NONE SEEN) #/HPF Urine Casts None seen (NONE SEEN) #/LPF Urine Mucus None seen (NONE SEEN) Ur Culture Indicated? Yes-[facility] Imaging Data CT scan - head: Attestation: I have reviewed the pertinent imaging results. Radiologist's impression: ITS Impressions Head CT 07/14/25 17:50 IMPRESSION: No acute findings. Impression dictated by: Faisal Ga M.D. 07/14/2025 6:55 PM Dictation Location: [facility] Electronically authenticated by: [id number] Y Date: 07/14/2025 18:[address] 07/14/25 17:52 IMPRESSION: No acute process Impression dictated by: Faisal Ga M.D. 07/14/2025 6:57 PM Dictation Location: [facility] Electronically authenticated by: [id number] Y Date: 07/14/2025 18:57 Chest X-Ray 07/14/25 17:59 IMPRESSION: No acute process. Impression dictated by: Faisal Ga M.D. 07/14/2025 7:01 PM Dictation Location: [facility] Electronically authenticated by: [id number] Y Date: 07/14/2025 19:01 Pelvis X-Ray 07/14/25 17:59 IMPRESSION:Unremarkable exam. Impression dictated by: Faisal Ga M.D. 07/14/2025 6:59 PM Dictation Location: [facility] Electronically authenticated by: [id number] Y Date: 07/14/2025 18:59 ECG Data Attestation: ?I have reviewed the pertinent ECG results. Discharge Plan Discharge Chief Complaint: Fall Clinical Impression: Non-ST elevation ID (NSTEMI), Acute decompensated heart failure, Fall, Acute shoulder pain Patient Disposition: [facility] Time of Disposition Decision: 21:00 Discharge Location: [facility] Discharge Date/Time: 07/15/25 00:11 Documented by User: David Fang 07/14/25 23:46 HPI HPI - General Adult General Chief complaint: Fall Stated complaint: FALL Time Seen by Provider: 07/14/25 17:17 Related Data Home Medications ?Medication ?Instructions ?Recorded ?Confirmed alprazolam 0.5 mg tablet 0.5 mg PO BID 03/08/24 07/14/25 bumetanide 1 mg tablet 1 mg PO DAILY 03/08/24 07/14/25 losartan 100 1 tab PO DAILY 03/08/24 07/14/25 mg-hydrochlorothiazide 12.5 mg tablet perphenazine-amitriptyline 2 mg-25 2 tab PO DAILY 03/08/24 07/14/25 mg tablet atorvastatin 10 mg tablet 10 mg PO DAILY 07/14/25 07/14/25 mirabegron 25 mg tablet,extended 25 mg PO Q24H 07/14/25 07/14/25 release 24 hr (Myrbetriq) potassium chloride 20 mEq 20 meq PO DAILY 07/14/25 07/14/25 tablet,extended release(part/cryst) Previous Rx's ?Medication ?Instructions ?Recorded oxybutynin chloride 5 mg tablet 5 mg PO DAILY #14 tabs 03/08/24 Allergies Allergy/AdvReac Type Severity Reaction Status Date / Time No Known Drug Allergies Allergy Verified 07/14/25 17:26 PFSH PFSH Social History Little interest or pleasure in doing things: not at all Feeling down, depressed, or hopeless: not at all Exam Constitutional Vital Signs, click to edit/add: Last Vital Signs Temp 98.9 F 07/14/25 17:27 Pulse 81 07/14/25 22:00 Resp 23 H 07/14/25 22:00 BP 137/82 07/14/25 21:56 Pulse Ox 97 07/14/25 21:56 O2 Del Method Room Air 07/14/25 19:34 Course Vital Signs Vital signs: Vital Signs Temperature 98.9 F 07/14/25 17:27 Pulse Rate 51 L 07/14/25 17:27 Respiratory Rate 18 07/14/25 17:27 Blood Pressure 141/92 H 07/14/25 17:27 Pulse Oximetry 96 07/14/25 17:27 Oxygen Delivery Method Room Air 07/14/25 17:27 Temperature 98.9 F 07/14/25 17:27 Pulse Rate 81 07/14/25 22:00 Respiratory Rate 23 H 07/14/25 22:00 Blood Pressure 137/82 07/14/25 21:56 Pulse Oximetry 97 07/14/25 21:56 Oxygen Delivery Method Room Air 07/14/25 19:34 Medical Decision Making MDM Narrative Medical decision making narrative: This 75-year-old female with a history of dizziness and falls presented with complaints of pain after falling this morning while being lightheaded/dizzy. Initial imaging, including CT head, cervical spine, chest x-ray, and pelvic x-ray, revealed no acute traumatic injuries, although cardiomegaly was noted on the chest x-ray. Laboratory findings demonstrated elevated troponin (1234.1 ng/L) and BNP (1719 pg/mL), indicating possible myocardial injury and acute heart failure. The urinalysis revealed signs of urinary tract infection (UTI), with significant pyuria and bacteriuria, though this is likely a secondary concern in light of her primary cardiac findings. The patient's second troponin level of 1186.2 ng/L (a slight decrease from the initial 1234.1 ng/L) provides further support for ongoing myocardial injury, consistent with an acute coronary syndrome (NSTEMI). The troponin levels, though slightly decreasing, remain elevated, confirming the presence of myocardial injury and the need for continued management as a high-risk ACS. This, combined with the elevated BNP (1719 pg/mL) and EKG findings (rapid atrial rhythm, first-degree AV block, and low QRS voltage), suggests that the patient is likely experiencing acute decompensated heart failure secondary to ischemic heart disease. Given the elevated troponin levels, the patient's clinical presentation, and the findings on the EKG, acute coronary syndrome (NSTEMI) is highly suspected. The elevated BNP supports the diagnosis of acute decompensated heart failure, likely secondary to ischemic heart disease. I discussed results with patient and her daughters at bedside and recommended admission for further evaluation and management. I did speak with our hospitalist, Dr. Esocbar, who states that patient should be transferred to [facility] for Cardiology management with catheterization. She apparently had been transferred to [facility] in 2021 when her troponin was in the 40s and had seen cardiology then and had denied a cardiac cath at that time. [facility] transfer was initiated and hospitalist was paged. At this time 0, my shift is ending and patient's care was discussed and transferred to Dr. Fang. I anticipate transfer to [facility] once he speaks with the hospitalist and patient is accepted there. Attending physician note -I spoke with Dr. Stephens, the hospitalist at [facility] and he agreed to accept this patient's transfer to their facility for further evaluation and treatment of non-ST elevation acute myocardial infarction. Spoke to the patient and family, keeping them appraised of the timeline and each step of the process between decision to admit through the decision to transfer to [facility], at the request of Dr. Escobar. Patient is stable for transportation to [facility] in [place], which has been scheduled just before midnight tonight. - DO Singh Lab Data Labs: Lab Results 07/14/25 07/14/25 07/14/25 Range/Units 18:47 19:25 20:20 WBC 7.9 (4.0-11.0) 10^3/uL RBC 4.29 (4.20-5.40) 10^6/uL Hgb 13.5 (12.0-16.0) g/dL Hct 41.6 (36.0-48.0) % MCV 97.0 (81.0-99.0) fL MCH 31.5 (26.7-34.0) pg MCHC 32.5 (29.9-35.2) g/dL RDW 13.3 (11.0-15.0) % Plt Count 222 (150-450) 10^3/uL MPV 9.7 (9.5-13.5) fL Neut % (Auto) 77.6 H (43.0-75.0) % Lymph % (Auto) 8.9 L (20.5-60.0) % Keith % (Auto) 11.8 (1.7-12.0) % Eos % (Auto) 0.9 (0.9-7.0) % Baso % (Auto) 0.5 (0.2-2.0) % Neut # (Auto) 6.2 (1.4-6.5) 10^3/uL Lymph # (Auto) 0.7 L (1.2-3.8) 10^3/uL Keith # (Auto) 0.9 H (0.3-0.8) 10^3/uL Eos # (Auto) 0.1 (0.0-0.7) 10^3/uL Baso # (Auto) 0.0 (0.0-0.1) 10^3/uL Abs Immat Gran (auto) 0.02 (0.00-0.03) 10^3/uL Imm/Tot Granulo (auto) 0.3 (0.0-0.5) % Sodium 137 (136-145) mmol/L Potassium 3.8 (3.5-5.1) mmol/L Chloride 103 (98-107) mmol/L Carbon Dioxide 25.7 (21.0-32.0) mmol/L Anion Gap 12.1 BUN 18.0 (7.0-18.0) mg/dL Creatinine 1.17 H (0.55-1.02) mg/dL Est GFR ( Amer) 54 L (>=60 mL/min/1.73m^2) Est GFR (Non-Af Amer) 45 L (>=60 mL/min/1.73m^2) BUN/Creatinine Ratio 15.4 Glucose 173 H (74-106) mg/dL Calcium 9.4 (8.5-10.1) mg/dL Total Bilirubin 0.3 (0.2-1.0) mg/dL AST 24 (15-37) U/L ALT 35 (14-59) U/L Alkaline Phosphatase 83 (46-116) U/L Troponin I High Sens 1234.1 H* 1186.2 H* (4.0-51.3) pg/mL NT-Pro-B Natriuret Pep 1719.0 (<=1800.0) pg/mL Total Protein 7.3 (6.4-8.2) g/dL Albumin 3.7 (3.4-5.0) g/dL Globulin 3.6 g/dL Albumin/Globulin Ratio 1.0 Urine Color Lt. yellow (YELLOW) Urine Clarity Sl cloudy (CLEAR) Urine pH 6.5 (5.0-9.0) Ur Specific [place] 1.010 (1.005-1.025) Urine Protein Negative (NEG/TRACE) mg/dL Urine Glucose (UA) Negative (NEGATIVE) mg/dL Urine Ketones Negative (NEGATIVE) mg/dL Urine Occult Blood Trace-i (NEGATIVE) Urine Nitrite Negative (NEGATIVE) Urine Bilirubin Negative (NEGATIVE) Urine Urobilinogen 0.2 (0.2-1.0) EU/dL Ur Leukocyte Esterase Large A (NEGATIVE) Urine RBC None seen (0-2) #/HPF Urine WBC 75-100 A (NONE SEEN) #/HPF Ur Squamous Epith Cells Many A (NONE/RARE) #/LPF Urine Crystals None seen (None Seen) #/HPF Urine Bacteria Moderate A (NONE SEEN) #/HPF Urine Casts None seen (NONE SEEN) #/LPF Urine Mucus None seen (NONE SEEN) Ur Culture Indicated? Yes-[facility] Imaging Data CT scan - head: Radiologist's impression: ITS Impressions Head CT 07/14/25 17:50 IMPRESSION: No acute findings. Impression dictated by: Faisal Ga M.D. 07/14/2025 6:55 PM Dictation Location: [facility] Electronically authenticated by: [id number] Y Date: 07/14/2025 18:[address] 07/14/25 17:52 IMPRESSION: No acute process Impression dictated by: Faisal Ga M.D. 07/14/2025 6:57 PM Dictation Location: [facility] Electronically authenticated by: [id number] Y Date: 07/14/2025 18:57 Chest X-Ray 07/14/25 17:59 IMPRESSION: No acute process. Impression dictated by: Faisal Ga M.D. 07/14/2025 7:01 PM Dictation Location: [facility] Electronically authenticated by: [id number] Y Date: 07/14/2025 19:01 Pelvis X-Ray 07/14/25 17:59 IMPRESSION:Unremarkable exam. Impression dictated by: Faisal Ga M.D. 07/14/2025 6:59 PM Dictation Location: [facility] Electronically authenticated by: [id number] Y Date: 07/14/2025 18:59 Discharge Plan Discharge Chief Complaint: Fall Clinical Impression: Non-ST elevation ID (NSTEMI), Acute decompensated heart failure, Fall, Acute shoulder pain Patient Disposition: [facility] Time of Disposition Decision: 21:00 Discharge Location: [facility] Discharge Date/Time: 07/15/25 00:11
--- NOTE | 2025-07-14 17:59 | XR_ITS ---
[place] [id number] Patient Name: BLAYNE LÓPEZ MRN: [id number] date: 1950 Sex: F Assigned Patient Location: ER Current Patient Location: ER Accession/Order Number: [id number] Exam Date: 07/14/2025 18:20 Report Date: 07/14/2025 18:59 At the request of: ROLY DURAN DO Procedure: XR pelvis 1-2V Single view of the pelvis plain film HISTORY: Fell. COMPARISON: None ACUTE FINDINGS: None BONY ALIGNMENT: Adequate SOFT TISSUES: Unremarkable DEGENERATIVE CHANGE:Mild INTRAPELVIC STRUCTURES: Unremarkable POSTSURGICAL CHANGES:None XR/XR pelvis 1-2V IMPRESSION:Unremarkable exam. Impression dictated by: Faisal Ga M.D. 07/14/2025 6:59 PM Dictation Location: [place] [address] Electronically authenticated by: [id number] Y Date: 07/14/2025 18:59
--- NOTE | 2025-07-14 17:59 | XR_ITS ---
[address] [address] Patient Name: BLAYNE LÓPEZ MRN: [id number] date: 1950 Sex: F Assigned Patient Location: ER Current Patient Location: ER Accession/Order Number: [id number] Exam Date: 07/14/2025 18:20 Report Date: 07/14/2025 19:01 At the request of: ROLY DURAN DO Procedure: XR chest 1V Plain film chest Single view HISTORY: Fell. Right shoulder injury COMPARISON: 11/27/2021 FINDINGS: SUPPORT DEVICES: None POSTSURGICAL CHANGES: Left axillary surgical clips HEART: Mild cardiomegaly PULMONARY EDMUNDO: Within normal limits MEDIASTINUM: Unremarkable LUNGS AND PLEURA: No acute lung process, pleural effusion or pneumothorax identified. Moderate right hemidiaphragm elevation redemonstrated BONY STRUCTURES: Intact ADDITIONAL FINDINGS None XR/XR chest 1V IMPRESSION: No acute process. Impression dictated by: Faisal Ga M.D. 07/14/2025 7:01 PM Dictation Location: [facility] Electronically authenticated by: [id number] Y Date: 07/14/2025 19:01
[2025-07-14 18:53] LABS: Hematocrit 41.6 % (36.0-48.0); Hemoglobin 13.5 g/dL (12.0-16.0); Immature Granulocytes Abs Auto 0.02 10^3/uL (0.00-0.03); Immature Granulocytes Pct Auto 0.3 % (0.0-0.5); Lymphocytes Absolute Auto 0.7 10^3/uL (1.2-3.8); Mean Corpuscular HGB Conc 32.5 g/dL (29.9-35.2); Mean Corpuscular Hemoglobin 31.5 pg (26.7-34.0); Mean Corpuscular Volume 97.0 fL (81.0-99.0); Platelet Count 222 10^3/uL (150-450); Red Blood Count 4.29 10^6/uL (4.20-5.40); White Blood Count 7.9 10^3/uL (4.0-11.0)
[2025-07-14 19:17] LABS: Alanine Aminotransferase 35 U/L (14-59); Albumin Globulin Ratio 1.0; Albumin Level 3.7 g/dL (3.4-5.0); Alkaline Phosphatase 83 U/L (46-116); Anion Gap 12.1; Aspartate Amino Transferase 24 U/L (15-37); Blood Urea Nitrogen 18.0 mg/dL (7.0-18.0); Calcium 9.4 mg/dL (8.5-10.1); Carbon Dioxide 25.7 mmol/L (21.0-32.0); Chloride 103 mmol/L (98-107); Estimated GFR (African America 54 (>=60 mL/min/1.73m^2); Estimated GFR (Non-African Ame 45 (>=60 mL/min/1.73m^2); Globulin 3.6 g/dL; Glucose 173 mg/dL (74-106); Potassium 3.8 mmol/L (3.5-5.1); Sodium 137 mmol/L (136-145); Total Protein 7.3 g/dL (6.4-8.2)
--- NOTE | 2025-07-14 19:39 | ECG_ITS ---
[facility] Test Date: 2025-07-14 Pat Name: BLAYNE LÓPEZ Department: Room: - Gender: Female Licensed Occupational Therapy Assistant: : [id number] Requested By: David Fang Order Number: [id number] Reading MD: KELVIN LOVE M.D. Measurements Intervals [place] Rate: 84 P: -44 WI: 228 QRS: -30 QRSD: 102 T: 68 QT: 350 QTc: 391 Interpretive Statements NORMAL SINUS RHYTHM 2231 First degree AV block 3114 Cannot rule out anterior myocardial infarction, age undetermined 8102 Low QRS voltage in chest leads 9150 abnormal ECG Compared to ECG 07/14/2025 18:53:15 No significant changes Electronically Signed On 07-15-2025 13:25:25 EST by KELVIN LOVE M.D.
[2025-07-14 19:46] LABS: Glucose Urine UA NEGATIVE (NEGATIVE)
[2025-07-14 19:59] LABS: Cast Seen? NONE SEEN #/LPF (NONE SEEN); Crystals Seen? None Seen #/HPF (None Seen); Urine Culture Indicated YES-FRMC
--- NOTE | 2025-07-14 23:56 | PC.NURSE ---
[facility] arrives at this time.
== END 2025-07-15 00:11 | disposition short-term general hospital (02) ==
PROVIDERS: Physician Assistant; Emergency Provider Student in an Organized Health Care Education/Training Program; PCP Family Medicine
DX: I21.4 Non-ST elevation (NSTEMI) myocardial infarction (principal); I50.9 Heart failure, unspecified; M25.511 Pain in right shoulder; Z91.81 History of falling
CPT/HCPCS: 36415; 70450; 71045; 72125; 72170; 76376; 80053; 81001; 83880; 84484; 85025; 87086; 87088; 87186; 93005; 99285